=== PATIENT | female | born 1940 | race Caucasian/White ===

== ENCOUNTER 2017-06-08 17:20 | Inpatient (IN) | payer MEDICARE, OTHER ==
[2017-06-08 18:36] LABS: ANION GAP 12.5; CHLORIDE,CL 102 mmol/L (101-111); SODIUM,NA 139 mmol/L (135-145)
[2017-06-08] MEDS ORDERED: cefTRIAXone 1 GM Vial IVPUSH ONE (18:55)
--- NOTE | 2017-06-08 18:57 | EDM.PDOC ---
Scribed by Shawanda Westfall 06/08/17 [id number] for Rosendo Hinojosa MD ED HPI GENERAL MEDICAL PROBLEM - General Chief Complaint: Back Pain or Injury Stated Complaint: CAME BY AMBULANCE Time Seen by Provider: 06/08/17 17:25 Source of Information: Reports: Patient, EMS, EMS Notes Reviewed, RN, RN Notes Reviewed History Limitations: Reports: No Limitations - History of Present Illness INITIAL COMMENTS - FREE TEXT/NARRATIVE: Patient arrives from home by ambulance with complaint of severe generalized weakness and a flare up of chronic lowback pain without recent injury. Over the past few weeks patient has been getting progressively weaker. Today she could not get up from laying on the sofa and her could not get her up. Denies fever, chills, shortness of breath, chest pain, abdominal pain, headache, slurred speech or lateralizing neuro deficits. Admits to leaking urine. Unsure if any dark or black stool.s Location: Reports: Back Quality: Reports: Ache Severity: Severe Improves with: Reports: None Worsens with: Reports: None Associated Symptoms: Reports: No Other Symptoms Lower Back Pain Score (Numeric/FACES): 2 - Related Data Allergies Allergy/AdvReac Type Severity Reaction Status Date / Time shellfish derived Allergy Diarrhea Verified 06/08/17 17:20 tape Allergy Blisters Uncoded 04/06/16 17:16 Home Meds: Home Meds Lisinopril 40 mg PO DAILY 12/07/14 [History] Metoprolol Succinate [Toprol XL] 200 mg PO DAILY 12/07/14 [History] Calcium Carbonate/Vitamin D3 [Calcium 600 + Vit D 200] 1 tab PO DAILY 11/06/15 [ History] Pyridoxine HCl [Vitamin B-6] 25 mg PO DAILY 04/06/16 [History] Diltiazem [Cardizem CD] 180 mg PO DAILY 04/09/16 [History] Hydrocodone/Acetaminophen [Hydrocodon-Acetaminophn 10-325] 1 tab PO Q4H PRN [History] Menthol/Methyl Salicylate [Icy Hot Cream] 1 gm TOP BID 04/09/16 [History] Warfarin [Coumadin] 5 mg PO DAILY@1400 #30 tablet 05/04/16 [Rx] Alendronate Sodium [Alendronate] 70 mg PO 06/08/17 [History] Aspirin [Adult Low Dose Aspirin EC] 1 tab PO DAILY 06/08/17 [History] Calcium Carbonate [Calcium] 600 mg PO 06/08/17 [History] DULoxetine HCl [Duloxetine HCl] 1 tab PO DAILY 06/08/17 [History] Diltiazem HCl [Diltiazem 24Hr ER] 1 tab PO DAILY 06/08/17 [History] Letrozole [Letrozole] 1 tab PO DAILY 06/08/17 [History] Lidocaine/Prilocaine [EMLA Crm] 1 applic TOP ONETIME PRN 06/08/17 [History] Lisinopril 1 tab PO DAILY 06/08/17 [History] Naproxen 1 tab PO DAILY PRN 06/08/17 [History] Past Medical History HEENT History: Reports: Cataract, Epistaxis (anterior), Impaired Vision Other HEENT History: wears glasses Cardiovascular History: Reports: Afib, High Cholesterol, Hypertension, Other ( See Below) Other Cardiovascular History: At fib is new onset discovered today at the clinic Respiratory History: Reports: None Gastrointestinal History: Reports: Colon Polyp, Irritable Bowel Syndrome Genitourinary History: Reports: Urinary Incontinence, UTI, Recurrent, Other ( See Below) Other Genitourinary History: leaking 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 Fracture of fibula.) Other Musculoskeletal History: Right fibula fx 04-06-16 Neurological History: Reports: None Psychiatric History: Reports: None Endocrine/Metabolic History: Reports: Obesity/BMI 30+, Other (See Below) (pre diabetes) Hematologic History: Reports: None (potassium in blood.), Anticoagulation Therapy, Other (See Below) Immunologic History: Reports: None Oncologic (Cancer) History: Reports: Breast (malignant neoplasm overlapping sites of right breast.) Dermatologic History: Reports: None, Other (See Below) Other Dermatologic History: does have some reddness and blisters by the port on right upper shoulder - Infectious Disease History Infectious Disease History: Reports: Chicken Pox, Measles, Mumps - Past Surgical History HEENT Surgical History: Reports: Cataract Surgery Social & Family History - Family History Family Medical History: Noncontributory - Tobacco Use Smoking Status *Q: Former Smoker Years of Tobacco use: 20 Packs/Tins Daily: 1 Used Tobacco, but Quit: Yes Month Tobacco Last Used: unknown Second Hand Smoke Exposure: No - Caffeine Use Caffeine Use: Reports: Coffee - Recreational Drug Use Recreational Drug Use: No - Living Situation & Occupation Living situation: Reports: with Family Occupation: Retired ED ROS GENERAL - Review of Systems Review Of Systems: ROS reveals no pertinent complaints other than HPI. ED EXAM,LOWER BACK PAIN/INJURY - Physical Exam Exam: See Below Exam Limited By: No Limitations General Appearance: Obese Eye Exam: Bilateral Eye: Normal Inspection Ears: Normal External Exam, Normal Canal, Hearing Grossly Normal, Normal TMs Nose: Normal Inspection, Normal Mucosa, No Blood Throat/Mouth: Other (dry oral membranes) Head: Atraumatic, Normocephalic Neck: Normal Inspection, Supple, Non-Tender, Full Range of Motion Respiratory/Chest: Decreased Breath Sounds (in bilateral bases.) Cardiovascular: Irregularly Irregular GI/Abdominal: Other (benign obese) (Female) Exam: Deferred Rectal (Female) Exam: Deferred Back Exam: Normal Inspection, Full Range of Motion, NT Extremities: Normal Inspection, Normal Range of Motion, Non-Tender, No Pedal Edema, Normal Capillary Refill Neurological: Other (generalized weakness) Psychiatric: Normal Affect, Normal Mood Skin Exam: Warm, Dry, Intact, Other (pallor) Course - Vital Signs Last Recorded V/S: Last Vital Signs Temp 36.2 C 06/08/17 17:15 Pulse 69 06/08/17 17:15 Resp 16 06/08/17 17:15 BP 116/86 06/08/17 17:20 Pulse Ox 98 06/08/17 17:15 - Orders/Labs/Meds Orders: Active Orders 24 hr Category Date Time Status Peripheral IV Care [RC] . DIRECTED Care 06/08/17 17:57 Active CULTURE URINE [RM] Stat Lab 06/08/17 18:53 Ordered Sodium Chloride 0.9% [Saline Flush] Med 06/08/17 17:56 Active 10 ml FLUSH ASDIRECTED PRN cefTRIAXone [Rocephin] Med 06/08/17 18:55 Once 1 gm IVPUSH ONETIME ONE Peripheral IV Insertion Adult [OM.PC] Stat Oth 06/08/17 17:56 Ordered Medication Orders Sodium Chloride (Saline Flush) 10 ml FLUSH ASDIRECTED PRN PRN Reason: Keep Vein Open Labs: Laboratory Tests 06/08/17 06/08/17 06/08/17 Range/Units 18:10 18:10 18:10 WBC 11.1 H (5.0-10.0) 10^3/uL RBC 4.86 (4.2-5.4) 10^6/uL Hgb 14.3 D (12.0-16.0) g/dL Hct 43.9 (37.0-47.0) % MCV 90.3 D (80-100) fL MCH 29.4 (27.0-34.0) pg MCHC 32.6 L (33.0-35.0) g/dL Plt Count 223 (150-450) 10^3/uL Neut % (Auto) 65.3 (42.2-75.2) % Lymph % (Auto) 18.2 L (20.5-50.1) % [place] % (Auto) 14.9 H (2-8) % Eos % (Auto) 1.3 (1.0-3.0) % Baso % (Auto) 0.3 (0.0-1.0) % PT 24.1 H (9.0-12.0) SEC INR 2.4 H (0.9-1.2) Sodium 139 (135-145) mmol/L Potassium 3.5 L (3.6-5.0) mmol/L Chloride 102 (101-111) mmol/L Carbon Dioxide 28.0 (21.0-31.0) mmol/L Anion Gap 12.5 BUN 15 (7-18) mg/dL Creatinine 0.8 (0.6-1.3) mg/dL Est Cr Clr Drug Dosing 54.25 mL/min Estimated GFR (MDRD) > 60 BUN/Creatinine Ratio 18.75 Glucose 113 H (74-105) mg/dL Calcium 9.0 (8.4-10.2) mg/dl Total Bilirubin 1.0 (0.2-1.0) mg/dL AST 26 (10-42) IU/L ALT 25 (10-60) IU/L Alkaline Phosphatase 69 (42-121) IU/L Creatine Kinase 58 (26-174) IU/L Total Protein 7.4 (6.7-8.2) g/dl Albumin 3.6 (3.2-5.5) g/dl Globulin 3.8 Albumin/Globulin Ratio 0.95 Urine Color (YELLOW) Urine Appearance (CLEAR) Urine pH (5.0-9.0) Ur Specific Faber (1.005-1.030) Urine Protein (NEGATIVE) Urine Glucose (UA) (NEGATIVE) Urine Ketones (NEGATIVE) Urine Occult Blood (NEGATIVE) Urine Nitrite (NEGATIVE) Urine Bilirubin (NEGATIVE) Urine Urobilinogen (0.2-1.0) mg/dL Ur Leukocyte Esterase (NEGATIVE) Urine RBC /HPF Urine WBC (0-5/HPF) /HPF Ur Epithelial Cells /HPF Urine Bacteria (0-FEW/HPF) /HPF 06/08/17 Range/Units 18:25 WBC (5.0-10.0) 10^3/uL RBC (4.2-5.4) 10^6/uL Hgb (12.0-16.0) g/dL Hct (37.0-47.0) % MCV (80-100) fL MCH (27.0-34.0) pg MCHC (33.0-35.0) g/dL Plt Count (150-450) 10^3/uL Neut % (Auto) (42.2-75.2) % Lymph % (Auto) (20.5-50.1) % [place] % (Auto) (2-8) % Eos % (Auto) (1.0-3.0) % Baso % (Auto) (0.0-1.0) % PT (9.0-12.0) SEC INR (0.9-1.2) Sodium (135-145) mmol/L Potassium (3.6-5.0) mmol/L Chloride (101-111) mmol/L Carbon Dioxide (21.0-31.0) mmol/L Anion Gap BUN (7-18) mg/dL Creatinine (0.6-1.3) mg/dL Est Cr Clr Drug Dosing mL/min Estimated GFR (MDRD) BUN/Creatinine Ratio Glucose (74-105) mg/dL Calcium (8.4-10.2) mg/dl Total Bilirubin (0.2-1.0) mg/dL AST (10-42) IU/L ALT (10-60) IU/L Alkaline Phosphatase (42-121) IU/L Creatine Kinase (26-174) IU/L Total Protein (6.7-8.2) g/dl Albumin (3.2-5.5) g/dl Globulin Albumin/Globulin Ratio Urine Color Yellow (YELLOW) Urine Appearance Cloudy (CLEAR) Urine pH 5.5 (5.0-9.0) Ur Specific Faber 1.025 (1.005-1.030) Urine Protein Negative (NEGATIVE) Urine Glucose (UA) Negative (NEGATIVE) Urine Ketones Negative (NEGATIVE) Urine Occult Blood Small H (NEGATIVE) Urine Nitrite Positive H (NEGATIVE) Urine Bilirubin Negative (NEGATIVE) Urine Urobilinogen 0.2 (0.2-1.0) mg/dL Ur Leukocyte Esterase Small H (NEGATIVE) Urine RBC 5-10 H /HPF Urine WBC Semi-packed H (0-5/HPF) /HPF Ur Epithelial Cells Rare /HPF Urine Bacteria Many H (0-FEW/HPF) /HPF Hemoccult is negative. Meds: Medications Generic Name Dose Route Start Last Admin Trade Name Freq PRN Reason Stop Dose Admin Sodium Chloride 10 ml 06/08/17 17:56 Saline Flush FLUSH ASDIRECTED PRN Keep Vein Open Departure - Departure Time of Disposition: 18:48 (Admit to Dr. Cook) Disposition: Admitted As Inpatient 64 Condition: Fair Clinical Impression: Weakness, Morbid obesity Low back pain Qualifiers: Chronicity: acute Back pain laterality: unspecified Sciatica presence: with sciatica Sciatica laterality: sciatica laterality unspecified Qualified Code(s) : M54.40 - Lumbago with sciatica, unspecified side UTI (urinary tract infection) Qualifiers: Urinary tract infection type: site unspecified Hematuria presence: with hematuria Qualified Code(s): N39.0 - Urinary tract infection, site not specified ; R31.9 - Hematuria, unspecified; R31.9 - Hematuria, unspecified - Discharge Information Forms: ED Department Discharge - My Orders Last 24 Hours: My Active Orders 06/08/17 17:56 Sodium Chloride 0.9% [Saline Flush] 10 ml FLUSH ASDIRECTED PRN Peripheral IV Insertion Adult [OM.PC] Stat 06/08/17 17:57 Peripheral IV Care [RC] . DIRECTED 06/08/17 18:53 CULTURE URINE [RM] Stat 06/08/17 18:55 cefTRIAXone [Rocephin] 1 gm IVPUSH ONETIME ONE - Assessment/Plan Last 24 Hours: My Active Orders 06/08/17 17:56 Sodium Chloride 0.9% [Saline Flush] 10 ml FLUSH ASDIRECTED PRN Peripheral IV Insertion Adult [OM.PC] Stat 06/08/17 17:57 Peripheral IV Care [RC] . DIRECTED 06/08/17 18:53 CULTURE URINE [RM] Stat 06/08/17 18:55 cefTRIAXone [Rocephin] 1 gm IVPUSH ONETIME ONE I have read and agree with the documentation that has been completed regarding this visit. By signing this record, I attest that the documentation was completed in my physical presence and is an accurate record of the encounter.
[2017-06-08] MEDS: Sodium Chloride 0.9% 10 ML Syringe FLUSH PRN (19:05)
[2017-06-08] MEDS ORDERED: Acetaminophen/HYDROcodone 325-10 MG Tab PO PRN (20:53)
[2017-06-08] MEDS ORDERED: Naproxen 500 MG Tab PO PRN (21:45)
[2017-06-08] MEDS ORDERED: Lidocaine/Prilocaine 2.5-2.5% Crm 5 GM Tube TOP PRN (21:45)
[2017-06-08] MEDS: Menthol/Methyl Salicylate 85 GM Tube TOP SCH (22:19)
[2017-06-09] MEDS: Diltiazem 240 MG Cap.CD PO SCH (08:52)
[2017-06-09] MEDS: Calcium Carbonate 500 MG Tab.Chew PO SCH (08:52)
[2017-06-09] MEDS: DULoxetine 30 MG Cap PO SCH (08:52)
[2017-06-09] MEDS: Lisinopril 20 MG Tab PO SCH (08:52)
[2017-06-09] MEDS: Metoprolol Succinate 50 MG Tab.ER PO SCH (08:53)
[2017-06-09] MEDS: Menthol/Methyl Salicylate 85 GM Tube TOP SCH ×2 (08:53→20:20)
[2017-06-09] MEDS: Magnesium Hydroxide 400 MG/5 ML Susp 30 ML Cup PO SCH (13:12)
[2017-06-09] MEDS ORDERED: Warfarin 5 MG Tab PO ONE (14:00)
--- NOTE | 2017-06-09 16:26 | HP ---
HISTORY OF PRESENT ILLNESS: Ms. Haley is a 76-year-old female, admitted here because of generalized weakness. The patient actually is really not ambulating at home. She gets around using an electric power chair; however, today her legs collapsed and her not able to pull her back up. Actually this has been going on intermittently for quite a while that they needed help from their next door neighbors. The patient has chronic low back pain, however, with no recent falls or injury. Brief review of clinic records, MRI done last month showed chronic disc degeneration and mild stenosis. She denies any changes on her bowel or bladder habits. She is intermittently constipated; her last bowel movement was yesterday. Her needed to disimpact her occasionally. Currently, denies any signs of infection, fever, chills, shortness of breath, or chest pain. No dysuria. However, urinalysis on emergency room showed findings suggestive of urinary tract infection. The patient has atrial fibrillation, but denies any palpitations or dizziness. No focal deficits. PAST MEDICAL HISTORY: Hypertension, dyslipidemia, diverticulosis, history of breast cancer, prediabetes, osteopenia, stroke, and atrial fibrillation, on anticoagulation. PAST SURGICAL HISTORY: Mastectomy, tonsillectomy, appendectomy, hysterectomy, elbow fracture surgery, colonoscopy, ankle surgery. FAMILY HISTORY: Alzheimer's in the mom and stroke in the father. Breast cancer in maternal grandmother. SOCIAL HISTORY: The patient lives at home with her , who is her caregiver. She has 3 kids. MEDICATIONS: Reviewed. ALLERGIES: reviewed REVIEW OF SYSTEMS: Ten systems reviewed and were negative except for those mentioned above. LABORATORY DATA: WBC 11.1, hemoglobin 14.3, platelets 223. INR 2.4. Sodium 139, potassium 3.5, chloride 102, creatinine 0.8, GFR more than 60, glucose 113, calcium 9.0, magnesium 1.9. Aminotransferase is normal. Urinalysis showed semi - packed urine wbc with small leukocyte esterase and rare epithelial cells. PHYSICAL EXAM: Vital signs: reviewed GENERAL APPEARANCE: not in distress, awake, alert HEAD: normocephalic EYES: anicteric, full EOMS Chest: symmetric chest expansion LUNGS: Bilateral air entry CVS: regular rate, no murmurs appreciated ABDOMEN: soft, normoactive bowel sounds, no tenderness EXTREMITIES: no edema NEUROLOGIC: awake, oriented to three spheres ASSESSMENT AND PLAN: General weakness, can be multifactorial from the debility as patient has not been that ambulatory versus an underlying urinary tract infection. She was already given ceftriaxone at the emergency room given at 6: 55. We will continue this pending urine culture. We will continue her antihypertensives. Currently, she remains hemodynamically stable. We will have Physical Therapy and Occupational Therapy work on her for strengthening and ambulation. Subsequently, verbalized that he might not be able to care for her anymore looking into placement. We will have our sample case porter, social work nurse to take a look at this. We will continue to follow patient in Medical- Surgical bed. CODE STATUS: Full code. [facility] /[id number] MTDChristie
[2017-06-09] MEDS: LETROZOLE PO SCH (17:37)
[2017-06-09] MEDS: cefTRIAXone 1 GM Vial IVPUSH SCH (17:57)
--- NOTE | 2017-06-10 07:18 | PN ---
DATE: 06/09/2017 SUBJECTIVE: Ms. Haley feels better today. Occupational Therapy and Physical Therapy were there and she is not able to really stand that long. She had problems with constipation, we have started her on milk of magnesia. Last bowel movement was yesterday. Otherwise, tolerating meals. No chest pain, shortness of breath, fever, or chills. OBJECTIVE: Vital Signs: Blood pressure 142/71, heart rate of 71 beats per minute, respirations 20 breaths per minute, oxygen saturation 92%, temperature 98.4. General Appearance: Awake, in distress. Chest: Symmetric chest expansion. Lungs: Bilateral air entry. CVS: Regular rate and rhythm. Abdomen: Soft. Normoactive bowel sounds. Extremities: No edema. Good pulses. LABORATORY DATA: INR is 2.5. ASSESSMENT AND PLAN: Weakness, can be multifactorial. Again, we will continue to work with therapy. has verbalized that he may not be able to take care of her anymore and might need to be placed. Continue with Rocephin for the findings suggestive of urinary tract infection. Awaiting urine culture. Her INR is therapeutic today. Apparently, she took her dose of warfarin from her own pill box, she was advised that nurses usually administer this while inpatient. We will continue to follow INR daily. We will continue to follow the patient in the medical-surgical bed. [facility] /[id number] MTDD
[2017-06-10] MEDS: Magnesium Hydroxide 400 MG/5 ML Susp 30 ML Cup PO SCH (08:58)
[2017-06-10] MEDS: DULoxetine 30 MG Cap PO SCH (08:59)
[2017-06-10] MEDS: Calcium Carbonate 500 MG Tab.Chew PO SCH (08:59)
[2017-06-10] MEDS: Diltiazem 240 MG Cap.CD PO SCH (08:59)
[2017-06-10] MEDS: Metoprolol Succinate 50 MG Tab.ER PO SCH (08:59)
[2017-06-10] MEDS: LETROZOLE PO SCH (08:59)
[2017-06-10] MEDS: Lisinopril 20 MG Tab PO SCH (08:59)
[2017-06-10] MEDS: Menthol/Methyl Salicylate 85 GM Tube TOP SCH ×2 (09:00→20:48)
[2017-06-10] MEDS ORDERED: Warfarin 5 MG Tab PO ONE (14:00)
[2017-06-10] MEDS ORDERED: Acetaminophen/HYDROcodone 325-5 MG Tab PO PRN (15:10)
[2017-06-10] MEDS ORDERED: Ondansetron 4 MG/2 ML SDV IV PRN (16:09)
[2017-06-10] MEDS ORDERED: Furosemide 20 MG/2 ML VIAL IVPUSH ONE (17:41)
[2017-06-10] MEDS: cefTRIAXone 1 GM Vial IVPUSH SCH (17:49)
[2017-06-11] MEDS: DULoxetine 30 MG Cap PO SCH (08:44)
[2017-06-11] MEDS: Magnesium Hydroxide 400 MG/5 ML Susp 30 ML Cup PO SCH (08:44)
[2017-06-11] MEDS: Lisinopril 20 MG Tab PO SCH (08:44)
[2017-06-11] MEDS: Diltiazem 240 MG Cap.CD PO SCH (08:44)
[2017-06-11] MEDS: Metoprolol Succinate 50 MG Tab.ER PO SCH (08:46)
[2017-06-11] MEDS: Calcium Carbonate 500 MG Tab.Chew PO SCH (08:47)
[2017-06-11] MEDS: Menthol/Methyl Salicylate 85 GM Tube TOP SCH ×2 (08:49→20:59)
[2017-06-11] MEDS: LETROZOLE PO SCH (08:50)
[2017-06-11] MEDS ORDERED: Warfarin 2.5 MG Tab PO ONE (14:00)
[2017-06-11] MEDS: cefTRIAXone 1 GM Vial IVPUSH SCH (17:33)
[2017-06-11] MEDS: Sodium Chloride 0.9% 10 ML Syringe FLUSH PRN (17:33)
[2017-06-12] MEDS ORDERED: ALENDRONATE SODIUM 70 MG PO SCH (06:00)
[2017-06-12] MEDS: Calcium Carbonate 500 MG Tab.Chew PO SCH (10:09)
[2017-06-12] MEDS: Metoprolol Succinate 50 MG Tab.ER PO SCH (10:10)
[2017-06-12] MEDS: Lisinopril 20 MG Tab PO SCH (10:11)
[2017-06-12] MEDS: DULoxetine 30 MG Cap PO SCH (10:11)
[2017-06-12] MEDS: Menthol/Methyl Salicylate 85 GM Tube TOP SCH ×2 (10:12→20:22)
[2017-06-12] MEDS: Diltiazem 240 MG Cap.CD PO SCH (10:12)
[2017-06-12] MEDS: Magnesium Hydroxide 400 MG/5 ML Susp 30 ML Cup PO SCH (10:13)
[2017-06-12] MEDS: LETROZOLE PO SCH (10:14)
[2017-06-12] MEDS ORDERED: Warfarin 2.5 MG Tab PO ONE (14:00)
[2017-06-12] MEDS: cefTRIAXone 1 GM Vial IVPUSH SCH (18:11)
[2017-06-13] MEDS: Lisinopril 20 MG Tab PO SCH (08:42)
[2017-06-13] MEDS: Diltiazem 240 MG Cap.CD PO SCH (08:42)
[2017-06-13] MEDS: Magnesium Hydroxide 400 MG/5 ML Susp 30 ML Cup PO SCH (08:42)
[2017-06-13] MEDS: Metoprolol Succinate 50 MG Tab.ER PO SCH (08:42)
[2017-06-13] MEDS: Calcium Carbonate 500 MG Tab.Chew PO SCH ×2 (08:43→08:46)
[2017-06-13] MEDS: DULoxetine 30 MG Cap PO SCH (08:43)
[2017-06-13] MEDS: Menthol/Methyl Salicylate 85 GM Tube TOP SCH (08:44)
[2017-06-13] MEDS: LETROZOLE PO SCH (08:45)
[2017-06-13] MEDS ORDERED: Magnesium Hydroxide 400 MG/5 ML Susp 30 ML Cup PO PRN (11:35)
[2017-06-13] MEDS ORDERED: Menthol/Methyl Salicylate 85 GM Tube TOP PRN (11:35)
[2017-06-13] MEDS ORDERED: Calcium Carbonate 500 MG Tab.Chew PO PRN (11:35)
[2017-06-13] MEDS ORDERED: Warfarin 2.5 MG Tab PO ONE (14:00)
[2017-06-13] MEDS: cefTRIAXone 1 GM Vial IVPUSH SCH (17:46)
[2017-06-13] MEDS: Sodium Chloride 0.9% 10 ML Syringe FLUSH PRN (17:49)
[2017-06-14] MEDS ORDERED: cefTRIAXone 1 GM Vial IVPUSH ONE (06:00)
[2017-06-14] MEDS: Sodium Chloride 0.9% 10 ML Syringe FLUSH PRN (06:23)
--- NOTE | 2017-06-14 07:53 | PN ---
DATE: 06/11/2017 SUBJECTIVE: Ms. Haley is a 76-year-old lady with multiple medical problems. She was brought in from home following multiple falls and general decline. On exam yesterday, she had been somewhat lethargic, and additional lab work and x- rays were obtained. Repeat labs included a lactic acid which was normal at 1.0. Troponin was negative at 0.02. BNP was slightly elevated at 331. A single-view chest x-ray was obtained and showed mild pulmonary venous congestion. There was moderate enlargement of the cardiac silhouette, most likely representing cardiomegaly. No acute infiltrate or consolidation was seen. An MRI of the brain was performed yesterday and compared to a CT scan of the head performed on May 09. That CT scan of the head showed microvascular ischemic changes and severe symmetric atrophy. The MRI showed moderate amount of changes in the white matter consistent with chronic small vessel ischemic changes. There was no evidence for any new acute infarction or other acute process. She had been given 20 mg of IV Lasix following the findings on the chest x-ray and had a vigorous overnight diuresis. OBJECTIVE: General: On exam today, there is an obvious change in her. She seems more alert and awake. She still remains confused with poor short-term memory, but there is an improvement. Vital Signs: Blood pressure 155/71, pulse 78, respiratory rate 20, oxygen saturation 91% on room air, temperature is 99.0. HEENT: Unremarkable. ENT was clear. Chest: Showed improved bilateral air movement anteriorly and posteriorly. Heart: Showed regular rate and rhythm. Abdomen: Soft, obese, benign. Neuro: Neurologically without change. She still has not had bowel movement and we are using p.r.n. medications for this at this time. If necessary, we will try suppositories and a Mini enema as needed. No other changes are made today. [facility] /[id number] MTDD
--- NOTE | 2017-06-14 07:59 | PN ---
DATE: 06/12/2017 SUBJECTIVE: Mrs. Haley has been seen and evaluated by Physical Therapy. They feel that she can benefit from continued therapy. The current plan is to seek placement at the [facility]; she will be admitted there on June 14. We will place orders for ongoing PT, OT evaluation and treatment at the [facility]. Siri still has not moved her bowels and we continue to use p.r.n. medications for this. Her abdomen is not distended. There are no hyperactive bowel sounds. She is passing gas. Review of her clinical data shows she is taking adequate fluids. She is voiding well. We had put a Rodrigues catheter in for the diuresis, and the Rodrigues catheter will be removed. Appetite remains fairly good. She is tolerating her diet. Labs; INR yesterday was 1.5 and 1.7 today, and Pharmacy continues to dose the Coumadin. OBJECTIVE: General: On exam today, she is in her recliner. She is looking somewhat better, more alert. She is more verbal, still confused, but participates. Vital Signs: Blood pressure 153/68, pulse 80, respiratory rate 20, oxygen saturation 99% on 2 L, and she is afebrile. HEENT: Unremarkable. ENT was clear. Chest: Showed improved bilateral air movement. Heart: Showed regular rate and rhythm. Abdomen: Obese and benign. Neuro: Neurologically, unchanged. ASSESSMENT AND PLAN: We will continue the present management. We are waiting placement on June 14 at [facility]. No other changes are made today. [facility] /[id number] MTDD
--- NOTE | 2017-06-14 08:05 | PN ---
DATE: 06/13/2017 SUBJECTIVE: Mrs. Haley remains hemodynamically, neurologically unchanged. She has been constipated and finally last evening had 3 very large bowel movements. Review of her clinical data shows that her vital signs are stable and she remains afebrile. Blood pressure has improved following the diuresis. Appetite is good. She is tolerating her meals. Labs; INR today is 2.1. Pharmacy will dose the warfarin. We spoke with Siri's , Kale. He does feel that she is somewhat better, but also states that her short-term memory remains very poor. He has told her multiple times that she is going to the alf tomorrow, but she still forgets and asks when she is going home. He has not changed his mind, and we will be admitting her to [facility] tomorrow. OBJECTIVE: General: On exam today, she is seated comfortably in her recliner. She is in good spirits. She participates in her limited way. She denied any chest pain, shortness of breath, abdominal pain, or any other symptoms of concern. Staff is using full body lift for transfers. Vital Signs: Blood pressure 130/80, pulse 68, respiratory rate 20, oxygen saturation 96% on 1 L, and she is afebrile. HEENT: Unremarkable. ENT was clear. Chest: Showed improved bilateral air movement. Heart: Showed regular rate and rhythm. Abdomen: Obese, soft, and benign. Extremities: Showed chronic lower extremity edema. Neuro: Neurologically, unchanged. Rodrigues catheter has been removed, and she is voiding well without the catheter. The current plan is for discharge to [facility] tomorrow. We will review her orders and medications. No other changes are made in her care today. [facility] /[id number] CHARITO
--- NOTE | 2017-06-14 08:26 | PN ---
DATE: 06/10/2017 SUBJECTIVE: Mrs. Haley is a 76-year-old lady brought in from home where she lives with her . Past medical history includes moderate cerebral vascular disease; breast cancer; diverticulosis; atrial fibrillation, on chronic anticoagulation. She was admitted from home following multiple falls and generalized weakness. Her has been caring for at home, but feels that he no longer can care for her safely. Review of her clinical data shows that she is taking fluids. She is voiding. She has not moved her bowels in several days, and today, we will check her bowel regimen. Appetite is good. She is tolerating her diet. LABORATORY DATA: Lab work performed today included a repeat white count which was 10.5, hemoglobin and hematocrit were stable at 13.5 and 41.5, platelets were normal. INR today is 2, and Coumadin is being dosed by Pharmacy. A review of her vital signs shows vital signs to be relatively stable. Systolic blood pressures are running in the 140s to 150s. She has been afebrile but has had minor low-grade temperature of 99.9. Oxygen saturations are above 90% on room air. PHYSICAL EXAMINATION: General: She is in bed. Her , Kale, is present. She is rather lethargic and really does not follow conversation or participate in a meaningful way. Short-term memory is poor. Vital Signs: Blood pressure is 146/73, pulse 72, respiratory rate 20, and oxygen saturation is 93% on room air. She is afebrile. HEENT: Unremarkable ENT. Chest: Showed diminished bilateral breath sounds with faint basilar crackles. Heart: Showed regular rate and rhythm. Abdomen: Obese and benign. Extremities: Showed chronic lower extremity edema. Neurologic: Motor strength was weak. Musculoskeletal: Muscle tone was poor. PLAN: Her lab work from time of admission was reviewed, and it was noted that she appeared to have a UTI with semi-packed white blood cells and many bacteria. Preliminary urine culture shows E. coli, but final ID and sensitivity appear to be still pending. Additional lab work has been ordered including a lactic acid, troponin, and a BMP to see if we can further clarify what is going on with her. I also spoke to her about getting an MRI of the brain. We will also obtain a new chest x-ray to rule out the possibility of a pneumonia. We will base management changes on the results of these tests. No other changes are made. [facility] /[id number] CHARITO
[2017-06-14] MEDS: DULoxetine 30 MG Cap PO SCH (10:02)
[2017-06-14] MEDS: Diltiazem 240 MG Cap.CD PO SCH (10:02)
[2017-06-14] MEDS: Lisinopril 20 MG Tab PO SCH (10:03)
[2017-06-14] MEDS: Metoprolol Succinate 50 MG Tab.ER PO SCH (10:03)
[2017-06-14] MEDS: LETROZOLE PO SCH (10:05)
[2017-06-14 10:46] VITALS: BP 162/74
[2017-06-14] MEDS ORDERED: Warfarin 2.5 MG Tab PO ONE (11:00)
--- NOTE | 2017-07-20 02:51 | DISCH ---
DISCHARGE DIAGNOSES: 1. Cerebrovascular disease, moderate. 2. Dementia, microvascular. 3. Generalized debility and weakness with impaired ability to perform ADLs and to ambulate. 4. Atrial fibrillation, on chronic anticoagulation. 5. Breast cancer, on Letrozole. 6. Urinary tract infection, Escherichia coli. 7. Cardiomegaly with mild pulmonary venous congestion by chest x-ray. 8. Constipation. 9. Multiple falls at home. 10.[id number] back pain. Recent MRI shows degenerative disease of the lumbosacral spine with mild stenosis. BRIEF HISTORY OF PRESENT ILLNESS: Mrs. Haley is a 76-year-old lady, who was brought in from home where she lives with her . She was admitted from home following multiple falls and generalized weakness. Her had been caring for her at home, but feels he can no longer care for her safely. She is no longer ambulating. She had been getting around the house in an electric power chair, but on the day of admission, her legs gave out. She fell and her was not able to get her back up. Recent MRI of the spine showed chronic disk degeneration and mild stenosis. She was seen in the ER and evaluated and was admitted for further management. PERTINENT LABS AND X-RAYS: CBC on day of admission showed a white count of 11,000, hemoglobin and hematocrit of 14.3 and 43.9, platelets are 223,000. Chemistries were essentially unremarkable. Potassium was slightly decreased at 3.5, BUN and creatinine of 15 and 0.8 with a GFR of more than 60. Nonfasting blood sugar was 113. LFTs were unremarkable. Troponin was negative at less than 0.02. BNP was mildly elevated at 331, and on recheck before discharge was 419. Urinalysis showed the presence of a urinary tract infection with semi-packed white blood cells and many bacteria. Mrs. Haley is on chronic Coumadin anticoagulation and her INR was followed on a daily basis and remained in therapeutic range (2.0 to 3.0). Two sets of blood cultures remained without growth after 5 days. A urine culture was positive for E. coli which was sensitive to all antibiotics tested. One sample of stool for occult blood was negative. A single-view chest x-ray was taken on 06/10 when she experienced some shortness of breath and a slight increase in her BNP. Chest x-ray showed mild vascular congestion with moderate enlargement of the cardiac silhouette, most likely representing cardiomegaly. An MRI of the brain without contrast was obtained because of her altered mental status and memory loss. There was no evidence for an acute process or acute infarct. There was moderate chronic small-vessel ischemic changes throughout the white matter. HOSPITAL COURSE: Mrs. Haley was admitted as an acute inpatient. She was seen and evaluated by Physical and Occupational Therapy. She was started on ceftriaxone 1 g IV every 24 hours for the urinary tract infection while we awaited cultures. Her Coumadin was continued and dosed by pharmacy. Following the findings on a chest x-ray of mild pulmonary venous congestion as well as some shortness of breath, she was given 20 mg of IV Lasix and had a vigorous overnight diuresis. Rodrigues catheter had been temporarily placed because of her inability to move and get up easily to get to the bathroom. Her back pain precluded using a bedside commode and when given the choice, she requested the catheter over the commode. She did have some issues with constipation and had been using p.r.n. medications for this at home. We tried rectal suppositories to help with this. Mrs. Haley was seen, evaluated by Physical and Occupational Therapy and they felt that she could benefit from continued therapy and we will make referrals for ongoing management when she is at [facility]. Mr. Haley felt that his was doing somewhat better, but her short-term memory remains very poor. He told her multiple times that she will be going to the senior care on the day of discharge, but she forgets and then asks him when she is going home. He has not changed his mind and feels that admission to the senior care is the correct thing for them at this time. Review of her clinical data shows that she took adequate fluids. She was voiding. She eventually started moving her bowels once we increased her bowel management. Rodrigues catheter was temporarily placed during the diuresis and this was removed prior to discharge. Her vital signs remained stable throughout admission and she remained afebrile. On the day of discharge, she is seated comfortably in her recliner. Vital Signs: Blood pressure was 146/81, pulse 77, respiratory rate 20, oxygen saturation 93% on room air, and she was afebrile. Height 5 feet 5 inches, weight 280 pounds 6.4 ounces. General: She is lying comfortably in bed. She denied any complaints. She denied any chest pain or shortness of breath. No abdominal pain. No calf or leg pain. She is pleasantly confused. HEENT: Unremarkable. There were no JVDs or bruits. No adenopathy. No thyromegaly. Chest: Showed improved bilateral air movement following diuresis. Heart: Showed regular rate and rhythm. Abdomen: Obese, soft, benign with normal bowel sounds. Extremities: Showed chronic lower extremity edema. Calves were soft and nontender. There was no cellulitis. Neurological: There were no gross motor or sensory deficits. Motor strength was weak and muscle tone was poor. She will be discharged to [facility] today in stable condition. She will continue working with Physical and Occupational Therapy. DISCHARGE MEDICATIONS: 1. Alendronate 70 mg weekly. 2. Calcium carbonate 500 mg t.i.d. p.r.n. 3. Calcium citrate with vitamin D one tablet daily. 4. Diltiazem 240 mg daily. 5. Duloxetine 30 mg daily. 6. Furosemide 40 mg daily. 7. Letrozole 2.5 mg daily. 8. Lisinopril 40 mg daily. 9. Icy Hot applied topically twice a day. 10.Metoprolol succinate 200 mg daily. 11.Zofran ODT 4 mg every 4 hours p.r.n. 12.Potassium chloride 10 mEq daily. 13.Coumadin 5 mg daily. ALLERGIES: She has no known drug allergies, but has allergies to shellfish and to tape. CONDITION AT THE TIME OF DISCHARGE: Improved and stable, but she remains confused with poor memory. CODE STATUS: During this admission was full code. [facility] /[id number] MTDD
== END 2017-06-14 12:40 | DRG 948 ==
LOC: DL.ED 17:20 → DL.MS 19:43 → UNDOADMOB 19:43 → DL.MS 20:51 → OBSVTOIN 20:51
PROVIDERS: ADMIT Internal Medicine; ATTEND Internal Medicine
DX: R53.1 Weakness (principal); N39.0 Urinary tract infection, site not specified; M54.40 Lumbago with sciatica, unspecified side; R31.9 Hematuria, unspecified; Z68.42 Body mass index [BMI] 45.0-49.9, adult; B96.20 Unspecified Escherichia coli [E. coli] as the cause of diseases classified elsewhere; E78.00 Pure hypercholesterolemia, unspecified; I48.91 Unspecified atrial fibrillation; E78.5 Hyperlipidemia, unspecified; I10 Essential (primary) hypertension; R32 Unspecified urinary incontinence; G89.29 Other chronic pain; M54.5 Low back pain; M19.90 Unspecified osteoarthritis, unspecified site; M79.7 Fibromyalgia; E66.01 Morbid (severe) obesity due to excess calories; H54.7 Unspecified visual loss; Z87.891 Personal history of nicotine dependence; Z91.013 Allergy to seafood; Z91.048 Other nonmedicinal substance allergy status; Z79.01 Long term (current) use of anticoagulants; Z79.82 Long term (current) use of aspirin; Z79.899 Other long term (current) drug therapy
CPT/HCPCS: 36415; 80053; 81001; 82272; 82550; 83735; 85025; 85610; 87086; 87088; 87186; 96374; 99285; J0696; J7050; 51702; 70551; 71010; 83605; 83880; 84484; 85027; 87040; 97162-GP; 97166-GO; 97530-GO; 97530-GP; A9270-GY; J1940; J2405

== ENCOUNTER 2019-08-08 11:54 | Inpatient (IN) | payer MEDICARE, OTHER ==
--- NOTE | 2019-08-08 13:10 | EDM.PDOC ---
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 The patient was seen by wound care on Tuesday and started on Doxycycline for a cellulitis in her lower legs. prison staff reports the patient's legs have been getting more swollen and had increased weeping over the past 3 days. The patient's dressings are supposed to be changed daily. During the visit, the patient's dressings were removed. The dressings were soiled with drainage, but there was no specific area with increased drainage. The patient has a history of breast cancer ( treated with radiation). The radiation treatment resulted in heart damage and the patient has had increased lower extremity swelling since that time. Onset: Unknown/Unsure Duration: Day(s):, Constant, Getting Worse Location: Reports: Lower Extremity, Left, Lower Extremity, Right, Generalized Quality: Reports: Other Severity: Moderate Improves with: Reports: None Worsens with: Reports: None Context: Reports: Other Associated Symptoms: Reports: No Other Symptoms - Related Data Allergies Allergy/AdvReac Type Severity Reaction Status Date / Time shellfish derived Allergy Diarrhea Verified 08/08/19 12:02 tape Allergy Blisters Uncoded 08/08/19 12:02 Home Meds: Home Meds Metoprolol Succinate [Toprol XL] 200 mg PO DAILY 12/07/14 [History] Menthol/Methyl Salicylate [Icy Hot Cream] 1 applic TOP BID 04/09/16 [History] Alendronate Sodium [Alendronate] 70 mg PO WEEKLY 06/08/17 [History] DULoxetine HCl [Duloxetine HCl] 30 mg PO DAILY 06/08/17 [History] Letrozole 2.5 mg PO DAILY 06/08/17 [History] Lisinopril 40 mg PO DAILY 06/08/17 [History] dilTIAZem HCl [Diltiazem 24Hr ER (Cd)] 240 mg PO DAILY 06/08/17 [History] Calcium Carbonate [Tums] 500 mg PO TID PRN 06/14/17 [History] Calcium Citrate/Vitamin D3 [Calcium Citrate - Vit D3 Tab] 1 tab PO DAILY [History] Furosemide 20 mg PO DAILY 06/14/17 [History] Ondansetron [Zofran ODT] 4 mg PO Q4H PRN 06/14/17 [History] Potassium Chloride [Klor-Con 10] 10 meq PO DAILY 06/14/17 [History] Warfarin [Coumadin] 5 mg PO DAILY 06/14/17 [History] Acetaminophen 650 mg PO BID 08/08/19 [History] Arginine/Ascorbate Sod/Fredy AC [Arginaid Powder] 8 oz PO BID 08/08/19 [History] Bumetanide [Bumex] 2 mg PO BID 08/08/19 [History] Doxycycline [Doxycycline Hyclate] 100 mg PO BID 08/08/19 [History] Warfarin [Coumadin] 4 mg PO ASDIRECTED 08/08/19 [History] metFORMIN [Glucophage XR] 500 mg PO DAILY 08/08/19 [History] Past Medical History HEENT History: Reports: Cataract, Epistaxis, Impaired Vision Other HEENT History: wears glasses Cardiovascular History: Reports: Afib, Heart Failure, High Cholesterol, Hypertension, Other (See Below) Other Cardiovascular History: At fib is new onset discovered today at the clinic Respiratory History: Reports: Bronchitis, Recurrent Gastrointestinal History: Reports: Colon Polyp, Irritable Bowel Syndrome Genitourinary History: Reports: Urinary Incontinence, UTI, Recurrent, Other ( See Below) Other Genitourinary History: leaking [employer] History: Reports: Musculoskeletal History: Reports: Back Pain, Chronic, Fracture, Fibromyalgia, Osteoarthritis, Other (See Below) Other Musculoskeletal History: Right fibula fx 04-06-16 Neurological History: Reports: CVA, Other (See Below) Other Neuro History: Mild cognitive impairment Psychiatric History: Reports: Depression Endocrine/Metabolic History: Reports: Hypokalemia, Obesity/BMI 30+, Other (See Below) Other Endocrine/Metabolic History: Abnormal glucose readings Hematologic History: Reports: Anticoagulation Therapy Immunologic History: Reports: None Oncologic (Cancer) History: Reports: Breast, Other (See Below) Other Oncologic History: right masectomy Dermatologic History: Reports: Cellulitis, Other (See Below) Other Dermatologic History: 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 - Infectious Disease History Infectious Disease History: Reports: Chicken Pox, Measles, Mumps - Past Surgical History HEENT Surgical History: Reports: Cataract Surgery Social & Family History - Family History Family Medical History: Noncontributory - Tobacco Use Smoking Status *Q: Never Smoker Second Hand Smoke Exposure: No - Caffeine Use Caffeine Use: Reports: Coffee - Recreational Drug Use Recreational Drug Use: No - Living Situation & Occupation Living situation: Reports: with Family Occupation: Retired Review of Systems - Review of Systems Review Of Systems: Comprehensive ROS is negative, except as noted in HPI. ED EXAM, GENERAL - Physical Exam Exam: See Below Exam Limited By: No Limitations General Appearance: Alert, WD/WN, Moderate Distress Eye Exam: Bilateral Eye: EOMI, Normal Inspection, PERRL Ears: Normal External Exam, Normal Canal, Hearing Grossly Normal, Normal TMs Nose: Normal Inspection, Normal Mucosa, No Blood Throat/Mouth: Normal Inspection, Normal Lips, Normal Teeth, Normal Gums, Normal Oropharynx, Normal Voice, No Airway Compromise Head: Atraumatic, Normocephalic Neck: Normal Inspection, Supple, Non-Tender, Full Range of Motion Respiratory/Chest: No Respiratory Distress, Lungs Clear, Normal Breath Sounds, No Accessory Muscle Use, Chest Non-Tender Cardiovascular: Normal Peripheral Pulses, Regular Rate, Rhythm, No Edema, No Gallop, No JVD, No Murmur, No Rub GI/Abdominal: Normal Bowel Sounds, Soft, Non-Tender, No Organomegaly, No Distention, No Abnormal Bruit, No Mass (Female) Exam: Deferred Rectal (Female) Exam: Deferred Back Exam: Normal Inspection, Full Range of Motion, NT Extremities: Pedal Edema, Increased Warmth, Redness Neurological: Alert, Oriented, CN II-XII Intact, Normal Cognition, Normal Gait, Normal Reflexes, No Motor/Sensory Deficits Psychiatric: Normal Affect, Normal Mood Skin Exam: Erythema, Increased Warmth Lymphatic: No Adenopathy Course - Vital Signs Last Recorded V/S: Last Vital Signs Temp 36.7 C 08/08/19 12:27 Pulse 79 08/08/19 12:27 Resp 20 08/08/19 12:27 BP 117/53 L 08/08/19 12:28 Pulse Ox 97 08/08/19 12:27 - Orders/Labs/Meds Orders: Active Orders 24 hr Category Date Time Status Admission Diagnosis [ADT] Stat ADT 08/08/19 13:35 Ordered Admission Status [Patient Status] [ADT] Routine ADT 08/08/19 13:35 Ordered CULTURE BLOOD [BC] Stat Lab 08/08/19 12:04 Ordered CULTURE BLOOD [BC] Stat Lab 08/08/19 12:04 Ordered VANCOmycin/Water for INJ (PEG) [VANCOmycin 1.5 GM/300 Med 08/08/19 14:00 Active ML Premix] 1.5 gm Premix Bag 1 bag IV ONETIME Blood Culture x2 Reflex Set [OM.PC] Stat Oth 08/08/19 12:04 Ordered Medication Orders Vancomycin HCl 1.5 gm/ Premix 300 mls @ 200 mls/hr IV ONETIME ONE Stop: 08/08/19 15:29 Labs: Laboratory Tests 08/08/19 08/08/19 08/08/19 Range/Units 12:40 12:40 12:40 WBC (5.0-10.0) 10^3/uL RBC (4.2-5.4) 10^6/uL Hgb (12.0-16.0) g/dL Hct (37.0-47.0) % MCV (80-100) fL MCH (27.0-34.0) pg MCHC (33.0-35.0) g/dL Plt Count (150-450) 10^3/uL Neut % (Auto) (42.2-75.2) % Lymph % (Auto) (20.5-50.1) % Erath % (Auto) (2-8) % Eos % (Auto) (1.0-3.0) % Baso % (Auto) (0.0-1.0) % PT 22.2 H (9.0-12.0) SEC INR 2.3 H (0.9-1.2) Sodium 136 (135-145) mmol/L Potassium 3.9 (3.6-5.0) mmol/L Chloride 97 L (101-111) mmol/L Carbon Dioxide 30.0 (21.0-31.0) mmol/L Anion Gap 12.9 BUN 24 H (7-18) mg/dL Creatinine 0.9 (0.6-1.3) mg/dL Est Cr Clr Drug Dosing 44.11 mL/min Estimated GFR (MDRD) > 60 BUN/Creatinine Ratio 26.66 Glucose 82 (74-105) mg/dL Lactic Acid 2.4 H* (0.5-2.0) mmol/L Calcium 9.1 (8.4-10.2) mg/dl Total Bilirubin 0.6 (0.2-1.0) mg/dL AST 25 (10-42) IU/L ALT 23 (10-60) IU/L Alkaline Phosphatase 56 (42-121) IU/L B-Natriuretic Peptide 13 (0-100) pg/ml Total Protein 7.6 (6.7-8.2) g/dl Albumin 3.4 (3.2-5.5) g/dl Globulin 4.2 Albumin/Globulin Ratio 0.81 02/26/20 Range/Units 12:40 WBC 11.2 H (5.0-10.0) 10^3/uL RBC 4.29 (4.2-5.4) 10^6/uL Hgb 12.8 (12.0-16.0) g/dL Hct 39.8 (37.0-47.0) % MCV 92.8 (80-100) fL MCH 29.8 (27.0-34.0) pg MCHC 32.2 L (33.0-35.0) g/dL Plt Count 284 D (150-450) 10^3/uL Neut % (Auto) 64.8 (42.2-75.2) % Lymph % (Auto) 15.9 L (20.5-50.1) % Erath % (Auto) 13.0 H (2-8) % Eos % (Auto) 6.0 H (1.0-3.0) % Baso % (Auto) 0.3 (0.0-1.0) % PT (9.0-12.0) SEC INR (0.9-1.2) Sodium (135-145) mmol/L Potassium (3.6-5.0) mmol/L Chloride (101-111) mmol/L Carbon Dioxide (21.0-31.0) mmol/L Anion Gap BUN (7-18) mg/dL Creatinine (0.6-1.3) mg/dL Est Cr Clr Drug Dosing mL/min Estimated GFR (MDRD) BUN/Creatinine Ratio Glucose (74-105) mg/dL Lactic Acid (0.5-2.0) mmol/L Calcium (8.4-10.2) mg/dl Total Bilirubin (0.2-1.0) mg/dL AST (10-42) IU/L ALT (10-60) IU/L Alkaline Phosphatase (42-121) IU/L B-Natriuretic Peptide (0-100) pg/ml Total Protein (6.7-8.2) g/dl Albumin (3.2-5.5) g/dl Globulin Albumin/Globulin Ratio Meds: Medications Generic Name Dose Route Start Last Admin Trade Name Freq PRN Reason Stop Dose Admin Vancomycin HCl 1.5 gm/ Premix 300 mls @ 200 mls/hr 08/08/19 14:00 IV 08/08/19 15:29 ONETIME ONE Departure - Departure Time of Disposition: 13:37 Disposition: Admitted As Inpatient 64 Condition: Poor Clinical Impression: Cellulitis of both lower extremities - Discharge Information *PRESCRIPTION DRUG MONITORING PROGRAM REVIEWED*: Not Applicable *COPY OF PRESCRIPTION DRUG MONITORING REPORT IN PATIENT ASHLEY: Not Applicable Instructions: Cellulitis, Adult, [id number] Forms: ED Department Discharge Care Plan Goals: Discussed the examination, history and lab results with Dr. aDvis. Dr. Davis accepted the patient for continued evaluation and further management as an inpatient at [facility]. Sepsis Event Note - Evaluation Sepsis Screening Result: No Definite Risk - Focused Exam Vital Signs: Vital Signs Temp Pulse Resp BP Pulse Ox 08/08/19 12:28 117/53 L 08/08/19 12:27 36.7 C 79 20 97 Date Exam was Performed: 08/08/19 Time Exam was Performed: 13:37 - My Orders Last 24 Hours: My Active Orders 08/08/19 12:04 CULTURE BLOOD [BC] Stat CULTURE BLOOD [BC] Stat Blood Culture x2 Reflex Set [OM.PC] Stat 08/08/19 13:35 Admission Diagnosis [ADT] Stat Admission Status [Patient Status] [ADT] Routine 08/08/19 14:00 VANCOmycin/Water for INJ (PEG) [VANCOmycin 1.5 GM/300 ML Premix] 1.5 gm Premix Bag 1 bag IV ONETIME - Assessment/Plan Last 24 Hours: My Active Orders 08/08/19 12:04 CULTURE BLOOD [BC] Stat CULTURE BLOOD [BC] Stat Blood Culture x2 Reflex Set [OM.PC] Stat 08/08/19 13:35 Admission Diagnosis [ADT] Stat Admission Status [Patient Status] [ADT] Routine 08/08/19 14:00 VANCOmycin/Water for INJ (PEG) [VANCOmycin 1.5 GM/300 ML Premix] 1.5 gm Premix Bag 1 bag IV ONETIME
[2019-08-08 13:12] LABS: ANION GAP 12.9; CHLORIDE,CL 97 mmol/L (101-111); SODIUM,NA 136 mmol/L (135-145)
[2019-08-08] MEDS ORDERED: Docusate Sodium 100 MG Cap PO PRN (14:47)
[2019-08-08] MEDS ORDERED: Acetaminophen 325 MG Tab PO PRN (14:47)
[2019-08-08] MEDS ORDERED: Ondansetron 4 MG Tab.DIS PO PRN (14:47)
[2019-08-08] MEDS ORDERED: oxyCODONE 5 MG Tab PO PRN (14:47)
[2019-08-08] MEDS ORDERED: Polyethylene Glycol 3350 Powder 17 GM Packet PO PRN (14:47)
[2019-08-08] MEDS ORDERED: Magnesium Hydroxide 400 MG/5 ML Susp 30 ML Cup PO PRN (14:47)
[2019-08-08] MEDS ORDERED: 50% Dextrose in Water 50 ML Syringe IVPUSH PRN (14:57)
[2019-08-08] MEDS ORDERED: Warfarin 2 MG Tab PO ONE (15:15)
[2019-08-08] MEDS: Potassium Chloride 10 MEQ Tab.ER PO SCH (18:22)
[2019-08-08] MEDS: Piperacillin/Tazobactam 4.5 GM in Sodium Chloride 0.9% 100 ML IV SCH ×2 (18:23→23:33)
[2019-08-08] MEDS: Insulin Lispro 100 Units/ML 3 ML Vial SUBCUT SCH ×2 (18:24→22:33)
--- NOTE | 2019-08-08 21:40 | HP ---
CHIEF COMPLAINT: Lower extremity pain. HISTORY OF PRESENTING ILLNESS: Ms. 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 At this time, the patient claims that she has been dealing with the lower extremity wounds. In the last few months, she has been following with the wound care clinic and has been getting dressing changes, but lately she is noted to have increased swelling to the lower extremities and weeping from the wounds and so came to the clinic and then to the ER. She denies any ongoing chest pains. No shortness of breath. No abdominal pain. No nausea. No vomiting. No diarrhea. The pain is only 3 to 4/10 in intensity in the lower extremities. Denies any fevers or chills in the last few days. The patient denied any history of chest pains on exertion. No history of dyspnea on exertion. No history of orthopnea or paroxysmal nocturnal dyspnea. The patient denied any history of hematemesis, hematochezia, or melenic stools. Normal bowel and bladder habits otherwise. PAST MEDICAL HISTORY: Significant for hypertension, hyperlipidemia, morbid obesity, osteoporosis, fibromyalgia, colonic polyps history of breast cancer status post radiation therapy, history of atrial fibrillation. PAST SURGICAL HISTORY: Significant for tonsillectomy, mastectomy, laparotomy, hysterectomy, elbow fracture surgery, axillary lymph node dissection. FAMILY HISTORY: Significant for Alzheimer disease in her mother. History of cerebrovascular accident, heart disease, diabetes and Alzheimer disease in her father. Breast cancer in her maternal grandmother. SOCIAL HISTORY: The patient has history of smoking in the past, but quit smoking many years back. No history of alcohol intake. ALLERGIES: Patient noted to have allergies to adhesive tapes and shell fish. HOME MEDICATIONS: Include metformin 500 mg daily, diltiazem 360 mg daily, Coumadin 4 mg and 2 mg as directed, potassium chloride 30 mEq daily, Toprol-XL 50 mg daily, doxycycline 100 mg twice a day, Zofran 4 mg every 4 hours as needed, lisinopril 40 mg daily, Lasix 20 mg daily, duloxetine 30 mg daily, Tums 500 mg 3 times a day as needed, alendronate 70 mg p.o. weekly. PHYSICAL EXAMINATION: Vital Signs: Temperature of 98.1, pulse of 79, blood pressure 117/53, respiratory rate of 20, saturating at 97% on room air. General Appearance: The patient is well oriented to time, place, and person. Follows commands spontaneously. Cardiovascular System: S1, S2 heard with normal intensity. No gallops. Respiratory System: Clear to auscultation bilaterally. No wheeze. No crepitations. Abdomen: Soft. Bowel sounds positive. Nontender. No rigidity. No guarding. No rebound tenderness. Extremities: Bilateral erythema and tenderness to the lower extremities bilaterally. Weeping noted on the skin and skin noted. Chronic venous stasis dermatitis noted to the bilateral ankles. Pulses felt. LABORATORY DATA: WBC 11.2, hemoglobin 12.8, hematocrit 39.8, platelet count 284. INR 2.3. Sodium 136, potassium 3.9, chloride 97, bicarb 30, BUN 24, creatinine 0.9, glucose 82, lactic acid 2.4. ASSESSMENT: 1. Cellulitis involving bilateral lower extremities. 2. Extensive edema to bilateral lower extremities. 3. Hypertension. 4. Hyperlipidemia. 5. Type 2 diabetes mellitus. 6. Morbid obesity. PLAN: 1. Cellulitis. The patient is noted to have extensive cellulitis involving the bilateral lower extremities. We will start her on empirical IV antibiotics, Zosyn and vancomycin. Obtain blood cultures and titrate the antibiotics once we have the culture reports available. Consult Occupational Therapy for lymphedema wraps. Continue with the wound cares. We will closely follow. 2. Hypertension. The patient's blood pressure seems to be in acceptable range. Continue with current antihypertensive medication. Try to avoid any hypotensive episodes. 3. Diabetes mellitus. The patient denied any history of diabetes, but she is noted to be on metformin. Continue the same. Check her fingersticks with each meals. Have her on supplemental scale insulin as needed for additional coverage of her blood glucose. 4. DVT prophylaxis indicated. We will have her on Lovenox for DVT prophylaxis. 5. Code status. Patient wants to be DNR/DNI. 6. Discussed with ER staff regarding the plan of care. Reviewed the labs and medications. Reviewed the old charts for medical history and is summarized as above. [facility] /[id number]
[2019-08-08] MEDS: Bumetanide 1 MG Tab PO SCH (22:31)
[2019-08-08] MEDS: Acetaminophen 325 MG Tab PO SCH (22:31)
[2019-08-08] MEDS: Nystatin Topical Powder 30 GM Bottle TOP SCH (22:33)
[2019-08-09] MEDS: Piperacillin/Tazobactam 4.5 GM in Sodium Chloride 0.9% 100 ML IV SCH ×4 (05:37→23:35)
[2019-08-09 07:02] LABS: ANION GAP 12.3; CHLORIDE,CL 102 mmol/L (101-111); SODIUM,NA 139 mmol/L (135-145)
[2019-08-09] MEDS: Insulin Lispro 100 Units/ML 3 ML Vial SUBCUT SCH ×4 (08:46→20:51)
[2019-08-09] MEDS ORDERED: Lisinopril 20 MG Tab PO SCH (09:00)
[2019-08-09] MEDS ORDERED: DULoxetine 30 MG Cap PO SCH (09:00)
[2019-08-09] MEDS: Potassium Chloride 10 MEQ Tab.ER PO SCH ×2 (09:12→18:00)
[2019-08-09] MEDS: Acetaminophen 325 MG Tab PO SCH ×2 (09:13→20:40)
[2019-08-09] MEDS: Diltiazem 180 MG Cap.CD PO SCH (09:15)
[2019-08-09] MEDS: Bumetanide 1 MG Tab PO SCH ×2 (09:15→20:37)
[2019-08-09] MEDS: Nystatin Topical Powder 30 GM Bottle TOP SCH ×2 (09:16→20:37)
[2019-08-09] MEDS: Metoprolol Succinate 50 MG Tab.ER PO SCH (09:17)
[2019-08-09] MEDS: LETROZOLE 2.5 MG PO SCH (09:19)
[2019-08-09] MEDS: diphenhydrAMINE 25 MG Tab PO PRN ×2 (13:09→23:33)
[2019-08-09] MEDS ORDERED: Warfarin 2 MG Tab PO ONE (14:00)
--- NOTE | 2019-08-09 14:02 | PN ---
DATE: 08/09/2019 HISTORY OF PRESENT ILLNESS: Ms. Siri Haley is an 79-year-old female with medical history significant for hypertension; hyperlipidemia; morbid obesity; fibromyalgia; history of breast cancer in the past, requiring mastectomy; atrial fibrillation, on chronic anticoagulation with Coumadin, admitted with lower extremity cellulitis bilaterally with weeping wounds to the bilateral lower extremities. For the last 24 hours, the patient continues to have weeping wounds to the bilateral lower extremities. She was started on IV antibiotics. She denies any ongoing chest pains. No shortness of breath. No abdominal pain. Complains of mild pain to the lower extremities. REVIEW OF SYSTEMS: Cardiovascular, respiratory, gastrointestinal, neurology, constitutional were all evaluated. PHYSICAL EXAMINATION: Vital Signs: Temperature of 98.2, pulse of 91, blood pressure 128/69, respiratory rate of 19, saturating at 95%. General Appearance: The patient is well oriented to time, place, and person. Follows commands spontaneously. Cardiovascular System: S1, S2 heard with normal intensity. No gallops. Respiratory System: Clear to auscultation bilaterally. No wheeze. No crepitations. Abdomen: Soft. Bowel sounds positive. Nontender. No rigidity. Extremities: 2 to 3+ pitting edema noted, bilateral lower extremities. Erythema and tenderness noted. Weeping wounds noted, mostly in the posterior aspect. LABORATORY DATA: 1. WBC 9.2, hemoglobin 11.5, hematocrit 36.2, platelet count 244. 2. INR 2.4. 3. Sodium 139, potassium 3.3, chloride 102, bicarb 28, BUN 20, creatinine 0.9, glucose 108. 4. Magnesium 1.9, calcium 8.6. MEDICATIONS: Reviewed. Continue with Tylenol 650 every 4 hours as needed for pain; Bumex 2 mg twice a day; diltiazem 360 mg daily; Humalog supplemental scale as needed; Toprol-XL 50 mg daily; oxycodone 5 mg every 4 hours as needed for pain; Zosyn q.6 hourly 4.5 g; vancomycin pharmacy to dose; Coumadin, pharmacy to dose. ASSESSMENT: 1. Bilateral lower extremity cellulitis and extensive edema to the bilateral lower extremities. 2. Hypertension. 3. Hyperlipidemia. 4. Type 2 diabetes mellitus. 5. Morbid obesity. 6. Atrial fibrillation, on chronic anticoagulation with Coumadin. PLAN: 1. Cellulitis. The patient noted to have cellulitis involving bilateral lower extremities and has weeping wounds. Wound Care will be consulted, and we will have Occupational Therapy evaluate and treat for lymphedema wraps. The patient is encouraged to keep her lower extremity elevated, continue the Bumex, maintain euvolemic status. 2. Hypertension. The patient's blood pressure seems to be in acceptable range. Continue with current treatment plan. 3. Atrial fibrillation, rate controlled. The patient has been on Coumadin. Continue the same. Pharmacy to dose the Coumadin for therapeutic INR of 2 to 3. 4. Type 2 diabetes mellitus. The patient will be on correction dose insulin. Avoid any hyper or hypoglycemic episodes. [facility] /[id number]
[2019-08-09] MEDS: Sodium Chloride 0.9% 10 ML Syringe FLUSH PRN (23:35)
[2019-08-10] MEDS: Sodium Chloride 0.9% 10 ML Syringe FLUSH PRN ×2 (01:57→05:34)
[2019-08-10] MEDS: Piperacillin/Tazobactam 4.5 GM in Sodium Chloride 0.9% 100 ML IV SCH ×3 (05:35→17:55)
[2019-08-10 06:52] LABS: ANION GAP 11.6
[2019-08-10] MEDS: Diltiazem 180 MG Cap.CD PO SCH (09:28)
[2019-08-10] MEDS: Bumetanide 1 MG Tab PO SCH ×2 (09:28→21:03)
[2019-08-10] MEDS: Acetaminophen 325 MG Tab PO SCH ×2 (09:29→21:05)
[2019-08-10] MEDS: diphenhydrAMINE 25 MG Tab PO PRN (09:29)
[2019-08-10] MEDS: Potassium Chloride 10 MEQ Tab.ER PO SCH ×3 (09:30→21:03)
[2019-08-10] MEDS: Metoprolol Succinate 50 MG Tab.ER PO SCH (09:30)
[2019-08-10] MEDS: LETROZOLE 2.5 MG PO SCH (09:31)
[2019-08-10] MEDS: Nystatin Topical Powder 30 GM Bottle TOP SCH ×2 (09:35→21:04)
[2019-08-10] MEDS: Insulin Lispro 100 Units/ML 3 ML Vial SUBCUT SCH ×4 (10:03→21:06)
[2019-08-10] MEDS ORDERED: Warfarin 2 MG Tab PO ONE (14:00)
--- NOTE | 2019-08-10 14:04 | PN ---
DATE: 08/10/2019 SUBJECTIVE: Mrs. Siri Haley is an 79-year-old female with medical history significant for hypertension, hyperlipidemia, morbid obesity, fibromyalgia, history of breast cancer in the past requiring mastectomy, atrial fibrillation on chronic anticoagulation with Coumadin, admitted with lower extremity cellulitis. For the last 24 hours, the patient continued on wound cares and lymphedema wraps, which seem to be improving her secretions and swelling. She denies any ongoing chest pain. No shortness of breath. No abdominal pain. No nausea. No vomiting. No diarrhea. REVIEW OF SYSTEMS: Cardiovascular, respiratory, gastrointestinal, neurology, and constitutional were all evaluated. PHYSICAL EXAMINATION: Vital Signs: Temperature of 98.9, pulse of 87, blood pressure 130/55, respiratory rate of 20, saturating at 95% on room air. General Appearance: The patient is well oriented to time, place, and person. Follows commands spontaneously. Cardiovascular System S1 and S2 heard with normal intensity. No gallops. Respiratory System: Clear to auscultation bilaterally. No wheeze. No crepitations. Abdomen: Soft. Bowel sounds positive. Nontender. No rigidity. Extremities: Bilateral erythema and swelling noted; 3+ edema noted, bilateral lower extremity; weeping wounds, seem to be improved. MEDICATIONS: Reviewed. Continue with Zosyn and IV vancomycin. Continue with metoprolol XL 50 mg daily, Bumex 2 mg twice a day, diltiazem 360 mg daily, oxycodone 5 mg every 4 hours as needed for pain, and Coumadin, pharmacy to dose for therapeutic INR of 2 to 3. LABORATORY DATA: 1. WBC 8.2, hemoglobin 11.2, hematocrit 34.9, platelet count 224. 2. INR 2.8. 3. Sodium 139, potassium 2.6, chloride 102, bicarb 28, BUN 17, creatinine 1, glucose 107. ASSESSMENT: 1. Cellulitis, bilateral lower extremity. 2. Bilateral lower extremity edema, requiring lymphedema wraps. 3. Hypokalemia. 4. Hypertension. 5. Hyperlipidemia. 6. Type 2 diabetes mellitus. 7. Morbid obesity. 8. Atrial fibrillation. 9. Chronic anticoagulation with Coumadin. PLAN: 1. Cellulitis. The patient is currently on IV Zosyn and vancomycin. Cultures remain negative and no leukocytosis. The patient remains afebrile. Continue with IV Zosyn. We will discontinue IV vancomycin and have her on oral doxycycline for now, and we will closely follow her. No evidence of MRSA noted at this time. 2. Type 2 diabetes mellitus. Check her fingersticks with each meals and have her on supplemental scale insulin as needed. 3. Hypertension. The patient's blood pressure seems to be in acceptable range. Continue with current antihypertensive medication. 4. Hypokalemia. Replace with oral potassium chloride. Recheck a basic metabolic panel in a.m. 5. DVT prophylaxis. Continue with Coumadin for DVT prophylaxis. She has been on chronic anticoagulation with Coumadin. 6. Continue with lymphedema wraps to the bilateral lower extremity to improve swelling. 7. The patient is educated to keep her lower extremity elevated at all times. [facility] /[id number]
[2019-08-11] MEDS: Piperacillin/Tazobactam 4.5 GM in Sodium Chloride 0.9% 100 ML IV SCH ×4 (00:33→17:59)
[2019-08-11 07:02] LABS: CHLORIDE,CL 103 mmol/L (101-111); SODIUM,NA 140 mmol/L (135-145)
[2019-08-11 07:06] LABS: ANION GAP 11.5
[2019-08-11] MEDS ORDERED: Potassium Chloride 10 MEQ in Premix Bag 4 BAG IV SCH ×2 (08:00→08:15)
[2019-08-11] MEDS ORDERED: Potassium Chloride 10 MEQ Tab.ER PO ONE (08:06)
[2019-08-11] MEDS: Potassium Chloride 10 MEQ in Premix Bag 1 BAG IV SCH ×4 (09:05→16:00)
[2019-08-11] MEDS: Diltiazem 180 MG Cap.CD PO SCH (09:53)
[2019-08-11] MEDS: diphenhydrAMINE 25 MG Tab PO PRN (09:53)
[2019-08-11] MEDS: Acetaminophen 325 MG Tab PO SCH ×2 (09:53→21:29)
[2019-08-11] MEDS: Bumetanide 1 MG Tab PO SCH ×2 (09:53→21:27)
[2019-08-11] MEDS: Metoprolol Succinate 50 MG Tab.ER PO SCH (09:54)
[2019-08-11] MEDS: Doxycycline 100 MG Cap PO SCH ×2 (09:54→21:29)
[2019-08-11] MEDS: LETROZOLE 2.5 MG PO SCH (09:57)
[2019-08-11] MEDS: Insulin Lispro 100 Units/ML 3 ML Vial SUBCUT SCH ×4 (10:00→21:50)
[2019-08-11] MEDS: Nystatin Topical Powder 30 GM Bottle TOP SCH ×2 (10:00→21:28)
[2019-08-11] MEDS: Lidocaine 1% 30 ML SDV ONE ×2 (10:01→10:53)
[2019-08-11] MEDS: Potassium Chloride 10 MEQ Tab.ER PO SCH ×3 (10:18→21:28)
[2019-08-11] MEDS ORDERED: Lanolin/Mineral Oil/NaCl/Petrolatum Lotion 177 ML Bottle TOP PRN (10:46)
[2019-08-11] MEDS ORDERED: Warfarin 2 MG Tab PO ONE (14:00)
--- NOTE | 2019-08-11 14:04 | PN ---
DATE: 08/11/2019 HISTORY OF PRESENT ILLNESS: Ms. Siri Haley is an 79-year-old female with a medical history significant for hypertension; hyperlipidemia; morbid obesity; fibromyalgia, history of breast cancer in the past, requiring mastectomy; atrial fibrillation, on chronic anticoagulation with Coumadin, admitted with bilateral lower extremity cellulitis. For the last 24 hours, the patient is continued on lymphedema wraps. She denies any ongoing chest pain. No shortness of breath. No abdominal pain. No nausea. No vomiting. No diarrhea. REVIEW OF SYSTEMS: Cardiovascular, respiratory, gastrointestinal, neurology, constitutional were all evaluated. PHYSICAL EXAMINATION: Vital Signs: Temperature of 98, pulse of 84, blood pressure 138/59, respiratory rate of 20, saturating at 96%. General Appearance: The patient is well oriented to time, place, and person. Follows commands spontaneously. Cardiovascular System: S1, S2 heard with normal intensity. No gallops. Respiratory System: Clear to auscultation bilaterally. No wheeze. No crepitations. Abdomen: Bowel sounds positive. Nontender. No rigidity. Extremities: 2 to 3+ edema noted of bilateral lower extremities. Erythema and tenderness seem to be improved. Continue with the lymphedema wraps. MEDICATIONS: Continue with Bumex 2 mg twice a day; Tylenol 650 twice a day; diltiazem 360 mg daily; doxycycline 100 mg q.12 hourly; Humalog supplemental scale; Toprol-XL 50 mg daily; Zosyn every 6 hourly; potassium chloride 30 mEq 3 times a day; Coumadin, pharmacy to dose. LABORATORY DATA: WBC 7.4, hemoglobin 10.9, hematocrit 33.9, platelet count 217. INR 2.7. Sodium 140, potassium 2.5, chloride 103, bicarb 28, BUN 12, creatinine 0.8. ASSESSMENT: 1. Cellulitis, bilateral lower extremities. 2. Hypokalemia. 3. Hypertension. 4. Hyperlipidemia. 5. Type 2 diabetes mellitus. 6. Morbid obesity. 7. Atrial fibrillation. 8. Chronic anticoagulation with Coumadin. PLAN: 1. Cellulitis. The patient noted to have extensive cellulitis at the time of admission, which seems to be much improved at this time. She is also noted to have extensive edema to the lower extremities. The patient is encouraged to keep her lower extremity elevated. Continue with oral Bumex and continue with the lymphedema wraps. 2. Type 2 diabetes mellitus. Check her fingersticks with each meals, have her on supplemental scale insulin as needed. 3. Hypertension, improved. Continue with current antihypertensive medication. Try to avoid any hypotensive episodes. 4. Hypokalemia. Replace with oral potassium chloride. She will receive IV potassium chloride. We will recheck a potassium later this evening and also a BMP in the a.m. 5. Chronic anticoagulation. Continue with Coumadin. Her INR is therapeutic at this time. 6. Physical Therapy and Occupational Therapy evaluate and treat the patient. [facility] /[id number]
[2019-08-12] MEDS: Piperacillin/Tazobactam 4.5 GM in Sodium Chloride 0.9% 100 ML IV SCH ×5 (00:31→23:44)
[2019-08-12 06:58] LABS: ANION GAP 12.2; CHLORIDE,CL 104 mmol/L (101-111); SODIUM,NA 139 mmol/L (135-145)
[2019-08-12] MEDS: LETROZOLE 2.5 MG PO SCH (09:12)
[2019-08-12] MEDS: Diltiazem 180 MG Cap.CD PO SCH (09:13)
[2019-08-12] MEDS: Nystatin Topical Powder 30 GM Bottle TOP SCH ×2 (09:13→20:54)
[2019-08-12] MEDS: Acetaminophen 325 MG Tab PO SCH ×2 (09:13→20:54)
[2019-08-12] MEDS: Metoprolol Succinate 50 MG Tab.ER PO SCH (09:13)
[2019-08-12] MEDS: Potassium Chloride 10 MEQ Tab.ER PO SCH ×3 (09:14→20:53)
[2019-08-12] MEDS: Doxycycline 100 MG Cap PO SCH ×2 (09:14→20:53)
[2019-08-12] MEDS: Insulin Lispro 100 Units/ML 3 ML Vial SUBCUT SCH ×4 (09:16→21:05)
[2019-08-12] MEDS: Bumetanide 1 MG Tab PO SCH (11:42)
[2019-08-12] MEDS ORDERED: Phosphorus #1 250 MG Tab PO ONE (11:57)
--- NOTE | 2019-08-12 12:07 | PCM.PN ---
- General Info Date of Service: 08/12/19 Admission Dx/Problem (Free Text): Bilateral lower extremity cellulitis - Review of Systems General: Reports: No Symptoms HEENT: Reports: No Symptoms Pulmonary: Reports: No Symptoms Cardiovascular: Reports: No Symptoms Gastrointestinal: Reports: No Symptoms Genitourinary: Reports: Other (Rodrigues in place. ) Musculoskeletal: Reports: No Symptoms, Other (Bilateral lower extremity edema and redness. ) Skin: Reports: No Symptoms ( ) Neurological: Reports: No Symptoms ( ) Psychiatric: Reports: No Symptoms - Patient Data Vitals - Most Recent: Last Vital Signs Temp 97.7 F 08/12/19 08:23 Pulse 76 08/12/19 09:13 Resp 20 08/12/19 08:23 BP 144/67 H 08/12/19 09:13 Pulse Ox 96 08/12/19 08:23 Weight - Most Recent: 293 lb I&O - Last 24 Hours: Intake & Output 08/11/19 08/12/19 08/12/19 22:59 06:59 14:59 Intake Total 516 340 Output Total 950 Balance -434 340 Lab Results Last 24 Hours: Laboratory Results - last 24 hr 08/11/19 08/11/19 08/11/19 Range/Units 16:42 19:31 21:02 PT (9.0-12.0) SEC INR (0.9-1.2) Sodium (135-145) mmol/L Potassium 3.4 L (3.6-5.0) mmol/L Chloride (101-111) mmol/L Carbon Dioxide (21.0-31.0) mmol/L Anion Gap BUN (7-18) mg/dL Creatinine (0.6-1.3) mg/dL Est Cr Clr Drug Dosing mL/min Estimated GFR (MDRD) Glucose (74-105) mg/dL POC Glucose 101 130 H (83-110) mg/dl Calcium (8.4-10.2) mg/dl Phosphorus (2.5-4.6) mg/dL Magnesium (1.8-2.5) mg/dL 08/12/19 08/12/19 08/12/19 Range/Units 06:20 06:20 06:20 PT 22.5 H (9.0-12.0) SEC INR 2.3 H (0.9-1.2) Sodium 139 (135-145) mmol/L Potassium 3.2 L (3.6-5.0) mmol/L Chloride 104 (101-111) mmol/L Carbon Dioxide 26.0 (21.0-31.0) mmol/L Anion Gap 12.2 BUN 11 (7-18) mg/dL Creatinine 0.7 (0.6-1.3) mg/dL Est Cr Clr Drug Dosing 56.72 mL/min Estimated GFR (MDRD) > 60 Glucose 103 (74-105) mg/dL POC Glucose (83-110) mg/dl Calcium 8.1 L (8.4-10.2) mg/dl Phosphorus 2.4 L (2.5-4.6) mg/dL Magnesium 1.9 (1.8-2.5) mg/dL 08/12/19 08/12/19 Range/Units 08:09 11:35 PT (9.0-12.0) SEC INR (0.9-1.2) Sodium (135-145) mmol/L Potassium (3.6-5.0) mmol/L Chloride (101-111) mmol/L Carbon Dioxide (21.0-31.0) mmol/L Anion Gap BUN (7-18) mg/dL Creatinine (0.6-1.3) mg/dL Est Cr Clr Drug Dosing mL/min Estimated GFR (MDRD) Glucose (74-105) mg/dL POC Glucose 110 119 H (83-110) mg/dl Calcium (8.4-10.2) mg/dl Phosphorus (2.5-4.6) mg/dL Magnesium (1.8-2.5) mg/dL Leo Results Last 24 Hours: Microbiology 08/08/19 12:40 Aerobic Blood Culture - Preliminary Blood - Venous - Lab Draw NO GROWTH AFTER 3 DAYS Anaerobic Blood Culture - Preliminary NO GROWTH AFTER 3 DAYS 08/08/19 12:40 Aerobic Blood Culture - Preliminary Blood - Venous NO GROWTH AFTER 3 DAYS Anaerobic Blood Culture - Preliminary NO GROWTH AFTER 3 DAYS Med Orders - Current: Current Medications Acetaminophen (Tylenol) 650 mg PO Q4H PRN PRN Reason: Pain (Mild 1-3)/fever Acetaminophen (Tylenol) 650 mg PO BID COUNT INCLUDES THE [facility] Last Admin: 08/12/19 09:13 Dose: 650 mg Bumetanide (Bumex) 2 mg PO BID COUNT INCLUDES THE [facility] Last Admin: 08/12/19 11:42 Dose: Not Given Dextrose/Water (Dextrose 50% In Water) 50 ml IVPUSH ONETIME PRN PRN Reason: Hypoglycemia Diltiazem HCl (Cardizem Cd) 360 mg PO DAILY COUNT INCLUDES THE [facility] Last Admin: 08/12/19 09:13 Dose: 360 mg Diphenhydramine HCl (Benadryl) 25 mg PO BID PRN PRN Reason: Allergies Last Admin: 08/11/19 09:53 Dose: 25 mg Docusate Sodium (Colace) 100 mg PO BID PRN PRN Reason: Constipation Doxycycline Hyclate (Vibramycin) 100 mg PO Q12HR COUNT INCLUDES THE [facility] Last Admin: 08/12/19 09:14 Dose: 100 mg Furosemide (Lasix) 40 mg IVPUSH BID COUNT INCLUDES THE [facility] Piperacillin Sod/Tazobactam (Sod 4.5 gm/ Sodium Chloride) 100 mls @ 200 mls/hr IV Q6HR COUNT INCLUDES THE [facility] Last Admin: 08/12/19 05:52 Dose: 200 mls/hr Insulin Human Lispro (Humalog) 0 unit SUBCUT WITHMEALSANDBED COUNT INCLUDES THE [facility]; Protocol Last Admin: 08/12/19 09:16 Dose: Not Given Magnesium Hydroxide (Milk Of Magnesia) 30 ml PO Q12H PRN PRN Reason: Constipation Metoprolol Succinate (Toprol Xl) 50 mg PO DAILY COUNT INCLUDES THE [facility] Last Admin: 08/12/19 09:13 Dose: 50 mg Multi-Ingredient Lotion (Lubriderm Daily Moisture Lotion) 0 ml TOP 6XDAY PRN PRN Reason: DRY ITCHING SKIN Letrozole 2.5 Mg (Pt Own Med) 2.5 mg PO DAILY COUNT INCLUDES THE [facility] Last Admin: 08/12/19 09:12 Dose: 2.5 mg Nystatin (Nystop) 0 gm TOP BID COUNT INCLUDES THE [facility] Last Admin: 08/12/19 09:13 Dose: 1 applic Ondansetron HCl (Zofran Odt) 4 mg PO Q4H PRN PRN Reason: nausea, able to take PO Oxycodone HCl (Oxycodone) 5 mg PO Q4H PRN PRN Reason: Pain (moderate 4-6) Polyethylene Glycol (Miralax) 17 gm PO DAILY PRN PRN Reason: Constipation Potassium Chloride (Klor-Con 10) 30 meq PO TID COUNT INCLUDES THE [facility] Last Admin: 08/12/19 09:14 Dose: 30 meq Sodium Chloride (Saline Flush) 10 ml FLUSH ASDIRECTED PRN PRN Reason: Keep Vein Open Last Admin: 08/10/19 05:34 Dose: 10 ml Sodium Phosphate (Neutra-Phos) 250 mg PO ONETIME ONE Stop: 08/12/19 11:58 Warfarin Sodium (Pharmacy To Dose - Warfarin) 1 dose .XX ASDIRECTED COUNT INCLUDES THE [facility] Warfarin Sodium (Coumadin) 4 mg PO ONETIME ONE Stop: 08/12/19 14:01 Discontinued Medications Duloxetine HCl (Cymbalta) 30 mg PO DAILY COUNT INCLUDES THE [facility] Vancomycin HCl 1.5 gm/ Premix 300 mls @ 200 mls/hr IV ONETIME ONE Stop: 08/08/19 15:29 Last Admin: 08/08/19 13:48 Dose: 200 mls/hr Vancomycin HCl 1.5 gm/ Premix 300 mls @ 200 mls/hr IV Q12H COUNT INCLUDES THE [facility] Last Infusion: 08/10/19 04:32 Dose: Infused Potassium Chloride 10 meq/ (Premix) 0 mls @ 100 mls/hr IV .4BAG YRN Potassium Chloride 10 meq/ (Premix) 0 mls @ 100 mls/hr IV Q2H COUNT INCLUDES THE [facility] Last Admin: 08/11/19 10:42 Dose: Not Given Potassium Chloride 10 meq/ (Premix) 100 mls @ 100 mls/hr IV Q2H COUNT INCLUDES THE [facility] Stop: 08/11/19 15:59 Last Infusion: 08/11/19 18:00 Dose: Infused Lidocaine HCl (Xylocaine-Mpf 1%) 0 ml .XX ASDIRECTED COUNT INCLUDES THE [facility] Stop: 08/11/19 23:59 Lidocaine HCl (Xylocaine-Mpf 1%) Confirm Administered Dose 30 ml .ROUTE .STK- MED ONE Stop: 08/11/19 08:49 Last Admin: 08/11/19 10:53 Dose: 30 ml Lisinopril (Prinivil) 40 mg PO DAILY COUNT INCLUDES THE [facility] Potassium Chloride (Klor-Con 10) 30 meq PO BIDMEALS COUNT INCLUDES THE [facility] Last Admin: 08/10/19 09:30 Dose: 30 meq Potassium Chloride (Klor-Con 10) 40 meq PO ONETIME ONE Stop: 08/11/19 08:07 Last Admin: 08/11/19 09:55 Dose: 40 meq Vancomycin HCl (Pharmacy To Dose - Vancomycin) 1 dose .XX ASDIRECTED COUNT INCLUDES THE [facility] Warfarin Sodium (Coumadin) 2 mg PO ONETIME ONE Stop: 08/08/19 15:16 Last Admin: 08/08/19 18:22 Dose: 2 mg Warfarin Sodium (Coumadin) 4 mg PO ONETIME ONE Stop: 08/09/19 14:01 Last Admin: 08/09/19 14:52 Dose: 4 mg Warfarin Sodium (Coumadin) 4 mg PO ONETIME ONE Stop: 08/10/19 14:01 Last Admin: 08/10/19 12:59 Dose: 4 mg Warfarin Sodium (Coumadin) 4 mg PO ONETIME ONE Stop: 08/11/19 14:01 Last Admin: 08/11/19 13:44 Dose: 4 mg - Exam General: Alert, Oriented, Cooperative, No Acute Distress HEENT: Pupils Equal, Pupils Reactive, Mucous Membr. Moist/Secor Neck: Supple Lungs: Clear to Auscultation, Normal Respiratory Effort Cardiovascular: Regular Rate, Regular Rhythm GI/Abdominal Exam: Normal Bowel Sounds, Soft, No Distention (Female) Exam: Other (Rodrigues catheter in place. ) Extremities: Pedal Edema (Bilateral, extending up to the knees, and posterior tighs. ), Redness (Bilateral, Rt>>Left. ) Sepsis Event Note - Evaluation Sepsis Screening Result: No Definite Risk - Focused Exam Vital Signs: Vital Signs Temp Pulse Pulse Resp BP BP Pulse Ox 08/12/19 09:13 76 144/67 H 08/12/19 08:23 97.7 F 76 20 144/67 H 96 Date Exam was Performed: 08/12/19 Time Exam was Performed: 12:01 - Problem List & Annotations (1) Anticoagulated by anticoagulation treatment SNOMED Code(s): 022169118, 965869764 Code(s): Z79.01 - RETIREMENT (CURRENT) USE OF ANTICOAGULANTS Status: Acute Priority: High Current Visit: No (2) Cellulitis of both lower extremities SNOMED Code(s): 543486866 Code(s): L03.115 - CELLULITIS OF RIGHT LOWER LIMB; L03.116 - CELLULITIS OF LEFT LOWER LIMB Status: Acute Current Visit: No (3) HTN (hypertension) SNOMED Code(s): 30823100 Code(s): I10 - ESSENTIAL (PRIMARY) HYPERTENSION Status: Acute Current Visit: No (4) Hypokalemia SNOMED Code(s): 35020446 Code(s): E87.6 - HYPOKALEMIA Status: Acute Current Visit: No (5) Morbid obesity SNOMED Code(s): 114876545 Code(s): E66.01 - MORBID (SEVERE) OBESITY DUE TO EXCESS CALORIES Status: Acute Current Visit: No - Problem List Review Problem List Initiated/Reviewed/Updated: Yes - My Orders Last 24 Hours: My Active Orders 08/12/19 11:57 Phosphorus #1 [Neutra-Phos] 250 mg PO ONETIME ONE 08/12/19 12:00 Furosemide [Lasix] 40 mg IVPUSH BID - Plan Plan:: #Cellulitis of bilateral lower extremities: Patient is reticular extensive cellulitis of the bilateral lower extremities at the time of admission. Seems to be improving. Continue antibiotics Continue lymphedema wraps Elevate lower extremities when seated #Bilateral lower extremity edema IV Lasix Strict I's and O's Low-sodium diet Daily weights #Type 2 diabetes Sliding scale insulin and hypoglycemia protocol Accu-Cheks #Hypertension: Blood pressure at goal Continue home medications #Hypokalemia Continue oral potassium replacement Monitor BMP and replace electrolytes as needed #Atrial fibrillation #On chronic anticoagulation with warfarin Currently rate controlled Continue warfarin, pharmacy to dose DVT prophylaxis: Warfarin GI prophylaxis: Diabetic diet CODE STATUS: DNR/DNI
[2019-08-12] MEDS: Furosemide 40 MG/4 ML VIAL IVPUSH SCH ×2 (13:06→20:55)
[2019-08-12] MEDS ORDERED: Warfarin 2 MG Tab PO ONE (14:00)
[2019-08-12] MEDS: Sodium Chloride 0.9% 10 ML Syringe FLUSH PRN ×2 (20:55→23:43)
[2019-08-13] MEDS: diphenhydrAMINE 25 MG Tab PO PRN (01:05)
[2019-08-13] MEDS: Sodium Chloride 0.9% 10 ML Syringe FLUSH PRN ×6 (05:43→23:52)
[2019-08-13] MEDS: Piperacillin/Tazobactam 4.5 GM in Sodium Chloride 0.9% 100 ML IV SCH ×4 (05:44→23:53)
[2019-08-13 07:51] LABS: ANION GAP 13.7; CHLORIDE,CL 104 mmol/L (101-111); SODIUM,NA 140 mmol/L (135-145)
[2019-08-13] MEDS: Insulin Lispro 100 Units/ML 3 ML Vial SUBCUT SCH (08:05)
[2019-08-13] MEDS: Doxycycline 100 MG Cap PO SCH ×2 (09:21→21:05)
[2019-08-13] MEDS: Acetaminophen 325 MG Tab PO SCH ×2 (09:21→21:04)
[2019-08-13] MEDS: Metoprolol Succinate 50 MG Tab.ER PO SCH (09:22)
[2019-08-13] MEDS: Diltiazem 180 MG Cap.CD PO SCH (09:22)
[2019-08-13] MEDS: Potassium Chloride 10 MEQ Tab.ER PO SCH ×3 (09:22→21:04)
[2019-08-13] MEDS: Furosemide 40 MG/4 ML VIAL IVPUSH SCH ×2 (09:23→14:52)
[2019-08-13] MEDS: LETROZOLE 2.5 MG PO SCH (09:23)
[2019-08-13] MEDS: Nystatin Topical Powder 30 GM Bottle TOP SCH ×2 (09:25→21:05)
--- NOTE | 2019-08-13 09:41 | PCM.PN ---
- General Info Date of Service: 08/13/19 Admission Dx/Problem (Free Text): Bilateral lower extremity cellulitis Subjective Update: No acute events overnight. Having 2-3 soft, formed bowel movements daily per nursing. Afebrile. Denies chest pain, chills, n/v, shortness of breath, or any new symptoms. - Review of Systems General: Reports: No Symptoms HEENT: Reports: No Symptoms Pulmonary: Reports: No Symptoms Cardiovascular: Reports: No Symptoms Gastrointestinal: Reports: No Symptoms Genitourinary: Reports: No Symptoms Musculoskeletal: Reports: No Symptoms (BLE edema ), Other Skin: Reports: Other (Redness of bilateral lower extremities) - Patient Data Vitals - Most Recent: Last Vital Signs Temp 98.3 F 08/13/19 08:11 Pulse 77 08/13/19 09:22 Resp 20 08/13/19 08:11 BP 149/63 H 08/13/19 09:22 Pulse Ox 96 08/13/19 08:11 Weight - Most Recent: 294 lb I&O - Last 24 Hours: Intake & Output 08/12/19 08/13/19 08/13/19 22:59 06:59 14:59 Intake Total 996 550 100 Output Total 750 650 Balance 246 -100 100 Lab Results Last 24 Hours: Laboratory Results - last 24 hr 08/12/19 08/12/19 08/12/19 Range/Units 06:20 11:35 16:48 PT (9.0-12.0) SEC INR (0.9-1.2) Sodium (135-145) mmol/L Potassium (3.6-5.0) mmol/L Chloride (101-111) mmol/L Carbon Dioxide (21.0-31.0) mmol/L Anion Gap BUN (7-18) mg/dL Creatinine (0.6-1.3) mg/dL Est Cr Clr Drug Dosing mL/min Estimated GFR (MDRD) Glucose (74-105) mg/dL POC Glucose 119 H 103 (83-110) mg/dl Calcium (8.4-10.2) mg/dl Phosphorus 2.4 L (2.5-4.6) mg/dL Magnesium 1.9 (1.8-2.5) mg/dL 08/12/19 08/13/19 08/13/19 Range/Units 20:45 07:24 07:24 PT 20.5 H (9.0-12.0) SEC INR 2.1 H (0.9-1.2) Sodium 140 (135-145) mmol/L Potassium 3.7 (3.6-5.0) mmol/L Chloride 104 (101-111) mmol/L Carbon Dioxide 26.0 (21.0-31.0) mmol/L Anion Gap 13.7 BUN 10 (7-18) mg/dL Creatinine 0.9 (0.6-1.3) mg/dL Est Cr Clr Drug Dosing 44.11 mL/min Estimated GFR (MDRD) > 60 Glucose 98 (74-105) mg/dL POC Glucose 113 H (83-110) mg/dl Calcium 8.8 (8.4-10.2) mg/dl Phosphorus 2.4 L (2.5-4.6) mg/dL Magnesium 1.9 (1.8-2.5) mg/dL 08/13/19 Range/Units 07:57 PT (9.0-12.0) SEC INR (0.9-1.2) Sodium (135-145) mmol/L Potassium (3.6-5.0) mmol/L Chloride (101-111) mmol/L Carbon Dioxide (21.0-31.0) mmol/L Anion Gap BUN (7-18) mg/dL Creatinine (0.6-1.3) mg/dL Est Cr Clr Drug Dosing mL/min Estimated GFR (MDRD) Glucose (74-105) mg/dL POC Glucose 98 (83-110) mg/dl Calcium (8.4-10.2) mg/dl Phosphorus (2.5-4.6) mg/dL Magnesium (1.8-2.5) mg/dL Leo Results Last 24 Hours: Microbiology 08/08/19 12:40 Aerobic Blood Culture - Preliminary Blood - Venous - Lab Draw NO GROWTH AFTER 4 DAYS Anaerobic Blood Culture - Preliminary NO GROWTH AFTER 4 DAYS 08/08/19 12:40 Aerobic Blood Culture - Preliminary Blood - Venous NO GROWTH AFTER 4 DAYS Anaerobic Blood Culture - Preliminary NO GROWTH AFTER 4 DAYS Med Orders - Current: Current Medications Acetaminophen (Tylenol) 650 mg PO Q4H PRN PRN Reason: Pain (Mild 1-3)/fever Acetaminophen (Tylenol) 650 mg PO BID YRN Last Admin: 08/13/19 09:21 Dose: 650 mg Bumetanide (Bumex) 2 mg PO BID [facility] Last Admin: 08/12/19 11:42 Dose: Not Given Dextrose/Water (Dextrose 50% In Water) 50 ml IVPUSH ONETIME PRN PRN Reason: Hypoglycemia Diltiazem HCl (Cardizem Cd) 360 mg PO DAILY [facility] Last Admin: 08/13/19 09:22 Dose: 360 mg Diphenhydramine HCl (Benadryl) 25 mg PO BID PRN PRN Reason: Allergies Last Admin: 08/13/19 01:05 Dose: 25 mg Docusate Sodium (Colace) 100 mg PO BID PRN PRN Reason: Constipation Doxycycline Hyclate (Vibramycin) 100 mg PO Q12HR [facility] Last Admin: 08/13/19 09:21 Dose: 100 mg Furosemide (Lasix) 40 mg IVPUSH BIDDIURETIC [facility] Piperacillin Sod/Tazobactam (Sod 4.5 gm/ Sodium Chloride) 100 mls @ 200 mls/hr IV Q6HR [facility] Last Admin: 08/13/19 05:44 Dose: 200 mls/hr Insulin Human Lispro (Humalog) 0 unit SUBCUT WITHMEALSANDBED [facility]; Protocol Last Admin: 08/13/19 08:05 Dose: Not Given Magnesium Hydroxide (Milk Of Magnesia) 30 ml PO Q12H PRN PRN Reason: Constipation Metolazone (Zaroxolyn) 2.5 mg PO ONETIME ONE Stop: 08/14/19 13:31 Metoprolol Succinate (Toprol Xl) 50 mg PO DAILY [facility] Last Admin: 08/13/19 09:22 Dose: 50 mg Multi-Ingredient Lotion (Lubriderm Daily Moisture Lotion) 0 ml TOP 6XDAY PRN PRN Reason: DRY ITCHING SKIN Letrozole 2.5 Mg (Pt Own Med) 2.5 mg PO DAILY [facility] Last Admin: 08/13/19 09:23 Dose: 2.5 mg Nystatin (Nystop) 0 gm TOP BID [facility] Last Admin: 08/13/19 09:25 Dose: 1 applic Ondansetron HCl (Zofran Odt) 4 mg PO Q4H PRN PRN Reason: nausea, able to take PO Oxycodone HCl (Oxycodone) 5 mg PO Q4H PRN PRN Reason: Pain (moderate 4-6) Polyethylene Glycol (Miralax) 17 gm PO DAILY PRN PRN Reason: Constipation Potassium Chloride (Klor-Con 10) 30 meq PO TID [facility] Last Admin: 08/13/19 09:22 Dose: 30 meq Sodium Chloride (Saline Flush) 10 ml FLUSH ASDIRECTED PRN PRN Reason: Keep Vein Open Last Admin: 08/13/19 09:26 Dose: 10 ml Warfarin Sodium (Pharmacy To Dose - Warfarin) 1 dose .XX ASDIRECTED [facility] Discontinued Medications Duloxetine HCl (Cymbalta) 30 mg PO DAILY [facility] Furosemide (Lasix) 40 mg IVPUSH BID [facility] Last Admin: 08/13/19 09:23 Dose: 40 mg Vancomycin HCl 1.5 gm/ Premix 300 mls @ 200 mls/hr IV ONETIME ONE Stop: 08/08/19 15:29 Last Admin: 08/08/19 13:48 Dose: 200 mls/hr Vancomycin HCl 1.5 gm/ Premix 300 mls @ 200 mls/hr IV Q12H [facility] Last Infusion: 08/10/19 04:32 Dose: Infused Potassium Chloride 10 meq/ (Premix) 0 mls @ 100 mls/hr IV .4BAG YRN Potassium Chloride 10 meq/ (Premix) 0 mls @ 100 mls/hr IV Q2H [facility] Last Admin: 08/11/19 10:42 Dose: Not Given Potassium Chloride 10 meq/ (Premix) 100 mls @ 100 mls/hr IV Q2H [facility] Stop: 08/11/19 15:59 Last Infusion: 08/11/19 18:00 Dose: Infused Lidocaine HCl (Xylocaine-Mpf 1%) 0 ml .XX ASDIRECTED [facility] Stop: 08/11/19 23:59 Lidocaine HCl (Xylocaine-Mpf 1%) Confirm Administered Dose 30 ml .ROUTE .STK- MED ONE Stop: 08/11/19 08:49 Last Admin: 08/11/19 10:53 Dose: 30 ml Lisinopril (Prinivil) 40 mg PO DAILY [facility] Potassium Chloride (Klor-Con 10) 30 meq PO BIDMEALS [facility] Last Admin: 08/10/19 09:30 Dose: 30 meq Potassium Chloride (Klor-Con 10) 40 meq PO ONETIME ONE Stop: 08/11/19 08:07 Last Admin: 08/11/19 09:55 Dose: 40 meq Sodium Phosphate (Neutra-Phos) 250 mg PO ONETIME ONE Stop: 08/12/19 11:58 Last Admin: 08/12/19 13:06 Dose: 250 mg Vancomycin HCl (Pharmacy To Dose - Vancomycin) 1 dose .XX ASDIRECTED YRN Warfarin Sodium (Coumadin) 2 mg PO ONETIME ONE Stop: 08/08/19 15:16 Last Admin: 08/08/19 18:22 Dose: 2 mg Warfarin Sodium (Coumadin) 4 mg PO ONETIME ONE Stop: 08/09/19 14:01 Last Admin: 08/09/19 14:52 Dose: 4 mg Warfarin Sodium (Coumadin) 4 mg PO ONETIME ONE Stop: 08/10/19 14:01 Last Admin: 08/10/19 12:59 Dose: 4 mg Warfarin Sodium (Coumadin) 4 mg PO ONETIME ONE Stop: 08/11/19 14:01 Last Admin: 08/11/19 13:44 Dose: 4 mg Warfarin Sodium (Coumadin) 4 mg PO ONETIME ONE Stop: 08/12/19 14:01 Last Admin: 08/12/19 13:06 Dose: 4 mg - Exam General: Alert, Oriented, Cooperative, No Acute Distress HEENT: Pupils Equal, Pupils Reactive, Mucous Membr. Moist/[place] Neck: Supple Lungs: Clear to Auscultation, Normal Respiratory Effort Cardiovascular: Regular Rate, Regular Rhythm GI/Abdominal Exam: Normal Bowel Sounds, Soft, No Distention Extremities: Pedal Edema (2+ BLE edema with chronic venous staiss changes. ), Redness (BLE cellulitis, Rt>Lt; Improving. ) Skin: Warm, Dry, Rash Neurological: No New Focal Deficit Psy/Mental Status: Alert, Normal Affect, Normal Mood Sepsis Event Note - Evaluation Sepsis Screening Result: No Definite Risk - Focused Exam Vital Signs: Vital Signs Temp Pulse Pulse Resp BP BP BP 08/13/19 09:22 77 149/63 H 08/13/19 08:11 98.3 F 77 20 149/63 H 08/13/19 03:48 98.2 F 72 20 128/61 08/12/19 22:30 99.1 F 66 20 125/61 Pulse Ox 08/13/19 09:22 08/13/19 08:11 96 08/13/19 03:48 95 08/12/19 22:30 96 Date Exam was Performed: 08/13/19 Time Exam was Performed: 09:36 - Problem List & Annotations (1) Anticoagulated by anticoagulation treatment SNOMED Code(s): 441455487, 955171094 Code(s): Z79.01 - JAIL (CURRENT) USE OF ANTICOAGULANTS Status: Acute Priority: High Current Visit: No (2) Cellulitis of both lower extremities SNOMED Code(s): 533635605 Code(s): L03.115 - CELLULITIS OF RIGHT LOWER LIMB; L03.116 - CELLULITIS OF LEFT LOWER LIMB Status: Acute Current Visit: No (3) HTN (hypertension) SNOMED Code(s): 37400658 Code(s): I10 - ESSENTIAL (PRIMARY) HYPERTENSION Status: Acute Current Visit: No (4) Hypokalemia SNOMED Code(s): 45210506 Code(s): E87.6 - HYPOKALEMIA Status: Acute Current Visit: No (5) Morbid obesity SNOMED Code(s): 922432569 Code(s): E66.01 - MORBID (SEVERE) OBESITY DUE TO EXCESS CALORIES Status: Acute Current Visit: No - Problem List Review Problem List Initiated/Reviewed/Updated: Yes - My Orders Last 24 Hours: My Active Orders 08/13/19 14:00 Furosemide [Lasix] 40 mg IVPUSH BIDDIURETIC 08/14/19 13:30 metOLazone [Zaroxolyn] 2.5 mg PO ONETIME ONE - Plan Plan:: #Cellulitis of bilateral lower extremities: Patient is reticular extensive cellulitis of the bilateral lower extremities at the time of admission. Seems to be improving. -Continue antibiotics: doxycycline and zosyn, plan to d/c zosyn tomorrow if cultures remain negative. -Continue lymphedema wraps -Elevate lower extremities when seated #Bilateral lower extremity edema -IV Lasix -One time dose of metolazaone before pm dose of Lasix. -Strict I's and O's -Low-sodium diet -Daily weights #Type 2 diabetes -Sliding scale insulin and hypoglycemia protocol -Accu-Cheks #Hypertension: Blood pressure at goal -Continue home medications #Hypokalemia -Continue oral potassium replacement -Monitor BMP and replace electrolytes as needed #Atrial fibrillation #On chronic anticoagulation with warfarin -Currently rate controlled -Continue warfarin, pharmacy to dose DVT prophylaxis: Warfarin GI prophylaxis: Diabetic diet CODE STATUS: DNR/DNI
[2019-08-13] MEDS ORDERED: Phosphorus #1 250 MG Tab PO ONE (10:00)
[2019-08-13] MEDS ORDERED: Metolazone 2.5 MG Tab ONE (13:50)
[2019-08-13] MEDS ORDERED: Warfarin 2 MG Tab PO ONE (14:00)
[2019-08-13] MEDS ORDERED: Metolazone 2.5 MG Tab PO ONE (14:00)
[2019-08-14] MEDS: diphenhydrAMINE 25 MG Tab PO PRN (03:02)
[2019-08-14] MEDS: Piperacillin/Tazobactam 4.5 GM in Sodium Chloride 0.9% 100 ML IV SCH (05:22)
[2019-08-14] MEDS: Sodium Chloride 0.9% 10 ML Syringe FLUSH PRN ×5 (05:22→21:30)
[2019-08-14 07:52] LABS: CHLORIDE,CL 102 mmol/L (101-111); SODIUM,NA 140 mmol/L (135-145)
[2019-08-14] MEDS: Furosemide 40 MG/4 ML VIAL IVPUSH SCH ×2 (08:55→13:12)
[2019-08-14] MEDS: Acetaminophen 325 MG Tab PO SCH ×2 (09:00→22:27)
[2019-08-14] MEDS: Doxycycline 100 MG Cap PO SCH ×2 (09:01→22:26)
[2019-08-14] MEDS: Metoprolol Succinate 50 MG Tab.ER PO SCH (09:01)
[2019-08-14] MEDS: Diltiazem 180 MG Cap.CD PO SCH (09:01)
[2019-08-14] MEDS: Nystatin Topical Powder 30 GM Bottle TOP SCH ×2 (09:02→22:28)
[2019-08-14] MEDS: Potassium Chloride 10 MEQ Tab.ER PO SCH ×3 (09:02→22:26)
[2019-08-14] MEDS: LETROZOLE 2.5 MG PO SCH (09:03)
[2019-08-14] MEDS: Potassium Chloride 10 MEQ in Premix Bag 1 BAG IV SCH ×4 (10:10→15:51)
[2019-08-14] MEDS ORDERED: Loperamide 2 MG Cap PO PRN (11:06)
--- NOTE | 2019-08-14 11:15 | PCM.PN ---
- General Info Date of Service: 08/14/19 Admission Dx/Problem (Free Text): Bilateral lower extremity cellulitis Subjective Update: No acute events overnight. Having 2-3 soft, formed bowel movements daily per nursing. Afebrile. Denies chest pain, chills, n/v, shortness of breath, or any new symptoms. - Review of Systems General: Reports: No Symptoms HEENT: Reports: No Symptoms Pulmonary: Reports: No Symptoms Cardiovascular: Reports: No Symptoms Gastrointestinal: Reports: Diarrhea (4 loose bowel movements daily. ) Genitourinary: Reports: No Symptoms Musculoskeletal: Reports: Other (BLE swelling and redness. Improving. ) Skin: Reports: Other (As for extremity above. ) Neurological: Reports: No Symptoms Psychiatric: Reports: No Symptoms - Patient Data Vitals - Most Recent: Last Vital Signs Temp 97.5 F 08/14/19 08:07 Pulse 65 08/14/19 09:01 Resp 20 08/14/19 08:07 BP 142/62 H 08/14/19 09:01 Pulse Ox 96 08/14/19 08:07 Weight - Most Recent: 293 lb I&O - Last 24 Hours: Intake & Output 08/13/19 08/14/19 08/14/19 22:59 06:59 14:59 Intake Total 1651 500 560 Output Total 2075 700 2000 Balance -424 200 -3760 Lab Results Last 24 Hours: Laboratory Results - last 24 hr 08/14/19 08/14/19 08/14/19 Range/Units 07:10 07:10 07:10 WBC 8.2 (5.0-10.0) 10^3/uL RBC 4.09 L (4.2-5.4) 10^6/uL Hgb 12.1 (12.0-16.0) g/dL Hct 37.8 (37.0-47.0) % MCV 92.4 (80-100) fL MCH 29.6 (27.0-34.0) pg MCHC 32.0 L (33.0-35.0) g/dL Plt Count 216 (150-450) 10^3/uL PT 21.9 H (9.0-12.0) SEC INR 2.2 H (0.9-1.2) Sodium 140 (135-145) mmol/L Potassium 3.0 L (3.6-5.0) mmol/L Chloride 102 (101-111) mmol/L Carbon Dioxide 28.0 (21.0-31.0) mmol/L Anion Gap 13.0 BUN 11 (7-18) mg/dL Creatinine 0.8 (0.6-1.3) mg/dL Est Cr Clr Drug Dosing 49.63 mL/min Estimated GFR (MDRD) > 60 Glucose 96 (74-105) mg/dL Calcium 8.9 (8.4-10.2) mg/dl Phosphorus 3.1 (2.5-4.6) mg/dL Magnesium 1.8 (1.8-2.5) mg/dL Leo Results Last 24 Hours: Microbiology 08/08/19 12:40 Aerobic Blood Culture - Final Blood - Venous - Lab Draw NO GROWTH AFTER 5 DAYS Anaerobic Blood Culture - Final NO GROWTH AFTER 5 DAYS 08/08/19 12:40 Aerobic Blood Culture - Final Blood - Venous NO GROWTH AFTER 5 DAYS Anaerobic Blood Culture - Final NO GROWTH AFTER 5 DAYS Med Orders - Current: Current Medications Acetaminophen (Tylenol) 650 mg PO Q4H PRN PRN Reason: Pain (Mild 1-3)/fever Acetaminophen (Tylenol) 650 mg PO BID [facility] Last Admin: 08/14/19 09:00 Dose: 650 mg Bumetanide (Bumex) 2 mg PO BID [facility] Last Admin: 08/12/19 11:42 Dose: Not Given Diltiazem HCl (Cardizem Cd) 360 mg PO DAILY [facility] Last Admin: 08/14/19 09:01 Dose: 360 mg Diphenhydramine HCl (Benadryl) 25 mg PO BID PRN PRN Reason: Allergies Last Admin: 08/14/19 03:02 Dose: 25 mg Docusate Sodium (Colace) 100 mg PO BID PRN PRN Reason: Constipation Doxycycline Hyclate (Vibramycin) 100 mg PO Q12HR [facility] Last Admin: 08/14/19 09:01 Dose: 100 mg Furosemide (Lasix) 40 mg IVPUSH BIDDIURETIC [facility] Last Admin: 08/14/19 08:55 Dose: 40 mg Piperacillin Sod/Tazobactam (Sod 4.5 gm/ Sodium Chloride) 100 mls @ 200 mls/hr IV Q6HR [facility] Last Admin: 08/14/19 05:22 Dose: 200 mls/hr Potassium Chloride 10 meq/ (Premix) 100 mls @ 100 mls/hr IV Q1H [facility] Stop: 08/14/19 13:29 Last Infusion: 08/14/19 10:20 Dose: 75 mls/hr Loperamide HCl (Imodium) 2 mg PO Q6H PRN PRN Reason: Diarrhea Stop: 08/15/19 23:59 Magnesium Hydroxide (Milk Of Magnesia) 30 ml PO Q12H PRN PRN Reason: Constipation Metoprolol Succinate (Toprol Xl) 50 mg PO DAILY [facility] Last Admin: 08/14/19 09:01 Dose: 50 mg Multi-Ingredient Lotion (Lubriderm Daily Moisture Lotion) 0 ml TOP 6XDAY PRN PRN Reason: DRY ITCHING SKIN Letrozole 2.5 Mg (Pt Own Med) 2.5 mg PO DAILY [facility] Last Admin: 08/14/19 09:03 Dose: 2.5 mg Nystatin (Nystop) 0 gm TOP BID [facility] Last Admin: 08/14/19 09:02 Dose: 1 applic Ondansetron HCl (Zofran Odt) 4 mg PO Q4H PRN PRN Reason: nausea, able to take PO Oxycodone HCl (Oxycodone) 5 mg PO Q4H PRN PRN Reason: Pain (moderate 4-6) Polyethylene Glycol (Miralax) 17 gm PO DAILY PRN PRN Reason: Constipation Potassium Chloride (Klor-Con 10) 30 meq PO TID [facility] Last Admin: 08/14/19 09:02 Dose: 30 meq Potassium Chloride (Klor-Con 10) 40 meq PO BIDMEALS [facility] Sodium Chloride (Saline Flush) 10 ml FLUSH ASDIRECTED PRN PRN Reason: Keep Vein Open Last Admin: 08/14/19 10:11 Dose: 10 ml Warfarin Sodium (Pharmacy To Dose - Warfarin) 1 dose .XX ASDIRECTED [facility] Warfarin Sodium (Coumadin) 4 mg PO ONETIME ONE Stop: 08/14/19 14:01 Discontinued Medications Dextrose/Water (Dextrose 50% In Water) 50 ml IVPUSH ONETIME PRN PRN Reason: Hypoglycemia Duloxetine HCl (Cymbalta) 30 mg PO DAILY [facility] Furosemide (Lasix) 40 mg IVPUSH BID [facility] Last Admin: 08/13/19 09:23 Dose: 40 mg Vancomycin HCl 1.5 gm/ Premix 300 mls @ 200 mls/hr IV ONETIME ONE Stop: 08/08/19 15:29 Last Admin: 08/08/19 13:48 Dose: 200 mls/hr Vancomycin HCl 1.5 gm/ Premix 300 mls @ 200 mls/hr IV Q12H [facility] Last Infusion: 08/10/19 04:32 Dose: Infused Potassium Chloride 10 meq/ (Premix) 0 mls @ 100 mls/hr IV .4BAG YRN Potassium Chloride 10 meq/ (Premix) 0 mls @ 100 mls/hr IV Q2H [facility] Last Admin: 08/11/19 10:42 Dose: Not Given Potassium Chloride 10 meq/ (Premix) 100 mls @ 100 mls/hr IV Q2H [facility] Stop: 08/11/19 15:59 Last Infusion: 08/11/19 18:00 Dose: Infused Insulin Human Lispro (Humalog) 0 unit SUBCUT WITHMEALSANDBED [facility]; Protocol Last Admin: 08/13/19 08:05 Dose: Not Given Lidocaine HCl (Xylocaine-Mpf 1%) 0 ml .XX ASDIRECTED [facility] Stop: 08/11/19 23:59 Lidocaine HCl (Xylocaine-Mpf 1%) Confirm Administered Dose 30 ml .ROUTE .STK- MED ONE Stop: 08/11/19 08:49 Last Admin: 08/11/19 10:53 Dose: 30 ml Lisinopril (Prinivil) 40 mg PO DAILY [facility] Metolazone (Zaroxolyn) 2.5 mg PO ONETIME ONE Stop: 08/13/19 14:01 Last Admin: 08/13/19 13:57 Dose: 2.5 mg Metolazone (Zaroxolyn) Confirm Administered Dose 2.5 mg .ROUTE .STK-MED ONE Stop: 08/13/19 13:51 Last Admin: 08/13/19 14:13 Dose: Not Given Potassium Chloride (Klor-Con 10) 30 meq PO BIDMEALS [facility] Last Admin: 08/10/19 09:30 Dose: 30 meq Potassium Chloride (Klor-Con 10) 40 meq PO ONETIME ONE Stop: 08/11/19 08:07 Last Admin: 08/11/19 09:55 Dose: 40 meq Sodium Phosphate (Neutra-Phos) 250 mg PO ONETIME ONE Stop: 08/12/19 11:58 Last Admin: 08/12/19 13:06 Dose: 250 mg Sodium Phosphate (Neutra-Phos) 500 mg PO ONETIME ONE Stop: 08/13/19 10:01 Last Admin: 08/13/19 10:50 Dose: 500 mg Vancomycin HCl (Pharmacy To Dose - Vancomycin) 1 dose .XX ASDIRECTED YRN Warfarin Sodium (Coumadin) 2 mg PO ONETIME ONE Stop: 08/08/19 15:16 Last Admin: 08/08/19 18:22 Dose: 2 mg Warfarin Sodium (Coumadin) 4 mg PO ONETIME ONE Stop: 08/09/19 14:01 Last Admin: 08/09/19 14:52 Dose: 4 mg Warfarin Sodium (Coumadin) 4 mg PO ONETIME ONE Stop: 08/10/19 14:01 Last Admin: 08/10/19 12:59 Dose: 4 mg Warfarin Sodium (Coumadin) 4 mg PO ONETIME ONE Stop: 08/11/19 14:01 Last Admin: 08/11/19 13:44 Dose: 4 mg Warfarin Sodium (Coumadin) 4 mg PO ONETIME ONE Stop: 08/12/19 14:01 Last Admin: 08/12/19 13:06 Dose: 4 mg Warfarin Sodium (Coumadin) 4 mg PO ONETIME ONE Stop: 08/13/19 14:01 Last Admin: 08/13/19 14:52 Dose: 4 mg - Exam General: Alert, Oriented HEENT: Pupils Equal, Pupils Reactive, Mucous Membr. Moist/[place] Neck: Supple Lungs: Clear to Auscultation, Normal Respiratory Effort Cardiovascular: Regular Rate, Regular Rhythm GI/Abdominal Exam: Normal Bowel Sounds, Soft (Female) Exam: Other ([place] catheter in place. ) Extremities: Redness (BLE but improving. ), Other (BLE edema improving with skin mottling seen. ) Peripheral Pulses: 2+: Radial (L), Radial (R), Dorsalis Pedis (L), Dorsalis Pedis (R) Skin: Warm, Dry, Intact Neurological: No New Focal Deficit Psy/Mental Status: Alert, Normal Affect, Normal Mood Sepsis Event Note - Evaluation Sepsis Screening Result: No Definite Risk - Focused Exam Vital Signs: Vital Signs Temp Pulse Pulse Resp BP BP BP 08/14/19 09:01 65 142/62 H 03/03/20 08:07 97.5 F 65 20 142/62 H 08/14/19 03:21 98 F 73 20 138/64 08/13/19 23:20 98.5 F 70 20 123/51 L Pulse Ox 08/14/19 09:01 08/14/19 08:07 96 08/14/19 03:21 94 L 08/13/19 23:20 95 Date Exam was Performed: 08/14/19 Time Exam was Performed: 11:10 - Problem List & Annotations (1) Anticoagulated by anticoagulation treatment SNOMED Code(s): 044223551, 970667394 Code(s): Z79.01 - [employer] ADMINISTRATOR (CURRENT) USE OF ANTICOAGULANTS Status: Acute Priority: High Current Visit: No (2) Cellulitis of both lower extremities SNOMED Code(s): 676274577 Code(s): L03.115 - CELLULITIS OF RIGHT LOWER LIMB; L03.116 - CELLULITIS OF LEFT LOWER LIMB Status: Acute Current Visit: No (3) HTN (hypertension) SNOMED Code(s): 69746902 Code(s): I10 - ESSENTIAL (PRIMARY) HYPERTENSION Status: Acute Current Visit: No (4) Hypokalemia SNOMED Code(s): 64769729 Code(s): E87.6 - HYPOKALEMIA Status: Acute Current Visit: No (5) Morbid obesity SNOMED Code(s): 852903926 Code(s): E66.01 - MORBID (SEVERE) OBESITY DUE TO EXCESS CALORIES Status: Acute Current Visit: No - Problem List Review Problem List Initiated/Reviewed/Updated: Yes - My Orders Last 24 Hours: My Active Orders 08/13/19 14:00 Furosemide [Lasix] 40 mg IVPUSH BIDDIURETIC 08/14/19 09:30 Potassium Chloride [KCl 10 MEQ in Water 100 ML] 10 meq Premix Bag 1 bag IV Q1H 08/14/19 11:06 Loperamide [Imodium] 2 mg PO Q6H PRN 08/14/19 14:00 Warfarin [Coumadin] 4 mg PO ONETIME ONE 08/14/19 18:00 Potassium Chloride [Klor-Con 10] 40 meq PO BIDMEALS 08/15/19 05:11 BASIC METABOLIC PANEL,BMP [CHEM] AM - Plan Plan:: #Cellulitis of bilateral lower extremities: Patient is reticular extensive cellulitis of the bilateral lower extremities at the time of admission. Seems to be improving. -Continue antibiotics: doxycycline - d/c zosyn tomorrow if cultures remain negative. -Continue lymphedema wraps -Elevate lower extremities when seated #Bilateral lower extremity edema -Discontinue IV Lasix -Bumex -Strict I's and O's -Low-sodium diet -Daily weights #Type 2 diabetes -Sliding scale insulin and hypoglycemia protocol -Accu-Cheks #Hypertension: Blood pressure at goal -Continue home medications #Hypokalemia: K is 3.0 today. -40 mEq of IV KCl. -Continue oral potassium replacement -Monitor BMP and replace electrolytes as needed #Atrial fibrillation #On chronic anticoagulation with warfarin -Currently rate controlled -Continue warfarin, pharmacy to dose #Perineal irritation: -Continue [place] catheter for now. -Routine perineal care. DVT prophylaxis: Warfarin GI prophylaxis: Diabetic diet CODE STATUS: DNR/DNI
[2019-08-14] MEDS ORDERED: Piperacillin/Tazobactam 4.5 GM in Sodium Chloride 0.9% 100 ML IV SCH (12:00)
[2019-08-14] MEDS ORDERED: Warfarin 2 MG Tab PO ONE (14:00)
[2019-08-14] MEDS ORDERED: Potassium Chloride 10 MEQ in Premix Bag 1 BAG IV SCH (16:00)
[2019-08-14] MEDS ORDERED: Potassium Chloride 10 MEQ Tab.ER PO SCH (18:00)
[2019-08-14] MEDS: Bumetanide 1 MG Tab PO SCH (22:26)
[2019-08-15 07:07] LABS: CHLORIDE,CL 99 mmol/L (101-111); SODIUM,NA 138 mmol/L (135-145)
[2019-08-15] MEDS: Potassium Chloride 10 MEQ Tab.ER PO SCH ×2 (09:16→13:45)
[2019-08-15] MEDS: Diltiazem 180 MG Cap.CD PO SCH (09:17)
[2019-08-15] MEDS: Metoprolol Succinate 50 MG Tab.ER PO SCH (09:17)
[2019-08-15] MEDS: Doxycycline 100 MG Cap PO SCH (09:17)
[2019-08-15] MEDS: Bumetanide 1 MG Tab PO SCH (09:18)
[2019-08-15] MEDS: LETROZOLE 2.5 MG PO SCH (09:19)
[2019-08-15] MEDS: Nystatin Topical Powder 30 GM Bottle TOP SCH (09:20)
[2019-08-15] MEDS: Acetaminophen 325 MG Tab PO SCH (09:21)
[2019-08-15] MEDS ORDERED: Potassium Chloride 10 MEQ Tab.ER PO ONE (10:00)
[2019-08-15] MEDS: Potassium Chloride 10 MEQ in Premix Bag 1 BAG IV SCH ×4 (10:18→13:44)
--- NOTE | 2019-08-15 10:31 | PCM.DCSUM1 ---
Discharge Summary - Hospital Course Free Text/Narrative:: 79-year-old female with a medical history significant for morbid obesity, hypertension, hyperlipidemia, admitted with bilateral lower estimate the edema and cellulitis. Lymphedema wraps to bilateral lower extremities and on Bumex. Her cellulitis seems to be much improved at this time. Noted to have hypokalemia likely 2/2 diuretics and this was replenished. Continue oral doxycycline for one more week after discharge. Recheck potassium in PCP clinic in 2 days. Continue oral K+ supplementation. Follow up with PCP Diagnosis: Stroke: No - Discharge Data Discharge Date: 08/15/19 Discharge Disposition: Home, Self-Care 01 Condition: Good - Referral to Home Health Primary Care Physician: Romeo Cook MD - Patient Summary/Data Consults: Consultations 08/08/19 14:47 OT Evaluation and Treatment [CONS] Routine PT Evaluation and Treatment [CONS] Routine - Discharge Plan *PRESCRIPTION DRUG MONITORING PROGRAM REVIEWED*: Not Applicable *COPY OF PRESCRIPTION DRUG MONITORING REPORT IN PATIENT ASHLEY: Not Applicable Prescriptions/Med Rec: Doxycycline [Vibramycin] 100 mg PO DAILY 7 Days #14 tab Home Medications: Home Meds Metoprolol Succinate [Toprol XL] 50 mg PO DAILY 12/07/14 [History] Menthol/Methyl Salicylate [Icy Hot Cream] 1 applic TOP BID 04/09/16 [History] Letrozole 2.5 mg PO DAILY 06/08/17 [History] Calcium Carbonate [Tums] 500 mg PO TID PRN 06/14/17 [History] Calcium Citrate/Vitamin D3 [Calcium Citrate - Vit D3 Tab] 1 tab PO DAILY [History] Potassium Chloride [Klor-Con 10] 30 meq PO BIDMEALS 06/14/17 [History] Acetaminophen 650 mg PO BID 08/08/19 [History] Acetaminophen [Tylenol] 650 mg PO Q4H PRN 08/08/19 [History] Albuterol/Ipratropium [DuoNeb 3.0-0.5 MG/3 ML] 3 ml INH Q6H PRN 08/08/19 [ History] Arginine/Ascorbate Sod/Fredy AC [Arginaid Powder] 8 oz PO BID 08/08/19 [History] Bumetanide 2 mg PO BID 08/08/19 [History] Cetirizine [ZyrTEC] 5 mg PO DAILY PRN 08/08/19 [History] Diltiazem HCl [Diltiazem 24Hr ER] 360 mg PO DAILY 08/08/19 [History] Lactulose 15 ml PO DAILY PRN 08/08/19 [History] Loperamide [Imodium AD] 2 mg PO ASDIRECTED PRN 08/08/19 [History] Magnesium Hydroxide [Milk of Magnesia] 30 ml PO DAILY PRN 08/08/19 [History] Nystatin [Nyamyc] 1 applic TOP BID 08/08/19 [History] Ondansetron [Zofran] 4 mg PO Q4H PRN 08/08/19 [History] Triamcinolone Acetonide [Kenalog 0.1% Crm] 1 applic TOP BID 08/08/19 [History] Warfarin Sodium [Coumadin] 2 mg PO .WEDSUN 08/08/19 [History] Warfarin [Coumadin] 4 mg PO .MONTUTHUFRISAT 08/08/19 [History] metFORMIN HCl [Metformin HCl] 500 mg PO DAILY 08/08/19 [History] Doxycycline [Vibramycin] 100 mg PO DAILY 7 Days #14 tab 08/15/19 [Rx] Other Amb Orders: BASIC METABOLIC PANEL,BMP [CHEM] Time Frame: 2 Days, Location: None Selected Patient Handouts: Cellulitis, Adult, [id number] Forms: ED Department Discharge Referrals: Romeo Cook MD [Primary Care Provider] - - Discharge Summary/Plan Comment DC Time >30 min.: Yes - General Info Date of Service: 08/15/19 Admission Dx/Problem (Free Text: Bilateral lower extremity cellulitis Subjective Update: No acute events overnight. Afebrile. Denies chest pain, chills, n/v, shortness of breath, or any new symptoms. - Review of Systems General: Reports: No Symptoms HEENT: Reports: No Symptoms Pulmonary: Reports: No Symptoms Cardiovascular: Reports: No Symptoms Gastrointestinal: Reports: No Symptoms Genitourinary: Reports: No Symptoms Musculoskeletal: Reports: Other (bilateral pedal edema) Skin: Reports: No Symptoms Neurological: Reports: No Symptoms - Patient Data Vitals - Most Recent: Last Vital Signs Temp 36.7 C 08/15/19 08:09 Pulse 83 08/15/19 09:17 Resp 20 08/15/19 08:09 BP 121/84 08/15/19 09:17 Pulse Ox 96 08/15/19 08:09 Weight - Most Recent: 132.903 kg I&O - Last 24 hours: Intake & Output 08/14/19 08/15/19 08/15/19 22:59 06:59 14:59 Intake Total 420 Output Total 775 2950 Balance -355 -2950 Lab Results - Last 24 hrs: Laboratory Results - last 24 hr 08/15/19 08/15/19 Range/Units 06:35 06:35 PT 20.1 H (9.0-12.0) SEC INR 2.0 H (0.9-1.2) Sodium 138 (135-145) mmol/L Potassium 3.0 L (3.6-5.0) mmol/L Chloride 99 L (101-111) mmol/L Carbon Dioxide 28.0 (21.0-31.0) mmol/L Anion Gap 14.0 BUN 15 (7-18) mg/dL Creatinine 0.8 (0.6-1.3) mg/dL Est Cr Clr Drug Dosing 49.63 mL/min Estimated GFR (MDRD) > 60 Glucose 101 (74-105) mg/dL Calcium 9.1 (8.4-10.2) mg/dl Med Orders - Current: Current Medications Acetaminophen (Tylenol) 650 mg PO Q4H PRN PRN Reason: Pain (Mild 1-3)/fever Acetaminophen (Tylenol) 650 mg PO BID [facility] Last Admin: 08/15/19 09:21 Dose: 650 mg Bumetanide (Bumex) 2 mg PO BID [facility] Last Admin: 08/15/19 09:18 Dose: 2 mg Diltiazem HCl (Cardizem Cd) 360 mg PO DAILY [facility] Last Admin: 08/15/19 09:17 Dose: 360 mg Diphenhydramine HCl (Benadryl) 25 mg PO BID PRN PRN Reason: Allergies Last Admin: 08/14/19 03:02 Dose: 25 mg Docusate Sodium (Colace) 100 mg PO BID PRN PRN Reason: Constipation Doxycycline Hyclate (Vibramycin) 100 mg PO Q12HR [facility] Last Admin: 08/15/19 09:17 Dose: 100 mg Potassium Chloride 10 meq/ (Premix) 100 mls @ 100 mls/hr IV Q1H [facility] Stop: 08/15/19 13:59 Last Admin: 08/15/19 10:18 Dose: 100 mls/hr Loperamide HCl (Imodium) 2 mg PO Q6H PRN PRN Reason: Diarrhea Stop: 08/15/19 23:59 Magnesium Hydroxide (Milk Of Magnesia) 30 ml PO Q12H PRN PRN Reason: Constipation Metoprolol Succinate (Toprol Xl) 50 mg PO DAILY [facility] Last Admin: 08/15/19 09:17 Dose: 50 mg Multi-Ingredient Lotion (Lubriderm Daily Moisture Lotion) 0 ml TOP 6XDAY PRN PRN Reason: DRY ITCHING SKIN Letrozole 2.5 Mg (Pt Own Med) 2.5 mg PO DAILY [facility] Last Admin: 08/15/19 09:19 Dose: 2.5 mg Nystatin (Nystop) 0 gm TOP BID [facility] Last Admin: 08/15/19 09:20 Dose: 1 applic Ondansetron HCl (Zofran Odt) 4 mg PO Q4H PRN PRN Reason: nausea, able to take PO Oxycodone HCl (Oxycodone) 5 mg PO Q4H PRN PRN Reason: Pain (moderate 4-6) Polyethylene Glycol (Miralax) 17 gm PO DAILY PRN PRN Reason: Constipation Potassium Chloride (Klor-Con 10) 30 meq PO TID [facility] Last Admin: 08/15/19 09:16 Dose: 30 meq Sodium Chloride (Saline Flush) 10 ml FLUSH ASDIRECTED PRN PRN Reason: Keep Vein Open Last Admin: 08/14/19 21:30 Dose: 10 ml Warfarin Sodium (Pharmacy To Dose - Warfarin) 1 dose .XX ASDIRECTED [facility] Discontinued Medications Dextrose/Water (Dextrose 50% In Water) 50 ml IVPUSH ONETIME PRN PRN Reason: Hypoglycemia Duloxetine HCl (Cymbalta) 30 mg PO DAILY [facility] Furosemide (Lasix) 40 mg IVPUSH BID [facility] Last Admin: 08/13/19 09:23 Dose: 40 mg Furosemide (Lasix) 40 mg IVPUSH BIDDIURETIC [facility] Last Admin: 08/14/19 13:12 Dose: 40 mg Vancomycin HCl 1.5 gm/ Premix 300 mls @ 200 mls/hr IV ONETIME ONE Stop: 08/08/19 15:29 Last Admin: 08/08/19 13:48 Dose: 200 mls/hr Piperacillin Sod/Tazobactam (Sod 4.5 gm/ Sodium Chloride) 100 mls @ 200 mls/hr IV Q6HR [facility] Last Admin: 08/14/19 05:22 Dose: 200 mls/hr Vancomycin HCl 1.5 gm/ Premix 300 mls @ 200 mls/hr IV Q12H [facility] Last Infusion: 08/10/19 04:32 Dose: Infused Potassium Chloride 10 meq/ (Premix) 0 mls @ 100 mls/hr IV .4BAG YRN Potassium Chloride 10 meq/ (Premix) 0 mls @ 100 mls/hr IV Q2H [facility] Last Admin: 08/11/19 10:42 Dose: Not Given Potassium Chloride 10 meq/ (Premix) 100 mls @ 100 mls/hr IV Q2H [facility] Stop: 08/11/19 15:59 Last Infusion: 08/11/19 18:00 Dose: Infused Potassium Chloride 10 meq/ (Premix) 100 mls @ 100 mls/hr IV Q1H [facility] Stop: 08/14/19 13:29 Last Infusion: 08/14/19 17:14 Dose: Infused Piperacillin Sod/Tazobactam (Sod 4.5 gm/ Sodium Chloride) 100 mls @ 200 mls/hr IV Q6HR [facility] Last Admin: 08/14/19 13:18 Dose: 200 mls/hr Potassium Chloride 10 meq/ (Premix) 100 mls @ 100 mls/hr IV Q1H [facility] Stop: 08/14/19 16:59 Last Admin: 08/14/19 15:52 Dose: Not Given Insulin Human Lispro (Humalog) 0 unit SUBCUT WITHMEALSANDBED [facility]; Protocol Last Admin: 08/13/19 08:05 Dose: Not Given Lidocaine HCl (Xylocaine-Mpf 1%) 0 ml .XX ASDIRECTED [facility] Stop: 08/11/19 23:59 Lidocaine HCl (Xylocaine-Mpf 1%) Confirm Administered Dose 30 ml .ROUTE .STK- MED ONE Stop: 08/11/19 08:49 Last Admin: 08/11/19 10:53 Dose: 30 ml Lisinopril (Prinivil) 40 mg PO DAILY [facility] Metolazone (Zaroxolyn) 2.5 mg PO ONETIME ONE Stop: 08/13/19 14:01 Last Admin: 08/13/19 13:57 Dose: 2.5 mg Metolazone (Zaroxolyn) Confirm Administered Dose 2.5 mg .ROUTE .STK-MED ONE Stop: 08/13/19 13:51 Last Admin: 08/13/19 14:13 Dose: Not Given Potassium Chloride (Klor-Con 10) 30 meq PO BIDMEALS [facility] Last Admin: 08/10/19 09:30 Dose: 30 meq Potassium Chloride (Klor-Con 10) 40 meq PO ONETIME ONE Stop: 08/11/19 08:07 Last Admin: 08/11/19 09:55 Dose: 40 meq Potassium Chloride (Klor-Con 10) 40 meq PO ONETIME ONE Stop: 08/15/19 10:01 Last Admin: 08/15/19 10:13 Dose: 40 meq Sodium Phosphate (Neutra-Phos) 250 mg PO ONETIME ONE Stop: 08/12/19 11:58 Last Admin: 08/12/19 13:06 Dose: 250 mg Sodium Phosphate (Neutra-Phos) 500 mg PO ONETIME ONE Stop: 08/13/19 10:01 Last Admin: 08/13/19 10:50 Dose: 500 mg Vancomycin HCl (Pharmacy To Dose - Vancomycin) 1 dose .XX ASDIRECTED [facility] Warfarin Sodium (Coumadin) 2 mg PO ONETIME ONE Stop: 08/08/19 15:16 Last Admin: 08/08/19 18:22 Dose: 2 mg Warfarin Sodium (Coumadin) 4 mg PO ONETIME ONE Stop: 08/09/19 14:01 Last Admin: 08/09/19 14:52 Dose: 4 mg Warfarin Sodium (Coumadin) 4 mg PO ONETIME ONE Stop: 08/10/19 14:01 Last Admin: 08/10/19 12:59 Dose: 4 mg Warfarin Sodium (Coumadin) 4 mg PO ONETIME ONE Stop: 08/11/19 14:01 Last Admin: 08/11/19 13:44 Dose: 4 mg Warfarin Sodium (Coumadin) 4 mg PO ONETIME ONE Stop: 08/12/19 14:01 Last Admin: 08/12/19 13:06 Dose: 4 mg Warfarin Sodium (Coumadin) 4 mg PO ONETIME ONE Stop: 08/13/19 14:01 Last Admin: 08/13/19 14:52 Dose: 4 mg Warfarin Sodium (Coumadin) 4 mg PO ONETIME ONE Stop: 08/14/19 14:01 Last Admin: 08/14/19 13:13 Dose: 4 mg - Exam General: Reports: Alert, Oriented HEENT: Reports: Pupils Equal, Pupils Reactive Neck: Reports: Supple Lungs: Reports: Clear to Auscultation, Normal Respiratory Effort Cardiovascular: Reports: Regular Rate, Regular Rhythm GI/Abdominal Exam: Normal Bowel Sounds, Soft, Non-Tender Extremities: Pedal Edema *Q Meaningful Use (DIS) - VTE *Q VTE Anticoagulation Contraindications: Alternative [place] Request PT
[2019-08-15 13:25] VITALS: BP 118/81; PULSE 81
[2019-08-15] MEDS ORDERED: Warfarin 2 MG Tab PO ONE (14:00)
== END 2019-08-15 15:15 | disposition home or self-care (01) | DRG 603 ==
LOC: DL.ED 11:54 → DL.MS 13:35
PROVIDERS: ADMIT Internal Medicine; ATTEND Hospitalist
DX: L03.115 Cellulitis of right lower limb (principal); Z68.42 Body mass index [BMI] 45.0-49.9, adult; H54.7 Unspecified visual loss; L03.116 Cellulitis of left lower limb; I11.0 Hypertensive heart disease with heart failure; I50.9 Heart failure, unspecified; E78.00 Pure hypercholesterolemia, unspecified; Z86.010 Personal history of colon polyps; R32 Unspecified urinary incontinence; G89.29 Other chronic pain; M54.9 Dorsalgia, unspecified; M19.90 Unspecified osteoarthritis, unspecified site; M79.7 Fibromyalgia; I69.319 Unspecified symptoms and signs involving cognitive functions following cerebral infarction; F32.9 Major depressive disorder, single episode, unspecified; E66.9 Obesity, unspecified; Z66 Do not resuscitate; Z90.11 Acquired absence of right breast and nipple; Z92.3 Personal history of irradiation; E78.5 Hyperlipidemia, unspecified; E11.9 Type 2 diabetes mellitus without complications; Z91.048 Other nonmedicinal substance allergy status; E66.01 Morbid (severe) obesity due to excess calories; E87.6 Hypokalemia; I48.91 Unspecified atrial fibrillation; L29.3 Anogenital pruritus, unspecified; Z28.82 Immunization not carried out because of caregiver refusal; Z85.3 Personal history of malignant neoplasm of breast; Z79.01 Long term (current) use of anticoagulants; Z91.013 Allergy to seafood; Z91.09 Other allergy status, other than to drugs and biological substances; Z79.84 Long term (current) use of oral hypoglycemic drugs; Z79.899 Other long term (current) drug therapy; Z98.49 Cataract extraction status, unspecified eye; Z86.73 Personal history of transient ischemic attack (TIA), and cerebral infarction without residual deficits
CPT/HCPCS: 36415; 51702; 80048; 80053; 82962; 83605; 83735; 83880; 84100; 84132; 85025; 85027; 85610; 87040; 97140-GO; 99284; A9270-GY; J1940; J2001; J2543; J3370; J3480; J7050

== ENCOUNTER 2019-10-19 17:16 | Inpatient (IN) | payer MEDICARE, OTHER ==
--- NOTE | 2019-10-19 17:32 | PCM.SN.2 ---
- Free Text/Narrative Note: 10/19/2019 Resident of [facility] I received a call from the [facility] charge nurse at 1702. Siri has a temperature of 104.5, chills. Vital signs: Temp 104.5. BP 115/91. HR 114. RR 22. Ox sat was 87% on room air, improved to 96% on 2L/min. No N/V/D. No cough. No sore throat. Ate earlier today. No other complaints. Chronic issues with LE edema and cellulitis, for which she has been hospitalized in the past. Nursing states legs are no worse than usual. Was tested for Covid on 10/14 and test was negative at that time. Siri will taken to [facility] and seen in the ER. She was pre- registered. I discussed the above with the ER provider, Dr. Hinojosa. Code Status: DNR. DNI. Impression: Temp of 104.5 with rigors, tachycardic, hypoxic. Sepsis? Plan: Sent to ER for evaluation.
--- NOTE | 2019-10-19 17:40 | EDM.PDOC ---
<Rosendo Hinojosa - Last Filed: 10/19/19 18:35> ED HPI GENERAL MEDICAL PROBLEM - General Chief Complaint: Fever Stated Complaint: FEVER Time Seen by Provider: 10/19/19 17:39 Source of Information: Reports: Patient, Old Records, Provider (Dr. Sherman), RN, RN Notes Reviewed History Limitations: Reports: Other (Dementia) - History of Present Illness INITIAL COMMENTS - FREE TEXT/NARRATIVE: Pt sent from senior care by van by Dr. Sherman with report that pt tested negative for Covid-19 on 10/15/19 during a senior care mass Covid screening, but today developed a fever of 104F and was found to have oxygen saturation of 87% on room air with no other symptoms. Pt denies any specific complaints, but admits she does not feel well in general. Specifically she denies chest pain, cough, shortness of breath, abdominal pain, nausea, vomiting, diarrhea, constipation, headache, sore throat, or dysuria. Onset: Today, Unknown/Unsure Duration: Constant Location: Reports: Generalized Severity: Moderate Improves with: Reports: None Worsens with: Reports: None Context: Reports: Sick Contact (intermediate resident) Associated Symptoms: Reports: No Other Symptoms - Related Data Allergies Allergy/AdvReac Type Severity Reaction Status Date / Time shellfish derived Allergy Diarrhea Verified 10/19/19 18:03 tape Allergy Blisters Uncoded 10/19/19 18:03 Home Meds: Home Meds Metoprolol Succinate [Toprol XL] 50 mg PO DAILY 12/07/14 [History] Menthol/Methyl Salicylate [Icy Hot Cream] 1 applic TOP BID 04/09/16 [History] Letrozole 2.5 mg PO DAILY 06/08/17 [History] Calcium Carbonate [Tums] 500 mg PO TID PRN 06/14/17 [History] Calcium Citrate/Vitamin D3 [Calcium Citrate - Vit D3 Tab] 1 tab PO DAILY [History] Potassium Chloride [Klor-Con 10] 30 meq PO BIDMEALS 06/14/17 [History] Acetaminophen 650 mg PO BID 08/08/19 [History] Acetaminophen [Tylenol] 650 mg PO Q4H PRN 08/08/19 [History] Albuterol/Ipratropium [DuoNeb 3.0-0.5 MG/3 ML] 3 ml INH Q6H PRN 08/08/19 [ History] Arginine/Ascorbate Sod/Fredy AC [Arginaid Powder] 8 oz PO BID 08/08/19 [History] Bumetanide 2 mg PO BID 08/08/19 [History] Cetirizine [ZyrTEC] 5 mg PO DAILY PRN 08/08/19 [History] Lactulose 15 ml PO DAILY PRN 08/08/19 [History] Loperamide [Imodium AD] 2 mg PO ASDIRECTED PRN 08/08/19 [History] Magnesium Hydroxide [Milk of Magnesia] 30 ml PO DAILY PRN 08/08/19 [History] Nystatin [Nyamyc] 1 applic TOP BID 08/08/19 [History] Ondansetron [Zofran] 4 mg PO Q4H PRN 08/08/19 [History] Triamcinolone Acetonide [Kenalog 0.1% Crm] 1 applic TOP BID 08/08/19 [History] Warfarin Sodium [Coumadin] 2 mg PO .WEDSUN 08/08/19 [History] Warfarin [Coumadin] 4 mg PO .MONTUTHUFRISAT 08/08/19 [History] dilTIAZem HCL [Diltiazem 24Hr ER] 360 mg PO DAILY 08/08/19 [History] metFORMIN HCl [Metformin HCl] 500 mg PO DAILY 08/08/19 [History] Doxycycline [Vibramycin] 100 mg PO DAILY 7 Days #14 tab 08/15/19 [Rx] Past Medical History HEENT History: Reports: Cataract, Epistaxis, Impaired Vision Other HEENT History: wears glasses Cardiovascular History: Reports: Afib, Heart Failure, High Cholesterol, Hypertension, Other (See Below) Other Cardiovascular History: At fib is new onset discovered today at the clinic Respiratory History: Reports: Bronchitis, Recurrent Gastrointestinal History: Reports: Colon Polyp, Irritable Bowel Syndrome Genitourinary History: Reports: Urinary Incontinence, UTI, Recurrent, Other ( See Below) Other Genitourinary History: leaking 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: Musculoskeletal History: Reports: Back Pain, Chronic, Fracture, Fibromyalgia, Osteoarthritis, Other (See Below) Other Musculoskeletal History: Right fibula fx 04-06-16 Neurological History: Reports: CVA, Other (See Below) Other Neuro History: Mild cognitive impairment Psychiatric History: Reports: Depression Endocrine/Metabolic History: Reports: Hypokalemia, Obesity/BMI 30+ Other Endocrine/Metabolic History: Abnormal glucose readings Hematologic History: Reports: Anticoagulation Therapy Immunologic History: Reports: None Oncologic (Cancer) History: Reports: Breast, Other (See Below) Other Oncologic History: right masectomy Dermatologic History: Reports: Cellulitis, Other (See Below) Other Dermatologic History: 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 - Infectious Disease History Infectious Disease History: Reports: Chicken Pox, Measles, Mumps - Past Surgical History HEENT Surgical History: Reports: Cataract Surgery Cardiovascular Surgical History: Reports: None Respiratory Surgical History: Reports: None GI Surgical History: Reports: None Female Surgical History: Reports: Breast Reconstruction, Hysterectomy, Mastectomy Other Female Surgeries/Procedures: right mastectomy with reconstruction Endocrine Surgical History: Reports: None Neurological Surgical History: Reports: None Musculoskeletal Surgical History: Reports: None Oncologic Surgical History: Reports: Mastectomy Dermatological Surgical History: Reports: None Social & Family History - Family History Family Medical History: Noncontributory - Caffeine Use Caffeine Use: Reports: Coffee - Living Situation & Occupation Living situation: Reports: Extended Care Facility Occupation: Retired ED ROS GENERAL - Review of Systems Review Of Systems: Comprehensive ROS is negative, except as noted in HPI. ED EXAM, GENERAL - Physical Exam Exam: See Below Exam Limited By: Physical Impairment (severe obesity) General Appearance: Alert, No Apparent Distress, Obese, Other (Ill but non- toxic appearing) Eye Exam: Bilateral Eye: Normal Inspection (No conjunctival injection or drainage) Nose: Normal Inspection, No Blood Throat/Mouth: Normal Lips, No Airway Compromise Head: Atraumatic, Normocephalic Neck: Normal Inspection, Non-Tender, Full Range of Motion Respiratory/Chest: No Respiratory Distress, No Accessory Muscle Use, Decreased Breath Sounds, Other (Distant breath sounds due to severely obese body habitus.) . No: Wheezing, Stridor Cardiovascular: Regular Rate, Rhythm, Tachycardia, Other (Chronic significant edema with compression dressings on B/L lower extremities. Dressings will be removed for closer evaluation.) GI/Abdominal: Normal Bowel Sounds, Soft, Non-Tender, No Distention, Other (Exam limited by severe obesity). No: Guarding, Rigid Extremities: Pedal Edema Neurological: Alert, No Motor/Sensory Deficits (generalized weakness, physical deconditioning), Other (Oriented to person, place, and time of year) Psychiatric: Flat Affect Skin Exam: Warm, Dry Course - Vital Signs Last Recorded V/S: Last Vital Signs Temp 38.4 C H 10/19/19 19:00 Pulse 112 H 10/19/19 17:50 Resp 20 10/19/19 17:50 BP 114/54 L 10/19/19 17:50 Pulse Ox 88 L 10/19/19 17:50 - Orders/Labs/Meds Orders: Active Orders 24 hr Category Date Time Status Admission Diagnosis [ADT] Urgent ADT 10/19/19 19:47 Ordered Admission Status [Patient Status] [ADT] Routine ADT 10/19/19 19:47 Ordered Cardiac Monitoring [RC] . DIRECTED Care 10/19/19 19:47 Ordered Insert Urinary Catheter [OM.PC] Stat Care 10/19/19 17:41 Ordered Peripheral IV Care [RC] . DIRECTED Care 10/19/19 17:43 Active Urinary Catheter Assessment [RC] ASDIRECTED Care 10/19/19 17:41 Active CULTURE BLOOD [BC] Stat Lab 10/19/19 18:20 Received CULTURE BLOOD [BC] Stat Lab 10/19/19 18:45 Received CULTURE STREP A CONFIRMATION [RM] Stat Lab 10/19/19 17:45 Results PROCALCITONIN [REF] Stat Lab 10/19/19 18:20 Received REFLEX LACTIC ACID YES OR NO [CHEM] Routine Lab 10/19/19 19:17 Received STREP SCRN A RAPID W CULT CONF [RM] Stat Lab 10/19/19 17:45 Results Sodium Chloride 0.9% [Normal Saline] 1,000 ml Med 10/19/19 17:45 Active IV ASDIRECTED Sodium Chloride 0.9% [Saline Flush] Med 10/19/19 17:41 Active 10 ml FLUSH ASDIRECTED PRN Isolation [COMM] Routine Oth 10/19/19 17:43 Active Isolation [COMM] Stat Oth 10/19/19 17:41 Active Peripheral IV Insertion Adult [OM.PC] Routine Oth 10/19/19 17:41 Ordered Medication Orders Sodium Chloride (Normal Saline) 1,000 mls @ 75 mls/hr IV ASDIRECTED YRN Last Admin: 10/19/19 19:02 Dose: 75 mls/hr Sodium Chloride (Saline Flush) 10 ml FLUSH ASDIRECTED PRN PRN Reason: Keep Vein Open Last Admin: 10/19/19 18:50 Dose: 10 ml Labs: Laboratory Tests 10/19/19 10/19/19 10/19/19 Range/Units 17:45 18:20 18:20 WBC 23.2 H (5.0-10.0) 10^3/uL RBC 4.91 (4.2-5.4) 10^6/uL Hgb 13.9 D (12.0-16.0) g/dL Hct 41.7 (37.0-47.0) % MCV 84.9 D (80-100) fL MCH 28.3 (27.0-34.0) pg MCHC 33.3 (33.0-35.0) g/dL Plt Count 246 (150-450) 10^3/uL Neut % (Auto) 92.7 H (42.2-75.2) % Lymph % (Auto) 2.2 L (20.5-50.1) % [place] % (Auto) 4.8 (2-8) % Eos % (Auto) 0.1 L (1.0-3.0) % Baso % (Auto) 0.2 (0.0-1.0) % PT (9.0-12.0) SEC INR (0.9-1.2) APTT (22.0-34.0) SEC D-Dimer, Quantitative < 100 (0-400) ng/mL VBG pH (7.31-7.41) VBG pCO2 (41-51) mmHg VBG pO2 (35-42) mmHg VBG HCO3 (19-25) mmol/l VBG O2 Saturation (60-80) % VBG Base Excess ((-2)-(+3)) mmol/l O2 Delivery Device Sodium (136-145) mmol/L Potassium (3.5-5.1) mmol/L Chloride (98-107) mmol/L Carbon Dioxide (21-32) mmol/L Anion Gap (7-13) mEq/L BUN (7-18) mg/dL Creatinine (0.55-1.02) mg/dL Est Cr Clr Drug Dosing Estimated GFR (MDRD) Glucose (74-99) mg/dL Lactic Acid (0.4-2.0) mmol/L Calcium (8.5-10.1) mg/dL Ferritin (8-252) mg/mL Total Bilirubin (0.2-1.0) mg/dL Direct Bilirubin (0.0-0.2) mg/dL Indirect Bilirubin AST (15-37) U/L ALT (14-59) U/L Alkaline Phosphatase (46-116) U/L Lactate Dehydrogenase (81-234) U/L Creatine Kinase (16-191) U/L C-Reactive Protein (0.0-0.9) mg/dL B-Natriuretic Peptide (0-100) pg/ml Total Protein (6.4-8.2) g/dL Albumin (3.4-5.0) g/dL Globulin Albumin/Globulin Ratio Urine Color (YELLOW) Urine Appearance (CLEAR) Urine pH (5.0-9.0) Ur Specific [place] (1.005-1.030) Urine Protein (NEGATIVE) Urine Glucose (UA) (NEGATIVE) Urine Ketones (NEGATIVE) Urine Occult Blood (NEGATIVE) Urine Nitrite (NEGATIVE) Urine Bilirubin (NEGATIVE) Urine Urobilinogen (0.2-1.0) mg/dL Ur Leukocyte Esterase (NEGATIVE) Urine RBC /HPF Urine WBC (0-5/HPF) /HPF Ur Epithelial Cells (NOT SEEN) /HPF Amorphous Sediment (NOT SEEN) /HPF Urine Bacteria (0-FEW/HPF) /HPF Urine Mucus (NOT SEEN) /LPF SARS-CoV-2 RNA (RT-PCR) Negative (NEGATIVE) 10/19/19 10/19/19 10/19/19 Range/Units 18:20 18:20 18:20 WBC (5.0-10.0) 10^3/uL RBC (4.2-5.4) 10^6/uL Hgb (12.0-16.0) g/dL Hct (37.0-47.0) % MCV (80-100) fL MCH (27.0-34.0) pg MCHC (33.0-35.0) g/dL Plt Count (150-450) 10^3/uL Neut % (Auto) (42.2-75.2) % Lymph % (Auto) (20.5-50.1) % [place] % (Auto) (2-8) % Eos % (Auto) (1.0-3.0) % Baso % (Auto) (0.0-1.0) % PT 30.0 H D (9.0-12.0) SEC INR 3.2 H (0.9-1.2) APTT 37.4 H (22.0-34.0) SEC D-Dimer, Quantitative (0-400) ng/mL VBG pH (7.31-7.41) VBG pCO2 (41-51) mmHg VBG pO2 (35-42) mmHg VBG HCO3 (19-25) mmol/l VBG O2 Saturation (60-80) % VBG Base Excess ((-2)-(+3)) mmol/l O2 Delivery Device Sodium 137 (136-145) mmol/L Potassium 3.5 (3.5-5.1) mmol/L Chloride 97 L (98-107) mmol/L Carbon Dioxide 32 (21-32) mmol/L Anion Gap 11.5 (7-13) mEq/L BUN 24 H (7-18) mg/dL Creatinine 1.27 H (0.55-1.02) mg/dL Est Cr Clr Drug Dosing TNP Estimated GFR (MDRD) 40 Glucose 175 H (74-99) mg/dL Lactic Acid 2.1 H* (0.4-2.0) mmol/L Calcium 9.4 (8.5-10.1) mg/dL Ferritin (8-252) mg/mL Total Bilirubin 0.6 (0.2-1.0) mg/dL Direct Bilirubin 0.2 (0.0-0.2) mg/dL Indirect Bilirubin 0.4 AST 24 (15-37) U/L ALT 30 (14-59) U/L Alkaline Phosphatase 74 (46-116) U/L Lactate Dehydrogenase 170 (81-234) U/L Creatine Kinase 77 (16-191) U/L C-Reactive Protein 4.3 H (0.0-0.9) mg/dL B-Natriuretic Peptide 215 H (0-100) pg/ml Total Protein 8.5 H (6.4-8.2) g/dL Albumin 3.4 (3.4-5.0) g/dL Globulin 5.1 Albumin/Globulin Ratio 0.7 Urine Color (YELLOW) Urine Appearance (CLEAR) Urine pH (5.0-9.0) Ur Specific [place] (1.005-1.030) Urine Protein (NEGATIVE) Urine Glucose (UA) (NEGATIVE) Urine Ketones (NEGATIVE) Urine Occult Blood (NEGATIVE) Urine Nitrite (NEGATIVE) Urine Bilirubin (NEGATIVE) Urine Urobilinogen (0.2-1.0) mg/dL Ur Leukocyte Esterase (NEGATIVE) Urine RBC /HPF Urine WBC (0-5/HPF) /HPF Ur Epithelial Cells (NOT SEEN) /HPF Amorphous Sediment (NOT SEEN) /HPF Urine Bacteria (0-FEW/HPF) /HPF Urine Mucus (NOT SEEN) /LPF SARS-CoV-2 RNA (RT-PCR) (NEGATIVE) 10/19/19 10/19/19 10/19/19 Range/Units 18:20 18:41 18:57 WBC (5.0-10.0) 10^3/uL RBC (4.2-5.4) 10^6/uL Hgb (12.0-16.0) g/dL Hct (37.0-47.0) % MCV (80-100) fL MCH (27.0-34.0) pg MCHC (33.0-35.0) g/dL Plt Count (150-450) 10^3/uL Neut % (Auto) (42.2-75.2) % Lymph % (Auto) (20.5-50.1) % [place] % (Auto) (2-8) % Eos % (Auto) (1.0-3.0) % Baso % (Auto) (0.0-1.0) % PT (9.0-12.0) SEC INR (0.9-1.2) APTT (22.0-34.0) SEC D-Dimer, Quantitative (0-400) ng/mL VBG pH 7.49 H (7.31-7.41) VBG pCO2 38 L (41-51) mmHg VBG pO2 50 H (35-42) mmHg VBG HCO3 29 H (19-25) mmol/l VBG O2 Saturation 85.7 H (60-80) % VBG Base Excess 5.6 H ((-2)-(+3)) mmol/l O2 Delivery Device Room air Sodium (136-145) mmol/L Potassium (3.5-5.1) mmol/L Chloride (98-107) mmol/L Carbon Dioxide (21-32) mmol/L Anion Gap (7-13) mEq/L BUN (7-18) mg/dL Creatinine (0.55-1.02) mg/dL Est Cr Clr Drug Dosing Estimated GFR (MDRD) Glucose (74-99) mg/dL Lactic Acid (0.4-2.0) mmol/L Calcium (8.5-10.1) mg/dL Ferritin 128 (8-252) mg/mL Total Bilirubin (0.2-1.0) mg/dL Direct Bilirubin (0.0-0.2) mg/dL Indirect Bilirubin AST (15-37) U/L ALT (14-59) U/L Alkaline Phosphatase (46-116) U/L Lactate Dehydrogenase (81-234) U/L Creatine Kinase (16-191) U/L C-Reactive Protein (0.0-0.9) mg/dL B-Natriuretic Peptide (0-100) pg/ml Total Protein (6.4-8.2) g/dL Albumin (3.4-5.0) g/dL Globulin Albumin/Globulin Ratio Urine Color Yellow (YELLOW) Urine Appearance Clear (CLEAR) Urine pH 6.0 (5.0-9.0) Ur Specific [place] 1.020 (1.005-1.030) Urine Protein Negative (NEGATIVE) Urine Glucose (UA) Negative (NEGATIVE) Urine Ketones Negative (NEGATIVE) Urine Occult Blood Trace-intact H (NEGATIVE) Urine Nitrite Negative (NEGATIVE) Urine Bilirubin Negative (NEGATIVE) Urine Urobilinogen 0.2 (0.2-1.0) mg/dL Ur Leukocyte Esterase Negative (NEGATIVE) Urine RBC 0-5 /HPF Urine WBC 5-10 H (0-5/HPF) /HPF Ur Epithelial Cells Rare (NOT SEEN) /HPF Amorphous Sediment Few (NOT SEEN) /HPF Urine Bacteria Few (0-FEW/HPF) /HPF Urine Mucus Not seen (NOT SEEN) /LPF SARS-CoV-2 RNA (RT-PCR) (NEGATIVE) Meds: Medications Generic Name Dose Route Start Last Admin Trade Name Freq PRN Reason Stop Dose Admin Sodium Chloride 1,000 mls @ 75 mls/hr 10/19/19 17:45 10/19/19 19:02 Normal Saline IV 75 mls/hr ASDIRECTED YRN Administration Sodium Chloride 10 ml 10/19/19 17:41 10/19/19 18:50 Saline Flush FLUSH 10 ml ASDIRECTED PRN Administration Keep Vein Open Discontinued Medications Generic Name Dose Route Start Last Admin Trade Name Markus PRN Reason Stop Dose Admin Acetaminophen 650 mg 10/19/19 17:41 10/19/19 18:18 Tylenol PO 10/19/19 17:42 650 mg NOW STA Administration Piperacillin Sod/Tazobactam 100 mls @ 200 mls/hr 10/19/19 18:34 10/19/19 19: 03 Sod 4.5 gm/ Sodium Chloride IV 10/19/19 19:03 200 mls/hr ONETIME ONE Administration - Re-Assessments/Exams Free Text/Narrative Re-Assessment/Exam: 10/19/19 19:00 Care of pt transferred to Don ANNE at shift change. Departure - Departure Disposition: Admitted As Inpatient 64 Clinical Impression: Pneumonia Qualifiers: Pneumonia type: due to unspecified organism Laterality: left Lung location: lower lobe of lung Qualified Code(s): J18.9 - Pneumonia, unspecified organism Sepsis Qualifiers: Sepsis type: sepsis due to unspecified organism Sepsis acute organ dysfunction status: unspecified Qualified Code(s): A41.9 - Sepsis, unspecified organism - Discharge Information Care Plan Goals: Discussed the patient's history, examination, lab results and x-ray results with Dr. Parker during the visit. Dr. Parker accepted the patient for continued evaluation and management as an inpatient at [facility]. Sepsis Event Note - Focused Exam Vital Signs: Vital Signs Temp Pulse Resp BP Pulse Ox 10/19/19 19:00 38.4 C H 10/19/19 17:50 40.3 C H 112 H 20 114/54 L 88 L Date Exam was Performed: 10/19/19 Time Exam was Performed: 18:35 - My Orders Last 24 Hours: My Active Orders 10/19/19 19:47 Admission Diagnosis [ADT] Urgent Admission Status [Patient Status] [ADT] Routine Cardiac Monitoring [RC] . DIRECTED - Assessment/Plan Last 24 Hours: My Active Orders 10/19/19 19:47 Admission Diagnosis [ADT] Urgent Admission Status [Patient Status] [ADT] Routine Cardiac Monitoring [RC] . DIRECTED <Don Domínguez - Last Filed: 10/19/19 19:55> Departure - Departure Time of Disposition: 19:52 Condition: Fair - Discharge Information *PRESCRIPTION DRUG MONITORING PROGRAM REVIEWED*: Not Applicable *COPY OF PRESCRIPTION DRUG MONITORING REPORT IN PATIENT ASHLEY: Not Applicable Sepsis Event Note - Focused Exam Date Exam was Performed: 10/19/19 Time Exam was Performed: 19:52
[2019-10-19] MEDS ORDERED: Acetaminophen 325 MG Tab PO STA (17:41)
[2019-10-19] MEDS ORDERED: Sodium Chloride 0.9% 1,000 ML IV SCH ×3 (17:45→23:24)
[2019-10-19] MEDS ORDERED: Piperacillin/Tazobactam 4.5 GM in Sodium Chloride 0.9% 100 ML IV ONE (18:34)
[2019-10-19] MEDS: Sodium Chloride 0.9% 10 ML Syringe FLUSH PRN (18:50)
[2019-10-19 18:52] LABS: ANION GAP 11.5 mEq/L (7-13); CHLORIDE,CL 97 mmol/L (98-107); SODIUM,NA 137 mmol/L (136-145)
[2019-10-19 18:58] LABS: PTT,PARTIAL THROMBOPLSTIN TIME 37.4 SEC (22.0-34.0)
[2019-10-19 19:01] LABS: BASE EXCESS VENOUS 5.6 mmol/l ((-2)-(+3)); BICARBONATE,VENOUS 29 mmol/l (19-25); O2 DELIVERY DEVICE ROOM AIR; O2 SATURATION VENOUS 85.7 % (60-80); PCO2 VENOUS 38 mmHg (41-51); PH,VENOUS 7.49 (7.31-7.41); PO2 VENOUS 50 mmHg (35-42)
[2019-10-19] MEDS ORDERED: Magnesium Hydroxide 400 MG/5 ML Susp 30 ML Cup PO PRN ×2 (20:46→21:06)
[2019-10-19] MEDS ORDERED: Ondansetron 4 MG/2 ML SDV IVPUSH PRN (20:46)
[2019-10-19] MEDS ORDERED: Docusate Sodium 100 MG Cap PO PRN (20:46)
--- NOTE | 2019-10-19 20:57 | PCM.HP ---
H&P History of Present Illness - General Date of Service: 10/19/19 Admit Problem/Dx: Admission Diagnosis/Problem Admission Diagnosis/Problem Pneumonia Source of Information: Patient History Limitations: Reports: No Limitations - History of Present Illness Initial Comments - Free Text/Narative: Siri is 79 y/o [place] resident with PMH of morbid obesity, hypertension, hyperlipidemia, bilateral lower extremities edema managed with Lymphedema wraps. She was brought to the ED for evaluation of fever of 104 and hypoxia. Patient reportedly tested negative for Covid-19 on 10/15/19 during a half-way mass Covid screening. She developed Fever of 104 F and was also found to be hypoxic on RA at 87%. She denies cough, shortness of breath. She has no chest pain. She denies abdominal pain, diarrhea, vomiting. No dysuria or increased urinary frequency. In the ED her temperature was 104.5 F. Decreased to 101.1 F after Tylenol. Heart rate 112. BP within normal limits. Significant labs; WBC 23 backslash, lactate 2.1, creatinine 1.27, BNP 159. COVID-19 screen was negative in the ED. Group A streptococcal negative influenza screen negative. X-ray was negative for acute infiltrate. Did show increased pulmonary vascularity. She received IV Zosyn and IV fluid in the ED. She will be admitted for further management. Onset of Symptoms: Reports: Sudden Duration of Symptoms: Reports: Hour(s): Location: Reports: Head Quality: Reports: Ache Improves with: Reports: None Worsens with: Reports: None Associated Symptoms: Reports: Fever/Chills - Related Data Allergies/Adverse Reactions: Allergies Allergy/AdvReac Type Severity Reaction Status Date / Time shellfish derived Allergy Diarrhea Verified 10/19/19 18:03 tape Allergy Blisters Uncoded 10/19/19 18:03 Home Medications: Home Meds Metoprolol Succinate [Toprol XL] 50 mg PO DAILY 12/07/14 [History] Menthol/Methyl Salicylate [Icy Hot Cream] 1 applic TOP BID 04/09/16 [History] Letrozole 2.5 mg PO DAILY 06/08/17 [History] Calcium Carbonate [Tums] 500 mg PO TID PRN 06/14/17 [History] Potassium Chloride [Klor-Con 10] 30 meq PO BIDMEALS 01/02/18 [History] Acetaminophen 650 mg PO BID 08/08/19 [History] Acetaminophen [Tylenol] 650 mg PO Q4H PRN 08/08/19 [History] Arginine/Ascorbate Sod/Fredy AC [Arginaid Powder] 8 oz PO BID 08/08/19 [History] Bumetanide 2 mg PO BID 08/08/19 [History] Cetirizine [ZyrTEC] 5 mg PO DAILY PRN 08/08/19 [History] Lactulose 15 ml PO DAILY PRN 08/08/19 [History] Loperamide [Imodium AD] 2 mg PO ASDIRECTED PRN 08/08/19 [History] Magnesium Hydroxide [Milk of Magnesia] 30 ml PO DAILY PRN 08/08/19 [History] Nystatin [Nyamyc] 1 applic TOP BID 08/08/19 [History] Ondansetron [Zofran] 4 mg PO Q4H PRN 08/08/19 [History] Triamcinolone Acetonide [Kenalog 0.1% Crm] 1 applic TOP BID 08/08/19 [History] Warfarin Sodium [Coumadin] 2 mg PO .WEDSUN 08/08/19 [History] Warfarin [Coumadin] 4 mg PO .MONTUTHUFRISAT 08/08/19 [History] dilTIAZem HCL [Diltiazem 24Hr ER] 360 mg PO DAILY 08/08/19 [History] metFORMIN HCl [Metformin HCl] 500 mg PO DAILY 08/08/19 [History] Menthol/Zinc Oxide [Calmoseptine] 3.5 gm TOP BID 10/19/19 [History] Spironolactone [Aldactone] 12.5 mg PO .MONWEDFRI 10/19/19 [History] diphenhydrAMINE [Benadryl] 25 mg PO DAILY PRN 10/19/19 [History] Past Medical History HEENT History: Reports: Cataract, Epistaxis, Impaired Vision Other HEENT History: wears glasses Cardiovascular History: Reports: Afib, Heart Failure, High Cholesterol, Hypertension, Other (See Below) Other Cardiovascular History: At fib is new onset discovered today at the clinic Respiratory History: Reports: Bronchitis, Recurrent Gastrointestinal History: Reports: Colon Polyp, Irritable Bowel Syndrome Genitourinary History: Reports: Urinary Incontinence, UTI, Recurrent, Other ( See Below) Other Genitourinary History: leaking [employer] History: Reports: Musculoskeletal History: Reports: Back Pain, Chronic, Fracture, Fibromyalgia, Osteoarthritis, Other (See Below) Other Musculoskeletal History: Right fibula fx 04-06-16 Neurological History: Reports: CVA, Other (See Below) Other Neuro History: Mild cognitive impairment Psychiatric History: Reports: Depression Endocrine/Metabolic History: Reports: Hypokalemia, Obesity/BMI 30+ Other Endocrine/Metabolic History: Abnormal glucose readings Hematologic History: Reports: Anticoagulation Therapy Immunologic History: Reports: None Oncologic (Cancer) History: Reports: Breast, Other (See Below) Other Oncologic History: right masectomy Dermatologic History: Reports: Cellulitis, Other (See Below) Other Dermatologic History: 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 - Infectious Disease History Infectious Disease History: Reports: Chicken Pox, Measles, Mumps - Past Surgical History HEENT Surgical History: Reports: Cataract Surgery Cardiovascular Surgical History: Reports: None Respiratory Surgical History: Reports: None GI Surgical History: Reports: None Female Surgical History: Reports: Breast Reconstruction, Hysterectomy, Mastectomy Other Female Surgeries/Procedures: right mastectomy with reconstruction Endocrine Surgical History: Reports: None Neurological Surgical History: Reports: None Musculoskeletal Surgical History: Reports: None Oncologic Surgical History: Reports: Mastectomy Dermatological Surgical History: Reports: None Social & Family History - Family History Family Medical History: Noncontributory - Tobacco Use Smoking Status *Q: Never Smoker Second Hand Smoke Exposure: No - Caffeine Use Caffeine Use: Reports: Coffee - Recreational Drug Use Recreational Drug Use: No - Living Situation & Occupation Living situation: Reports: Extended Care Facility Occupation: Retired H&P Review of Systems - Review of Systems: Review Of Systems: See Below General: Reports: Fever, Chills HEENT: Reports: No Symptoms Pulmonary: Reports: No Symptoms Cardiovascular: Reports: No Symptoms Gastrointestinal: Reports: No Symptoms Genitourinary: Reports: No Symptoms Musculoskeletal: Reports: No Symptoms Skin: Reports: Erythema Psychiatric: Reports: No Symptoms Neurological: Reports: No Symptoms Hematologic/Lymphatic: Reports: No Symptoms Immunologic: Reports: No Symptoms Exam - Exam Exam: See Below - Vital Signs Vital Signs: Last Vital Signs Temp 101.1 F H 10/19/19 19:00 Pulse 112 H 10/19/19 17:50 Resp 20 10/19/19 17:50 BP 114/54 L 10/19/19 17:50 Pulse Ox 88 L 10/19/19 17:50 - Exam Quality Assessment: Supplemental Oxygen General: Alert, Oriented, 4 HEENT: Conjunctiva Clear, EACs Clear, EOMI, Hearing Intact, Mucosa Moist & [place] , Nares Patent, Normal Nasal Septum, Posterior Pharynx Clear, TMs Clear, Abnormal Pupils, PERRLA Neck: Supple, Trachea Midline, 2 Lungs: Crackles Cardiovascular: Regular Rate, Regular Rhythm GI/Abdominal Exam: Normal Bowel Sounds, Soft, Non-Tender, No Organomegaly, No Distention, No Abnormal Bruit, No Mass, Pelvis Stable (Female) Exam: Deferred Rectal (Female) Exam: Deferred Back Exam: Normal Inspection, Full Range of Motion, NT Extremities: Other (chronic leg edema b/l. wrap in place) - Patient Data Lab Results Last 24 hrs: Laboratory Results - last 24 hr 10/19/19 10/19/19 10/19/19 Range/Units 17:45 18:20 18:20 WBC 23.2 H (5.0-10.0) 10^3/uL RBC 4.91 (4.2-5.4) 10^6/uL Hgb 13.9 D (12.0-16.0) g/dL Hct 41.7 (37.0-47.0) % MCV 84.9 D (80-100) fL MCH 28.3 (27.0-34.0) pg MCHC 33.3 (33.0-35.0) g/dL Plt Count 246 (150-450) 10^3/uL Neut % (Auto) 92.7 H (42.2-75.2) % Lymph % (Auto) 2.2 L (20.5-50.1) % [place] % (Auto) 4.8 (2-8) % Eos % (Auto) 0.1 L (1.0-3.0) % Baso % (Auto) 0.2 (0.0-1.0) % PT (9.0-12.0) SEC INR (0.9-1.2) APTT (22.0-34.0) SEC D-Dimer, Quantitative < 100 (0-400) ng/mL VBG pH (7.31-7.41) VBG pCO2 (41-51) mmHg VBG pO2 (35-42) mmHg VBG HCO3 (19-25) mmol/l VBG O2 Saturation (60-80) % VBG Base Excess ((-2)-(+3)) mmol/l O2 Delivery Device Sodium (136-145) mmol/L Potassium (3.5-5.1) mmol/L Chloride (98-107) mmol/L Carbon Dioxide (21-32) mmol/L Anion Gap (7-13) mEq/L BUN (7-18) mg/dL Creatinine (0.55-1.02) mg/dL Est Cr Clr Drug Dosing Estimated GFR (MDRD) Glucose (74-99) mg/dL Lactic Acid (0.4-2.0) mmol/L Calcium (8.5-10.1) mg/dL Ferritin (8-252) mg/mL Total Bilirubin (0.2-1.0) mg/dL Direct Bilirubin (0.0-0.2) mg/dL Indirect Bilirubin AST (15-37) U/L ALT (14-59) U/L Alkaline Phosphatase (46-116) U/L Lactate Dehydrogenase (81-234) U/L Creatine Kinase (16-191) U/L C-Reactive Protein (0.0-0.9) mg/dL B-Natriuretic Peptide (0-100) pg/ml Total Protein (6.4-8.2) g/dL Albumin (3.4-5.0) g/dL Globulin Albumin/Globulin Ratio Urine Color (YELLOW) Urine Appearance (CLEAR) Urine pH (5.0-9.0) Ur Specific [place] (1.005-1.030) Urine Protein (NEGATIVE) Urine Glucose (UA) (NEGATIVE) Urine Ketones (NEGATIVE) Urine Occult Blood (NEGATIVE) Urine Nitrite (NEGATIVE) Urine Bilirubin (NEGATIVE) Urine Urobilinogen (0.2-1.0) mg/dL Ur Leukocyte Esterase (NEGATIVE) Urine RBC /HPF Urine WBC (0-5/HPF) /HPF Ur Epithelial Cells (NOT SEEN) /HPF Amorphous Sediment (NOT SEEN) /HPF Urine Bacteria (0-FEW/HPF) /HPF Urine Mucus (NOT SEEN) /LPF SARS-CoV-2 RNA (RT-PCR) Negative (NEGATIVE) 10/19/19 10/19/19 10/19/19 Range/Units 18:20 18:20 18:20 WBC (5.0-10.0) 10^3/uL RBC (4.2-5.4) 10^6/uL Hgb (12.0-16.0) g/dL Hct (37.0-47.0) % MCV (80-100) fL MCH (27.0-34.0) pg MCHC (33.0-35.0) g/dL Plt Count (150-450) 10^3/uL Neut % (Auto) (42.2-75.2) % Lymph % (Auto) (20.5-50.1) % [place] % (Auto) (2-8) % Eos % (Auto) (1.0-3.0) % Baso % (Auto) (0.0-1.0) % PT 30.0 H D (9.0-12.0) SEC INR 3.2 H (0.9-1.2) APTT 37.4 H (22.0-34.0) SEC D-Dimer, Quantitative (0-400) ng/mL VBG pH (7.31-7.41) VBG pCO2 (41-51) mmHg VBG pO2 (35-42) mmHg VBG HCO3 (19-25) mmol/l VBG O2 Saturation (60-80) % VBG Base Excess ((-2)-(+3)) mmol/l O2 Delivery Device Sodium 137 (136-145) mmol/L Potassium 3.5 (3.5-5.1) mmol/L Chloride 97 L (98-107) mmol/L Carbon Dioxide 32 (21-32) mmol/L Anion Gap 11.5 (7-13) mEq/L BUN 24 H (7-18) mg/dL Creatinine 1.27 H (0.55-1.02) mg/dL Est Cr Clr Drug Dosing TNP Estimated GFR (MDRD) 40 Glucose 175 H (74-99) mg/dL Lactic Acid 2.1 H* (0.4-2.0) mmol/L Calcium 9.4 (8.5-10.1) mg/dL Ferritin (8-252) mg/mL Total Bilirubin 0.6 (0.2-1.0) mg/dL Direct Bilirubin 0.2 (0.0-0.2) mg/dL Indirect Bilirubin 0.4 AST 24 (15-37) U/L ALT 30 (14-59) U/L Alkaline Phosphatase 74 (46-116) U/L Lactate Dehydrogenase 170 (81-234) U/L Creatine Kinase 77 (16-191) U/L C-Reactive Protein 4.3 H (0.0-0.9) mg/dL B-Natriuretic Peptide 215 H (0-100) pg/ml Total Protein 8.5 H (6.4-8.2) g/dL Albumin 3.4 (3.4-5.0) g/dL Globulin 5.1 Albumin/Globulin Ratio 0.7 Urine Color (YELLOW) Urine Appearance (CLEAR) Urine pH (5.0-9.0) Ur Specific [place] (1.005-1.030) Urine Protein (NEGATIVE) Urine Glucose (UA) (NEGATIVE) Urine Ketones (NEGATIVE) Urine Occult Blood (NEGATIVE) Urine Nitrite (NEGATIVE) Urine Bilirubin (NEGATIVE) Urine Urobilinogen (0.2-1.0) mg/dL Ur Leukocyte Esterase (NEGATIVE) Urine RBC /HPF Urine WBC (0-5/HPF) /HPF Ur Epithelial Cells (NOT SEEN) /HPF Amorphous Sediment (NOT SEEN) /HPF Urine Bacteria (0-FEW/HPF) /HPF Urine Mucus (NOT SEEN) /LPF SARS-CoV-2 RNA (RT-PCR) (NEGATIVE) 10/19/19 10/19/19 10/19/19 Range/Units 18:20 18:41 18:57 WBC (5.0-10.0) 10^3/uL RBC (4.2-5.4) 10^6/uL Hgb (12.0-16.0) g/dL Hct (37.0-47.0) % MCV (80-100) fL MCH (27.0-34.0) pg MCHC (33.0-35.0) g/dL Plt Count (150-450) 10^3/uL Neut % (Auto) (42.2-75.2) % Lymph % (Auto) (20.5-50.1) % [place] % (Auto) (2-8) % Eos % (Auto) (1.0-3.0) % Baso % (Auto) (0.0-1.0) % PT (9.0-12.0) SEC INR (0.9-1.2) APTT (22.0-34.0) SEC D-Dimer, Quantitative (0-400) ng/mL VBG pH 7.49 H (7.31-7.41) VBG pCO2 38 L (41-51) mmHg VBG pO2 50 H (35-42) mmHg VBG HCO3 29 H (19-25) mmol/l VBG O2 Saturation 85.7 H (60-80) % VBG Base Excess 5.6 H ((-2)-(+3)) mmol/l O2 Delivery Device Room air Sodium (136-145) mmol/L Potassium (3.5-5.1) mmol/L Chloride (98-107) mmol/L Carbon Dioxide (21-32) mmol/L Anion Gap (7-13) mEq/L BUN (7-18) mg/dL Creatinine (0.55-1.02) mg/dL Est Cr Clr Drug Dosing Estimated GFR (MDRD) Glucose (74-99) mg/dL Lactic Acid (0.4-2.0) mmol/L Calcium (8.5-10.1) mg/dL Ferritin 128 (8-252) mg/mL Total Bilirubin (0.2-1.0) mg/dL Direct Bilirubin (0.0-0.2) mg/dL Indirect Bilirubin AST (15-37) U/L ALT (14-59) U/L Alkaline Phosphatase (46-116) U/L Lactate Dehydrogenase (81-234) U/L Creatine Kinase (16-191) U/L C-Reactive Protein (0.0-0.9) mg/dL B-Natriuretic Peptide (0-100) pg/ml Total Protein (6.4-8.2) g/dL Albumin (3.4-5.0) g/dL Globulin Albumin/Globulin Ratio Urine Color Yellow (YELLOW) Urine Appearance Clear (CLEAR) Urine pH 6.0 (5.0-9.0) Ur Specific [place] 1.020 (1.005-1.030) Urine Protein Negative (NEGATIVE) Urine Glucose (UA) Negative (NEGATIVE) Urine Ketones Negative (NEGATIVE) Urine Occult Blood Trace-intact H (NEGATIVE) Urine Nitrite Negative (NEGATIVE) Urine Bilirubin Negative (NEGATIVE) Urine Urobilinogen 0.2 (0.2-1.0) mg/dL Ur Leukocyte Esterase Negative (NEGATIVE) Urine RBC 0-5 /HPF Urine WBC 5-10 H (0-5/HPF) /HPF Ur Epithelial Cells Rare (NOT SEEN) /HPF Amorphous Sediment Few (NOT SEEN) /HPF Urine Bacteria Few (0-FEW/HPF) /HPF Urine Mucus Not seen (NOT SEEN) /LPF SARS-CoV-2 RNA (RT-PCR) (NEGATIVE) Result Diagrams: 10/19/19 18:20 10/19/19 18:20 Leo Results Last 24 hrs: Microbiology 10/19/19 17:45 Influenza Type A Antigen Screen - Final Nasal, Unspecified NEGATIVE INFLUENZA A VIRUS AG REFERENCE RANGE: NEGATIVE Influenza Type B Antigen Screen - Final NEGATIVE INFLUENZA B VIRUS AG REFERENCE RANGE: NEGATIVE 10/19/19 17:45 Group A Streptococcus Rapid Screen - Final Throat NEGATIVE STREP A SCREEN REFERENCE RANGE: NEGATIVE - Problem List (1) Intertrigo SNOMED Code(s): 51851010 ICD Code: L30.4 - ERYTHEMA INTERTRIGO Status: Acute Current Visit: Yes (2) Sepsis SNOMED Code(s): 09620130 ICD Code: A41.9 - SEPSIS, UNSPECIFIED ORGANISM Status: Acute Current Visit: No Qualifiers: Sepsis type: sepsis due to unspecified organism Sepsis acute organ dysfunction status: unspecified Qualified Code(s): A41.9 - Sepsis, unspecified organism Problem List Initiated/Reviewed/Updated: Yes Orders Last 24hrs: Active Orders 24 hr Category Date Time Status Admission Diagnosis [ADT] Urgent ADT 10/19/19 19:47 Ordered Admission Status [Patient Status] [ADT] Routine ADT 10/19/19 19:47 Active Ambulate [RC] ASDIRECTED Care 10/19/19 20:46 Ordered Blood Glucose Check, Bedside [RC] QIDACANDBED Care 10/19/19 20:46 Ordered Cardiac Monitoring [RC] . DIRECTED Care 10/19/19 19:47 Active Height and Weight [RC] DAILY Care 10/19/19 20:46 Ordered Insert Urinary Catheter [OM.PC] Stat Care 10/19/19 17:41 Ordered Intake and Output [RC] QSHIFT Care 10/19/19 20:47 Ordered Notify Provider Vital Signs [RC] ASDIRECTED Care 10/19/19 20:47 Ordered Oxygen Therapy [RC] PRN Care 10/19/19 20:46 Ordered Peripheral IV Care [RC] . DIRECTED Care 10/19/19 17:43 Active Urinary Catheter Assessment [RC] ASDIRECTED Care 10/19/19 17:41 Active VTE/DVT Education [RC] PER UNIT ROUTINE Care 10/19/19 20:46 Ordered Vital Signs [RC] Q4H Care 10/19/19 20:46 Ordered PT Evaluation and Treatment [CONS] Routine Cons 10/19/19 20:46 Ordered Regular Diet [DIET] Diet 10/20/19 Breakfast Ordered BASIC METABOLIC PANEL,BMP [CHEM] DAILY Lab 10/20/19 07:00 Ordered BASIC METABOLIC PANEL,BMP [CHEM] DAILY Lab 10/21/19 07:00 Ordered BASIC METABOLIC PANEL,BMP [CHEM] DAILY Lab 10/22/19 07:00 Ordered BASIC METABOLIC PANEL,BMP [CHEM] DAILY Lab 10/23/19 07:00 Ordered BASIC METABOLIC PANEL,BMP [CHEM] DAILY Lab 10/24/19 07:00 Ordered CBC W/O DIFF,HEMOGRAM [HEME] DAILY Lab 10/20/19 07:00 Ordered CBC W/O DIFF,HEMOGRAM [HEME] DAILY Lab 10/21/19 07:00 Ordered CBC W/O DIFF,HEMOGRAM [HEME] DAILY Lab 10/22/19 07:00 Ordered CBC W/O DIFF,HEMOGRAM [HEME] DAILY Lab 10/23/19 07:00 Ordered CBC W/O DIFF,HEMOGRAM [HEME] DAILY Lab 10/24/19 07:00 Ordered CULTURE BLOOD [BC] Stat Lab 10/19/19 18:20 Received CULTURE BLOOD [BC] Stat Lab 10/19/19 18:45 Received CULTURE SPUTUM + SMEAR [RM] Stat Lab 10/19/19 20:46 Ordered CULTURE STREP A CONFIRMATION [RM] Stat Lab 10/19/19 17:45 Results GRAM STAIN [RM] Routine Lab 10/19/19 20:46 Ordered LACTATE SEPSIS W/ REFLEX [CHEM] Q4H Lab 10/19/19 23:59 Ordered LACTATE SEPSIS W/ REFLEX [CHEM] Q4H Lab 10/20/19 03:59 Ordered MAGNESIUM [CHEM] Routine Lab 10/19/19 20:46 Ordered PHOSPHORUS [CHEM] Routine Lab 10/19/19 20:46 Ordered PROCALCITONIN [REF] Stat Lab 10/19/19 18:20 Received REFLEX LACTIC ACID YES OR NO [CHEM] Routine Lab 10/19/19 19:17 Received STREP SCRN A RAPID W CULT CONF [RM] Stat Lab 10/19/19 17:45 Results Docusate Sodium [Colace] Med 10/19/19 20:46 Ordered 100 mg PO BID PRN Enoxaparin [Lovenox] Med 10/20/19 09:00 Ordered 30 mg SUBCUT DAILY Magnesium Hydroxide [Milk of Magnesia] Med 10/19/19 20:46 Ordered 30 ml PO Q12H PRN Ondansetron [Zofran] Med 10/19/19 20:46 Ordered 4 mg IVPUSH Q6H PRN Piperacillin/Tazobactam [Zosyn] 3.375 gm Med 10/19/19 21:00 Ordered Sodium Chloride 0.9% [Normal Saline] 100 ml IV Q6H Sodium Chloride 0.9% [Normal Saline] 1,000 ml Med 10/19/19 17:45 Active IV ASDIRECTED Sodium Chloride 0.9% [Saline Flush] Med 10/19/19 17:41 Active 10 ml FLUSH ASDIRECTED PRN Isolation [COMM] Routine Oth 10/19/19 17:43 Active Isolation [COMM] Stat Oth 10/19/19 17:41 Active Peripheral IV Insertion Adult [OM.PC] Routine Oth 10/19/19 17:41 Ordered Resuscitation Status Routine Resus Stat 10/19/19 20:46 Ordered Medication Orders Docusate Sodium (Colace) 100 mg PO BID PRN PRN Reason: Constipation Enoxaparin Sodium (Lovenox) 30 mg SUBCUT DAILY YRN Sodium Chloride (Normal Saline) 1,000 mls @ 75 mls/hr IV ASDIRECTED YRN Last Admin: 10/19/19 19:02 Dose: 75 mls/hr Piperacillin Sod/Tazobactam (Sod 3.375 gm/ Sodium Chloride) 100 mls @ 200 mls/ hr IV Q6H YRN Magnesium Hydroxide (Milk Of Magnesia) 30 ml PO Q12H PRN PRN Reason: Constipation Ondansetron HCl (Zofran) 4 mg IVPUSH Q6H PRN PRN Reason: Nausea/Vomiting Sodium Chloride (Saline Flush) 10 ml FLUSH ASDIRECTED PRN PRN Reason: Keep Vein Open Last Admin: 10/19/19 18:50 Dose: 10 ml Assessment/Plan Comment:: #Sepsis present on admit. Etiology not clear. Likely due to intertrigo -Patient brought to the ED from half-way for evaluation of temperature of 104 F -Chest x-ray negative for infiltrate. She has no cough -UA negative -COVID-19 screen negative -Erythema noted to lower abdominal and inguinal area -Return medical floor -Sepsis protocol -Blood culture, urine culture -IVF -IV Zosyn and Vanco -Serial lactate every 4 hourly x2. DC IV fluids once lactate normalizes #Hypoxia likely due to CHF exacerbation -Patient has bibasilar crackles on exam -IV diuretics -Strict I's and O's -Fluid restriction -Weight daily -Echo if available #Bilateral lower extremity edema -Continue Bumex -Low-sodium diet -Daily weights #Type 2 diabetes -Hold metformin -Sliding scale insulin -Hypoglycemia protocol -Accu-Cheks #Hypertension -Blood pressure at goal -Continue home medications #Atrial fibrillation -On chronic anticoagulation with warfarin -Currently rate controlled -Continue warfarin, pharmacy to dose -Daily INR #Obesity -Weight reduction measures advised DVT prophylaxis -On Warfarin CODE STATUS -DNR/DNI
[2019-10-19] MEDS ORDERED: Piperacillin/Tazobactam 3.375 GM in Sodium Chloride 0.9% 100 ML IV SCH (21:00)
[2019-10-19] MEDS ORDERED: Calcium Carbonate 500 MG Tab.Chew PO PRN (21:06)
[2019-10-19] MEDS ORDERED: diphenhydrAMINE 25 MG Tab PO PRN (21:06)
[2019-10-19] MEDS ORDERED: Loperamide 2 MG Cap PO PRN (21:20)
[2019-10-19] MEDS ORDERED: Lactulose Soln 10 GM/15 ML 30 ML UD Cup PO PRN (21:30)
[2019-10-19] MEDS ORDERED: Loratadine 10 MG Tab PO PRN (21:30)
[2019-10-19] MEDS: Nystatin Topical Powder 30 GM Bottle TOP SCH ×2 (21:36→22:33)
[2019-10-19] MEDS: Spironolactone 25 MG Tab PO SCH (21:42)
[2019-10-19] MEDS ORDERED: Bumetanide 1 MG/4 ML MDV IVPUSH SCH (21:45)
[2019-10-19] MEDS: Piperacillin/Tazobactam 3.375 GM in Sodium Chloride 0.9% 100 ML IV SCH (22:31)
[2019-10-19] MEDS ORDERED: Sodium Chloride 0.9% 1,000 ML IV ONE (23:23)
[2019-10-20] MEDS: Piperacillin/Tazobactam 3.375 GM in Sodium Chloride 0.9% 100 ML IV SCH ×4 (04:00→22:47)
[2019-10-20 06:45] LABS: ANION GAP 10.2 mEq/L (7-13)
[2019-10-20] MEDS ORDERED: Bumetanide 1 MG Tab PO SCH (08:00)
[2019-10-20] MEDS: Insulin Lispro 100 Units/ML 3 ML Vial SUBCUT SCH ×4 (08:21→21:31)
[2019-10-20] MEDS: Enoxaparin 40 MG/0.4 ML Syringe SUBCUT SCH (08:52)
[2019-10-20] MEDS: Sodium Chloride 0.9% 10 ML Syringe FLUSH PRN ×2 (08:52→17:34)
[2019-10-20] MEDS: Bumetanide 1 MG/4 ML MDV IVPUSH SCH ×2 (08:52→21:33)
[2019-10-20] MEDS: Metoprolol Succinate 50 MG Tab.ER PO SCH (08:53)
[2019-10-20] MEDS: Menthol/Methyl Salicylate 85 GM Tube TOP SCH ×2 (08:53→21:39)
[2019-10-20] MEDS: Diltiazem 180 MG Cap.CD PO SCH (08:53)
[2019-10-20] MEDS: Triamcinolone Acetonide 0.1% Crm 15 GM Tube TOP SCH ×2 (08:55→21:43)
[2019-10-20] MEDS: Nystatin Topical Powder 30 GM Bottle TOP SCH ×2 (08:55→21:43)
[2019-10-20] MEDS ORDERED: Non-Formulary Medication 1 Each (Letrozole 2.5 MG) PO SCH (09:00)
[2019-10-20] MEDS ORDERED: MENTHOL TOP SCH (09:00)
[2019-10-20] MEDS ORDERED: ARGININE PO SCH (09:00)
[2019-10-20] MEDS ORDERED: ASCORBIC ACID PO SCH (09:00)
[2019-10-20] MEDS ORDERED: Enoxaparin 30 MG/0.3 ML Syringe SUBCUT SCH (09:00)
[2019-10-20] MEDS ORDERED: ZINC OXIDE TOP SCH (09:00)
[2019-10-20] MEDS ORDERED: VITAMIN E PO SCH (09:00)
--- NOTE | 2019-10-20 10:42 | PCM.PN ---
- General Info Date of Service: 10/20/19 Admission Dx/Problem (Free Text): Admission Diagnosis/Problem Admission Diagnosis/Problem Sepsis Subjective Update: Siri is 79 y/o [facility] resident with PMH of morbid obesity, hypertension, hyperlipidemia, bilateral lower extremities edema managed with Lymphedema wraps. She was brought to the ED for evaluation of fever of 104 and hypoxia x 1 day. Patient reportedly tested negative for Covid-19 on 10/15/19 during a snf mass Covid- 19 screening. She developed Fever of 104 F on DOP and was also found to be hypoxic on RA at 87%. She denied cough, shortness of breath. She denies abdominal pain, diarrhea, vomiting. No dysuria or increased urinary frequency. She was admitted for sepsis probably due to cellulitis of inguinal skin fold. COVID-19 screen was negative in the ED. Group A streptococcal negative, influenza screen negative. X-ray was negative for acute infiltrate. Today she was seen and examined. No acute event overnight. She reports doing ok. No fever or chills. No diarrhea, n/v. Blood cx on admit initial report; aerobic bottle gram stain positive for gram positive cocci in pairs and in chains. wbc 22 K today down from 23 K. I dd removed the wraps on the LE to examined them. The right leg still has opened wound to the lateral expert covered with dressing. No new evidence of active infection. Wound is dry and clean. No discharge or offensive odor. The LLE looks dry. No redness or open wound noted. Functional Status: Reports: Pain Controlled - Review of Systems General: Reports: No Symptoms HEENT: Reports: No Symptoms Pulmonary: Reports: No Symptoms Cardiovascular: Reports: No Symptoms Gastrointestinal: Reports: No Symptoms Genitourinary: Reports: No Symptoms Musculoskeletal: Reports: Other (The right leg still has opened wound to the lateral expert covered with dressing. No new evidence of active infection. Wound is dry and clean. No discharge or offensive odor. The LLE looks dry. No redness or open wound noted. ) Skin: Reports: Other (Erythema to the inguinal folds and lower abdominal skin. More on the right side. Skin is wet.) Neurological: Reports: No Symptoms Psychiatric: Reports: No Symptoms - Patient Data Vitals - Most Recent: Last Vital Signs Temp 98.3 F 10/20/19 07:56 Pulse 73 10/20/19 08:53 Resp 20 10/20/19 07:56 BP 124/58 L 10/20/19 08:53 Pulse Ox 93 L 10/20/19 07:56 Weight - Most Recent: 289 lb 8 oz I&O - Last 24 Hours: Intake & Output 10/19/19 10/20/19 10/20/19 22:59 06:59 14:59 Intake Total 192 3035 320 Output Total 575 Balance 192 2460 320 Lab Results Last 24 Hours: Laboratory Results - last 24 hr 10/19/19 10/19/19 10/19/19 Range/Units 17:45 18:20 18:20 WBC 23.2 H (5.0-10.0) 10^3/uL RBC 4.91 (4.2-5.4) 10^6/uL Hgb 13.9 D (12.0-16.0) g/dL Hct 41.7 (37.0-47.0) % MCV 84.9 D (80-100) fL MCH 28.3 (27.0-34.0) pg MCHC 33.3 (33.0-35.0) g/dL Plt Count 246 (150-450) 10^3/uL Neut % (Auto) 92.7 H (42.2-75.2) % Lymph % (Auto) 2.2 L (20.5-50.1) % Schleicher % (Auto) 4.8 (2-8) % Eos % (Auto) 0.1 L (1.0-3.0) % Baso % (Auto) 0.2 (0.0-1.0) % PT (9.0-12.0) SEC INR (0.9-1.2) APTT (22.0-34.0) SEC D-Dimer, Quantitative < 100 (0-400) ng/mL VBG pH (7.31-7.41) VBG pCO2 (41-51) mmHg VBG pO2 (35-42) mmHg VBG HCO3 (19-25) mmol/l VBG O2 Saturation (60-80) % VBG Base Excess ((-2)-(+3)) mmol/l O2 Delivery Device Sodium (136-145) mmol/L Potassium (3.5-5.1) mmol/L Chloride (98-107) mmol/L Carbon Dioxide (21-32) mmol/L Anion Gap (7-13) mEq/L BUN (7-18) mg/dL Creatinine (0.55-1.02) mg/dL Est Cr Clr Drug Dosing Estimated GFR (MDRD) Glucose (74-99) mg/dL POC Glucose (83-110) mg/dl Lactic Acid (0.4-2.0) mmol/L Calcium (8.5-10.1) mg/dL Phosphorus (2.6-4.7) mg/dL Magnesium (1.8-2.4) mg/dL Ferritin (8-252) mg/mL Total Bilirubin (0.2-1.0) mg/dL Direct Bilirubin (0.0-0.2) mg/dL Indirect Bilirubin AST (15-37) U/L ALT (14-59) U/L Alkaline Phosphatase (46-116) U/L Lactate Dehydrogenase (81-234) U/L Creatine Kinase (16-191) U/L C-Reactive Protein (0.0-0.9) mg/dL B-Natriuretic Peptide (0-100) pg/ml Total Protein (6.4-8.2) g/dL Albumin (3.4-5.0) g/dL Globulin Albumin/Globulin Ratio Urine Color (YELLOW) Urine Appearance (CLEAR) Urine pH (5.0-9.0) Ur Specific [place] (1.005-1.030) Urine Protein (NEGATIVE) Urine Glucose (UA) (NEGATIVE) Urine Ketones (NEGATIVE) Urine Occult Blood (NEGATIVE) Urine Nitrite (NEGATIVE) Urine Bilirubin (NEGATIVE) Urine Urobilinogen (0.2-1.0) mg/dL Ur Leukocyte Esterase (NEGATIVE) Urine RBC /HPF Urine WBC (0-5/HPF) /HPF Ur Epithelial Cells (NOT SEEN) /HPF Amorphous Sediment (NOT SEEN) /HPF Urine Bacteria (0-FEW/HPF) /HPF Urine Mucus (NOT SEEN) /LPF SARS-CoV-2 RNA (RT-PCR) Negative (NEGATIVE) 10/19/19 10/19/19 10/19/19 Range/Units 18:20 18:20 18:20 WBC (5.0-10.0) 10^3/uL RBC (4.2-5.4) 10^6/uL Hgb (12.0-16.0) g/dL Hct (37.0-47.0) % MCV (80-100) fL MCH (27.0-34.0) pg MCHC (33.0-35.0) g/dL Plt Count (150-450) 10^3/uL Neut % (Auto) (42.2-75.2) % Lymph % (Auto) (20.5-50.1) % Schleicher % (Auto) (2-8) % Eos % (Auto) (1.0-3.0) % Baso % (Auto) (0.0-1.0) % PT 30.0 H D (9.0-12.0) SEC INR 3.2 H (0.9-1.2) APTT 37.4 H (22.0-34.0) SEC D-Dimer, Quantitative (0-400) ng/mL VBG pH (7.31-7.41) VBG pCO2 (41-51) mmHg VBG pO2 (35-42) mmHg VBG HCO3 (19-25) mmol/l VBG O2 Saturation (60-80) % VBG Base Excess ((-2)-(+3)) mmol/l O2 Delivery Device Sodium 137 (136-145) mmol/L Potassium 3.5 (3.5-5.1) mmol/L Chloride 97 L (98-107) mmol/L Carbon Dioxide 32 (21-32) mmol/L Anion Gap 11.5 (7-13) mEq/L BUN 24 H (7-18) mg/dL Creatinine 1.27 H (0.55-1.02) mg/dL Est Cr Clr Drug Dosing TNP Estimated GFR (MDRD) 40 Glucose 175 H (74-99) mg/dL POC Glucose (83-110) mg/dl Lactic Acid 2.1 H* (0.4-2.0) mmol/L Calcium 9.4 (8.5-10.1) mg/dL Phosphorus (2.6-4.7) mg/dL Magnesium (1.8-2.4) mg/dL Ferritin (8-252) mg/mL Total Bilirubin 0.6 (0.2-1.0) mg/dL Direct Bilirubin 0.2 (0.0-0.2) mg/dL Indirect Bilirubin 0.4 AST 24 (15-37) U/L ALT 30 (14-59) U/L Alkaline Phosphatase 74 (46-116) U/L Lactate Dehydrogenase 170 (81-234) U/L Creatine Kinase 77 (16-191) U/L C-Reactive Protein 4.3 H (0.0-0.9) mg/dL B-Natriuretic Peptide 215 H (0-100) pg/ml Total Protein 8.5 H (6.4-8.2) g/dL Albumin 3.4 (3.4-5.0) g/dL Globulin 5.1 Albumin/Globulin Ratio 0.7 Urine Color (YELLOW) Urine Appearance (CLEAR) Urine pH (5.0-9.0) Ur Specific [place] (1.005-1.030) Urine Protein (NEGATIVE) Urine Glucose (UA) (NEGATIVE) Urine Ketones (NEGATIVE) Urine Occult Blood (NEGATIVE) Urine Nitrite (NEGATIVE) Urine Bilirubin (NEGATIVE) Urine Urobilinogen (0.2-1.0) mg/dL Ur Leukocyte Esterase (NEGATIVE) Urine RBC /HPF Urine WBC (0-5/HPF) /HPF Ur Epithelial Cells (NOT SEEN) /HPF Amorphous Sediment (NOT SEEN) /HPF Urine Bacteria (0-FEW/HPF) /HPF Urine Mucus (NOT SEEN) /LPF SARS-CoV-2 RNA (RT-PCR) (NEGATIVE) 10/19/19 10/19/19 10/19/19 Range/Units 18:20 18:20 18:41 WBC (5.0-10.0) 10^3/uL RBC (4.2-5.4) 10^6/uL Hgb (12.0-16.0) g/dL Hct (37.0-47.0) % MCV (80-100) fL MCH (27.0-34.0) pg MCHC (33.0-35.0) g/dL Plt Count (150-450) 10^3/uL Neut % (Auto) (42.2-75.2) % Lymph % (Auto) (20.5-50.1) % Schleicher % (Auto) (2-8) % Eos % (Auto) (1.0-3.0) % Baso % (Auto) (0.0-1.0) % PT (9.0-12.0) SEC INR (0.9-1.2) APTT (22.0-34.0) SEC D-Dimer, Quantitative (0-400) ng/mL VBG pH 7.49 H (7.31-7.41) VBG pCO2 38 L (41-51) mmHg VBG pO2 50 H (35-42) mmHg VBG HCO3 29 H (19-25) mmol/l VBG O2 Saturation 85.7 H (60-80) % VBG Base Excess 5.6 H ((-2)-(+3)) mmol/l O2 Delivery Device Room air Sodium (136-145) mmol/L Potassium (3.5-5.1) mmol/L Chloride (98-107) mmol/L Carbon Dioxide (21-32) mmol/L Anion Gap (7-13) mEq/L BUN (7-18) mg/dL Creatinine (0.55-1.02) mg/dL Est Cr Clr Drug Dosing Estimated GFR (MDRD) Glucose (74-99) mg/dL POC Glucose (83-110) mg/dl Lactic Acid (0.4-2.0) mmol/L Calcium (8.5-10.1) mg/dL Phosphorus 2.9 (2.6-4.7) mg/dL Magnesium 1.8 (1.8-2.4) mg/dL Ferritin 128 (8-252) mg/mL Total Bilirubin (0.2-1.0) mg/dL Direct Bilirubin (0.0-0.2) mg/dL Indirect Bilirubin AST (15-37) U/L ALT (14-59) U/L Alkaline Phosphatase (46-116) U/L Lactate Dehydrogenase (81-234) U/L Creatine Kinase (16-191) U/L C-Reactive Protein (0.0-0.9) mg/dL B-Natriuretic Peptide (0-100) pg/ml Total Protein (6.4-8.2) g/dL Albumin (3.4-5.0) g/dL Globulin Albumin/Globulin Ratio Urine Color (YELLOW) Urine Appearance (CLEAR) Urine pH (5.0-9.0) Ur Specific [place] (1.005-1.030) Urine Protein (NEGATIVE) Urine Glucose (UA) (NEGATIVE) Urine Ketones (NEGATIVE) Urine Occult Blood (NEGATIVE) Urine Nitrite (NEGATIVE) Urine Bilirubin (NEGATIVE) Urine Urobilinogen (0.2-1.0) mg/dL Ur Leukocyte Esterase (NEGATIVE) Urine RBC /HPF Urine WBC (0-5/HPF) /HPF Ur Epithelial Cells (NOT SEEN) /HPF Amorphous Sediment (NOT SEEN) /HPF Urine Bacteria (0-FEW/HPF) /HPF Urine Mucus (NOT SEEN) /LPF SARS-CoV-2 RNA (RT-PCR) (NEGATIVE) 10/19/19 10/19/19 10/20/19 Range/Units 18:57 22:38 02:35 WBC (5.0-10.0) 10^3/uL RBC (4.2-5.4) 10^6/uL Hgb (12.0-16.0) g/dL Hct (37.0-47.0) % MCV (80-100) fL MCH (27.0-34.0) pg MCHC (33.0-35.0) g/dL Plt Count (150-450) 10^3/uL Neut % (Auto) (42.2-75.2) % Lymph % (Auto) (20.5-50.1) % Sch[place]icher % (Auto) (2-8) % Eos % (Auto) (1.0-3.0) % Baso % (Auto) (0.0-1.0) % PT (9.0-12.0) SEC INR (0.9-1.2) APTT (22.0-34.0) SEC D-Dimer, Quantitative (0-400) ng/mL VBG pH (7.31-7.41) VBG pCO2 (41-51) mmHg VBG pO2 (35-42) mmHg VBG HCO3 (19-25) mmol/l VBG O2 Saturation (60-80) % VBG Base Excess ((-2)-(+3)) mmol/l O2 Delivery Device Sodium (136-145) mmol/L Potassium (3.5-5.1) mmol/L Chloride (98-107) mmol/L Carbon Dioxide (21-32) mmol/L Anion Gap (7-13) mEq/L BUN (7-18) mg/dL Creatinine (0.55-1.02) mg/dL Est Cr Clr Drug Dosing Estimated GFR (MDRD) Glucose (74-99) mg/dL POC Glucose (83-110) mg/dl Lactic Acid 2.3 H* 1.7 (0.4-2.0) mmol/L Calcium (8.5-10.1) mg/dL Phosphorus (2.6-4.7) mg/dL Magnesium (1.8-2.4) mg/dL Ferritin (8-252) mg/mL Total Bilirubin (0.2-1.0) mg/dL Direct Bilirubin (0.0-0.2) mg/dL Indirect Bilirubin AST (15-37) U/L ALT (14-59) U/L Alkaline Phosphatase (46-116) U/L Lactate Dehydrogenase (81-234) U/L Creatine Kinase (16-191) U/L C-Reactive Protein (0.0-0.9) mg/dL B-Natriuretic Peptide (0-100) pg/ml Total Protein (6.4-8.2) g/dL Albumin (3.4-5.0) g/dL Globulin Albumin/Globulin Ratio Urine Color Yellow (YELLOW) Urine Appearance Clear (CLEAR) Urine pH 6.0 (5.0-9.0) Ur Specific [place] 1.020 (1.005-1.030) Urine Protein Negative (NEGATIVE) Urine Glucose (UA) Negative (NEGATIVE) Urine Ketones Negative (NEGATIVE) Urine Occult Blood Trace-intact H (NEGATIVE) Urine Nitrite Negative (NEGATIVE) Urine Bilirubin Negative (NEGATIVE) Urine Urobilinogen 0.2 (0.2-1.0) mg/dL Ur Leukocyte Esterase Negative (NEGATIVE) Urine RBC 0-5 /HPF Urine WBC 5-10 H (0-5/HPF) /HPF Ur Epithelial Cells Rare (NOT SEEN) /HPF Amorphous Sediment Few (NOT SEEN) /HPF Urine Bacteria Few (0-FEW/HPF) /HPF Urine Mucus Not seen (NOT SEEN) /LPF SARS-CoV-2 RNA (RT-PCR) (NEGATIVE) 10/20/19 10/20/19 10/20/19 Range/Units 06:15 06:15 06:15 WBC 22.0 H (5.0-10.0) 10^3/uL RBC 4.42 (4.2-5.4) 10^6/uL Hgb 12.5 (12.0-16.0) g/dL Hct 38.0 (37.0-47.0) % MCV 86.0 (80-100) fL MCH 28.3 (27.0-34.0) pg MCHC 32.9 L (33.0-35.0) g/dL Plt Count 209 (150-450) 10^3/uL Neut % (Auto) (42.2-75.2) % Lymph % (Auto) (20.5-50.1) % [place]icher % (Auto) (2-8) % Eos % (Auto) (1.0-3.0) % Baso % (Auto) (0.0-1.0) % PT 25.2 H (9.0-12.0) SEC INR 2.7 H (0.9-1.2) APTT (22.0-34.0) SEC D-Dimer, Quantitative (0-400) ng/mL VBG pH (7.31-7.41) VBG pCO2 (41-51) mmHg VBG pO2 (35-42) mmHg VBG HCO3 (19-25) mmol/l VBG O2 Saturation (60-80) % VBG Base Excess ((-2)-(+3)) mmol/l O2 Delivery Device Sodium 139 (136-145) mmol/L Potassium 3.2 L (3.5-5.1) mmol/L Chloride 101 (98-107) mmol/L Carbon Dioxide 31 (21-32) mmol/L Anion Gap 10.2 (7-13) mEq/L BUN 19 H (7-18) mg/dL Creatinine 1.14 H (0.55-1.02) mg/dL Est Cr Clr Drug Dosing 34.83 Estimated GFR (MDRD) 46 Glucose 124 H (74-99) mg/dL POC Glucose (83-110) mg/dl Lactic Acid (0.4-2.0) mmol/L Calcium 8.4 L (8.5-10.1) mg/dL Phosphorus (2.6-4.7) mg/dL Magnesium (1.8-2.4) mg/dL Ferritin (8-252) mg/mL Total Bilirubin (0.2-1.0) mg/dL Direct Bilirubin (0.0-0.2) mg/dL Indirect Bilirubin AST (15-37) U/L ALT (14-59) U/L Alkaline Phosphatase (46-116) U/L Lactate Dehydrogenase (81-234) U/L Creatine Kinase (16-191) U/L C-Reactive Protein (0.0-0.9) mg/dL B-Natriuretic Peptide (0-100) pg/ml Total Protein (6.4-8.2) g/dL Albumin (3.4-5.0) g/dL Globulin Albumin/Globulin Ratio Urine Color (YELLOW) Urine Appearance (CLEAR) Urine pH (5.0-9.0) Ur Specific [place] (1.005-1.030) Urine Protein (NEGATIVE) Urine Glucose (UA) (NEGATIVE) Urine Ketones (NEGATIVE) Urine Occult Blood (NEGATIVE) Urine Nitrite (NEGATIVE) Urine Bilirubin (NEGATIVE) Urine Urobilinogen (0.2-1.0) mg/dL Ur Leukocyte Esterase (NEGATIVE) Urine RBC /HPF Urine WBC (0-5/HPF) /HPF Ur Epithelial Cells (NOT SEEN) /HPF Amorphous Sediment (NOT SEEN) /HPF Urine Bacteria (0-FEW/HPF) /HPF Urine Mucus (NOT SEEN) /LPF SARS-CoV-2 RNA (RT-PCR) (NEGATIVE) 10/20/19 Range/Units 07:59 WBC (5.0-10.0) 10^3/uL RBC (4.2-5.4) 10^6/uL Hgb (12.0-16.0) g/dL Hct (37.0-47.0) % MCV (80-100) fL MCH (27.0-34.0) pg MCHC (33.0-35.0) g/dL Plt Count (150-450) 10^3/uL Neut % (Auto) (42.2-75.2) % Lymph % (Auto) (20.5-50.1) % [place] % (Auto) (2-8) % Eos % (Auto) (1.0-3.0) % Baso % (Auto) (0.0-1.0) % PT (9.0-12.0) SEC INR (0.9-1.2) APTT (22.0-34.0) SEC D-Dimer, Quantitative (0-400) ng/mL VBG pH (7.31-7.41) VBG pCO2 (41-51) mmHg VBG pO2 (35-42) mmHg VBG HCO3 (19-25) mmol/l VBG O2 Saturation (60-80) % VBG Base Excess ((-2)-(+3)) mmol/l O2 Delivery Device Sodium (136-145) mmol/L Potassium (3.5-5.1) mmol/L Chloride (98-107) mmol/L Carbon Dioxide (21-32) mmol/L Anion Gap (7-13) mEq/L BUN (7-18) mg/dL Creatinine (0.55-1.02) mg/dL Est Cr Clr Drug Dosing Estimated GFR (MDRD) Glucose (74-99) mg/dL POC Glucose 114 H (83-110) mg/dl Lactic Acid (0.4-2.0) mmol/L Calcium (8.5-10.1) mg/dL Phosphorus (2.6-4.7) mg/dL Magnesium (1.8-2.4) mg/dL Ferritin (8-252) mg/mL Total Bilirubin (0.2-1.0) mg/dL Direct Bilirubin (0.0-0.2) mg/dL Indirect Bilirubin AST (15-37) U/L ALT (14-59) U/L Alkaline Phosphatase (46-116) U/L Lactate Dehydrogenase (81-234) U/L Creatine Kinase (16-191) U/L C-Reactive Protein (0.0-0.9) mg/dL B-Natriuretic Peptide (0-100) pg/ml Total Protein (6.4-8.2) g/dL Albumin (3.4-5.0) g/dL Globulin Albumin/Globulin Ratio Urine Color (YELLOW) Urine Appearance (CLEAR) Urine pH (5.0-9.0) Ur Specific [place] (1.005-1.030) Urine Protein (NEGATIVE) Urine Glucose (UA) (NEGATIVE) Urine Ketones (NEGATIVE) Urine Occult Blood (NEGATIVE) Urine Nitrite (NEGATIVE) Urine Bilirubin (NEGATIVE) Urine Urobilinogen (0.2-1.0) mg/dL Ur Leukocyte Esterase (NEGATIVE) Urine RBC /HPF Urine WBC (0-5/HPF) /HPF Ur Epithelial Cells (NOT SEEN) /HPF Amorphous Sediment (NOT SEEN) /HPF Urine Bacteria (0-FEW/HPF) /HPF Urine Mucus (NOT SEEN) /LPF SARS-CoV-2 RNA (RT-PCR) (NEGATIVE) Leo Results Last 24 Hours: Microbiology 10/19/19 18:45 Aerobic Blood Culture - Preliminary Blood - Venous - Lab Draw Anaerobic Blood Culture - Preliminary 10/19/19 18:20 Aerobic Blood Culture - Preliminary Blood 10/19/19 17:45 Influenza Type A Antigen Screen - Final Nasal, Unspecified NEGATIVE INFLUENZA A VIRUS AG REFERENCE RANGE: NEGATIVE Influenza Type B Antigen Screen - Final NEGATIVE INFLUENZA B VIRUS AG REFERENCE RANGE: NEGATIVE 10/19/19 17:45 Group A Streptococcus Rapid Screen - Final Throat NEGATIVE STREP A SCREEN REFERENCE RANGE: NEGATIVE Med Orders - Current: Current Medications Bumetanide (Bumex) 2 mg IVPUSH Q12H [facility] Last Admin: 10/20/19 08:52 Dose: 2 mg Calcium Carbonate/Glycine (Tums) 500 mg PO TID PRN PRN Reason: Dyspepsia Diltiazem HCl (Cardizem Cd) 360 mg PO DAILY [facility] Last Admin: 10/20/19 08:53 Dose: 360 mg Diphenhydramine HCl (Benadryl) 25 mg PO DAILY PRN PRN Reason: itch Docusate Sodium (Colace) 100 mg PO BID PRN PRN Reason: Constipation Enoxaparin Sodium (Lovenox) 40 mg SUBCUT DAILY [facility] Last Admin: 10/20/19 08:52 Dose: 40 mg Piperacillin Sod/Tazobactam (Sod 3.375 gm/ Sodium Chloride) 100 mls @ 200 mls/ hr IV Q6H [facility] Last Admin: 10/20/19 04:00 Dose: 200 mls/hr Insulin Human Lispro (Humalog) 0 unit SUBCUT WITHMEALSANDBED [facility]; Protocol Last Admin: 10/20/19 08:21 Dose: Not Given Lactulose (Cephulac) 10 gm PO DAILY PRN PRN Reason: Constipation Loperamide HCl (Imodium) 2 mg PO ASDIRECTED PRN PRN Reason: Diarrhea Loratadine (Claritin) 5 mg PO DAILY PRN PRN Reason: Allergies Magnesium Hydroxide (Milk Of Magnesia) 30 ml PO Q12H PRN PRN Reason: Constipation Magnesium Hydroxide (Milk Of Magnesia) 30 ml PO DAILY PRN PRN Reason: Constipation Methyl Salicylate (Icy Hot Cream) 0 gm TOP BID [facility] Last Admin: 10/20/19 08:53 Dose: 1 applic Metoprolol Succinate (Toprol Xl) 50 mg PO DAILY [facility] Last Admin: 10/20/19 08:53 Dose: 50 mg Non-Formulary Medication (Arginine/Ascorbate Sod/Fredy Ac [Arginaid Powder]) 8 oz PO BID [facility] Calmoseptine *Pt Own (Med*) 0 gm TOP BID [facility] Nystatin (Nystop) 0 gm TOP BID [facility] Last Admin: 10/20/19 08:55 Dose: 1 applic Ondansetron HCl (Zofran) 4 mg IVPUSH Q6H PRN PRN Reason: Nausea/Vomiting (Letrozole 2.5 Mg)* (Pt Own Med*) 0 each PO DAILY [facility] Sodium Chloride (Saline Flush) 10 ml FLUSH ASDIRECTED PRN PRN Reason: Keep Vein Open Last Admin: 10/20/19 08:52 Dose: 10 ml Spironolactone (Aldactone) 12.5 mg PO MoWeFr [facility] Last Admin: 10/19/19 21:42 Dose: Not Given Triamcinolone Acetonide (Triamcinolone Acetonide 0.1% Crm) 0 gm TOP BID [facility] Last Admin: 10/20/19 08:55 Dose: 1 applic Vancomycin HCl (Pharmacy To Dose - Vancomycin) 1 dose .XX ONETIME ONE Stop: 10/19/19 21:38 Warfarin Sodium (Pharmacy To Dose - Warfarin) 1 dose .XX ASDIRECTED [facility] Warfarin Sodium (Coumadin) 4 mg PO ONETIME [facility] Discontinued Medications Acetaminophen (Tylenol) 650 mg PO NOW STA Stop: 10/19/19 17:42 Last Admin: 10/19/19 18:18 Dose: 650 mg Bumetanide (Bumex) 2 mg PO BIDDIURETIC [facility] Bumetanide (Bumex) 2 mg IVPUSH Q12H [facility] Sodium Chloride (Normal Saline) 1,000 mls @ 75 mls/hr IV ASDIRECTED [facility] Last Infusion: 10/20/19 01:20 Dose: Infused Piperacillin Sod/Tazobactam (Sod 4.5 gm/ Sodium Chloride) 100 mls @ 200 mls/hr IV ONETIME ONE Stop: 10/19/19 19:03 Last Admin: 10/19/19 19:03 Dose: 200 mls/hr Piperacillin Sod/Tazobactam (Sod 3.375 gm/ Sodium Chloride) 100 mls @ 200 mls/ hr IV Q6H [facility] Last Admin: 10/19/19 22:24 Dose: Not Given Sodium Chloride (Normal Saline) 1,000 mls @ 999 mls/hr IV ASDIRECTED [facility] Stop: 10/19/19 22:46 Vancomycin HCl 1.25 gm/ Sodium (Chloride) 250 mls @ 166.667 mls/hr IV Q12H [facility] Vancomycin HCl 1.25 gm/ Sodium (Chloride) 250 mls @ 166.667 mls/hr IV Q24H [facility] Last Admin: 10/19/19 22:52 Dose: 166.667 mls/hr Sodium Chloride (Normal Saline) 1,000 mls @ 999 mls/hr IV .BOLUS ONE Stop: 10/20/19 00:23 Last Infusion: 10/20/19 01:52 Dose: Infused Sodium Chloride (Normal Saline) 1,000 mls @ 75 mls/hr IV ASDIRECTED [facility] Last Infusion: 10/20/19 04:39 Dose: Infused - Exam Quality Assessment: Supplemental Oxygen, DVT Prophylaxis General: Alert, Oriented HEENT: Pupils Equal, Pupils Reactive, EOMI, Mucous Membr. Moist/[place] Neck: Supple Lungs: Clear to Auscultation, Normal Respiratory Effort, Crackles Cardiovascular: Regular Rate, Regular Rhythm GI/Abdominal Exam: Other (Skin to inguinal folds red and wet. Severe on the right side including the lower abdominal skin) (Female) Exam: Deferred Back Exam: Normal Inspection, Full Range of Motion Extremities: Other (The right leg still has opened wound to the lateral expert covered with dressing. No new evidence of active infection. Wound is dry and clean. No discharge or offensive odor. The LLE looks dry. No redness or open wound noted. ) Skin: Moist (skin to inguinal folds red wnd wet) Wound/Incisions: Dressing Dry and Intact Psy/Mental Status: Alert, Normal Affect, Normal Mood Sepsis Event Note - Evaluation Sepsis Screening Result: Severe Sepsis Risk Current Stage of Sepsis: Sepsis (resolving) Possible Source of Sepsis: Skin/Soft Tissue (inguinal folds) - Focused Exam Sepsis Event Note Statement: Focused Sepsis Exam Completed Vital Signs: Vital Signs Temp Pulse Pulse Resp BP BP BP 10/20/19 08:53 73 124/58 L 10/20/19 07:56 98.3 F 73 20 124/58 L 10/20/19 04:27 100.2 F 10/20/19 04:11 10/20/19 04:00 101 F H 94 24 H 138/60 10/20/19 00:00 99.4 F 91 22 H 112/49 L Pulse Ox 10/20/19 08:53 10/20/19 07:56 93 L 10/20/19 04:27 10/20/19 04:11 90 L 10/20/19 04:00 88 L 10/20/19 00:00 94 L Respiratory Effort Without Exertion: Other (see below) (normal) Heart Sounds: Other (see below) (normal) Date Exam was Performed: 10/20/19 Time Exam was Performed: 10:58 - Problem List & Annotations (1) Intertrigo SNOMED Code(s): 78810309 Code(s): L30.4 - ERYTHEMA INTERTRIGO Status: Acute Current Visit: Yes (2) Sepsis SNOMED Code(s): 79491166 Code(s): A41.9 - SEPSIS, UNSPECIFIED ORGANISM Status: Acute Current Visit : No Qualifiers: Sepsis type: sepsis due to unspecified organism Sepsis acute organ dysfunction status: unspecified Qualified Code(s): A41.9 - Sepsis, unspecified organism (3) Sepsis SNOMED Code(s): 56546791 Code(s): A41.9 - SEPSIS, UNSPECIFIED ORGANISM Status: Acute Current Visit : Yes (4) Cellulitis SNOMED Code(s): 533674158 Code(s): L03.90 - CELLULITIS, UNSPECIFIED Status: Acute Current Visit: Yes (5) Hypokalemia SNOMED Code(s): 30699008 Code(s): E87.6 - HYPOKALEMIA Status: Acute Current Visit: No - Problem List Review Problem List Initiated/Reviewed/Updated: Yes - My Orders Last 24 Hours: My Active Orders 10/19/19 20:46 Ambulate [RC] ASDIRECTED Blood Glucose Check, Bedside [RC] QIDACANDBED Height and Weight [RC] 0600 Oxygen Therapy [RC] PRN VTE/DVT Education [RC] 10 Vital Signs [RC] 04,08,12,16,20,00 PT Evaluation and Treatment [CONS] Routine CULTURE SPUTUM + SMEAR [RM] Stat Docusate Sodium [Colace] 100 mg PO BID PRN Magnesium Hydroxide [Milk of Magnesia] 30 ml PO Q12H PRN Ondansetron [Zofran] 4 mg IVPUSH Q6H PRN 10/19/19 20:47 Intake and Output [RC] QSHIFT Notify Provider Vital Signs [RC] ASDIRECTED 10/19/19 21:06 Calcium Carbonate [Tums] 500 mg PO TID PRN Magnesium Hydroxide [Milk of Magnesia] 30 ml PO DAILY PRN diphenhydrAMINE [Benadryl] 25 mg PO DAILY PRN 10/19/19 21:15 Pharmacy to Dose - Warfarin 1 dose .XX ASDIRECTED Spironolactone [Aldactone] 12.5 mg PO MoWeFr 10/19/19 21:20 Loperamide [Imodium] 2 mg PO ASDIRECTED PRN 10/19/19 21:30 Lactulose [Cephulac] 10 gm PO DAILY PRN Loratadine [Claritin] 5 mg PO DAILY PRN 10/19/19 21:37 Pharmacy to Dose - Vancomycin 1 dose .XX ONETIME ONE 10/19/19 21:40 Code Status [Resuscitation Status] Routine 10/19/19 23:00 Piperacillin/Tazobactam [Zosyn] 3.375 gm Sodium Chloride 0.9% [Normal Saline] 100 ml IV Q6H 10/20/19 08:00 Insulin Lispro [HumaLOG] See Protocol SUBCUT WITHMEALSANDBED 10/20/19 09:00 Arginine/Ascorbate Sod/Fredy AC [Arginaid Powder] 8 oz PO BID Bumetanide [Bumex] 2 mg IVPUSH Q12H Diltiazem [Cardizem CD] 360 mg PO DAILY Enoxaparin [Lovenox] 40 mg SUBCUT DAILY Menthol/Methyl Salicylate [Icy Hot Cream] 0 gm TOP BID Metoprolol Succinate [Toprol XL] 50 mg PO DAILY Triamcinolone Acetonide [Triamcinolone Acetonide 0.1% Crm] 0 gm TOP BID 10/20/19 09:30 Menthol/Zinc Oxide [Calmoseptine] 0 gm TOP BID Patient's Own Medication [Ptom] 0 each PO DAILY 10/20/19 09:42 CULTURE BLOOD [BC] Stat CULTURE BLOOD [BC] Stat Blood Culture x2 Reflex Set [OM.PC] Stat 10/20/19 10:16 Wound Care [RC] DAILY 10/20/19 10:25 HEPATIC FUNCTION PANEL,HFP [CHEM] Routine 10/20/19 10:26 CULTURE URINE [RM] Routine 10/20/19 14:00 Warfarin [Coumadin] 4 mg PO ONETIME 10/20/19 Lunch 2 Gram Sodium Diet [DIET] Fluid Restriction [DIET] 10/21/19 07:00 BASIC METABOLIC PANEL,BMP [CHEM] DAILY CBC W/O DIFF,HEMOGRAM [HEME] DAILY INR,PT,PROTHROMBIN TIME [COAG] DAILY 10/22/19 07:00 BASIC METABOLIC PANEL,BMP [CHEM] DAILY CBC W/O DIFF,HEMOGRAM [HEME] DAILY INR,PT,PROTHROMBIN TIME [COAG] DAILY 10/23/19 07:00 BASIC METABOLIC PANEL,BMP [CHEM] DAILY CBC W/O DIFF,HEMOGRAM [HEME] DAILY INR,PT,PROTHROMBIN TIME [COAG] DAILY 10/24/19 07:00 BASIC METABOLIC PANEL,BMP [CHEM] DAILY CBC W/O DIFF,HEMOGRAM [HEME] DAILY INR,PT,PROTHROMBIN TIME [COAG] DAILY 10/25/19 07:00 INR,PT,PROTHROMBIN TIME [COAG] DAILY - Plan Plan:: #Sepsis present on admit. Etiology not clear. Likely due to intertrigo/ cellulitis of inguinal folds -Resolving -UA negative -COVID-19 screen negative -Erythema noted to lower abdominal and inguinal skin folds -Blood culture:Aerobic bottle gram stain; positive for gram positive rods in chains -Lactate trended down to normal -D/c IV Vanco. Contiue IV Zosyn #Gram positive bacteremia -Blood culture:Aerobic bottle gram stain; positive for gram positive rods in chains -Repeat blood cx -Echo if available -Continue abx as above #Hypoxia likely due to CHF exacerbation -Improved -Patient has bibasilar crackles on exam -IV diuretics -Strict I's and O's -Fluid restriction -Weight daily -Echo if available #Hypokalemia due to diuretics use -Replace per protocol #Chronic Bilateral lower extremity edema with issues with cellulitis. Appears improved. -No significant edema noted on exam. Opened wound looks dry and clean. No evidence of active infection -Continue lymphedema wraps -Continue Bumex -Low-sodium diet -Daily weights #Type 2 diabetes -Metformin on hold -Sliding scale insulin -Hypoglycemia protocol -Accu-Cheks #Hypertension -Blood pressure at goal -Continue home medications #Atrial fibrillation -On chronic anticoagulation with warfarin -Currently rate controlled -Continue warfarin, pharmacy to dose -Daily INR #Obesity -Weight reduction measures advised DVT prophylaxis -On Warfarin CODE STATUS -DNR/DNI
[2019-10-20] MEDS: LETROZOLE 2.5 MG PO SCH (11:59)
[2019-10-20] MEDS: CALMOSEPTINE TOP SCH ×2 (11:59→21:42)
[2019-10-20] MEDS ORDERED: Warfarin 2 MG Tab PO SCH (14:00)
[2019-10-21] MEDS: Piperacillin/Tazobactam 3.375 GM in Sodium Chloride 0.9% 100 ML IV SCH ×4 (04:39→23:39)
[2019-10-21 06:32] LABS: ANION GAP 6.9 mEq/L (7-13)
[2019-10-21] MEDS: Metoprolol Succinate 50 MG Tab.ER PO SCH (09:25)
[2019-10-21] MEDS: Diltiazem 180 MG Cap.CD PO SCH (09:25)
[2019-10-21] MEDS: Bumetanide 1 MG/4 ML MDV IVPUSH SCH ×2 (09:26→21:11)
[2019-10-21] MEDS: Insulin Lispro 100 Units/ML 3 ML Vial SUBCUT SCH ×4 (09:26→21:41)
[2019-10-21] MEDS: Enoxaparin 40 MG/0.4 ML Syringe SUBCUT SCH (09:46)
[2019-10-21] MEDS: Potassium Chloride 10 MEQ in Premix Bag 1 BAG IV SCH ×4 (10:04→22:55)
--- NOTE | 2019-10-21 10:07 | PCM.PN ---
- General Info Date of Service: 10/21/19 Admission Dx/Problem (Free Text): Admission Diagnosis/Problem Admission Diagnosis/Problem Sepsis Subjective Update: Siri is 79 y/o NH resident with PMH of morbid obesity, hypertension, hyperlipidemia, bilateral lower extremities edema managed with Lymphedema wraps. She was brought to the ED for evaluation of fever of 104 and hypoxia x 1 day. Patient reportedly tested negative for Covid-19 on 10/15/19 during a skilled nursing mass Covid- 19 screening. She developed Fever of 104 F on DOP and was also found to be hypoxic on RA at 87%. She denied cough, shortness of breath. She denies abdominal pain, diarrhea, vomiting. No dysuria or increased urinary frequency. She was admitted for sepsis probably due to cellulitis of inguinal skin fold. COVID-19 screen was negative in the ED. Group A streptococcal negative, influenza screen negative. X-ray was negative for acute infiltrate. Today she was seen and examined. No acute event overnight. She is doing ok. No fever or chills. No diarrhea, n/v. wbc trended down. She denies chest pain, SOB. She si diuresing well. Serum K 3.0 this morning. Functional Status: Reports: Pain Controlled - Review of Systems General: Reports: No Symptoms HEENT: Reports: No Symptoms Pulmonary: Reports: No Symptoms Cardiovascular: Reports: No Symptoms Gastrointestinal: Reports: No Symptoms Genitourinary: Reports: No Symptoms Musculoskeletal: Reports: No Symptoms Skin: Reports: No Symptoms Neurological: Reports: No Symptoms Psychiatric: Reports: No Symptoms - Patient Data Vitals - Most Recent: Last Vital Signs Temp 99.2 F 10/21/19 08:06 Pulse 75 10/21/19 09:25 Resp 20 10/21/19 08:06 BP 127/72 10/21/19 09:25 Pulse Ox 96 10/21/19 08:06 Weight - Most Recent: 280 lb I&O - Last 24 Hours: Intake & Output 10/20/19 10/21/19 10/21/19 22:59 06:59 14:59 Intake Total 500 250 Output Total 1200 2024 Balance -700 -1775 Lab Results Last 24 Hours: Laboratory Results - last 24 hr 10/20/19 10/20/19 10/20/19 Range/Units 06:15 11:35 17:10 WBC (5.0-10.0) 10^3/uL RBC (4.2-5.4) 10^6/uL Hgb (12.0-16.0) g/dL Hct (37.0-47.0) % MCV (80-100) fL MCH (27.0-34.0) pg MCHC (33.0-35.0) g/dL Plt Count (150-450) 10^3/uL PT (9.0-12.0) SEC INR (0.9-1.2) Sodium (136-145) mmol/L Potassium (3.5-5.1) mmol/L Chloride (98-107) mmol/L Carbon Dioxide (21-32) mmol/L Anion Gap (7-13) mEq/L BUN (7-18) mg/dL Creatinine (0.55-1.02) mg/dL Est Cr Clr Drug Dosing mL/min Estimated GFR (MDRD) Glucose (74-99) mg/dL POC Glucose 110 108 (83-110) mg/dl Calcium (8.5-10.1) mg/dL Total Bilirubin 0.8 (0.2-1.0) mg/dL Direct Bilirubin 0.3 H (0.0-0.2) mg/dL Indirect Bilirubin 0.5 AST 24 (15-37) U/L ALT 28 (14-59) U/L Alkaline Phosphatase 57 (46-116) U/L Total Protein 7.0 (6.4-8.2) g/dL Albumin 2.7 L (3.4-5.0) g/dL Globulin 4.3 Albumin/Globulin Ratio 0.63 10/20/19 10/21/19 10/21/19 Range/Units 21:30 06:04 06:04 WBC 11.9 H (5.0-10.0) 10^3/uL RBC 4.16 L (4.2-5.4) 10^6/uL Hgb 11.6 L (12.0-16.0) g/dL Hct 36.4 L (37.0-47.0) % MCV 87.5 (80-100) fL MCH 27.9 (27.0-34.0) pg MCHC 31.9 L (33.0-35.0) g/dL Plt Count 185 (150-450) 10^3/uL PT (9.0-12.0) SEC INR (0.9-1.2) Sodium 140 (136-145) mmol/L Potassium 2.9 L (3.5-5.1) mmol/L Chloride 102 (98-107) mmol/L Carbon Dioxide 34 H (21-32) mmol/L Anion Gap 6.9 L (7-13) mEq/L BUN 13 (7-18) mg/dL Creatinine 1.01 (0.55-1.02) mg/dL Est Cr Clr Drug Dosing 39.31 mL/min Estimated GFR (MDRD) 53 Glucose 117 H (74-99) mg/dL POC Glucose 118 H (83-110) mg/dl Calcium 8.1 L (8.5-10.1) mg/dL Total Bilirubin (0.2-1.0) mg/dL Direct Bilirubin (0.0-0.2) mg/dL Indirect Bilirubin AST (15-37) U/L ALT (14-59) U/L Alkaline Phosphatase (46-116) U/L Total Protein (6.4-8.2) g/dL Albumin (3.4-5.0) g/dL Globulin Albumin/Globulin Ratio 10/21/19 10/21/19 Range/Units 06:04 07:52 WBC (5.0-10.0) 10^3/uL RBC (4.2-5.4) 10^6/uL Hgb (12.0-16.0) g/dL Hct (37.0-47.0) % MCV (80-100) fL MCH (27.0-34.0) pg MCHC (33.0-35.0) g/dL Plt Count (150-450) 10^3/uL PT 18.5 H (9.0-12.0) SEC INR 2.0 H (0.9-1.2) Sodium (136-145) mmol/L Potassium (3.5-5.1) mmol/L Chloride (98-107) mmol/L Carbon Dioxide (21-32) mmol/L Anion Gap (7-13) mEq/L BUN (7-18) mg/dL Creatinine (0.55-1.02) mg/dL Est Cr Clr Drug Dosing mL/min Estimated GFR (MDRD) Glucose (74-99) mg/dL POC Glucose 114 H (83-110) mg/dl Calcium (8.5-10.1) mg/dL Total Bilirubin (0.2-1.0) mg/dL Direct Bilirubin (0.0-0.2) mg/dL Indirect Bilirubin AST (15-37) U/L ALT (14-59) U/L Alkaline Phosphatase (46-116) U/L Total Protein (6.4-8.2) g/dL Albumin (3.4-5.0) g/dL Globulin Albumin/Globulin Ratio Leo Results Last 24 Hours: Microbiology 10/19/19 18:20 Aerobic Blood Culture - Preliminary Blood Anaerobic Blood Culture - Preliminary NO GROWTH AFTER 1 DAY 10/19/19 18:45 Aerobic Blood Culture - Preliminary Blood - Venous - Lab Draw Anaerobic Blood Culture - Preliminary 10/19/19 17:45 Quick Strep Confirmation Culture - Final Throat NO GROUP A STREP ISOLATED REFERENCE RANGE: NEGATIVE Group A Streptococcus Rapid Screen - Final NEGATIVE STREP A SCREEN REFERENCE RANGE: NEGATIVE 10/20/19 11:35 Anaerobic Blood Culture - Final Blood - Venous - Lab Draw Med Orders - Current: Current Medications Bumetanide (Bumex) 2 mg IVPUSH Q12H [facility] Last Admin: 10/21/19 09:26 Dose: 2 mg Calcium Carbonate/Glycine (Tums) 500 mg PO TID PRN PRN Reason: Dyspepsia Diltiazem HCl (Cardizem Cd) 360 mg PO DAILY [facility] Last Admin: 10/21/19 09:25 Dose: 360 mg Diphenhydramine HCl (Benadryl) 25 mg PO DAILY PRN PRN Reason: itch Docusate Sodium (Colace) 100 mg PO BID PRN PRN Reason: Constipation Enoxaparin Sodium (Lovenox) 40 mg SUBCUT DAILY [facility] Last Admin: 10/21/19 09:46 Dose: 40 mg Piperacillin Sod/Tazobactam (Sod 3.375 gm/ Sodium Chloride) 100 mls @ 200 mls/ hr IV Q6H [facility] Last Admin: 10/21/19 04:39 Dose: 200 mls/hr Potassium Chloride 10 meq/ (Premix) 100 mls @ 100 mls/hr IV Q2H [facility] Stop: 10/21/19 16:59 Insulin Human Lispro (Humalog) 0 unit SUBCUT WITHMEALSANDBED [facility]; Protocol Last Admin: 10/21/19 09:26 Dose: Not Given Lactulose (Cephulac) 10 gm PO DAILY PRN PRN Reason: Constipation Loperamide HCl (Imodium) 2 mg PO ASDIRECTED PRN PRN Reason: Diarrhea Loratadine (Claritin) 5 mg PO DAILY PRN PRN Reason: Allergies Magnesium Hydroxide (Milk Of Magnesia) 30 ml PO Q12H PRN PRN Reason: Constipation Magnesium Hydroxide (Milk Of Magnesia) 30 ml PO DAILY PRN PRN Reason: Constipation Methyl Salicylate (Icy Hot Cream) 0 gm TOP BID [facility] Last Admin: 10/20/19 21:39 Dose: Not Given Metoprolol Succinate (Toprol Xl) 50 mg PO DAILY [facility] Last Admin: 10/21/19 09:25 Dose: 50 mg Non-Formulary Medication (Arginine/Ascorbate Sod/Fredy Ac [Arginaid Powder]) 8 oz PO BID [facility] Calmoseptine *Pt Own (Med*) 0 gm TOP BID [facility] Last Admin: 10/20/19 21:42 Dose: Not Given Nystatin (Nystop) 0 gm TOP BID [facility] Last Admin: 10/20/19 21:43 Dose: 1 applic Ondansetron HCl (Zofran) 4 mg IVPUSH Q6H PRN PRN Reason: Nausea/Vomiting (Letrozole 2.5 Mg)* (Pt Own Med*) 0 each PO DAILY [facility] Last Admin: 10/20/19 11:59 Dose: 1 each Sodium Chloride (Saline Flush) 10 ml FLUSH ASDIRECTED PRN PRN Reason: Keep Vein Open Last Admin: 10/20/19 17:34 Dose: 10 ml Spironolactone (Aldactone) 12.5 mg PO MoWeFr [facility] Last Admin: 10/19/19 21:42 Dose: Not Given Triamcinolone Acetonide (Triamcinolone Acetonide 0.1% Crm) 0 gm TOP BID [facility] Last Admin: 10/20/19 21:43 Dose: 1 applic Warfarin Sodium (Pharmacy To Dose - Warfarin) 1 dose .XX ASDIRECTED [facility] Warfarin Sodium (Coumadin) 4 mg PO ONETIME ONE Stop: 10/21/19 14:01 Discontinued Medications Acetaminophen (Tylenol) 650 mg PO NOW STA Stop: 10/19/19 17:42 Last Admin: 10/19/19 18:18 Dose: 650 mg Bumetanide (Bumex) 2 mg PO BIDDIURETIC YRN Bumetanide (Bumex) 2 mg IVPUSH Q12H Y[facility] Sodium Chloride (Normal Saline) 1,000 mls @ 75 mls/hr IV ASDIRECTED [facility] Last Infusion: 10/20/19 01:20 Dose: Infused Piperacillin Sod/Tazobactam (Sod 4.5 gm/ Sodium Chloride) 100 mls @ 200 mls/hr IV ONETIME ONE Stop: 10/19/19 19:03 Last Admin: 10/19/19 19:03 Dose: 200 mls/hr Piperacillin Sod/Tazobactam (Sod 3.375 gm/ Sodium Chloride) 100 mls @ 200 mls/ hr IV Q6H [facility] Last Admin: 10/19/19 22:24 Dose: Not Given Sodium Chloride (Normal Saline) 1,000 mls @ 999 mls/hr IV ASDIRECTED [facility] Stop: 10/19/19 22:46 Vancomycin HCl 1.25 gm/ Sodium (Chloride) 250 mls @ 166.667 mls/hr IV Q12H [facility] Vancomycin HCl 1.25 gm/ Sodium (Chloride) 250 mls @ 166.667 mls/hr IV Q24H [facility] Last Admin: 10/19/19 22:52 Dose: 166.667 mls/hr Sodium Chloride (Normal Saline) 1,000 mls @ 999 mls/hr IV .BOLUS ONE Stop: 10/20/19 00:23 Last Infusion: 10/20/19 01:52 Dose: Infused Sodium Chloride (Normal Saline) 1,000 mls @ 75 mls/hr IV ASDIRECTED [facility] Last Infusion: 10/20/19 04:39 Dose: Infused Vancomycin HCl (Pharmacy To Dose - Vancomycin) 1 dose .XX ONETIME ONE Stop: 10/19/19 21:38 Warfarin Sodium (Coumadin) 4 mg PO ONETIME [facility] - Exam Quality Assessment: DVT Prophylaxis General: Alert, Oriented HEENT: Pupils Equal, Pupils Reactive, EOMI, Mucous Membr. Moist/Fox Neck: Supple Lungs: Clear to Auscultation, Normal Respiratory Effort Cardiovascular: Regular Rate, Regular Rhythm GI/Abdominal Exam: Normal Bowel Sounds, Soft, Non-Tender, No Organomegaly, No Distention, No Abnormal Bruit, No Mass, Pelvis Stable (Female) Exam: Normal External Exam, Normal Speculum Exam, Normal Bimanual Exam Back Exam: Normal Inspection, Full Range of Motion Extremities: Normal Inspection, Normal Range of Motion, Non-Tender, No Pedal Edema, Normal Capillary Refill Skin: Warm, Dry, Intact Wound/Incisions: Healing Well Neurological: No New Focal Deficit Psy/Mental Status: Alert, Normal Affect, Normal Mood Sepsis Event Note - Evaluation Sepsis Screening Result: Severe Sepsis Risk - Focused Exam Vital Signs: Vital Signs Temp Pulse Pulse Resp BP BP Pulse Ox 10/21/19 09:25 75 127/72 10/21/19 08:06 99.2 F 75 20 127/72 96 Date Exam was Performed: 10/21/19 Time Exam was Performed: 10:02 - Problem List & Annotations (1) Intertrigo SNOMED Code(s): 57499448 Code(s): L30.4 - ERYTHEMA INTERTRIGO Status: Acute Current Visit: Yes (2) Sepsis SNOMED Code(s): 44201917 Code(s): A41.9 - SEPSIS, UNSPECIFIED ORGANISM Status: Acute Current Visit : No Qualifiers: Sepsis type: sepsis due to unspecified organism Sepsis acute organ dysfunction status: unspecified Qualified Code(s): A41.9 - Sepsis, unspecified organism (3) Sepsis SNOMED Code(s): 87975715 Code(s): A41.9 - SEPSIS, UNSPECIFIED ORGANISM Status: Acute Current Visit : Yes (4) Cellulitis SNOMED Code(s): 104796465 Code(s): L03.90 - CELLULITIS, UNSPECIFIED Status: Acute Current Visit: Yes (5) Hypokalemia SNOMED Code(s): 15353327 Code(s): E87.6 - HYPOKALEMIA Status: Acute Current Visit: No - Problem List Review Problem List Initiated/Reviewed/Updated: Yes - My Orders Last 24 Hours: My Active Orders 10/20/19 09:30 Menthol/Zinc Oxide [Calmoseptine] 0 gm TOP BID Patient's Own Medication [Ptom] 0 each PO DAILY 10/20/19 09:42 Blood Culture x2 Reflex Set [OM.PC] Stat 10/20/19 10:16 Wound Care [RC] DAILY 10/20/19 10:26 CULTURE URINE [RM] Routine 10/20/19 11:30 CULTURE BLOOD [BC] Stat 10/20/19 11:35 CULTURE BLOOD [BC] Stat 10/20/19 Lunch 2 Gram Sodium Diet [DIET] Fluid Restriction [DIET] 10/21/19 10:00 Potassium Chloride [KCl 10 MEQ in Water 100 ML] 10 meq Premix Bag 1 bag IV Q2H 10/21/19 14:00 Warfarin [Coumadin] 4 mg PO ONETIME ONE 10/22/19 07:00 BASIC METABOLIC PANEL,BMP [CHEM] DAILY CBC W/O DIFF,HEMOGRAM [HEME] DAILY INR,PT,PROTHROMBIN TIME [COAG] DAILY 10/23/19 07:00 BASIC METABOLIC PANEL,BMP [CHEM] DAILY CBC W/O DIFF,HEMOGRAM [HEME] DAILY INR,PT,PROTHROMBIN TIME [COAG] DAILY 10/24/19 07:00 BASIC METABOLIC PANEL,BMP [CHEM] DAILY CBC W/O DIFF,HEMOGRAM [HEME] DAILY INR,PT,PROTHROMBIN TIME [COAG] DAILY 10/25/19 07:00 INR,PT,PROTHROMBIN TIME [COAG] DAILY - Plan Plan:: #Sepsis present on admit. Etiology not clear. Likely due to intertrigo/ cellulitis of inguinal folds -Resolved -UA negative -COVID-19 screen negative -Erythema noted to lower abdominal and inguinal skin folds -Blood culture:Aerobic bottle gram stain; positive for gram positive rods in chains -Lactate trended down to normal -Contiue IV Zosyn #Gram positive bacteremia -Blood culture:Aerobic bottle gram stain; positive for gram positive rods in chains -Repeat blood cx in process -Echo if available -Continue abx as above #Hypoxia likely due to CHF exacerbation -Resolved -Patient has bibasilar crackles on exam -IV diuretics -Strict I's and O's -Fluid restriction -Weight daily -Echo if available #Hypokalemia due to diuretics use -Replace per protocol #Chronic Bilateral lower extremity edema with issues with cellulitis. Appears improved. -No significant edema noted on exam. Opened wound looks dry and clean. No evidence of active infection -Continue lymphedema wraps -Continue Bumex -Low-sodium diet -Daily weights #Type 2 diabetes -Metformin on hold -Sliding scale insulin -Hypoglycemia protocol -Accu-Cheks #Hypertension -Blood pressure at goal -Continue home medications #Atrial fibrillation -On chronic anticoagulation with warfarin -Currently rate controlled -Continue warfarin, pharmacy to dose -Daily INR #Obesity -Weight reduction measures advised DVT prophylaxis -On Warfarin CODE STATUS -DNR/DNI
[2019-10-21] MEDS: Triamcinolone Acetonide 0.1% Crm 15 GM Tube TOP SCH ×2 (11:40→21:14)
[2019-10-21] MEDS: CALMOSEPTINE TOP SCH ×2 (11:41→21:13)
[2019-10-21] MEDS: Nystatin Topical Powder 30 GM Bottle TOP SCH ×2 (11:41→21:13)
[2019-10-21] MEDS: Menthol/Methyl Salicylate 85 GM Tube TOP SCH ×2 (11:42→21:12)
[2019-10-21] MEDS: LETROZOLE 2.5 MG PO SCH (11:43)
[2019-10-21] MEDS: Potassium Chloride 10 MEQ Tab.ER PO SCH ×2 (12:29→21:08)
[2019-10-21] MEDS ORDERED: Warfarin 2 MG Tab PO ONE (14:00)
[2019-10-22] MEDS: Piperacillin/Tazobactam 3.375 GM in Sodium Chloride 0.9% 100 ML IV SCH ×4 (05:08→23:40)
[2019-10-22 06:14] LABS: ANION GAP 12.4 mEq/L (7-13)
[2019-10-22] MEDS: Insulin Lispro 100 Units/ML 3 ML Vial SUBCUT SCH ×4 (08:04→22:07)
--- NOTE | 2019-10-22 09:26 | PCM.PN ---
- General Info Date of Service: 10/22/19 Admission Dx/Problem (Free Text): Admission Diagnosis/Problem Admission Diagnosis/Problem Sepsis due to intertrigo Subjective Update: Siri is 79 y/o NH resident with PMH of morbid obesity, hypertension, hyperlipidemia, bilateral lower extremities edema managed with Lymphedema wraps. She was brought to the ED for evaluation of fever of 104 and hypoxia x 1 day. Patient reportedly tested negative for Covid-19 on 10/15/19 during a skilled nursing mass Covid- 19 screening. She developed Fever of 104 F on DOP and was also found to be hypoxic on RA at 87%. She denied cough, shortness of breath. She denies abdominal pain, diarrhea, vomiting. No dysuria or increased urinary frequency. She was admitted for sepsis probably due to cellulitis of inguinal skin fold. COVID-19 screen was negative in the ED. Group A streptococcal negative, influenza screen negative. X-ray was negative for acute infiltrate. Today she was seen and examined. No acute event overnight. She is doing well. No fever or chills. No diarrhea, n/v. wbc trended down. She denies chest pain, SOB. She is diuresing well. Functional Status: Reports: Pain Controlled - Review of Systems General: Reports: No Symptoms HEENT: Reports: No Symptoms Pulmonary: Reports: No Symptoms Cardiovascular: Reports: No Symptoms Gastrointestinal: Reports: No Symptoms Genitourinary: Reports: No Symptoms Musculoskeletal: Reports: No Symptoms Skin: Reports: No Symptoms Neurological: Reports: No Symptoms Psychiatric: Reports: No Symptoms - Patient Data Vitals - Most Recent: Last Vital Signs Temp 97.7 F 10/22/19 08:00 Pulse 64 10/22/19 08:00 Resp 20 10/22/19 08:00 BP 126/77 10/22/19 08:00 Pulse Ox 92 L 10/22/19 08:00 Weight - Most Recent: 280 lb 6.4 oz I&O - Last 24 Hours: Intake & Output 10/21/19 10/22/19 10/22/19 22:59 06:59 14:59 Intake Total 875 300 Output Total 1650 1575 Balance -775 -8895 Lab Results Last 24 Hours: Laboratory Results - last 24 hr 10/21/19 10/21/19 10/21/19 Range/Units 11:42 17:03 20:48 WBC (5.0-10.0) 10^3/uL RBC (4.2-5.4) 10^6/uL Hgb (12.0-16.0) g/dL Hct (37.0-47.0) % MCV (80-100) fL MCH (27.0-34.0) pg MCHC (33.0-35.0) g/dL Plt Count (150-450) 10^3/uL PT (9.0-12.0) SEC INR (0.9-1.2) Sodium (136-145) mmol/L Potassium (3.5-5.1) mmol/L Chloride (98-107) mmol/L Carbon Dioxide (21-32) mmol/L Anion Gap (7-13) mEq/L BUN (7-18) mg/dL Creatinine (0.55-1.02) mg/dL Est Cr Clr Drug Dosing mL/min Estimated GFR (MDRD) Glucose (74-99) mg/dL POC Glucose 134 H 116 H 100 (83-110) mg/dl Calcium (8.5-10.1) mg/dL 10/22/19 10/22/19 10/22/19 Range/Units 05:50 05:50 05:50 WBC 10.2 H (5.0-10.0) 10^3/uL RBC 4.23 (4.2-5.4) 10^6/uL Hgb 11.8 L (12.0-16.0) g/dL Hct 36.9 L (37.0-47.0) % MCV 87.2 (80-100) fL MCH 27.9 (27.0-34.0) pg MCHC 32.0 L (33.0-35.0) g/dL Plt Count 189 (150-450) 10^3/uL PT 17.0 H (9.0-12.0) SEC INR 1.8 H (0.9-1.2) Sodium 141 (136-145) mmol/L Potassium 3.4 L (3.5-5.1) mmol/L Chloride 102 (98-107) mmol/L Carbon Dioxide 30 (21-32) mmol/L Anion Gap 12.4 (7-13) mEq/L BUN 14 (7-18) mg/dL Creatinine 0.91 (0.55-1.02) mg/dL Est Cr Clr Drug Dosing 43.63 mL/min Estimated GFR (MDRD) 59 Glucose 112 H (74-99) mg/dL POC Glucose (83-110) mg/dl Calcium 8.2 L (8.5-10.1) mg/dL 10/22/19 Range/Units 07:54 WBC (5.0-10.0) 10^3/uL RBC (4.2-5.4) 10^6/uL Hgb (12.0-16.0) g/dL Hct (37.0-47.0) % MCV (80-100) fL MCH (27.0-34.0) pg MCHC (33.0-35.0) g/dL Plt Count (150-450) 10^3/uL PT (9.0-12.0) SEC INR (0.9-1.2) Sodium (136-145) mmol/L Potassium (3.5-5.1) mmol/L Chloride (98-107) mmol/L Carbon Dioxide (21-32) mmol/L Anion Gap (7-13) mEq/L BUN (7-18) mg/dL Creatinine (0.55-1.02) mg/dL Est Cr Clr Drug Dosing mL/min Estimated GFR (MDRD) Glucose (74-99) mg/dL POC Glucose 91 (83-110) mg/dl Calcium (8.5-10.1) mg/dL Leo Results Last 24 Hours: Microbiology 10/19/19 18:20 Aerobic Blood Culture - Preliminary Blood Streptococcus Dysgalactiae Anaerobic Blood Culture - Preliminary NO GROWTH AFTER 2 DAYS 10/19/19 18:45 Aerobic Blood Culture - Preliminary Blood - Venous - Lab Draw Streptococcus Dysgalactiae Anaerobic Blood Culture - Preliminary Streptococcus Dysgalactiae 10/20/19 11:35 Aerobic Blood Culture - Preliminary Blood - Venous - Lab Draw NO GROWTH AFTER 1 DAY Anaerobic Blood Culture - Final 10/20/19 11:30 Aerobic Blood Culture - Preliminary Blood - Venous NO GROWTH AFTER 1 DAY Anaerobic Blood Culture - Preliminary NO GROWTH AFTER 1 DAY 10/19/19 17:45 Quick Strep Confirmation Culture - Final Throat NO GROUP A STREP ISOLATED REFERENCE RANGE: NEGATIVE Group A Streptococcus Rapid Screen - Final NEGATIVE STREP A SCREEN REFERENCE RANGE: NEGATIVE Med Orders - Current: Current Medications Bumetanide (Bumex) 2 mg IVPUSH Q12H [facility] Last Admin: 10/21/19 21:11 Dose: 2 mg Calcium Carbonate/Glycine (Tums) 500 mg PO TID PRN PRN Reason: Dyspepsia Diltiazem HCl (Cardizem Cd) 360 mg PO DAILY [facility] Last Admin: 10/21/19 09:25 Dose: 360 mg Diphenhydramine HCl (Benadryl) 25 mg PO DAILY PRN PRN Reason: itch Docusate Sodium (Colace) 100 mg PO BID PRN PRN Reason: Constipation Piperacillin Sod/Tazobactam (Sod 3.375 gm/ Sodium Chloride) 100 mls @ 200 mls/ hr IV Q6H [facility] Last Admin: 10/22/19 05:08 Dose: 200 mls/hr Insulin Human Lispro (Humalog) 0 unit SUBCUT WITHMEALSANDBED [facility]; Protocol Last Admin: 10/22/19 08:04 Dose: Not Given Lactulose (Cephulac) 10 gm PO DAILY PRN PRN Reason: Constipation Loperamide HCl (Imodium) 2 mg PO ASDIRECTED PRN PRN Reason: Diarrhea Loratadine (Claritin) 5 mg PO DAILY PRN PRN Reason: Allergies Magnesium Hydroxide (Milk Of Magnesia) 30 ml PO Q12H PRN PRN Reason: Constipation Magnesium Hydroxide (Milk Of Magnesia) 30 ml PO DAILY PRN PRN Reason: Constipation Methyl Salicylate (Icy Hot Cream) 0 gm TOP BID [facility] Last Admin: 10/21/19 21:12 Dose: Not Given Metoprolol Succinate (Toprol Xl) 50 mg PO DAILY [facility] Last Admin: 10/21/19 09:25 Dose: 50 mg Non-Formulary Medication (Arginine/Ascorbate Sod/Fredy Ac [Arginaid Powder]) 8 oz PO BID [facility] Calmoseptine *Pt Own (Med*) 0 gm TOP BID [facility] Last Admin: 10/21/19 21:13 Dose: Not Given Nystatin (Nystop) 0 gm TOP BID [facility] Last Admin: 10/21/19 21:13 Dose: 1 applic Ondansetron HCl (Zofran) 4 mg IVPUSH Q6H PRN PRN Reason: Nausea/Vomiting (Letrozole 2.5 Mg)* (Pt Own Med*) 0 each PO DAILY [facility] Last Admin: 10/21/19 11:43 Dose: 1 each Potassium Chloride (Klor-Con 10) 40 meq PO BID [facility] Last Admin: 10/21/19 21:08 Dose: 40 meq Sodium Chloride (Saline Flush) 10 ml FLUSH ASDIRECTED PRN PRN Reason: Keep Vein Open Last Admin: 10/20/19 17:34 Dose: 10 ml Spironolactone (Aldactone) 12.5 mg PO MoWeFr [facility] Last Admin: 10/19/19 21:42 Dose: Not Given Triamcinolone Acetonide (Triamcinolone Acetonide 0.1% Crm) 0 gm TOP BID [facility] Last Admin: 10/21/19 21:14 Dose: 1 applic Warfarin Sodium (Pharmacy To Dose - Warfarin) 1 dose .XX ASDIRECTED [facility] Discontinued Medications Acetaminophen (Tylenol) 650 mg PO NOW STA Stop: 10/19/19 17:42 Last Admin: 10/19/19 18:18 Dose: 650 mg Bumetanide (Bumex) 2 mg PO BIDDIURETIC YRN Bumetanide (Bumex) 2 mg IVPUSH Q12H [facility] Enoxaparin Sodium (Lovenox) 40 mg SUBCUT DAILY [facility] Last Admin: 10/21/19 09:46 Dose: 40 mg Sodium Chloride (Normal Saline) 1,000 mls @ 75 mls/hr IV ASDIRECTED [facility] Last Infusion: 10/20/19 01:20 Dose: Infused Piperacillin Sod/Tazobactam (Sod 4.5 gm/ Sodium Chloride) 100 mls @ 200 mls/hr IV ONETIME ONE Stop: 10/19/19 19:03 Last Admin: 10/19/19 19:03 Dose: 200 mls/hr Piperacillin Sod/Tazobactam (Sod 3.375 gm/ Sodium Chloride) 100 mls @ 200 mls/ hr IV Q6H [facility] Last Admin: 10/19/19 22:24 Dose: Not Given Sodium Chloride (Normal Saline) 1,000 mls @ 999 mls/hr IV ASDIRECTED [facility] Stop: 10/19/19 22:46 Vancomycin HCl 1.25 gm/ Sodium (Chloride) 250 mls @ 166.667 mls/hr IV Q12H YRN Vancomycin HCl 1.25 gm/ Sodium (Chloride) 250 mls @ 166.667 mls/hr IV Q24H [facility] Last Admin: 10/19/19 22:52 Dose: 166.667 mls/hr Sodium Chloride (Normal Saline) 1,000 mls @ 999 mls/hr IV .BOLUS ONE Stop: 10/20/19 00:23 Last Infusion: 10/20/19 01:52 Dose: Infused Sodium Chloride (Normal Saline) 1,000 mls @ 75 mls/hr IV ASDIRECTED [facility] Last Infusion: 10/20/19 04:39 Dose: Infused Potassium Chloride 10 meq/ (Premix) 100 mls @ 100 mls/hr IV Q2H YRN Stop: 10/21/19 16:59 Last Infusion: 10/22/19 00:22 Dose: 25 mls/hr Vancomycin HCl (Pharmacy To Dose - Vancomycin) 1 dose .XX ONETIME ONE Stop: 10/19/19 21:38 Warfarin Sodium (Coumadin) 4 mg PO ONETIME YRN Warfarin Sodium (Coumadin) 4 mg PO ONETIME ONE Stop: 10/21/19 14:01 Last Admin: 10/21/19 13:45 Dose: 4 mg - Exam Quality Assessment: Supplemental Oxygen, DVT Prophylaxis General: Alert, Oriented HEENT: Pupils Equal, Pupils Reactive, EOMI, Mucous Membr. Moist/[place] Neck: Supple Lungs: Clear to Auscultation, Normal Respiratory Effort Cardiovascular: Regular Rate, Regular Rhythm GI/Abdominal Exam: Normal Bowel Sounds, Soft, Non-Tender, No Organomegaly, No Distention, No Abnormal Bruit, No Mass, Pelvis Stable (Female) Exam: Normal External Exam, Normal Speculum Exam, Normal Bimanual Exam Back Exam: Normal Inspection, Full Range of Motion Extremities: Normal Inspection, Normal Range of Motion, Non-Tender, No Pedal Edema, Normal Capillary Refill Skin: Warm, Dry, Intact Wound/Incisions: Healing Well Neurological: No New Focal Deficit Psy/Mental Status: Alert, Normal Affect, Normal Mood Sepsis Event Note - Evaluation Sepsis Screening Result: No Definite Risk - Focused Exam Vital Signs: Vital Signs Temp Pulse Resp BP BP Pulse Ox 10/22/19 08:00 97.7 F 64 20 126/77 92 L 10/22/19 05:00 98.2 F 73 20 141/72 H 95 Date Exam was Performed: 10/22/19 Time Exam was Performed: 09:23 - Problem List & Annotations (1) Intertrigo SNOMED Code(s): 50828285 Code(s): L30.4 - ERYTHEMA INTERTRIGO Status: Acute Current Visit: Yes (2) Sepsis SNOMED Code(s): 32080042 Code(s): A41.9 - SEPSIS, UNSPECIFIED ORGANISM Status: Acute Current Visit : No Qualifiers: Sepsis type: sepsis due to unspecified organism Sepsis acute organ dysfunction status: unspecified Qualified Code(s): A41.9 - Sepsis, unspecified organism (3) Sepsis SNOMED Code(s): 59758525 Code(s): A41.9 - SEPSIS, UNSPECIFIED ORGANISM Status: Acute Current Visit : Yes (4) Cellulitis SNOMED Code(s): 898166055 Code(s): L03.90 - CELLULITIS, UNSPECIFIED Status: Acute Current Visit: Yes (5) Hypokalemia SNOMED Code(s): 47130123 Code(s): E87.6 - HYPOKALEMIA Status: Acute Current Visit: No - Problem List Review Problem List Initiated/Reviewed/Updated: Yes - My Orders Last 24 Hours: My Active Orders 10/21/19 10:45 Potassium Chloride [Klor-Con 10] 40 meq PO BID 10/21/19 10:53 K Pad [Heat Therapy] [OM.PC] Routine 10/23/19 07:00 BASIC METABOLIC PANEL,BMP [CHEM] DAILY CBC W/O DIFF,HEMOGRAM [HEME] DAILY INR,PT,PROTHROMBIN TIME [COAG] DAILY 10/24/19 07:00 BASIC METABOLIC PANEL,BMP [CHEM] DAILY CBC W/O DIFF,HEMOGRAM [HEME] DAILY INR,PT,PROTHROMBIN TIME [COAG] DAILY 10/25/19 07:00 INR,PT,PROTHROMBIN TIME [COAG] DAILY - Plan Plan:: #Sepsis present on admit. Etiology not clear. Likely due to intertrigo/ cellulitis of inguinal folds -Resolved -UA negative -COVID-19 screen negative -Erythema noted to lower abdominal and inguinal skin folds -Blood culture:Aerobic bottle gram stain; positive for gram positive rods in chains -Repeat blood cx negative day 1 -Continue IV Zosyn #Gram positive bacteremia -Blood culture:Aerobic bottle gram stain; positive for gram positive rods in chains -Repeat blood cx negative day 1 -Echo if available -Continue abx as above #Hypoxia likely due to CHF exacerbation -Resolved -Patient has bibasilar crackles on exam -Continue IV diuretics -Strict I's and O's -Fluid restriction -Weight daily -Echo if available #Hypokalemia due to diuretics use -Unresolved -Replace per protocol #Chronic Bilateral lower extremity edema with issues with cellulitis. Appears improved. -No significant edema noted on exam. Opened wound looks dry and clean. No evidence of active infection -Continue lymphedema wraps -Continue Bumex -Low-sodium diet -Daily weights #Type 2 diabetes -Metformin on hold -Sliding scale insulin -Hypoglycemia protocol -Accu-Cheks #Hypertension -Blood pressure at goal -Continue home medications #Atrial fibrillation -On chronic anticoagulation with warfarin -Currently rate controlled -Continue warfarin, pharmacy to dose -Daily INR #Obesity -Weight reduction measures advised DVT prophylaxis -On Warfarin CODE STATUS -DNR/DNI
[2019-10-22] MEDS: Bumetanide 1 MG/4 ML MDV IVPUSH SCH ×2 (09:39→22:12)
[2019-10-22] MEDS: Diltiazem 180 MG Cap.CD PO SCH (09:39)
[2019-10-22] MEDS: Potassium Chloride 10 MEQ Tab.ER PO SCH ×2 (09:40→22:12)
[2019-10-22] MEDS: Metoprolol Succinate 50 MG Tab.ER PO SCH (09:40)
[2019-10-22] MEDS: LETROZOLE 2.5 MG PO SCH (09:41)
[2019-10-22] MEDS: Menthol/Methyl Salicylate 85 GM Tube TOP SCH ×2 (09:41→21:59)
[2019-10-22] MEDS: Nystatin Topical Powder 30 GM Bottle TOP SCH ×2 (09:42→22:14)
[2019-10-22] MEDS: CALMOSEPTINE TOP SCH ×2 (09:44→22:13)
[2019-10-22] MEDS: Triamcinolone Acetonide 0.1% Crm 15 GM Tube TOP SCH ×2 (09:45→22:14)
[2019-10-22] MEDS: Potassium Chloride 10 MEQ, Lidocaine 1% 1 ML in Premix Bag 1 BAG IV SCH ×2 (10:29→11:52)
[2019-10-22] MEDS ORDERED: Warfarin 2 MG Tab PO ONE (14:00)
[2019-10-22] MEDS: Sodium Chloride 0.9% 10 ML Syringe FLUSH PRN ×2 (22:11→23:37)
[2019-10-22] MEDS: Spironolactone 25 MG Tab PO SCH (22:15)
[2019-10-23] MEDS: Sodium Chloride 0.9% 10 ML Syringe FLUSH PRN ×6 (00:10→23:50)
[2019-10-23] MEDS: Piperacillin/Tazobactam 3.375 GM in Sodium Chloride 0.9% 100 ML IV SCH ×4 (05:34→23:51)
[2019-10-23 06:22] LABS: ANION GAP 10.4 mEq/L (7-13)
[2019-10-23] MEDS: Bumetanide 1 MG/4 ML MDV IVPUSH SCH ×2 (10:18→20:57)
[2019-10-23] MEDS: Insulin Lispro 100 Units/ML 3 ML Vial SUBCUT SCH ×4 (10:18→20:54)
[2019-10-23] MEDS: Potassium Chloride 10 MEQ Tab.ER PO SCH ×2 (10:19→20:47)
[2019-10-23] MEDS: Metoprolol Succinate 50 MG Tab.ER PO SCH (10:20)
[2019-10-23] MEDS: Diltiazem 180 MG Cap.CD PO SCH (10:20)
[2019-10-23] MEDS: Triamcinolone Acetonide 0.1% Crm 15 GM Tube TOP SCH ×2 (10:26→20:53)
[2019-10-23] MEDS: CALMOSEPTINE TOP SCH ×2 (10:26→20:48)
[2019-10-23] MEDS: Menthol/Methyl Salicylate 85 GM Tube TOP SCH ×2 (10:26→20:54)
[2019-10-23] MEDS: Nystatin Topical Powder 30 GM Bottle TOP SCH ×2 (10:27→20:51)
--- NOTE | 2019-10-23 10:34 | PCM.PN ---
- General Info Date of Service: 10/23/19 Admission Dx/Problem (Free Text): Admission Diagnosis/Problem Admission Diagnosis/Problem Sepsis due to intertrigo/abdominal skin fold cellulitis Subjective Update: Siri is 79 y/o [place] resident with PMH of morbid obesity, hypertension, hyperlipidemia, bilateral lower extremities edema managed with Lymphedema wraps. She was brought to the ED for evaluation of fever of 104 and hypoxia x 1 day. Patient reportedly tested negative for Covid-19 on 10/15/19 during a [facility] Covid- 19 screening. She developed Fever of 104 F on DOP and was also found to be hypoxic on RA at 87%. She denied cough, shortness of breath. She denies abdominal pain, diarrhea, vomiting. No dysuria or increased urinary frequency. She was admitted for sepsis probably due to cellulitis of inguinal skin fold. COVID-19 screen was negative in the ED. Group A streptococcal negative, influenza screen negative. X-ray was negative for acute infiltrate. Blood culture on admit positive for strept. Repeat blood cx negative day 1. Today she was seen and examined. No acute event overnight. She is doing well. No fever or chills. No diarrhea, n/v. She denies chest pain, SOB. She is diuresing well. Functional Status: Reports: Pain Controlled - Review of Systems General: Reports: No Symptoms HEENT: Reports: No Symptoms Pulmonary: Reports: No Symptoms Cardiovascular: Reports: No Symptoms Gastrointestinal: Reports: No Symptoms Genitourinary: Reports: No Symptoms Musculoskeletal: Reports: No Symptoms Skin: Reports: No Symptoms Neurological: Reports: No Symptoms Psychiatric: Reports: No Symptoms - Patient Data Vitals - Most Recent: Last Vital Signs Temp 97.4 F 10/23/19 08:18 Pulse 73 10/23/19 10:20 Resp 20 10/23/19 08:18 BP 123/67 10/23/19 10:20 Pulse Ox 97 10/23/19 08:18 Weight - Most Recent: 280 lb 6.4 oz I&O - Last 24 Hours: Intake & Output 10/22/19 10/23/19 10/23/19 22:59 06:59 14:59 Intake Total 1100 296 Output Total 550 1675 Balance 550 -1379 Lab Results Last 24 Hours: Laboratory Results - last 24 hr 10/19/19 10/22/19 10/22/19 Range/Units 18:20 12:04 16:52 WBC (5.0-10.0) 10^3/uL RBC (4.2-5.4) 10^6/uL Hgb (12.0-16.0) g/dL Hct (37.0-47.0) % MCV (80-100) fL MCH (27.0-34.0) pg MCHC (33.0-35.0) g/dL Plt Count (150-450) 10^3/uL PT (9.0-12.0) SEC INR (0.9-1.2) Sodium (136-145) mmol/L Potassium (3.5-5.1) mmol/L Chloride (98-107) mmol/L Carbon Dioxide (21-32) mmol/L Anion Gap (7-13) mEq/L BUN (7-18) mg/dL Creatinine (0.55-1.02) mg/dL Est Cr Clr Drug Dosing mL/min Estimated GFR (MDRD) Glucose (74-99) mg/dL POC Glucose 128 H 101 (83-110) mg/dl Calcium (8.5-10.1) mg/dL Procalcitonin 0.21 H (<0.10) ng/mL 10/22/19 10/23/19 10/23/19 Range/Units 21:09 05:48 05:48 WBC 9.6 (5.0-10.0) 10^3/uL RBC 4.43 (4.2-5.4) 10^6/uL Hgb 12.2 (12.0-16.0) g/dL Hct 38.5 (37.0-47.0) % MCV 86.9 (80-100) fL MCH 27.5 (27.0-34.0) pg MCHC 31.7 L (33.0-35.0) g/dL Plt Count 227 (150-450) 10^3/uL PT (9.0-12.0) SEC INR (0.9-1.2) Sodium 141 (136-145) mmol/L Potassium 3.4 L (3.5-5.1) mmol/L Chloride 103 (98-107) mmol/L Carbon Dioxide 31 (21-32) mmol/L Anion Gap 10.4 (7-13) mEq/L BUN 13 (7-18) mg/dL Creatinine 0.98 (0.55-1.02) mg/dL Est Cr Clr Drug Dosing 40.51 mL/min Estimated GFR (MDRD) 54 Glucose 109 H (74-99) mg/dL POC Glucose 104 (83-110) mg/dl Calcium 8.7 (8.5-10.1) mg/dL Procalcitonin (<0.10) ng/mL 10/23/19 10/23/19 Range/Units 05:48 08:04 WBC (5.0-10.0) 10^3/uL RBC (4.2-5.4) 10^6/uL Hgb (12.0-16.0) g/dL Hct (37.0-47.0) % MCV (80-100) fL MCH (27.0-34.0) pg MCHC (33.0-35.0) g/dL Plt Count (150-450) 10^3/uL PT 16.0 H (9.0-12.0) SEC INR 1.7 H (0.9-1.2) Sodium (136-145) mmol/L Potassium (3.5-5.1) mmol/L Chloride (98-107) mmol/L Carbon Dioxide (21-32) mmol/L Anion Gap (7-13) mEq/L BUN (7-18) mg/dL Creatinine (0.55-1.02) mg/dL Est Cr Clr Drug Dosing mL/min Estimated GFR (MDRD) Glucose (74-99) mg/dL POC Glucose 99 (83-110) mg/dl Calcium (8.5-10.1) mg/dL Procalcitonin (<0.10) ng/mL Leo Results Last 24 Hours: Microbiology 10/19/19 18:20 Aerobic Blood Culture - Final Blood Streptococcus Dysgalactiae Anaerobic Blood Culture - Preliminary NO GROWTH AFTER 3 DAYS 10/20/19 11:35 Aerobic Blood Culture - Preliminary Blood - Venous - Lab Draw NO GROWTH AFTER 2 DAYS Anaerobic Blood Culture - Final 10/20/19 11:30 Aerobic Blood Culture - Preliminary Blood - Venous NO GROWTH AFTER 2 DAYS Anaerobic Blood Culture - Preliminary NO GROWTH AFTER 2 DAYS 10/19/19 18:45 Aerobic Blood Culture - Final Blood - Venous - Lab Draw Streptococcus Dysgalactiae Anaerobic Blood Culture - Final Streptococcus Dysgalactiae Med Orders - Current: Current Medications Bumetanide (Bumex) 2 mg IVPUSH Q12H [facility] Last Admin: 10/23/19 10:18 Dose: 2 mg Calcium Carbonate/Glycine (Tums) 500 mg PO TID PRN PRN Reason: Dyspepsia Diltiazem HCl (Cardizem Cd) 360 mg PO DAILY [facility] Last Admin: 10/23/19 10:20 Dose: 360 mg Diphenhydramine HCl (Benadryl) 25 mg PO DAILY PRN PRN Reason: itch Docusate Sodium (Colace) 100 mg PO BID PRN PRN Reason: Constipation Piperacillin Sod/Tazobactam (Sod 3.375 gm/ Sodium Chloride) 100 mls @ 200 mls/ hr IV Q6H [facility] Last Infusion: 10/23/19 06:34 Dose: Infused Insulin Human Lispro (Humalog) 0 unit SUBCUT WITHMEALSANDBED [facility]; Protocol Last Admin: 10/23/19 10:18 Dose: Not Given Lactulose (Cephulac) 10 gm PO DAILY PRN PRN Reason: Constipation Loperamide HCl (Imodium) 2 mg PO ASDIRECTED PRN PRN Reason: Diarrhea Loratadine (Claritin) 5 mg PO DAILY PRN PRN Reason: Allergies Magnesium Hydroxide (Milk Of Magnesia) 30 ml PO Q12H PRN PRN Reason: Constipation Magnesium Hydroxide (Milk Of Magnesia) 30 ml PO DAILY PRN PRN Reason: Constipation Methyl Salicylate (Icy Hot Cream) 0 gm TOP BID [facility] Last Admin: 10/23/19 10:26 Dose: Not Given Metoprolol Succinate (Toprol Xl) 50 mg PO DAILY [facility] Last Admin: 10/23/19 10:20 Dose: 50 mg Calmoseptine *Pt Own (Med*) 0 gm TOP BID [facility] Last Admin: 10/23/19 10:26 Dose: 1 gm Nystatin (Nystop) 0 gm TOP BID [facility] Last Admin: 10/23/19 10:27 Dose: 1 applic Ondansetron HCl (Zofran) 4 mg IVPUSH Q6H PRN PRN Reason: Nausea/Vomiting (Letrozole 2.5 Mg)* (Pt Own Med*) 0 each PO DAILY [facility] Last Admin: 10/22/19 09:41 Dose: 1 each Potassium Chloride (Klor-Con 10) 40 meq PO BID [facility] Last Admin: 10/23/19 10:19 Dose: 40 meq Sodium Chloride (Saline Flush) 10 ml FLUSH ASDIRECTED PRN PRN Reason: Keep Vein Open Last Admin: 10/23/19 06:36 Dose: 10 ml Spironolactone (Aldactone) 12.5 mg PO MoWeFr [facility] Last Admin: 10/22/19 22:15 Dose: 12.5 mg Triamcinolone Acetonide (Triamcinolone Acetonide 0.1% Crm) 0 gm TOP BID [facility] Last Admin: 10/23/19 10:26 Dose: 1 applic Warfarin Sodium (Pharmacy To Dose - Warfarin) 1 dose .XX ASDIRECTED [facility] Warfarin Sodium (Coumadin) 5 mg PO ONETIME ONE Stop: 10/23/19 14:01 Discontinued Medications Acetaminophen (Tylenol) 650 mg PO NOW STA Stop: 10/19/19 17:42 Last Admin: 10/19/19 18:18 Dose: 650 mg Bumetanide (Bumex) 2 mg PO BIDDIURETIC [facility] Bumetanide (Bumex) 2 mg IVPUSH Q12H [facility] Enoxaparin Sodium (Lovenox) 40 mg SUBCUT DAILY [facility] Last Admin: 10/21/19 09:46 Dose: 40 mg Sodium Chloride (Normal Saline) 1,000 mls @ 75 mls/hr IV ASDIRECTED [facility] Last Infusion: 10/20/19 01:20 Dose: Infused Piperacillin Sod/Tazobactam (Sod 4.5 gm/ Sodium Chloride) 100 mls @ 200 mls/hr IV ONETIME ONE Stop: 10/19/19 19:03 Last Admin: 10/19/19 19:03 Dose: 200 mls/hr Piperacillin Sod/Tazobactam (Sod 3.375 gm/ Sodium Chloride) 100 mls @ 200 mls/ hr IV Q6H [facility] Last Admin: 10/19/19 22:24 Dose: Not Given Sodium Chloride (Normal Saline) 1,000 mls @ 999 mls/hr IV ASDIRECTED [facility] Stop: 10/19/19 22:46 Vancomycin HCl 1.25 gm/ Sodium (Chloride) 250 mls @ 166.667 mls/hr IV Q12H [facility] Vancomycin HCl 1.25 gm/ Sodium (Chloride) 250 mls @ 166.667 mls/hr IV Q24H [facility] Last Admin: 10/19/19 22:52 Dose: 166.667 mls/hr Sodium Chloride (Normal Saline) 1,000 mls @ 999 mls/hr IV .BOLUS ONE Stop: 10/20/19 00:23 Last Infusion: 10/20/19 01:52 Dose: Infused Sodium Chloride (Normal Saline) 1,000 mls @ 75 mls/hr IV ASDIRECTED [facility] Last Infusion: 10/20/19 04:39 Dose: Infused Potassium Chloride 10 meq/ (Premix) 100 mls @ 100 mls/hr IV Q2H [facility] Stop: 10/21/19 16:59 Last Infusion: 10/22/19 00:22 Dose: 25 mls/hr Potassium Chloride 10 meq/ (Lidocaine HCl 1 ml/ Premix) 101 mls @ 101 mls/hr IV Q2H [facility] Stop: 10/22/19 12:59 Last Admin: 10/22/19 11:52 Dose: 101 mls/hr Vancomycin HCl (Pharmacy To Dose - Vancomycin) 1 dose .XX ONETIME ONE Stop: 10/19/19 21:38 Warfarin Sodium (Coumadin) 4 mg PO ONETIME [facility] Warfarin Sodium (Coumadin) 4 mg PO ONETIME ONE Stop: 10/21/19 14:01 Last Admin: 10/21/19 13:45 Dose: 4 mg Warfarin Sodium (Coumadin) 4 mg PO ONETIME ONE Stop: 10/22/19 14:01 Last Admin: 10/22/19 13:18 Dose: 4 mg - Exam Quality Assessment: DVT Prophylaxis General: Alert, Oriented HEENT: Pupils Equal, Pupils Reactive, EOMI, Mucous Membr. Moist/[place] Neck: Supple Lungs: Clear to Auscultation, Normal Respiratory Effort Cardiovascular: Regular Rate, Regular Rhythm GI/Abdominal Exam: Normal Bowel Sounds, Soft, Non-Tender, No Organomegaly, No Distention, No Abnormal Bruit, No Mass, Pelvis Stable (Female) Exam: Normal External Exam, Normal Speculum Exam, Normal Bimanual Exam Back Exam: Normal Inspection, Full Range of Motion Extremities: Normal Inspection, Normal Range of Motion, Non-Tender, No Pedal Edema, Normal Capillary Refill Skin: Warm, Dry, Intact Wound/Incisions: Healing Well Neurological: No New Focal Deficit Psy/Mental Status: Alert, Normal Affect, Normal Mood Sepsis Event Note - Evaluation Sepsis Screening Result: No Definite Risk - Focused Exam Vital Signs: Vital Signs Temp Pulse Pulse Resp BP BP BP 10/23/19 10:20 73 123/67 10/23/19 08:18 97.4 F 73 20 123/67 10/23/19 01:05 97.6 F 82 20 126/74 Pulse Ox 10/23/19 10:20 10/23/19 08:18 97 10/23/19 01:05 92 L Date Exam was Performed: 10/23/19 Time Exam was Performed: 10:29 - Problem List & Annotations (1) Intertrigo SNOMED Code(s): 95687380 Code(s): L30.4 - ERYTHEMA INTERTRIGO Status: Acute Current Visit: Yes (2) Sepsis SNOMED Code(s): 25856265 Code(s): A41.9 - SEPSIS, UNSPECIFIED ORGANISM Status: Acute Current Visit : No Qualifiers: Sepsis type: sepsis due to unspecified organism Sepsis acute organ dysfunction status: unspecified Qualified Code(s): A41.9 - Sepsis, unspecified organism (3) Sepsis SNOMED Code(s): 12919262 Code(s): A41.9 - SEPSIS, UNSPECIFIED ORGANISM Status: Acute Current Visit : Yes (4) Cellulitis SNOMED Code(s): 590071205 Code(s): L03.90 - CELLULITIS, UNSPECIFIED Status: Acute Current Visit: Yes (5) Hypokalemia SNOMED Code(s): 65133101 Code(s): E87.6 - HYPOKALEMIA Status: Acute Current Visit: No - Problem List Review Problem List Initiated/Reviewed/Updated: Yes - My Orders Last 24 Hours: My Active Orders 10/23/19 14:00 Warfarin [Coumadin] 5 mg PO ONETIME ONE 10/24/19 07:00 BASIC METABOLIC PANEL,BMP [CHEM] DAILY CBC W/O DIFF,HEMOGRAM [HEME] DAILY INR,PT,PROTHROMBIN TIME [COAG] DAILY 10/25/19 07:00 INR,PT,PROTHROMBIN TIME [COAG] DAILY - Plan Plan:: #Sepsis present on admit. Likely due to intertrigo/cellulitis of inguinal folds -Resolved -UA negative -COVID-19 screen negative -Erythema noted to lower abdominal and inguinal skin folds -Blood culture on admit positive for strept. -Repeat blood cx negative day so far -Continue IV Zosyn #Gram positive bacteremia -Blood culture on admit positive for strept. -Repeat blood cx negative day 1 -Echo if available -Continue abx as above #Hypoxia likely due to CHF exacerbation -Resolved -Patient has bibasilar crackles on exam -Continue IV diuretics -Strict I's and O's -Fluid restriction -Weight daily -Echo if available #Hypokalemia due to diuretics use -Improved -Continue PO replacement #Chronic Bilateral lower extremity edema with issues with cellulitis. Appears improved. -No significant edema noted on exam. Opened wound looks dry and clean. No evidence of active infection -Continue lymphedema wraps -Continue Bumex -Low-sodium diet -Daily weights #Type 2 diabetes -Metformin on hold -Sliding scale insulin -Hypoglycemia protocol -Accu-Cheks #Hypertension -Blood pressure at goal -Continue home medications #Atrial fibrillation -On chronic anticoagulation with warfarin -Currently rate controlled -Continue warfarin, pharmacy to dose -Daily INR #Obesity -Weight reduction measures advised DVT prophylaxis -On Warfarin CODE STATUS -DNR/DNI
[2019-10-23] MEDS ORDERED: Warfarin 5 MG Tab PO ONE (14:00)
[2019-10-23] MEDS: LETROZOLE 2.5 MG PO SCH (14:04)
[2019-10-24] MEDS: Sodium Chloride 0.9% 10 ML Syringe FLUSH PRN (05:13)
[2019-10-24] MEDS: Piperacillin/Tazobactam 3.375 GM in Sodium Chloride 0.9% 100 ML IV SCH ×2 (05:13→12:09)
[2019-10-24 06:46] LABS: ANION GAP 12.3 mEq/L (7-13)
[2019-10-24 08:17] VITALS: BP 134/82; PULSE 61
[2019-10-24] MEDS: Insulin Lispro 100 Units/ML 3 ML Vial SUBCUT SCH ×2 (09:48→12:08)
[2019-10-24] MEDS: CALMOSEPTINE TOP SCH (09:51)
[2019-10-24] MEDS: Potassium Chloride 10 MEQ Tab.ER PO SCH (09:52)
[2019-10-24] MEDS: Menthol/Methyl Salicylate 85 GM Tube TOP SCH (09:52)
[2019-10-24] MEDS: Bumetanide 1 MG/4 ML MDV IVPUSH SCH (09:52)
[2019-10-24] MEDS: Metoprolol Succinate 50 MG Tab.ER PO SCH (09:52)
[2019-10-24] MEDS: LETROZOLE 2.5 MG PO SCH (09:53)
[2019-10-24] MEDS: Diltiazem 180 MG Cap.CD PO SCH (09:53)
[2019-10-24] MEDS: Nystatin Topical Powder 30 GM Bottle TOP SCH (09:59)
[2019-10-24] MEDS ORDERED: Bumetanide 1 MG Tab PO ONE (10:00)
[2019-10-24] MEDS: Triamcinolone Acetonide 0.1% Crm 15 GM Tube TOP SCH (10:00)
--- NOTE | 2019-10-24 10:41 | PCM.DCSUM1 ---
Discharge Summary - Hospital Course Free Text/Narrative:: Siri is 79 y/o [place] resident with PMH of morbid obesity, hypertension, hyperlipidemia, bilateral lower extremities edema managed with Lymphedema wraps and bumex who was admitted for Sepsis and acute respiratory failure with hypoxia. She was brought to the ED for evaluation of fever of 104 and hypoxia x 1 day. Patient reportedly tested negative for Covid-19 on 10/15/19 during a correction mass Covid- 19 screening. She developed Fever of 104 F on DOP and was also found to be hypoxic on RA at 87%. She denied cough, shortness of breath. She denies abdominal pain, diarrhea, vomiting. No dysuria or increased urinary frequency. COVID-19 screen was negative in the ED. Group A streptococcal negative, influenza screen negative. X-ray was negative for acute infiltrate. Blood culture on admit positive for strept. Repeat blood cx negative. She is being discharged back to correction. Patient completed total of 5 days of IV antibiotics with zosyn. She is to continue vantin to complete total of 10 days of antibiotics. HPI Initial Comments: Siri is 79 y/o [place] resident with PMH of morbid obesity, hypertension, hyperlipidemia, bilateral lower extremities edema managed with Lymphedema wraps. She was brought to the ED for evaluation of fever of 104 and hypoxia. Patient reportedly tested negative for Covid-19 on 10/15/19 during a correction mass Covid screening. She developed Fever of 104 F and was also found to be hypoxic on RA at 87%. She denies cough, shortness of breath. She has no chest pain. She denies abdominal pain, diarrhea, vomiting. No dysuria or increased urinary frequency. In the ED her temperature was 104.5 F. Decreased to 101.1 F after Tylenol. Heart rate 112. BP within normal limits. Significant labs; WBC 23 backslash, lactate 2.1, creatinine 1.27, BNP 159. COVID-19 screen was negative in the ED. Group A streptococcal negative influenza screen negative. X-ray was negative for acute infiltrate. Did show increased pulmonary vascularity. She received IV Zosyn and IV fluid in the ED. She will be admitted for further management. Diagnosis: Stroke: No - Discharge Data Discharge Date: 10/24/19 Discharge Disposition: DC/Tfer to [facility], [place] 61 Condition: Fair - Referral to Home Health Primary Care Physician: Romeo Cook MD - Patient Summary/Data Consults: Consultations 10/19/19 20:46 PT Evaluation and Treatment [CONS] Routine - Discharge Plan *PRESCRIPTION DRUG MONITORING PROGRAM REVIEWED*: Not Applicable *COPY OF PRESCRIPTION DRUG MONITORING REPORT IN PATIENT ASHLEY: Not Applicable Prescriptions/Med Rec: Cefpodoxime [Vantin] 200 mg PO BID #8 tab Home Medications: Home Meds Metoprolol Succinate [Toprol XL] 50 mg PO DAILY 12/07/14 [History] Menthol/Methyl Salicylate [Icy Hot Cream] 1 applic TOP BID 04/09/16 [History] Letrozole 2.5 mg PO DAILY 06/08/17 [History] Calcium Carbonate [Tums] 500 mg PO TID PRN 06/14/17 [History] Potassium Chloride [Klor-Con 10] 30 meq PO BIDMEALS 06/14/17 [History] Acetaminophen 650 mg PO BID 08/08/19 [History] Acetaminophen [Tylenol] 650 mg PO Q4H PRN 08/08/19 [History] Arginine/Ascorbate Sod/Fredy AC [Arginaid Powder] 8 oz PO BID 08/08/19 [History] Bumetanide 2 mg PO BID 08/08/19 [History] Cetirizine [ZyrTEC] 5 mg PO DAILY PRN 08/08/19 [History] Lactulose 15 ml PO DAILY PRN 08/08/19 [History] Loperamide [Imodium AD] 2 mg PO ASDIRECTED PRN 08/08/19 [History] Magnesium Hydroxide [Milk of Magnesia] 30 ml PO DAILY PRN 08/08/19 [History] Nystatin [Nyamyc] 1 applic TOP BID 08/08/19 [History] Ondansetron [Zofran] 4 mg PO Q4H PRN 08/08/19 [History] Triamcinolone Acetonide [Kenalog 0.1% Crm] 1 applic TOP BID 08/08/19 [History] Warfarin Sodium [Coumadin] 2 mg PO .WEDSUN 08/08/19 [History] Warfarin [Coumadin] 4 mg PO .MONTUTHUFRISAT 08/08/19 [History] dilTIAZem HCL [Diltiazem 24Hr ER] 360 mg PO DAILY 08/08/19 [History] metFORMIN HCl [Metformin HCl] 500 mg PO DAILY 08/08/19 [History] Menthol/Zinc Oxide [Calmoseptine] 3.5 gm TOP BID 10/19/19 [History] Spironolactone [Aldactone] 12.5 mg PO .MONWEDFRI 10/19/19 [History] diphenhydrAMINE [Benadryl] 25 mg PO DAILY PRN 10/19/19 [History] Cefpodoxime [Vantin] 200 mg PO BID #8 tab 10/24/19 [Rx] Referrals: Romeo Cook MD [Primary Care Provider] - - Discharge Summary/Plan Comment DC Time >30 min.: Yes - General Info Date of Service: 10/24/19 - Patient Data Vitals - Most Recent: Last Vital Signs Temp 97.6 F 10/24/19 08:15 Pulse 61 10/24/19 09:52 Resp 20 10/24/19 08:15 BP 134/82 10/24/19 09:52 Pulse Ox 93 L 10/24/19 08:15 Weight - Most Recent: 274 lb I&O - Last 24 hours: Intake & Output 10/23/19 10/24/19 10/24/19 22:59 06:59 14:59 Intake Total 800 450 Output Total 1150 1240 Balance -350 -790 Lab Results - Last 24 hrs: Laboratory Results - last 24 hr 10/23/19 10/23/19 10/23/19 Range/Units 11:50 17:08 20:49 WBC (5.0-10.0) 10^3/uL RBC (4.2-5.4) 10^6/uL Hgb (12.0-16.0) g/dL Hct (37.0-47.0) % MCV (80-100) fL MCH (27.0-34.0) pg MCHC (33.0-35.0) g/dL Plt Count (150-450) 10^3/uL PT (9.0-12.0) SEC INR (0.9-1.2) Sodium (136-145) mmol/L Potassium (3.5-5.1) mmol/L Chloride (98-107) mmol/L Carbon Dioxide (21-32) mmol/L Anion Gap (7-13) mEq/L BUN (7-18) mg/dL Creatinine (0.55-1.02) mg/dL Est Cr Clr Drug Dosing mL/min Estimated GFR (MDRD) Glucose (74-99) mg/dL POC Glucose 132 H 112 H 120 H (83-110) mg/dl Calcium (8.5-10.1) mg/dL SARS-CoV-2 RNA (RT-PCR) (NEGATIVE) 10/24/19 10/24/19 10/24/19 Range/Units 06:15 06:15 06:15 WBC 9.4 (5.0-10.0) 10^3/uL RBC 4.41 (4.2-5.4) 10^6/uL Hgb 12.2 (12.0-16.0) g/dL Hct 38.0 (37.0-47.0) % MCV 86.2 (80-100) fL MCH 27.7 (27.0-34.0) pg MCHC 32.1 L (33.0-35.0) g/dL Plt Count 223 (150-450) 10^3/uL PT 17.1 H (9.0-12.0) SEC INR 1.8 H (0.9-1.2) Sodium 141 (136-145) mmol/L Potassium 3.3 L (3.5-5.1) mmol/L Chloride 102 (98-107) mmol/L Carbon Dioxide 30 (21-32) mmol/L Anion Gap 12.3 (7-13) mEq/L BUN 12 (7-18) mg/dL Creatinine 0.94 (0.55-1.02) mg/dL Est Cr Clr Drug Dosing 42.24 mL/min Estimated GFR (MDRD) 57 Glucose 109 H (74-99) mg/dL POC Glucose (83-110) mg/dl Calcium 8.7 (8.5-10.1) mg/dL SARS-CoV-2 RNA (RT-PCR) (NEGATIVE) 10/24/19 10/24/19 Range/Units 06:20 08:02 WBC (5.0-10.0) 10^3/uL RBC (4.2-5.4) 10^6/uL Hgb (12.0-16.0) g/dL Hct (37.0-47.0) % MCV (80-100) fL MCH (27.0-34.0) pg MCHC (33.0-35.0) g/dL Plt Count (150-450) 10^3/uL PT (9.0-12.0) SEC INR (0.9-1.2) Sodium (136-145) mmol/L Potassium (3.5-5.1) mmol/L Chloride (98-107) mmol/L Carbon Dioxide (21-32) mmol/L Anion Gap (7-13) mEq/L BUN (7-18) mg/dL Creatinine (0.55-1.02) mg/dL Est Cr Clr Drug Dosing mL/min Estimated GFR (MDRD) Glucose (74-99) mg/dL POC Glucose 113 H (83-110) mg/dl Calcium (8.5-10.1) mg/dL SARS-CoV-2 RNA (RT-PCR) Negative (NEGATIVE) JACK Results - Last 24 hrs: Microbiology 10/19/19 18:20 Aerobic Blood Culture - Final Blood Streptococcus Dysgalactiae Anaerobic Blood Culture - Preliminary NO GROWTH AFTER 4 DAYS 10/20/19 11:35 Aerobic Blood Culture - Preliminary Blood - Venous - Lab Draw NO GROWTH AFTER 3 DAYS Anaerobic Blood Culture - Final 10/20/19 11:30 Aerobic Blood Culture - Preliminary Blood - Venous NO GROWTH AFTER 3 DAYS Anaerobic Blood Culture - Preliminary NO GROWTH AFTER 3 DAYS Med Orders - Current: Current Medications Bumetanide (Bumex) 2 mg IVPUSH Q12H [facility] Last Admin: 10/24/19 09:52 Dose: Not Given Calcium Carbonate/Glycine (Tums) 500 mg PO TID PRN PRN Reason: Dyspepsia Diltiazem HCl (Cardizem Cd) 360 mg PO DAILY [facility] Last Admin: 10/24/19 09:53 Dose: 360 mg Diphenhydramine HCl (Benadryl) 25 mg PO DAILY PRN PRN Reason: itch Docusate Sodium (Colace) 100 mg PO BID PRN PRN Reason: Constipation Piperacillin Sod/Tazobactam (Sod 3.375 gm/ Sodium Chloride) 100 mls @ 200 mls/ hr IV Q6H [facility] Last Infusion: 10/24/19 05:48 Dose: Infused Insulin Human Lispro (Humalog) 0 unit SUBCUT WITHMEALSANDBED [facility]; Protocol Last Admin: 10/24/19 09:48 Dose: Not Given Lactulose (Cephulac) 10 gm PO DAILY PRN PRN Reason: Constipation Loperamide HCl (Imodium) 2 mg PO ASDIRECTED PRN PRN Reason: Diarrhea Loratadine (Claritin) 5 mg PO DAILY PRN PRN Reason: Allergies Magnesium Hydroxide (Milk Of Magnesia) 30 ml PO Q12H PRN PRN Reason: Constipation Magnesium Hydroxide (Milk Of Magnesia) 30 ml PO DAILY PRN PRN Reason: Constipation Methyl Salicylate (Icy Hot Cream) 0 gm TOP BID [facility] Last Admin: 10/24/19 09:52 Dose: Not Given Metoprolol Succinate (Toprol Xl) 50 mg PO DAILY [facility] Last Admin: 10/24/19 09:52 Dose: 50 mg Calmoseptine *Pt Own (Med*) 0 gm TOP BID [facility] Last Admin: 10/24/19 09:51 Dose: Not Given Nystatin (Nystop) 0 gm TOP BID [facility] Last Admin: 10/24/19 09:59 Dose: 1 applic Ondansetron HCl (Zofran) 4 mg IVPUSH Q6H PRN PRN Reason: Nausea/Vomiting (Letrozole 2.5 Mg)* (Pt Own Med*) 0 each PO DAILY [facility] Last Admin: 10/24/19 09:53 Dose: 1 each Potassium Chloride (Klor-Con 10) 40 meq PO BID [facility] Last Admin: 10/24/19 09:52 Dose: 40 meq Sodium Chloride (Saline Flush) 10 ml FLUSH ASDIRECTED PRN PRN Reason: Keep Vein Open Last Admin: 10/24/19 05:13 Dose: 10 ml Spironolactone (Aldactone) 12.5 mg PO MoWeFr [facility] Last Admin: 10/22/19 22:15 Dose: 12.5 mg Triamcinolone Acetonide (Triamcinolone Acetonide 0.1% Crm) 0 gm TOP BID [facility] Last Admin: 10/24/19 10:00 Dose: 1 applic Warfarin Sodium (Pharmacy To Dose - Warfarin) 1 dose .XX ASDIRECTED [facility] Warfarin Sodium (Coumadin) 5 mg PO ONETIME ONE Stop: 10/24/19 14:01 Discontinued Medications Acetaminophen (Tylenol) 650 mg PO NOW STA Stop: 10/19/19 17:42 Last Admin: 10/19/19 18:18 Dose: 650 mg Bumetanide (Bumex) 2 mg PO BIDDIURETIC YRN Bumetanide (Bumex) 2 mg IVPUSH Q12H [facility] Bumetanide (Bumex) 2 mg PO ONETIME ONE Stop: 10/24/19 10:01 Last Admin: 10/24/19 10:11 Dose: 2 mg Enoxaparin Sodium (Lovenox) 40 mg SUBCUT DAILY [facility] Last Admin: 10/21/19 09:46 Dose: 40 mg Sodium Chloride (Normal Saline) 1,000 mls @ 75 mls/hr IV ASDIRECTED [facility] Last Infusion: 10/20/19 01:20 Dose: Infused Piperacillin Sod/Tazobactam (Sod 4.5 gm/ Sodium Chloride) 100 mls @ 200 mls/hr IV ONETIME ONE Stop: 10/19/19 19:03 Last Admin: 10/19/19 19:03 Dose: 200 mls/hr Piperacillin Sod/Tazobactam (Sod 3.375 gm/ Sodium Chloride) 100 mls @ 200 mls/ hr IV Q6H [facility] Last Admin: 10/19/19 22:24 Dose: Not Given Sodium Chloride (Normal Saline) 1,000 mls @ 999 mls/hr IV ASDIRECTED [facility] Stop: 10/19/19 22:46 Vancomycin HCl 1.25 gm/ Sodium (Chloride) 250 mls @ 166.667 mls/hr IV Q12H [facility] Vancomycin HCl 1.25 gm/ Sodium (Chloride) 250 mls @ 166.667 mls/hr IV Q24H [facility] Last Admin: 10/19/19 22:52 Dose: 166.667 mls/hr Sodium Chloride (Normal Saline) 1,000 mls @ 999 mls/hr IV .BOLUS ONE Stop: 10/20/19 00:23 Last Infusion: 10/20/19 01:52 Dose: Infused Sodium Chloride (Normal Saline) 1,000 mls @ 75 mls/hr IV ASDIRECTED [facility] Last Infusion: 10/20/19 04:39 Dose: Infused Potassium Chloride 10 meq/ (Premix) 100 mls @ 100 mls/hr IV Q2H [facility] Stop: 10/21/19 16:59 Last Infusion: 10/22/19 00:22 Dose: 25 mls/hr Potassium Chloride 10 meq/ (Lidocaine HCl 1 ml/ Premix) 101 mls @ 101 mls/hr IV Q2H YRN Stop: 10/22/19 12:59 Last Admin: 10/22/19 11:52 Dose: 101 mls/hr Vancomycin HCl (Pharmacy To Dose - Vancomycin) 1 dose .XX ONETIME ONE Stop: 10/19/19 21:38 Warfarin Sodium (Coumadin) 4 mg PO ONETIME YRN Warfarin Sodium (Coumadin) 4 mg PO ONETIME ONE Stop: 10/21/19 14:01 Last Admin: 10/21/19 13:45 Dose: 4 mg Warfarin Sodium (Coumadin) 4 mg PO ONETIME ONE Stop: 10/22/19 14:01 Last Admin: 10/22/19 13:18 Dose: 4 mg Warfarin Sodium (Coumadin) 5 mg PO ONETIME ONE Stop: 10/23/19 14:01 Last Admin: 10/23/19 14:04 Dose: 5 mg - Exam General: Reports: Alert, Oriented, Cooperative, No Acute Distress HEENT: Reports: Pupils Equal, Pupils Reactive Neck: Reports: Supple Lungs: Reports: Clear to Auscultation, Normal Respiratory Effort Cardiovascular: Reports: Regular Rate, Regular Rhythm GI/Abdominal Exam: Normal Bowel Sounds, Soft, No Distention Extremities: Normal Inspection, Non-Tender, Other (Bilateral lymphedema) Skin: Reports: Warm, Dry, Intact Neurological: Reports: No New Focal Deficit Psy/Mental Status: Reports: Alert, Normal Affect, Normal Mood
[2019-10-24] MEDS ORDERED: Warfarin 5 MG Tab PO ONE (14:00)
== END 2019-10-24 13:10 | DRG 872 ==
LOC: DL.ED 17:16 → DL.MS 19:47
PROVIDERS: ADMIT Student in an Organized Health Care Education/Training Program; ATTEND Internal Medicine
PROC: 8E0ZXY6 Isolation (ICD-10-PCS; principal; 2019-10-19)
DX: A41.9 Sepsis, unspecified organism (principal); J18.9 Pneumonia, unspecified organism; N17.9 Acute kidney failure, unspecified; H54.7 Unspecified visual loss; L03.119 Cellulitis of unspecified part of limb; E78.00 Pure hypercholesterolemia, unspecified; Z68.42 Body mass index [BMI] 45.0-49.9, adult; L30.4 Erythema intertrigo; Z86.010 Personal history of colon polyps; Z87.440 Personal history of urinary (tract) infections; R32 Unspecified urinary incontinence; G89.29 Other chronic pain; M54.9 Dorsalgia, unspecified; E87.6 Hypokalemia; M79.7 Fibromyalgia; I11.0 Hypertensive heart disease with heart failure; F32.9 Major depressive disorder, single episode, unspecified; G31.84 Mild cognitive impairment of uncertain or unknown etiology; E66.9 Obesity, unspecified; Z66 Do not resuscitate; Z85.3 Personal history of malignant neoplasm of breast; Z90.11 Acquired absence of right breast and nipple; Z98.49 Cataract extraction status, unspecified eye; Z90.710 Acquired absence of both cervix and uterus; Z20.828 Contact with and (suspected) exposure to other viral communicable diseases; Z91.048 Other nonmedicinal substance allergy status; I50.9 Heart failure, unspecified; M19.90 Unspecified osteoarthritis, unspecified site; I48.91 Unspecified atrial fibrillation; E66.01 Morbid (severe) obesity due to excess calories; E78.5 Hyperlipidemia, unspecified; Z79.899 Other long term (current) drug therapy; Z28.82 Immunization not carried out because of caregiver refusal; Z79.01 Long term (current) use of anticoagulants; Z91.013 Allergy to seafood; Z91.09 Other allergy status, other than to drugs and biological substances; Z86.73 Personal history of transient ischemic attack (TIA), and cerebral infarction without residual deficits
CPT/HCPCS: 36415 ×2; 51702; 71045; 80048; 80076; 81001; 82550; 82728; 82803; 83605; 83615; 83735; 83880; 84100; 84145; 85025; 85379; 85610; 85730; 86140; 87040 ×2; 87077; 87081; 87430; 87804 ×2; 96365; 99284; 99285; A9270; J2543; J7030; J7050; U0002; 82962; 85027; 87086; 94760; J1650; J2001; J3370; J3480; J3490

== ENCOUNTER 2019-11-24 15:58 | Inpatient (IN) | payer MEDICARE, OTHER ==
[2019-11-24] MEDS ORDERED: Ondansetron 4 MG/2 ML SDV IVPUSH PRN (16:47)
[2019-11-24] MEDS ORDERED: Glucagon,Human Recombinant 1 MG Vial IM PRN (16:47)
[2019-11-24] MEDS ORDERED: Calcium Gluconate 10% 1 GM/10 ML SDV IVPUSH ONE (16:47)
[2019-11-24] MEDS ORDERED: Insulin Regular, Human 100 Units/ML 3 ML Vial IV ONE (16:47)
[2019-11-24] MEDS ORDERED: Sodium Chloride 0.9% 10 ML Syringe FLUSH PRN (16:47)
[2019-11-24] MEDS ORDERED: 50% Dextrose in Water 50 ML Syringe IVPUSH ONE (16:47)
[2019-11-24] MEDS ORDERED: Ondansetron 4 MG Tab.DIS PO PRN (16:47)
[2019-11-24] MEDS ORDERED: Acetaminophen 325 MG Tab PO PRN (16:47)
[2019-11-24] MEDS ORDERED: 50% Dextrose in Water 50 ML Syringe IVPUSH PRN (16:47)
--- NOTE | 2019-11-24 16:52 | PCM.SN.2 ---
- Free Text/Narrative Note: November 24, 2019 [facility] Reason for admission: 1. Sepsis: fever of 101.5, WBC 45.6, lactic acid 3.6. 2. Acute renal failure with hyperkalemia. 3. Cellulitis right lower extremity. 4. Chronic bilateral lower extremity edema. I received a call from the nursing staff at [facility] regarding Siri. She spiked a temperature this afternoon of 101.5. Earlier she had complained of chills. Overall, she stated that she did not feel very well. She had been seen by a provider [facility]icine yesterday. She was started on Augmentin [id number] mg BID for right lower extremity cellulitis. Siri has chronic bilateral lower extremity edema and has had intermittent cellulitis. Yesterday both legs were noted to be weeping. The right leg showed erythema which was more pronounced. There was an odor to the moderate amount of drainage from the right leg. Appetite was poor today. She otherwise had no other signs or symptoms: no cough, sore throat, shortness of breath, abdominal pain, vomiting or diarrhea. No blood by mouth or rectum. No dysuria or hematuria. [facility], as part of routine mass testing. She has remained negative for Covid-19. Today she had received the first dose of Augmentin. After nursing staff called, she was given 2 g of IM ceftriaxone and labs were sent to to [facility] lab. Her white count is elevated at 46.5K. Her BUN and creatinine were 46 and 1.9, With a GFR of 25. Previous BUN and creatinine were 22 and 0.9 on November 07, with a GFR 60. Serum potassium was elevated at 5.9; lab stated that the specimen was not hemolyzed. CRP was elevated at 18.1. Lactic acid was 3.6. I discussed the case with Dr. Sprague. He will admit Siri directly to the nursing unit. He stated that if her acute renal failure did not did not improve with treatment overnight, then it was possible that she would be transferred to [place]. I did call and speak to Siri's , Dino. I explained to him that we were admitting her for sepsis and also explained to him that she could be transferred if she did not show improvement overnight. Impression 79-[facility]-old female [facility] resident presents with signs and symptoms of sepsis and acute renal failure. Plan: direct admission to the nursing unit. Code Status: DNR. DNI. Dr. Sprague's assistance in the care of this patient is greatly appreciated.
--- NOTE | 2019-11-24 17:03 | PCM.HP ---
H&P History of Present Illness - General Date of Service: 11/24/19 Admit Problem/Dx: Admission Diagnosis/Problem Admission Diagnosis/Problem Sepsis - History of Present Illness Initial Comments - Free Text/Narative: Siri is an 79-[facility]-old [facility] resident with past medical history of significant for morbid obesity, bilateral lower extremity edema management, edema-Bumex, hyperlipidemia, hypertension, atrial fibrillation, breast cancer, cognitive impairment, prediabetes, and CVA who is directly [facility] the [facility] for severe sepsis with acute organ dysfunction. Patient reports that she had chills and generalized body aches this morning. Reports poor oral intake for the past few days. States she has not seen her legs but was seen by a provider and started on antibiotics for the legs. Denies any pain in the legs. Reports constipation. Denies nausea, vomiting, diarrhea, dysuria, hematuria, chest pain, shortness of breath, cough, or any new symptoms. Per referring provider, patient was noted to have bilateral lower extremity redness few days ago. Patient had malodorous discharge from lower extremities. She was seen by wound care clinic via telemedicine was started on Augmentin. Today, patient had fever with temperature of 101.5. She was given a dose of rocephin. Labs were obtained which showed WBC count of 45.6 with hemoglobin of 13.4, platelet count of 363, neutrophil count of 95.1 and lymphocyte count of 1.7. His sodium was 130, potassium was 5.9, chloride was 96, bicarb of 20, BUN of 46, and creatinine of 1.94 (was 0.94 on 11/11/2019). Anion gap of 19.9. CRP elevated at 18.1. Lactic acid of 3.6. - Related Data Allergies/Adverse Reactions: Allergies Allergy/AdvReac Type Severity Reaction Status Date / Time shellfish derived AdvReac Unknown Diarrhea Verified 11/24/19 16:26 tape Allergy Unknown Blisters Uncoded 11/24/19 16:26 Home Medications: Home Meds Metoprolol Succinate [Toprol XL] 200 mg PO DAILY 12/07/14 [History] Menthol/Methyl Salicylate [Icy Hot Cream] 1 applic TOP BID 04/09/16 [History] Letrozole 2.5 mg PO DAILY 06/08/17 [History] Calcium Carbonate [Tums] 500 mg PO TID PRN 06/14/17 [History] Potassium Chloride [Klor-Con 10] 30 meq PO BIDMEALS 06/14/17 [History] Acetaminophen 650 mg PO BID 08/08/19 [History] Acetaminophen [Tylenol] 650 mg PO Q4H PRN 08/08/19 [History] Arginine/Ascorbate Sod/Fredy AC [Arginaid Powder] 8 oz PO BID 08/08/19 [History] Bumetanide 2 mg PO BID 08/08/19 [History] Cetirizine [ZyrTEC] 5 mg PO DAILY PRN 08/08/19 [History] Lactulose 15 ml PO DAILY PRN 08/08/19 [History] Loperamide [Imodium AD] 2 - 4 mg PO ASDIRECTED PRN 08/08/19 [History] Magnesium Hydroxide [Milk of Magnesia] 30 ml PO DAILY PRN 08/08/19 [History] Nystatin [Nyamyc] 1 applic TOP BID 08/08/19 [History] Ondansetron [Zofran] 4 mg PO Q4H PRN 08/08/19 [History] Triamcinolone Acetonide [Kenalog 0.1% Crm] 1 applic TOP BID 08/08/19 [History] Warfarin Sodium [Coumadin] 2 mg PO .WEDSUN 08/08/19 [History] Warfarin [Coumadin] 4 mg PO .MONTUTHUFRISAT 08/08/19 [History] dilTIAZem HCL [Diltiazem 24Hr ER] 360 mg PO DAILY 08/08/19 [History] metFORMIN HCl [Metformin HCl] 500 mg PO DAILY 08/08/19 [History] Menthol/Zinc Oxide [Calmoseptine] 3.5 gm TOP BID 10/19/19 [History] Spironolactone [Aldactone] 12.5 mg PO .MONWEDFRI 10/19/19 [History] diphenhydrAMINE [Benadryl] 25 mg PO DAILY PRN 10/19/19 [History] Amoxicillin/Clavulanate K [Augmentin 875-125 MG] 1 tab PO BID 11/24/19 [History] cefTRIAXone Sodium [Ceftriaxone] 2 gm IM ONETIME 11/24/19 [History] Past Medical History HEENT History: Reports: Cataract, Epistaxis, Impaired Vision Other HEENT History: wears glasses Cardiovascular History: Reports: Afib, Heart Failure, High Cholesterol, Hypertension, Other (See Below) Other Cardiovascular History: At fib is new onset discovered today at the clinic Respiratory History: Reports: Bronchitis, Recurrent Gastrointestinal History: Reports: Colon Polyp, Irritable Bowel Syndrome Genitourinary History: Reports: Urinary Incontinence, UTI, Recurrent, Other ( See Below) Other Genitourinary History: leaking YARN WINDER History: Reports: Musculoskeletal History: Reports: Back Pain, Chronic, Fracture, Fibromyalgia, Osteoarthritis, Other (See Below) Other Musculoskeletal History: Right fibula fx 04-06-16 Neurological History: Reports: CVA, Other (See Below) Other Neuro History: Mild cognitive impairment Psychiatric History: Reports: Depression Endocrine/Metabolic History: Reports: Hypokalemia, Obesity/BMI 30+ Other Endocrine/Metabolic History: Abnormal glucose readings Hematologic History: Reports: Anticoagulation Therapy Immunologic History: Reports: None Oncologic (Cancer) History: Reports: Breast, Other (See Below) Other Oncologic History: right masectomy Dermatologic History: Reports: Cellulitis, Other (See Below) Other Dermatologic History: 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 - Infectious Disease History Infectious Disease History: Reports: Chicken Pox, Measles, Mumps - Past Surgical History HEENT Surgical History: Reports: Cataract Surgery Cardiovascular Surgical History: Reports: None Respiratory Surgical History: Reports: None GI Surgical History: Reports: None Female Surgical History: Reports: Breast Reconstruction, Hysterectomy, Mastectomy Other Female Surgeries/Procedures: right mastectomy with reconstruction Endocrine Surgical History: Reports: None Neurological Surgical History: Reports: None Musculoskeletal Surgical History: Reports: None Oncologic Surgical History: Reports: Mastectomy Dermatological Surgical History: Reports: None Social & Family History - Family History Family Medical History: Noncontributory - Caffeine Use Caffeine Use: Reports: Coffee - Living Situation & Occupation Living situation: Reports: Extended Care Facility Occupation: Retired H&P Review of Systems - Review of Systems: Review Of Systems: Comprehensive ROS is negative, except as noted in HPI. Exam - Exam Exam: See Below - Exam General: Alert, Oriented, Moderate Distress HEENT: Conjunctiva Clear, EOMI, Hearing Intact, Mucosa Moist & [place], PERRLA Neck: Supple, Trachea Midline Lungs: Clear to Auscultation, Normal Respiratory Effort Cardiovascular: Regular Rate, Regular Rhythm, Normal S1 GI/Abdominal Exam: Normal Bowel Sounds, Soft, Non-Tender, No Distention Extremities: Pedal Edema (3+ edema of bilateral lower extremities. ), Increased Warmth, Redness (of bilateral LE extending about 5 cm below the knees, worse on the right. ) Skin: Warm, Moist Neuro Extensive - Mental Status: Alert, Oriented x3, Normal Mood/Affect Psychiatric: Alert, Normal Affect, Normal Mood - Problem List (1) Acute renal failure SNOMED Code(s): 36300863 ICD Code: N17.9 - ACUTE KIDNEY FAILURE, UNSPECIFIED Status: Acute Current Visit: No Onset Date: ~11/24/19 (2) Hyperkalemia SNOMED Code(s): 11292216 ICD Code: E87.5 - HYPERKALEMIA Status: Acute Current Visit: No Onset Date: ~11/24/19 (3) Sepsis SNOMED Code(s): 28029463 ICD Code: A41.9 - SEPSIS, UNSPECIFIED ORGANISM Status: Acute Current Visit: No Onset Date: ~11/24/19 Qualifiers: Sepsis type: sepsis due to unspecified organism Sepsis acute organ dysfunction status: unspecified Qualified Code(s): A41.9 - Sepsis, unspecified organism (4) Cellulitis SNOMED Code(s): 693376763 ICD Code: L03.90 - CELLULITIS, UNSPECIFIED Status: Acute Current Visit: No (5) A-fib SNOMED Code(s): 79446761 ICD Code: I48.91 - UNSPECIFIED ATRIAL FIBRILLATION Status: Chronic Current Visit: No (6) Anticoagulated by anticoagulation treatment SNOMED Code(s): 340419778, 024489842 ICD Code: Z79.01 - USP (CURRENT) USE OF ANTICOAGULANTS Status: Chronic Priority: High Current Visit: No (7) Constipation SNOMED Code(s): 14820983 ICD Code: K59.00 - CONSTIPATION, UNSPECIFIED Status: Chronic Priority: Medium Current Visit: No Qualifiers: Constipation type: unspecified constipation type Qualified Code(s): K59.00 - Constipation, unspecified (8) Weakness SNOMED Code(s): 10883338 ICD Code: R53.1 - WEAKNESS Status: Resolved Current Visit: No Problem List Initiated/Reviewed/Updated: Yes Orders Last 24hrs: Active Orders 24 hr Category Date Time Status Patient Status [ADT] Routine ADT 11/24/19 16:03 Active Blood Glucose Check, Bedside [RC] QIDACANDBED Care 11/24/19 16:47 Ordered Cardiac Monitoring [RC] CONTINUOUS Care 11/24/19 16:48 Ordered Diabetes Education [RC] Click to Edit Care 11/24/19 16:47 Ordered EKG Documentation Completion [RC] STAT Care 11/24/19 16:47 Ordered Height and Weight [RC] DAILY Care 11/24/19 16:47 Ordered Height and Weight [RC] UPON Care 11/24/19 16:47 Ordered Intake and Output [RC] QSHIFT Care 11/24/19 16:48 Ordered Notify Provider [RC] PRN Care 11/24/19 16:47 Ordered Oxygen Therapy [RC] PRN Care 11/24/19 16:47 Ordered Peripheral IV Care [RC] . DIRECTED Care 11/24/19 16:49 Ordered RT Aerosol Therapy [RC] ASDIRECTED Care 11/24/19 16:50 Ordered Up to Chair [RC] ASDIRECTED Care 11/24/19 16:47 Ordered VTE/DVT Education [RC] PER UNIT ROUTINE Care 11/24/19 16:47 Ordered Vital Signs [RC] Q4H Care 11/24/19 16:47 Ordered Regular Diet [DIET] Diet 11/24/19 Dinner Ordered BASIC METABOLIC PANEL,BMP [CHEM] AM Lab 11/25/19 05:11 Ordered CBC WITH AUTO DIFF [HEME] AM Lab 11/25/19 05:11 Ordered CORONAVIRUS COVID-19 PCR PHL Stat Lab 11/24/19 16:47 Ordered CULTURE BLOOD [BC] Stat Lab 11/24/19 16:52 Ordered CULTURE BLOOD [BC] Stat Lab 11/24/19 16:52 Ordered CULTURE URINE [RM] Stat Lab 11/24/19 16:47 Ordered MAGNESIUM [CHEM] AM Lab 11/25/19 05:11 Ordered PHOSPHORUS [CHEM] AM Lab 11/25/19 05:11 Ordered UA W/MICROSCOPIC [URIN] Stat Lab 11/24/19 16:47 Ordered Acetaminophen [Tylenol] Med 11/24/19 16:47 Ordered 650 mg PO Q6H PRN Albuterol [Proventil Neb Soln] Med 11/24/19 17:00 Ordered 2.5 mg NEB Q2H Calcium Gluconate Med 11/24/19 16:47 Once 1 gm IVPUSH ONETIME ONE Dextrose 50% in Water Med 11/24/19 16:47 Ordered 25 ml IVPUSH ASDIRECTED PRN Dextrose 50% in Water Med 11/24/19 16:47 Once 50 ml IVPUSH ONETIME ONE Docusate Sodium/Sennosides [Senna Plus] Med 11/24/19 16:47 Ordered 2 tab PO BEDTIME PRN Ertapenem [INVanz] 1 gm Med 11/24/19 17:00 Ordered Sodium Chloride 0.9% [Normal Saline] 50 ml IV Q24H Glucagon,Human Recombinant [GlucaGen] Med 11/24/19 16:47 Ordered 1 mg IM ONETIME PRN Insulin Lispro [HumaLOG] Med 11/24/19 18:00 Ordered See Protocol SUBCUT WITHMEALSANDBED Insulin Regular, Human [HumuLIN R] Med 11/24/19 16:47 Once 10 unit IV ONETIME ONE Ondansetron [Zofran ODT] Med 11/24/19 16:47 Ordered 4 mg PO Q6H PRN Ondansetron [Zofran] Med 11/24/19 16:47 Ordered 4 mg IVPUSH Q6H PRN Pharmacy to Dose - Vancomycin Med 11/24/19 17:00 Ordered 1 dose .XX ASDIRECTED Sodium Chloride 0.9% @ 125 MLS/HR (1000ml) Med 11/24/19 17:00 Ordered Sodium Chloride 0.9% [Normal Saline] 1,000 ml IV ASDIRECTED Sodium Chloride 0.9% [Saline Flush] Med 11/24/19 16:47 Ordered 10 ml FLUSH ASDIRECTED PRN Sodium Polystyrene Sulfonate [Kayexalate] Med 11/24/19 17:00 Ordered 15 gm PO Q6H Blood Culture x2 Reflex Set [OM.PC] Stat Oth 11/24/19 16:47 Ordered Peripheral IV Insertion Adult [OM.PC] Routine Oth 11/24/19 16:47 Ordered Saline Lock Insert [OM.PC] Routine Oth 11/24/19 16:47 Ordered Resuscitation Status Routine Resus Stat 11/24/19 16:47 Ordered Medication Orders Acetaminophen (Tylenol) 650 mg PO Q6H PRN PRN Reason: Pain (Mild 1-3)/fever Albuterol (Proventil Neb Soln) 2.5 mg NEB Q2H YRN Stop: 11/24/19 19:01 Calcium Gluconate (Calcium Gluconate) 1 gm IVPUSH ONETIME ONE Stop: 11/24/19 16:48 Dextrose/Water (Dextrose 50% In Water) 25 ml IVPUSH ASDIRECTED PRN PRN Reason: Hypoglycemia Dextrose/Water (Dextrose 50% In Water) 50 ml IVPUSH ONETIME ONE Stop: 11/24/19 16:48 Glucagon (Glucagen) 1 mg IM ONETIME PRN PRN Reason: Hypoglycemia Ertapenem 1 gm/ Sodium (Chloride) 50 mls @ 100 mls/hr IV Q24H YRN Insulin Human Lispro (Humalog) 0 unit SUBCUT WITHMEALSANDBED YRN; Protocol Insulin Human Regular (Humulin R) 10 unit IV ONETIME ONE Stop: 11/24/19 16:48 Ondansetron HCl (Zofran Odt) 4 mg PO Q6H PRN PRN Reason: nausea, able to take PO Senna/Docusate Sodium (Senna Plus) 2 tab PO BEDTIME PRN PRN Reason: Constipation Assessment/Plan Comment:: #Severe sepsis with acute organ dysfunction: Patient with fever, tachycardia, and leukocytosis. Source could be bacteremia secondary to translocation from cellulitis. However urinary source, GI source, and respiratory source on the differential Rule out COVID-19 Obtain 2 sets of blood cultures Obtain UA and urine culture if UA is positive Start vancomycin and ertapenem #Acute renal failure: Patient with creatinine of 1.9, increased from 0.9 in October 2019, with associated anion gap metabolic acidosis and hyperkalemia IV fluids Avoid nephrotoxins Monitor renal function Renal dosing of all medications Place Rodrigues catheter for accurate I's and O's #Hyperkalemia: Patient with potassium of 5.9, upper limit of normal is 5.1. Obtain EKG Give 10 units of insulin with 1 amp of D50 Give nebulized albuterol and calcium gluconate Kayexalate Trend potassium levels #Lactic acidosis IV fluids Trend lactic acid levels #Hypertension Continue home BP medications with hold parameters #Dyslipidemia Continue statin #Diastolic dysfunction patient with normal EF on echocardiogram from 02/28/2019. Continue Bumex Cautious use of IV fluids Elevate lower extremities when seated or when in bed Continue lymphedema wraps Strict I's and O's #History of A fib: - Continue cardizem and warfarin DVT PPx: On Warfarin GI PPx: General diet. Code Status: DNR/DNI per patient's preference.
[2019-11-24] MEDS ORDERED: CETIRIZINE 5 MG PO PRN (18:03)
[2019-11-24] MEDS ORDERED: Magnesium Hydroxide 400 MG/5 ML Susp 30 ML Cup PO PRN (18:03)
[2019-11-24] MEDS ORDERED: Calcium Carbonate 500 MG Tab.Chew PO PRN (18:03)
[2019-11-24] MEDS ORDERED: diphenhydrAMINE 25 MG Tab PO PRN (18:03)
[2019-11-24] MEDS: Albuterol 0.083% 2.5 MG/3 ML Neb Soln NEB SCH ×2 (18:11→20:24)
[2019-11-24] MEDS: Sodium Polystyrene Sulfonate 15 GM/60 ML Susp 60 ML Bot PO SCH ×2 (18:12→22:07)
[2019-11-24] MEDS: Sodium Chloride 0.9% 1,000 ML IV SCH ×2 (18:27→19:00)
[2019-11-24] MEDS ORDERED: Lactulose Soln 10 GM/15 ML 30 ML UD Cup PO PRN (18:30)
[2019-11-24] MEDS ORDERED: LORazepam 2 MG/ML SDV IM STA (18:49)
[2019-11-24] MEDS: Ertapenem 1 GM in Sodium Chloride 0.9% 50 ML IV SCH (19:02)
[2019-11-24] MEDS: Insulin Lispro 100 Units/ML 3 ML Vial SUBCUT SCH ×2 (19:07→20:50)
[2019-11-24] MEDS: Nystatin Topical Powder 30 GM Bottle TOP SCH (20:23)
[2019-11-24] MEDS: Menthol/Methyl Salicylate 85 GM Tube TOP SCH (20:24)
[2019-11-24] MEDS ORDERED: ZINC OXIDE TOP SCH (21:00)
[2019-11-24] MEDS ORDERED: ARGININE PO SCH (21:00)
[2019-11-24] MEDS ORDERED: ASCORBIC ACID PO SCH (21:00)
[2019-11-24] MEDS ORDERED: VITAMIN E PO SCH (21:00)
[2019-11-24] MEDS ORDERED: MENTHOL TOP SCH (21:00)
[2019-11-24] MEDS ORDERED: Warfarin 2 MG Tab PO ONE (22:15)
[2019-11-25] MEDS: Sodium Chloride 0.9% 1,000 ML IV SCH (02:42)
[2019-11-25 06:49] LABS: ANION GAP 14.6 mEq/L (7-13)
[2019-11-25] MEDS: Insulin Lispro 100 Units/ML 3 ML Vial SUBCUT SCH ×4 (08:15→21:11)
[2019-11-25] MEDS: Bumetanide 1 MG Tab PO SCH ×2 (08:46→13:32)
[2019-11-25] MEDS: Diltiazem 180 MG Cap.CD PO SCH (08:46)
[2019-11-25] MEDS: Nystatin Topical Powder 30 GM Bottle TOP SCH ×2 (08:47→21:11)
[2019-11-25] MEDS: Menthol/Methyl Salicylate 85 GM Tube TOP SCH ×2 (08:48→21:11)
--- NOTE | 2019-11-25 10:34 | PCM.PN ---
- General Info Date of Service: 11/25/19 Admission Dx/Problem (Free Text): Admission Diagnosis/Problem Admission Diagnosis/Problem Sepsis Subjective Update: Patient was up most of the night; sleepy this morning. Denies pain, fevers, chills, n/v/d/c, chest pain, shortness of breath, or any new symptoms. - Patient Data Vitals - Most Recent: Last Vital Signs Temp 97.6 F 11/25/19 08:00 Pulse 96 11/25/19 09:44 Resp 18 11/25/19 08:00 BP 109/45 L 11/25/19 09:44 Pulse Ox 94 L 11/25/19 08:00 Weight - Most Recent: 267 lb 1.6 oz I&O - Last 24 Hours: Intake & Output 11/24/19 11/25/19 11/25/19 22:59 06:59 14:59 Intake Total 420 240 Output Total 1025 Balance -605 240 Lab Results Last 24 Hours: Laboratory Results - last 24 hr 11/24/19 11/24/19 11/24/19 Range/Units 17:25 17:30 18:23 WBC (5.0-10.0) 10^3/uL RBC (4.2-5.4) 10^6/uL Hgb (12.0-16.0) g/dL Hct (37.0-47.0) % MCV (80-100) fL MCH (27.0-34.0) pg MCHC (33.0-35.0) g/dL Plt Count (150-450) 10^3/uL Neut % (Auto) (42.2-75.2) % Lymph % (Auto) (20.5-50.1) % Mitchell % (Auto) (2-8) % Eos % (Auto) (1.0-3.0) % Baso % (Auto) (0.0-1.0) % PT (9.0-12.0) SEC INR (0.9-1.2) Sodium (136-145) mmol/L Potassium (3.5-5.1) mmol/L Chloride (98-107) mmol/L Carbon Dioxide (21-32) mmol/L Anion Gap (7-13) mEq/L BUN (7-18) mg/dL Creatinine (0.55-1.02) mg/dL Est Cr Clr Drug Dosing mL/min Estimated GFR (MDRD) Glucose (74-99) mg/dL POC Glucose 152 H (83-110) mg/dl Calcium (8.5-10.1) mg/dL Phosphorus (2.6-4.7) mg/dL Magnesium (1.8-2.4) mg/dL Urine Color Yellow (YELLOW) Urine Appearance Slightly cloudy (CLEAR) Urine pH 5.0 (5.0-9.0) Ur Specific [place] 1.015 (1.005-1.030) Urine Protein Negative (NEGATIVE) Urine Glucose (UA) Negative (NEGATIVE) Urine Ketones Negative (NEGATIVE) Urine Occult Blood Trace-intact H (NEGATIVE) Urine Nitrite Negative (NEGATIVE) Urine Bilirubin Negative (NEGATIVE) Urine Urobilinogen 0.2 (0.2-1.0) mg/dL Ur Leukocyte Esterase Negative (NEGATIVE) Urine RBC 0-5 /HPF Urine WBC 0-5 (0-5/HPF) /HPF Ur Epithelial Cells Few (NOT SEEN) /HPF Urine Bacteria Moderate H (0-FEW/HPF) /HPF SARS-CoV-2 RNA (RT-PCR) Negative (NEGATIVE) 11/24/19 11/24/19 11/24/19 Range/Units 20:41 21:40 21:40 WBC (5.0-10.0) 10^3/uL RBC (4.2-5.4) 10^6/uL Hgb (12.0-16.0) g/dL Hct (37.0-47.0) % MCV (80-100) fL MCH (27.0-34.0) pg MCHC (33.0-35.0) g/dL Plt Count (150-450) 10^3/uL Neut % (Auto) (42.2-75.2) % Lymph % (Auto) (20.5-50.1) % Mitchell % (Auto) (2-8) % Eos % (Auto) (1.0-3.0) % Baso % (Auto) (0.0-1.0) % PT 19.6 H (9.0-12.0) SEC INR 2.1 H (0.9-1.2) Sodium (136-145) mmol/L Potassium 3.9 D (3.5-5.1) mmol/L Chloride (98-107) mmol/L Carbon Dioxide (21-32) mmol/L Anion Gap (7-13) mEq/L BUN (7-18) mg/dL Creatinine (0.55-1.02) mg/dL Est Cr Clr Drug Dosing mL/min Estimated GFR (MDRD) Glucose (74-99) mg/dL POC Glucose 160 H (83-110) mg/dl Calcium (8.5-10.1) mg/dL Phosphorus (2.6-4.7) mg/dL Magnesium (1.8-2.4) mg/dL Urine Color (YELLOW) Urine Appearance (CLEAR) Urine pH (5.0-9.0) Ur Specific [place] (1.005-1.030) Urine Protein (NEGATIVE) Urine Glucose (UA) (NEGATIVE) Urine Ketones (NEGATIVE) Urine Occult Blood (NEGATIVE) Urine Nitrite (NEGATIVE) Urine Bilirubin (NEGATIVE) Urine Urobilinogen (0.2-1.0) mg/dL Ur Leukocyte Esterase (NEGATIVE) Urine RBC /HPF Urine WBC (0-5/HPF) /HPF Ur Epithelial Cells (NOT SEEN) /HPF Urine Bacteria (0-FEW/HPF) /HPF SARS-CoV-2 RNA (RT-PCR) (NEGATIVE) 11/25/19 11/25/19 11/25/19 Range/Units 05:45 05:45 05:45 WBC 24.1 H (5.0-10.0) 10^3/uL RBC 3.95 L (4.2-5.4) 10^6/uL Hgb 11.0 L D (12.0-16.0) g/dL Hct 33.4 L (37.0-47.0) % MCV 84.6 (80-100) fL MCH 27.8 (27.0-34.0) pg MCHC 32.9 L (33.0-35.0) g/dL Plt Count 265 D (150-450) 10^3/uL Neut % (Auto) 89.1 H (42.2-75.2) % Lymph % (Auto) 3.6 L (20.5-50.1) % Mitchell % (Auto) 7.2 (2-8) % Eos % (Auto) 0.0 L (1.0-3.0) % Baso % (Auto) 0.1 (0.0-1.0) % PT 19.9 H (9.0-12.0) SEC INR 2.1 H (0.9-1.2) Sodium 137 (136-145) mmol/L Potassium 3.6 (3.5-5.1) mmol/L Chloride 102 (98-107) mmol/L Carbon Dioxide 24 (21-32) mmol/L Anion Gap 14.6 H (7-13) mEq/L BUN 37 H (7-18) mg/dL Creatinine 1.19 H (0.55-1.02) mg/dL Est Cr Clr Drug Dosing 36.06 mL/min Estimated GFR (MDRD) 44 Glucose 108 H (74-99) mg/dL POC Glucose (83-110) mg/dl Calcium 8.0 L (8.5-10.1) mg/dL Phosphorus 2.9 (2.6-4.7) mg/dL Magnesium 2.0 (1.8-2.4) mg/dL Urine Color (YELLOW) Urine Appearance (CLEAR) Urine pH (5.0-9.0) Ur Specific [place] (1.005-1.030) Urine Protein (NEGATIVE) Urine Glucose (UA) (NEGATIVE) Urine Ketones (NEGATIVE) Urine Occult Blood (NEGATIVE) Urine Nitrite (NEGATIVE) Urine Bilirubin (NEGATIVE) Urine Urobilinogen (0.2-1.0) mg/dL Ur Leukocyte Esterase (NEGATIVE) Urine RBC /HPF Urine WBC (0-5/HPF) /HPF Ur Epithelial Cells (NOT SEEN) /HPF Urine Bacteria (0-FEW/HPF) /HPF SARS-CoV-2 RNA (RT-PCR) (NEGATIVE) 11/25/19 Range/Units 07:48 WBC (5.0-10.0) 10^3/uL RBC (4.2-5.4) 10^6/uL Hgb (12.0-16.0) g/dL Hct (37.0-47.0) % MCV (80-100) fL MCH (27.0-34.0) pg MCHC (33.0-35.0) g/dL Plt Count (150-450) 10^3/uL Neut % (Auto) (42.2-75.2) % Lymph % (Auto) (20.5-50.1) % Mitchell % (Auto) (2-8) % Eos % (Auto) (1.0-3.0) % Baso % (Auto) (0.0-1.0) % PT (9.0-12.0) SEC INR (0.9-1.2) Sodium (136-145) mmol/L Potassium (3.5-5.1) mmol/L Chloride (98-107) mmol/L Carbon Dioxide (21-32) mmol/L Anion Gap (7-13) mEq/L BUN (7-18) mg/dL Creatinine (0.55-1.02) mg/dL Est Cr Clr Drug Dosing mL/min Estimated GFR (MDRD) Glucose (74-99) mg/dL POC Glucose 101 (83-110) mg/dl Calcium (8.5-10.1) mg/dL Phosphorus (2.6-4.7) mg/dL Magnesium (1.8-2.4) mg/dL Urine Color (YELLOW) Urine Appearance (CLEAR) Urine pH (5.0-9.0) Ur Specific [place] (1.005-1.030) Urine Protein (NEGATIVE) Urine Glucose (UA) (NEGATIVE) Urine Ketones (NEGATIVE) Urine Occult Blood (NEGATIVE) Urine Nitrite (NEGATIVE) Urine Bilirubin (NEGATIVE) Urine Urobilinogen (0.2-1.0) mg/dL Ur Leukocyte Esterase (NEGATIVE) Urine RBC /HPF Urine WBC (0-5/HPF) /HPF Ur Epithelial Cells (NOT SEEN) /HPF Urine Bacteria (0-FEW/HPF) /HPF SARS-CoV-2 RNA (RT-PCR) (NEGATIVE) Leo Results Last 24 Hours: Microbiology 11/24/19 18:45 Anaerobic Blood Culture - Final Blood - Venous 11/24/19 18:50 Anaerobic Blood Culture - Final Blood - Venous - Lab Draw Med Orders - Current: Current Medications Acetaminophen (Tylenol) 650 mg PO Q6H PRN PRN Reason: Pain (Mild 1-3)/fever Last Admin: 11/25/19 02:42 Dose: 650 mg Bumetanide (Bumex) 2 mg PO BIDDIURETIC YRN Last Admin: 11/25/19 08:46 Dose: 2 mg Calcium Carbonate/Glycine (Tums) 500 mg PO TID PRN PRN Reason: Dyspepsia Dextrose/Water (Dextrose 50% In Water) 25 ml IVPUSH ASDIRECTED PRN PRN Reason: Hypoglycemia Diltiazem HCl (Cardizem Cd) 360 mg PO DAILY [facility] Last Admin: 11/25/19 08:46 Dose: 360 mg Diphenhydramine HCl (Benadryl) 25 mg PO DAILY PRN PRN Reason: itch Glucagon (Glucagen) 1 mg IM ONETIME PRN PRN Reason: Hypoglycemia Ertapenem 1 gm/ Sodium (Chloride) 50 mls @ 100 mls/hr IV Q24H [facility] Last Infusion: 11/24/19 19:44 Dose: Infused Sodium Chloride (Normal Saline) 1,000 mls @ 125 mls/hr IV ASDIRECTED [facility] Last Admin: 11/25/19 02:42 Dose: 125 mls/hr Vancomycin HCl 1.25 gm/ Sodium (Chloride) 250 mls @ 166.667 mls/hr IV Q48H [facility] Last Infusion: 11/25/19 06:38 Dose: Infused Insulin Human Lispro (Humalog) 0 unit SUBCUT WITHMEALSANDBED [facility]; Protocol Last Admin: 11/25/19 08:15 Dose: Not Given Lactulose (Cephulac) 10 gm PO DAILY PRN PRN Reason: Constipation Magnesium Hydroxide (Milk Of Magnesia) 30 ml PO DAILY PRN PRN Reason: Constipation Methyl Salicylate (Icy Hot Cream) 0 gm TOP BID [facility] Last Admin: 11/25/19 08:48 Dose: Not Given Metoprolol Succinate (Toprol Xl) 200 mg PO DAILY [facility] Non-Formulary Medication (Arginine/Ascorbate Sod/Fredy Ac [Arginaid Powder]) 8 oz PO BID [facility] Non-Formulary Medication (Cetirizine [Zyrtec]) 5 mg PO DAILY PRN PRN Reason: Allergies Non-Formulary Medication (Letrozole) 2.5 mg PO DAILY [facility] Non-Formulary Medication (Menthol/Zinc Oxide [Calmoseptine]) 3.5 gm TOP BID [facility] Nystatin (Nystop) 0 gm TOP BID [facility] Last Admin: 11/25/19 08:47 Dose: 1 applic Ondansetron HCl (Zofran Odt) 4 mg PO Q6H PRN PRN Reason: nausea, able to take PO Ondansetron HCl (Zofran) 4 mg IVPUSH Q6H PRN PRN Reason: Nausea/Vomiting Senna/Docusate Sodium (Senna Plus) 2 tab PO BEDTIME PRN PRN Reason: Constipation Last Admin: 11/24/19 18:12 Dose: 2 tab Sodium Chloride (Saline Flush) 10 ml FLUSH ASDIRECTED PRN PRN Reason: Keep Vein Open Vancomycin HCl (Pharmacy To Dose - Vancomycin) 1 dose .XX ASDIRECTED YRN Warfarin Sodium (Pharmacy To Dose - Warfarin) 1 dose .XX ASDIRECTED [facility] Warfarin Sodium (Coumadin) 2 mg PO ONETIME ONE Stop: 11/25/19 14:01 Discontinued Medications Albuterol (Proventil Neb Soln) 2.5 mg NEB Q2H YRN Stop: 11/24/19 19:01 Last Admin: 11/24/19 20:24 Dose: 2.5 mg Calcium Gluconate (Calcium Gluconate) 1 gm IVPUSH ONETIME ONE Stop: 11/24/19 16:48 Last Admin: 11/24/19 18:14 Dose: 1 gm Dextrose/Water (Dextrose 50% In Water) 50 ml IVPUSH ONETIME ONE Stop: 11/24/19 16:48 Last Admin: 11/24/19 18:15 Dose: 50 ml Insulin Human Regular (Humulin R) 10 unit IV ONETIME ONE Stop: 11/24/19 16:48 Last Admin: 11/24/19 18:18 Dose: 10 units Lorazepam (Ativan) 1 mg IM ONETIME STA Stop: 11/24/19 18:50 Last Admin: 11/24/19 18:59 Dose: 1 mg Sodium Polystyrene Sulfonate (Kayexalate) 15 gm PO Q6H YRN Stop: 11/24/19 23:01 Last Admin: 11/24/19 22:07 Dose: Not Given Warfarin Sodium (Coumadin) 4 mg PO ONETIME ONE Stop: 11/24/19 22:16 Last Admin: 11/24/19 22:18 Dose: 4 mg - Exam General: Alert, Oriented, Cooperative HEENT: Pupils Equal, Pupils Reactive, Mucous Membr. Moist/[place] Neck: Supple Lungs: Clear to Auscultation, Normal Respiratory Effort Cardiovascular: Regular Rate, Regular Rhythm GI/Abdominal Exam: Normal Bowel Sounds, Soft, Non-Tender Extremities: Pedal Edema (3+ edema of BLE, redness of the BLE about 5-7 cm below the knees with redness improving. ), Leg Pain, Increased Warmth, Redness Skin: Warm, Dry Neurological: No New Focal Deficit Psy/Mental Status: Alert, Normal Affect, Normal Mood Sepsis Event Note - Evaluation Sepsis Screening Result: Sepsis Risk - Focused Exam Vital Signs: Vital Signs Temp Pulse Resp BP Pulse Ox 11/25/19 09:44 96 109/45 L 11/25/19 08:00 97.6 F 104 H 18 103/47 L 94 L 11/25/19 03:04 100.1 F 11/25/19 02:45 101.1 F H 105 H 20 124/59 L 94 L 11/24/19 23:43 99.3 F 96 20 122/54 L 93 L Date Exam was Performed: 11/25/19 Time Exam was Performed: 10:29 - Problem List & Annotations (1) Acute renal failure SNOMED Code(s): 61360986 Code(s): N17.9 - ACUTE KIDNEY FAILURE, UNSPECIFIED Status: Acute Current Visit: No Onset Date: ~11/24/19 (2) Hyperkalemia SNOMED Code(s): 86887785 Code(s): E87.5 - HYPERKALEMIA Status: Acute Current Visit: No Onset Date: ~11/24/19 (3) Sepsis SNOMED Code(s): 93265157 Code(s): A41.9 - SEPSIS, UNSPECIFIED ORGANISM Status: Acute Current Visit : No Onset Date: ~11/24/19 Qualifiers: Sepsis type: sepsis due to unspecified organism Sepsis acute organ dysfunction status: unspecified Qualified Code(s): A41.9 - Sepsis, unspecified organism (4) Cellulitis SNOMED Code(s): 202842102 Code(s): L03.90 - CELLULITIS, UNSPECIFIED Status: Acute Current Visit: No (5) A-fib SNOMED Code(s): 81344112 Code(s): I48.91 - UNSPECIFIED ATRIAL FIBRILLATION Status: Chronic Current Visit: No (6) Anticoagulated by anticoagulation treatment SNOMED Code(s): 202238853, 453757380 Code(s): Z79.01 - [employer] (CURRENT) USE OF ANTICOAGULANTS Status: Chronic Priority: High Current Visit: No (7) Constipation SNOMED Code(s): 14463638 Code(s): K59.00 - CONSTIPATION, UNSPECIFIED Status: Chronic Priority: Medium Current Visit: No Qualifiers: Constipation type: unspecified constipation type Qualified Code(s): K59.00 - Constipation, unspecified (8) Weakness SNOMED Code(s): 43339177 Code(s): R53.1 - WEAKNESS Status: Resolved Current Visit: No - Problem List Review Problem List Initiated/Reviewed/Updated: Yes - My Orders Last 24 Hours: My Active Orders 11/24/19 16:03 Patient Status [ADT] Routine 11/24/19 16:47 Blood Glucose Check, Bedside [RC] QIDACANDBED Diabetes Education [RC] Click to Edit Height and Weight [RC] 06 Notify Provider [RC] PRN Oxygen Therapy [RC] PRN Up to Chair [RC] ASDIRECTED VTE/DVT Education [RC] PER UNIT ROUTINE Vital Signs [RC] 00,04,08,12,16,20 Acetaminophen [Tylenol] 650 mg PO Q6H PRN Dextrose 50% in Water 25 ml IVPUSH ASDIRECTED PRN Docusate Sodium/Sennosides [Senna Plus] 2 tab PO BEDTIME PRN Glucagon,Human Recombinant [GlucaGen] 1 mg IM ONETIME PRN Ondansetron [Zofran ODT] 4 mg PO Q6H PRN Ondansetron [Zofran] 4 mg IVPUSH Q6H PRN Sodium Chloride 0.9% [Saline Flush] 10 ml FLUSH ASDIRECTED PRN Blood Culture x2 Reflex Set [OM.PC] Stat Peripheral IV Insertion Adult [OM.PC] Routine Saline Lock Insert [OM.PC] Routine Resuscitation Status Routine 11/24/19 16:48 Cardiac Monitoring [RC] 08,20 Intake and Output [RC] QSHIFT 11/24/19 16:49 Peripheral IV Care [RC] 09,21 11/24/19 16:50 RT Aerosol Therapy [RC] ASDIRECTED 11/24/19 17:00 Ertapenem [INVanz] 1 gm Sodium Chloride 0.9% [Normal Saline] 50 ml IV Q24H Pharmacy to Dose - Vancomycin 1 dose .XX ASDIRECTED Sodium Chloride 0.9% [Normal Saline] 1,000 ml IV ASDIRECTED 11/24/19 17:25 CULTURE URINE [RM] Stat 11/24/19 18:00 Insulin Lispro [HumaLOG] See Protocol SUBCUT WITHMEALSANDBED Vancomycin 1.25 gm Sodium Chloride 0.9% [Normal Saline (AdvBag)] 250 ml IV Q48H 11/24/19 18:03 Calcium Carbonate [Tums] 500 mg PO TID PRN Cetirizine [ZyrTEC] 5 mg PO DAILY PRN Magnesium Hydroxide [Milk of Magnesia] 30 ml PO DAILY PRN diphenhydrAMINE [Benadryl] 25 mg PO DAILY PRN 11/24/19 18:15 Pharmacy to Dose - Warfarin 1 dose .XX ASDIRECTED 11/24/19 18:30 Lactulose [Cephulac] 10 gm PO DAILY PRN 11/24/19 18:45 CULTURE BLOOD [BC] Stat 11/24/19 18:50 CULTURE BLOOD [BC] Stat 11/24/19 20:19 Urinary Catheter Assessment [RC] 11/24/19 20:30 Rodrigues Catheter Insertion [Insert Urinary Catheter] [OM.PC] Q24H 11/24/19 21:00 Arginine/Ascorbate Sod/Fredy AC [Arginaid Powder] 8 oz PO BID Menthol/Methyl Salicylate [Icy Hot Cream] 0 gm TOP BID Menthol/Zinc Oxide [Calmoseptine] 3.5 gm TOP BID Nystatin [Nystop] 0 gm TOP BID 11/24/19 Dinner Regular Diet [DIET] 11/25/19 08:00 Bumetanide [Bumex] 2 mg PO BIDDIURETIC 11/25/19 09:00 Diltiazem [Cardizem CD] 360 mg PO DAILY Letrozole 2.5 mg PO DAILY Metoprolol Succinate [Toprol XL] 200 mg PO DAILY 11/25/19 14:00 Warfarin [Coumadin] 2 mg PO ONETIME ONE 11/26/19 05:11 BASIC METABOLIC PANEL,BMP [CHEM] AM CBC W/O DIFF,HEMOGRAM [HEME] AM MAGNESIUM [CHEM] AM - Plan Plan:: #Cellulitis of bilateral lower extremities: redness, warmth, and tenderness of bilateral lower extremities; improving. #Severe sepsis with acute organ dysfunction: Patient with fever, tachycardia, and leukocytosis. Source could be bacteremia secondary to translocation from cellulitis. However urinary source, GI source, and respiratory source on the differential - WBC improved from 45.6 to 24.1. Afebrile overnight. - Ruled out COVID-19 - Follow up on blood cultures - UA negative - Continue vancomycin and ertapenem #Acute renal failure: Improved. Cr of 1.19, decreased from 1.9. Was 0.9 in October 2019, with associated anion gap metabolic acidosis and hyperkalemia IV fluids, decreased to 75 cc/hour Avoid nephrotoxins Monitor renal function Renal dosing of all medications Place Rodrigues catheter for accurate I's and O's #Hyperkalemia: Resolved. Potassium down to 3.6. Patient with potassium of 5.9, upper limit of normal is 5.1. EKG with no hyperacute T wave changes. Received 10 units of insulin with 1 amp of D50, nebulized albuterol and calcium gluconate, Kayexalate Trend potassium levels Tele monitoring. #Lactic acidosis IV fluids Trend lactic acid levels #Hypertension Continue home BP medications with hold parameters #Dyslipidemia Continue statin #Diastolic dysfunction patient with normal EF on echocardiogram from 02/28/2019. Continue Bumex Cautious use of IV fluids Elevate lower extremities when seated or when in bed Continue lymphedema wraps Strict I's and O's #History of A fib: - Continue cardizem and warfarin DVT PPx: On Warfarin GI PPx: General diet. Code Status: DNR/DNI per patient's preference.
[2019-11-25] MEDS: Metoprolol Succinate 50 MG Tab.ER PO SCH (13:09)
[2019-11-25] MEDS ORDERED: Sodium Chloride 0.9% 1,000 ML IV SCH (13:45)
[2019-11-25] MEDS ORDERED: Warfarin 2 MG Tab PO ONE (14:00)
[2019-11-25] MEDS: Ertapenem 1 GM in Sodium Chloride 0.9% 50 ML IV SCH (16:59)
[2019-11-26 07:16] LABS: ANION GAP 8.8 mEq/L (7-13); CHLORIDE,CL 104 mmol/L (98-107); SODIUM,NA 139 mmol/L (136-145)
[2019-11-26] MEDS: Metoprolol Succinate 50 MG Tab.ER PO SCH (08:06)
[2019-11-26] MEDS: Bumetanide 1 MG Tab PO SCH ×2 (08:07→13:15)
[2019-11-26] MEDS: Diltiazem 180 MG Cap.CD PO SCH (08:07)
[2019-11-26] MEDS: Menthol/Methyl Salicylate 85 GM Tube TOP SCH ×2 (08:09→20:41)
[2019-11-26] MEDS: Nystatin Topical Powder 30 GM Bottle TOP SCH ×2 (08:09→20:41)
[2019-11-26] MEDS: Insulin Lispro 100 Units/ML 3 ML Vial SUBCUT SCH ×4 (08:38→20:41)
[2019-11-26] MEDS: Potassium Chloride 10 MEQ, Lidocaine 1% 1 ML in Premix Bag 1 BAG IV SCH ×4 (09:10→12:40)
[2019-11-26] MEDS: Potassium Chloride 10 MEQ Tab.ER PO SCH ×3 (09:59→17:41)
--- NOTE | 2019-11-26 13:40 | PCM.PN ---
- General Info Date of Service: 11/26/19 Admission Dx/Problem (Free Text): Admission Diagnosis/Problem Admission Diagnosis/Problem Sepsis Subjective Update: No acute events overnight. Denies pain, fevers, chills, n/v/d/c, chest pain, shortness of breath, or any new symptoms. - Patient Data Vitals - Most Recent: Last Vital Signs Temp 97.7 F 11/26/19 11:57 Pulse 78 11/26/19 11:57 Resp 20 11/26/19 11:57 BP 115/53 L 11/26/19 11:57 Pulse Ox 94 L 11/26/19 11:57 Weight - Most Recent: 269 lb 6.4 oz I&O - Last 24 Hours: Intake & Output 11/25/19 11/26/19 11/26/19 22:59 06:59 14:59 Intake Total 510 420 120 Output Total 700 325 975 Balance -190 95 -855 Lab Results Last 24 Hours: Laboratory Results - last 24 hr 11/25/19 11/25/19 11/25/19 Range/Units 12:50 16:55 18:20 WBC (5.0-10.0) 10^3/uL RBC (4.2-5.4) 10^6/uL Hgb (12.0-16.0) g/dL Hct (37.0-47.0) % MCV (80-100) fL MCH (27.0-34.0) pg MCHC (33.0-35.0) g/dL Plt Count (150-450) 10^3/uL PT (9.0-12.0) SEC INR (0.9-1.2) Sodium (136-145) mmol/L Potassium (3.5-5.1) mmol/L Chloride (98-107) mmol/L Carbon Dioxide (21-32) mmol/L Anion Gap (7-13) mEq/L BUN (7-18) mg/dL Creatinine (0.55-1.02) mg/dL Est Cr Clr Drug Dosing mL/min Estimated GFR (MDRD) Glucose (74-99) mg/dL POC Glucose 101 (83-110) mg/dl Lactic Acid 2.1 H* 1.1 (0.4-2.0) mmol/L Calcium (8.5-10.1) mg/dL Magnesium (1.8-2.4) mg/dL 11/25/19 11/26/19 11/26/19 Range/Units 20:59 06:20 06:20 WBC 12.3 H (5.0-10.0) 10^3/uL RBC 3.95 L (4.2-5.4) 10^6/uL Hgb 10.9 L (12.0-16.0) g/dL Hct 33.6 L (37.0-47.0) % MCV 85.1 (80-100) fL MCH 27.6 (27.0-34.0) pg MCHC 32.4 L (33.0-35.0) g/dL Plt Count 241 (150-450) 10^3/uL PT (9.0-12.0) SEC INR (0.9-1.2) Sodium 139 (136-145) mmol/L Potassium 2.8 L (3.5-5.1) mmol/L Chloride 104 (98-107) mmol/L Carbon Dioxide 29 (21-32) mmol/L Anion Gap 8.8 (7-13) mEq/L BUN 21 H (7-18) mg/dL Creatinine 0.85 (0.55-1.02) mg/dL Est Cr Clr Drug Dosing 50.48 mL/min Estimated GFR (MDRD) > 60 Glucose 99 (74-99) mg/dL POC Glucose 104 (83-110) mg/dl Lactic Acid (0.4-2.0) mmol/L Calcium 7.6 L (8.5-10.1) mg/dL Magnesium 1.9 (1.8-2.4) mg/dL 11/26/19 11/26/19 11/26/19 Range/Units 06:20 07:30 11:51 WBC (5.0-10.0) 10^3/uL RBC (4.2-5.4) 10^6/uL Hgb (12.0-16.0) g/dL Hct (37.0-47.0) % MCV (80-100) fL MCH (27.0-34.0) pg MCHC (33.0-35.0) g/dL Plt Count (150-450) 10^3/uL PT 19.7 H (9.0-12.0) SEC INR 2.1 H (0.9-1.2) Sodium (136-145) mmol/L Potassium (3.5-5.1) mmol/L Chloride (98-107) mmol/L Carbon Dioxide (21-32) mmol/L Anion Gap (7-13) mEq/L BUN (7-18) mg/dL Creatinine (0.55-1.02) mg/dL Est Cr Clr Drug Dosing mL/min Estimated GFR (MDRD) Glucose (74-99) mg/dL POC Glucose 110 149 H (83-110) mg/dl Lactic Acid (0.4-2.0) mmol/L Calcium (8.5-10.1) mg/dL Magnesium (1.8-2.4) mg/dL Leo Results Last 24 Hours: Microbiology 11/24/19 17:25 Urine Culture - Preliminary Urine, Voided NO GROWTH AFTER 1 DAY 11/24/19 18:50 Aerobic Blood Culture - Preliminary Blood - Venous - Lab Draw NO GROWTH AFTER 1 DAY Anaerobic Blood Culture - Final 11/24/19 18:45 Aerobic Blood Culture - Preliminary Blood - Venous NO GROWTH AFTER 1 DAY Anaerobic Blood Culture - Final Med Orders - Current: Current Medications Acetaminophen (Tylenol) 650 mg PO Q6H PRN PRN Reason: Pain (Mild 1-3)/fever Last Admin: 11/25/19 02:42 Dose: 650 mg Bumetanide (Bumex) 2 mg PO BIDDIURETIC YRN Last Admin: 11/26/19 13:15 Dose: 2 mg Calcium Carbonate/Glycine (Tums) 500 mg PO TID PRN PRN Reason: Dyspepsia Dextrose/Water (Dextrose 50% In Water) 25 ml IVPUSH ASDIRECTED PRN PRN Reason: Hypoglycemia Diltiazem HCl (Cardizem Cd) 360 mg PO DAILY YRN Last Admin: 11/26/19 08:07 Dose: 360 mg Diphenhydramine HCl (Benadryl) 25 mg PO DAILY PRN PRN Reason: itch Glucagon (Glucagen) 1 mg IM ONETIME PRN PRN Reason: Hypoglycemia Ertapenem 1 gm/ Sodium (Chloride) 50 mls @ 100 mls/hr IV Q24H YRN Last Admin: 11/25/19 16:59 Dose: 100 mls/hr Vancomycin HCl 1.25 gm/ Sodium (Chloride) 250 mls @ 166.667 mls/hr IV Q24H [facility] Last Admin: 11/25/19 17:00 Dose: 166.667 mls/hr Insulin Human Lispro (Humalog) 0 unit SUBCUT WITHMEALSANDBED [facility]; Protocol Last Admin: 11/26/19 11:55 Dose: Not Given Lactulose (Cephulac) 10 gm PO DAILY PRN PRN Reason: Constipation Magnesium Hydroxide (Milk Of Magnesia) 30 ml PO DAILY PRN PRN Reason: Constipation Methyl Salicylate (Icy Hot Cream) 0 gm TOP BID [facility] Last Admin: 11/26/19 08:09 Dose: Not Given Metoprolol Succinate (Toprol Xl) 200 mg PO DAILY [facility] Last Admin: 11/26/19 08:06 Dose: 200 mg Non-Formulary Medication (Arginine/Ascorbate Sod/Fredy Ac [Arginaid Powder]) 8 oz PO BID [facility] Non-Formulary Medication (Cetirizine [Zyrtec]) 5 mg PO DAILY PRN PRN Reason: Allergies Non-Formulary Medication (Letrozole) 2.5 mg PO DAILY [facility] Non-Formulary Medication (Menthol/Zinc Oxide [Calmoseptine]) 3.5 gm TOP BID [facility] Nystatin (Nystop) 0 gm TOP BID [facility] Last Admin: 11/26/19 08:09 Dose: 1 applic Ondansetron HCl (Zofran Odt) 4 mg PO Q6H PRN PRN Reason: nausea, able to take PO Ondansetron HCl (Zofran) 4 mg IVPUSH Q6H PRN PRN Reason: Nausea/Vomiting Potassium Chloride (Klor-Con 10) 40 meq PO TIDMEALS [facility] Stop: 11/26/19 17:01 Last Admin: 11/26/19 12:04 Dose: 40 meq Senna/Docusate Sodium (Senna Plus) 2 tab PO BEDTIME PRN PRN Reason: Constipation Last Admin: 11/24/19 18:12 Dose: 2 tab Sodium Chloride (Saline Flush) 10 ml FLUSH ASDIRECTED PRN PRN Reason: Keep Vein Open Vancomycin HCl (Pharmacy To Dose - Vancomycin) 1 dose .XX ASDIRECTED [facility] Warfarin Sodium (Pharmacy To Dose - Warfarin) 1 dose .XX ASDIRECTED [facility] Warfarin Sodium (Coumadin) 4 mg PO ONETIME ONE Stop: 11/26/19 14:01 Last Admin: 11/26/19 13:15 Dose: 4 mg Discontinued Medications Albuterol (Proventil Neb Soln) 2.5 mg NEB Q2H YRN Stop: 11/24/19 19:01 Last Admin: 11/24/19 20:24 Dose: 2.5 mg Calcium Gluconate (Calcium Gluconate) 1 gm IVPUSH ONETIME ONE Stop: 11/24/19 16:48 Last Admin: 11/24/19 18:14 Dose: 1 gm Dextrose/Water (Dextrose 50% In Water) 50 ml IVPUSH ONETIME ONE Stop: 11/24/19 16:48 Last Admin: 11/24/19 18:15 Dose: 50 ml Sodium Chloride (Normal Saline) 1,000 mls @ 125 mls/hr IV ASDIRECTED [facility] Last Infusion: 11/25/19 10:49 Dose: Infused Vancomycin HCl 1.25 gm/ Sodium (Chloride) 250 mls @ 166.667 mls/hr IV Q48H [facility] Last Infusion: 11/25/19 06:38 Dose: Infused Sodium Chloride (Normal Saline) 1,000 mls @ 75 mls/hr IV ASDIRECTED [facility] Last Infusion: 11/26/19 06:27 Dose: Infused Potassium Chloride 10 meq/ (Lidocaine HCl 1 ml/ Premix) 101 mls @ 101 mls/hr IV Q1H YRN Stop: 11/26/19 12:59 Last Admin: 11/26/19 12:40 Dose: 101 mls/hr Insulin Human Regular (Humulin R) 10 unit IV ONETIME ONE Stop: 11/24/19 16:48 Last Admin: 11/24/19 18:18 Dose: 10 units Lorazepam (Ativan) 1 mg IM ONETIME STA Stop: 11/24/19 18:50 Last Admin: 11/24/19 18:59 Dose: 1 mg Sodium Polystyrene Sulfonate (Kayexalate) 15 gm PO Q6H YRN Stop: 11/24/19 23:01 Last Admin: 11/24/19 22:07 Dose: Not Given Warfarin Sodium (Coumadin) 4 mg PO ONETIME ONE Stop: 11/24/19 22:16 Last Admin: 11/24/19 22:18 Dose: 4 mg Warfarin Sodium (Coumadin) 2 mg PO ONETIME ONE Stop: 11/25/19 14:01 Last Admin: 11/25/19 13:33 Dose: 2 mg - Exam General: Alert, Oriented, Cooperative, No Acute Distress HEENT: Pupils Equal, Pupils Reactive, Mucous Membr. Moist/[place] Neck: Supple, Trachea Midline Lungs: Clear to Auscultation, Normal Respiratory Effort Cardiovascular: Regular Rate, Regular Rhythm GI/Abdominal Exam: Normal Bowel Sounds, Soft, Non-Tender, No Distention Extremities: Other (Improved edema, redness, and tenderness of BLE. ) Skin: Warm, Dry Neurological: No New Focal Deficit Psy/Mental Status: Alert, Normal Affect, Normal Mood Sepsis Event Note - Evaluation Sepsis Screening Result: Severe Sepsis Risk - Focused Exam Vital Signs: Vital Signs Temp Pulse Pulse Resp BP BP Pulse Ox 11/26/19 11:57 97.7 F 78 20 115/53 L 94 L 11/26/19 08:06 90 123/55 L 11/26/19 08:00 98.6 F 90 22 H 123/55 L 93 L 11/26/19 04:00 99 F 92 20 114/52 L 92 L Date Exam was Performed: 11/26/19 Time Exam was Performed: 13:36 - Problem List & Annotations (1) Acute renal failure SNOMED Code(s): 12302844 Code(s): N17.9 - ACUTE KIDNEY FAILURE, UNSPECIFIED Status: Acute Current Visit: No Onset Date: ~11/24/19 (2) Hyperkalemia SNOMED Code(s): 96503694 Code(s): E87.5 - HYPERKALEMIA Status: Acute Current Visit: No Onset Date: ~11/24/19 (3) Sepsis SNOMED Code(s): 44346471 Code(s): A41.9 - SEPSIS, UNSPECIFIED ORGANISM Status: Acute Current Visit : No Onset Date: ~11/24/19 Qualifiers: Sepsis type: sepsis due to unspecified organism Sepsis acute organ dysfunction status: unspecified Qualified Code(s): A41.9 - Sepsis, unspecified organism (4) Cellulitis SNOMED Code(s): 945695052 Code(s): L03.90 - CELLULITIS, UNSPECIFIED Status: Acute Current Visit: No (5) A-fib SNOMED Code(s): 04042896 Code(s): I48.91 - UNSPECIFIED ATRIAL FIBRILLATION Status: Chronic Current Visit: No (6) Anticoagulated by anticoagulation treatment SNOMED Code(s): 381193846, 598441296 Code(s): Z79.01 - FPC (CURRENT) USE OF ANTICOAGULANTS Status: Chronic Priority: High Current Visit: No (7) Constipation SNOMED Code(s): 58000101 Code(s): K59.00 - CONSTIPATION, UNSPECIFIED Status: Chronic Priority: Medium Current Visit: No Qualifiers: Constipation type: unspecified constipation type Qualified Code(s): K59.00 - Constipation, unspecified (8) Weakness SNOMED Code(s): 43228376 Code(s): R53.1 - WEAKNESS Status: Resolved Current Visit: No - Problem List Review Problem List Initiated/Reviewed/Updated: Yes - My Orders Last 24 Hours: My Active Orders 11/25/19 18:00 Vancomycin 1.25 gm Sodium Chloride 0.9% [Normal Saline (AdvBag)] 250 ml IV Q24H 11/26/19 09:15 Potassium Chloride [Klor-Con 10] 40 meq PO TIDMEALS 11/26/19 11:21 Notify Provider Consults [RC] ASDIRECTED 11/26/19 11:22 Consult to Occupational Therapy [OT Evaluation and Treatment] [CONS] Routine 11/26/19 14:00 Warfarin [Coumadin] 4 mg PO ONETIME ONE 11/27/19 09:13 INR,PT,PROTHROMBIN TIME [COAG] DAILY 11/28/19 09:13 INR,PT,PROTHROMBIN TIME [COAG] DAILY 11/29/19 09:13 INR,PT,PROTHROMBIN TIME [COAG] DAILY 11/30/19 09:13 INR,PT,PROTHROMBIN TIME [COAG] DAILY 12/01/19 09:13 INR,PT,PROTHROMBIN TIME [COAG] DAILY 12/02/19 09:13 INR,PT,PROTHROMBIN TIME [COAG] DAILY - Plan Plan:: #Cellulitis of bilateral lower extremities: redness, warmth, and tenderness of bilateral lower extremities; improving. #Severe sepsis with acute organ dysfunction: Patient with fever, tachycardia, and leukocytosis. Source could be bacteremia secondary to translocation from cellulitis. However urinary source, GI source, and respiratory source on the differential - WBC improved from 45.6 to 24.1 to 12. Afebrile overnight. - Ruled out COVID-19 - Follow up on blood cultures - UA negative - Continue vancomycin and ertapenem - Podiatry consulted, will appreciate their input. #Acute renal failure: Resolved. Cr of 0.8; decreased from 1.9. Was 0.9 in October 2019, with associated anion gap metabolic acidosis and hyperkalemia IV fluids, decreased to 75 cc/hour Avoid nephrotoxins Monitor renal function Renal dosing of all medications Place Rodrigues catheter for accurate I's and O's #Hyperkalemia: Resolved. Potassium down to 3.6. Patient with potassium of 5.9, upper limit of normal is 5.1. EKG with no hyperacute T wave changes. Received 10 units of insulin with 1 amp of D50, nebulized albuterol and calcium gluconate, Kayexalate Trend potassium levels Tele monitoring. #Hypokalemia: K of 2.8. Due to diuretics. - Aggressive replacement. - Monitor levels. - Tele monitoring. #Lactic acidosis: Resolved. D/c IV fluids #Hypertension Continue home BP medications with hold parameters #Dyslipidemia Continue statin #Diastolic dysfunction patient with normal EF on echocardiogram from 02/28/2019. Continue Bumex Cautious use of IV fluids Elevate lower extremities when seated or when in bed Continue lymphedema wraps Strict I's and O's #History of A fib: - Continue cardizem and warfarin DVT PPx: On Warfarin GI PPx: General diet. Code Status: DNR/DNI per patient's preference.
[2019-11-26] MEDS ORDERED: Warfarin 2 MG Tab PO ONE (14:00)
[2019-11-26] MEDS: LETROZOLE 2.5 MG PO SCH (15:39)
[2019-11-26] MEDS: Ertapenem 1 GM in Sodium Chloride 0.9% 50 ML IV SCH (17:04)
[2019-11-26] MEDS ORDERED: Furosemide 20 MG/2 ML VIAL IVPUSH ONE (17:43)
[2019-11-26] MEDS ORDERED: Albuterol/Ipratropium 3.0-0.5 MG/3 ML Neb Soln NEB ONE (17:43)
[2019-11-27 07:01] LABS: ANION GAP 8.4 mEq/L (7-13)
[2019-11-27] MEDS: Insulin Lispro 100 Units/ML 3 ML Vial SUBCUT SCH (07:45)
[2019-11-27] MEDS ORDERED: Phosphorus #1 250 MG Tab PO ONE (08:30)
[2019-11-27] MEDS: Menthol/Methyl Salicylate 85 GM Tube TOP SCH (08:59)
[2019-11-27] MEDS: Bumetanide 1 MG Tab PO SCH (09:00)
[2019-11-27] MEDS: Metoprolol Succinate 50 MG Tab.ER PO SCH (09:01)
[2019-11-27] MEDS: Diltiazem 180 MG Cap.CD PO SCH (09:01)
[2019-11-27] MEDS: LETROZOLE 2.5 MG PO SCH (09:05)
[2019-11-27 09:07] VITALS: BP 116/61; PULSE 88
[2019-11-27] MEDS: Nystatin Topical Powder 30 GM Bottle TOP SCH (09:07)
[2019-11-27] MEDS ORDERED: Potassium Chloride 10 MEQ Tab.ER PO SCH (09:45)
--- NOTE | 2019-11-27 09:48 | PCM.DCSUM1 ---
Discharge Summary - Hospital Course Free Text/Narrative:: Siri is an 79-year-old care home resident with past medical history of significant for morbid obesity, bilateral lower extremity edema management, edema-Bumex, hyperlipidemia, hypertension, atrial fibrillation, breast cancer, cognitive impairment, prediabetes, and CVA who admitted for severe sepsis, cellulitis, acute renal failure, hyperkalemia, and lactic acidosis. Per referring provider, patient was noted to have bilateral lower extremity redness few days ago. Patient had malodorous discharge from lower extremities. She was seen by wound care clinic via telemedicine was started on Augmentin. Today, patient had fever with temperature of 101.5. She was given a dose of rocephin. Labs were obtained which showed WBC count of 45.6 with hemoglobin of 13.4, platelet count of 363, neutrophil count of 95.1 and lymphocyte count of 1.7. His sodium was 130, potassium was 5.9, chloride was 96, bicarb of 20, BUN of 46, and creatinine of 1.94 (was 0.94 on 11/11/2019). Anion gap of 19.9. CRP elevated at 18.1. Lactic acid of 3.6. Patient was started on vancomycin and ertapenem after blood cultures were obtained. She was also started on IV fluids and she was given temporizing measures for hyperkalemia and also Kayexalate. Potassium level improved. Subsequently trended down to 2.8 and was given IV and oral potassium replacement with potassium coming back up to 3.4. White count improved from 45.6 on presentation to 8.7 at time of discharge. Creatinine improved from 1.9 on presentation to 0.95 at time of discharge. Vital signs were stable and patient was tolerating diet. Podiatry consult and will see patient prior to patient leaving to return back to care home. She is to follow-up with PCP and podiatry as outpatient. Continue ceftriaxone for total of 10 days of the antibiotics. HPI Initial Comments: Siri is an 79-year-old care home resident with past medical history of significant for morbid obesity, bilateral lower extremity edema management, edema-Bumex, hyperlipidemia, hypertension, atrial fibrillation, breast cancer, cognitive impairment, prediabetes, and CVA who is directly admitted from the care home for severe sepsis with acute organ dysfunction. Patient reports that she had chills and generalized body aches this morning. Reports poor oral intake for the past few days. States she has not seen her legs but was seen by a provider and started on antibiotics for the legs. Denies any pain in the legs. Reports constipation. Denies nausea, vomiting, diarrhea, dysuria, hematuria, chest pain, shortness of breath, cough, or any new symptoms. Per referring provider, patient was noted to have bilateral lower extremity redness few days ago. Patient had malodorous discharge from lower extremities. She was seen by wound care clinic via telemedicine was started on Augmentin. Today, patient had fever with temperature of 101.5. She was given a dose of rocephin. Labs were obtained which showed WBC count of 45.6 with hemoglobin of 13.4, platelet count of 363, neutrophil count of 95.1 and lymphocyte count of 1.7. His sodium was 130, potassium was 5.9, chloride was 96, bicarb of 20, BUN of 46, and creatinine of 1.94 (was 0.94 on 11/11/2019). Anion gap of 19.9. CRP elevated at 18.1. Lactic acid of 3.6. Diagnosis: Stroke: No - Discharge Data Discharge Date: 11/27/19 Discharge Disposition: DC/Tfer to [facility] Condition: Good - Referral to Home Health Primary Care Physician: Jahaira Sherman MD - Discharge Diagnosis/Problem(s) (1) Acute renal failure SNOMED Code(s): 07906272 ICD Code: N17.9 - ACUTE KIDNEY FAILURE, UNSPECIFIED Status: Acute Current Visit: No Onset Date: ~11/24/19 (2) Hyperkalemia SNOMED Code(s): 93006497 ICD Code: E87.5 - HYPERKALEMIA Status: Acute Current Visit: No Onset Date: ~11/24/19 (3) Sepsis SNOMED Code(s): 52021553 ICD Code: A41.9 - SEPSIS, UNSPECIFIED ORGANISM Status: Acute Current Visit: No Onset Date: ~11/24/19 Qualifiers: Sepsis type: sepsis due to unspecified organism Sepsis acute organ dysfunction status: unspecified Qualified Code(s): A41.9 - Sepsis, unspecified organism (4) Cellulitis SNOMED Code(s): 736962341 ICD Code: L03.90 - CELLULITIS, UNSPECIFIED Status: Acute Current Visit: No (5) A-fib SNOMED Code(s): 93587928 ICD Code: I48.91 - UNSPECIFIED ATRIAL FIBRILLATION Status: Chronic Current Visit: No (6) Anticoagulated by anticoagulation treatment SNOMED Code(s): 099545727, 080764091 ICD Code: Z79.01 - [facility] (CURRENT) USE OF ANTICOAGULANTS Status: Chronic Priority: High Current Visit: No (7) Constipation SNOMED Code(s): 20808934 ICD Code: K59.00 - CONSTIPATION, UNSPECIFIED Status: Chronic Priority: Medium Current Visit: No Qualifiers: Constipation type: unspecified constipation type Qualified Code(s): K59.00 - Constipation, unspecified (8) Weakness SNOMED Code(s): 00791387 ICD Code: R53.1 - WEAKNESS Status: Resolved Current Visit: No - Patient Summary/Data Consults: Consultations 11/26/19 11:22 Consult to Occupational Therapy [OT Evaluation and Treatment] [CONS] Routine - Discharge Plan *PRESCRIPTION DRUG MONITORING PROGRAM REVIEWED*: No *COPY OF PRESCRIPTION DRUG MONITORING REPORT IN PATIENT ASHLEY: No Home Medications: Home Meds Metoprolol Succinate [Toprol XL] 200 mg PO DAILY 12/07/14 [History] Menthol/Methyl Salicylate [Icy Hot Cream] 1 applic TOP BID 04/09/16 [History] Letrozole 2.5 mg PO DAILY 06/08/17 [History] Calcium Carbonate [Tums] 500 mg PO TID PRN 06/14/17 [History] Potassium Chloride [Klor-Con 10] 30 meq PO BIDMEALS 06/14/17 [History] Acetaminophen 650 mg PO BID 08/08/19 [History] Acetaminophen [Tylenol] 650 mg PO Q4H PRN 08/08/19 [History] Arginine/Ascorbate Sod/Fredy AC [Arginaid Powder] 8 oz PO BID 08/08/19 [History] Bumetanide 2 mg PO BID 08/08/19 [History] Cetirizine [ZyrTEC] 5 mg PO DAILY PRN 08/08/19 [History] Lactulose 15 ml PO DAILY PRN 08/08/19 [History] Loperamide [Imodium AD] 2 - 4 mg PO ASDIRECTED PRN 08/08/19 [History] Magnesium Hydroxide [Milk of Magnesia] 30 ml PO DAILY PRN 08/08/19 [History] Nystatin [Nyamyc] 1 applic TOP BID 08/08/19 [History] Ondansetron [Zofran] 4 mg PO Q4H PRN 08/08/19 [History] Triamcinolone Acetonide [Kenalog 0.1% Crm] 1 applic TOP BID 08/08/19 [History] Warfarin Sodium [Coumadin] 2 mg PO .WEDSUN 08/08/19 [History] Warfarin [Coumadin] 4 mg PO .MONTUTHUFRISAT 08/08/19 [History] dilTIAZem HCL [Diltiazem 24Hr ER] 360 mg PO DAILY 08/08/19 [History] metFORMIN HCl [Metformin HCl] 500 mg PO DAILY 08/08/19 [History] Menthol/Zinc Oxide [Calmoseptine] 3.5 gm TOP BID 10/19/19 [History] Spironolactone [Aldactone] 12.5 mg PO .MONWEDFRI 10/19/19 [History] diphenhydrAMINE [Benadryl] 25 mg PO DAILY PRN 10/19/19 [History] cefTRIAXone Sodium [Ceftriaxone] 2 gm IM DAILY 6 Days #6 dose 11/27/19 [Rx] Patient Handouts: Cellulitis, Adult, Uoji-ri-Prvy Referrals: Jahaira Sherman MD [Primary Care Provider] - - Discharge Summary/Plan Comment DC Time >30 min.: Yes - General Info Date of Service: 11/27/19 Admission Dx/Problem (Free Text: Admission Diagnosis/Problem Admission Diagnosis/Problem Sepsis Subjective Update: No acute events overnight. Denies pain, fevers, chills, n/v/d/c, chest pain, shortness of breath, or any new symptoms. Redness of the lower extremity improved. - Patient Data Vitals - Most Recent: Last Vital Signs Temp 98.2 F 11/27/19 07:42 Pulse 88 11/27/19 09:01 Resp 22 H 11/27/19 07:42 BP 116/61 11/27/19 09:01 Pulse Ox 93 L 11/27/19 07:42 Weight - Most Recent: 268 lb 6.4 oz I&O - Last 24 hours: Intake & Output 11/26/19 11/27/19 11/27/19 22:59 06:59 14:59 Intake Total 940 600 Output Total 2000 700 Balance -1060 -100 Lab Results - Last 24 hrs: Laboratory Results - last 24 hr 11/26/19 11/26/19 11/26/19 Range/Units 11:51 15:14 16:39 WBC (5.0-10.0) 10^3/uL RBC (4.2-5.4) 10^6/uL Hgb (12.0-16.0) g/dL Hct (37.0-47.0) % MCV (80-100) fL MCH (27.0-34.0) pg MCHC (33.0-35.0) g/dL Plt Count (150-450) 10^3/uL PT (9.0-12.0) SEC INR (0.9-1.2) Sodium (136-145) mmol/L Potassium 3.6 (3.5-5.1) mmol/L Chloride (98-107) mmol/L Carbon Dioxide (21-32) mmol/L Anion Gap (7-13) mEq/L BUN (7-18) mg/dL Creatinine (0.55-1.02) mg/dL Est Cr Clr Drug Dosing mL/min Estimated GFR (MDRD) Glucose (74-99) mg/dL POC Glucose 149 H 136 H (83-110) mg/dl Calcium (8.5-10.1) mg/dL Phosphorus (2.6-4.7) mg/dL Magnesium (1.8-2.4) mg/dL 11/26/19 11/27/19 11/27/19 Range/Units 20:00 06:18 06:18 WBC 8.7 (5.0-10.0) 10^3/uL RBC 3.89 L (4.2-5.4) 10^6/uL Hgb 10.7 L (12.0-16.0) g/dL Hct 33.5 L (37.0-47.0) % MCV 86.1 (80-100) fL MCH 27.5 (27.0-34.0) pg MCHC 31.9 L (33.0-35.0) g/dL Plt Count 243 (150-450) 10^3/uL PT 21.5 H (9.0-12.0) SEC INR 2.3 H (0.9-1.2) Sodium (136-145) mmol/L Potassium (3.5-5.1) mmol/L Chloride (98-107) mmol/L Carbon Dioxide (21-32) mmol/L Anion Gap (7-13) mEq/L BUN (7-18) mg/dL Creatinine (0.55-1.02) mg/dL Est Cr Clr Drug Dosing mL/min Estimated GFR (MDRD) Glucose (74-99) mg/dL POC Glucose 126 H (83-110) mg/dl Calcium (8.5-10.1) mg/dL Phosphorus (2.6-4.7) mg/dL Magnesium (1.8-2.4) mg/dL 11/27/19 11/27/19 Range/Units 06:18 07:24 WBC (5.0-10.0) 10^3/uL RBC (4.2-5.4) 10^6/uL Hgb (12.0-16.0) g/dL Hct (37.0-47.0) % MCV (80-100) fL MCH (27.0-34.0) pg MCHC (33.0-35.0) g/dL Plt Count (150-450) 10^3/uL PT (9.0-12.0) SEC INR (0.9-1.2) Sodium 140 (136-145) mmol/L Potassium 3.4 L (3.5-5.1) mmol/L Chloride 103 (98-107) mmol/L Carbon Dioxide 32 (21-32) mmol/L Anion Gap 8.4 (7-13) mEq/L BUN 17 (7-18) mg/dL Creatinine 0.95 (0.55-1.02) mg/dL Est Cr Clr Drug Dosing 45.16 mL/min Estimated GFR (MDRD) 56 Glucose 100 H (74-99) mg/dL POC Glucose 104 (83-110) mg/dl Calcium 7.7 L (8.5-10.1) mg/dL Phosphorus 2.5 L (2.6-4.7) mg/dL Magnesium 1.7 L (1.8-2.4) mg/dL JACK Results - Last 24 hrs: Microbiology 11/24/19 17:25 Urine Culture - Final Urine, Voided 11/24/19 18:50 Aerobic Blood Culture - Preliminary Blood - Venous - Lab Draw NO GROWTH AFTER 2 DAYS Anaerobic Blood Culture - Final 11/24/19 18:45 Aerobic Blood Culture - Preliminary Blood - Venous NO GROWTH AFTER 2 DAYS Anaerobic Blood Culture - Final Med Orders - Current: Current Medications Acetaminophen (Tylenol) 650 mg PO Q6H PRN PRN Reason: Pain (Mild 1-3)/fever Last Admin: 11/25/19 02:42 Dose: 650 mg Bumetanide (Bumex) 2 mg PO BIDDIURETIC [facility] Last Admin: 11/27/19 09:00 Dose: 2 mg Calcium Carbonate/Glycine (Tums) 500 mg PO TID PRN PRN Reason: Dyspepsia Dextrose/Water (Dextrose 50% In Water) 25 ml IVPUSH ASDIRECTED PRN PRN Reason: Hypoglycemia Diltiazem HCl (Cardizem Cd) 360 mg PO DAILY [facility] Last Admin: 11/27/19 09:01 Dose: 360 mg Diphenhydramine HCl (Benadryl) 25 mg PO DAILY PRN PRN Reason: itch Glucagon (Glucagen) 1 mg IM ONETIME PRN PRN Reason: Hypoglycemia Ertapenem 1 gm/ Sodium (Chloride) 50 mls @ 100 mls/hr IV Q24H [facility] Last Admin: 11/26/19 17:04 Dose: 100 mls/hr Vancomycin HCl 1.25 gm/ Sodium (Chloride) 250 mls @ 166.667 mls/hr IV Q24H [facility] Last Infusion: 11/26/19 20:35 Dose: Infused Insulin Human Lispro (Humalog) 0 unit SUBCUT WITHMEALSANDBED [facility]; Protocol Last Admin: 11/27/19 07:45 Dose: Not Given Lactulose (Cephulac) 10 gm PO DAILY PRN PRN Reason: Constipation Magnesium Hydroxide (Milk Of Magnesia) 30 ml PO DAILY PRN PRN Reason: Constipation Methyl Salicylate (Icy Hot Cream) 0 gm TOP BID [facility] Last Admin: 11/27/19 08:59 Dose: Not Given Metoprolol Succinate (Toprol Xl) 200 mg PO DAILY [facility] Last Admin: 11/27/19 09:01 Dose: 200 mg Non-Formulary Medication (Cetirizine [Zyrtec]) 5 mg PO DAILY PRN PRN Reason: Allergies Non-Formulary Medication (Menthol/Zinc Oxide [Calmoseptine]) 3.5 gm TOP BID [facility] Nystatin (Nystop) 0 gm TOP BID [facility] Last Admin: 11/27/19 09:07 Dose: 1 applic Ondansetron HCl (Zofran Odt) 4 mg PO Q6H PRN PRN Reason: nausea, able to take PO Ondansetron HCl (Zofran) 4 mg IVPUSH Q6H PRN PRN Reason: Nausea/Vomiting Letrozole 2.5 Mg (Pt's Own Med) 0 each PO DAILY [facility] Last Admin: 11/27/19 09:05 Dose: 1 each Potassium Chloride (Klor-Con 10) 30 meq PO BIDMEALS [facility] Senna/Docusate Sodium (Senna Plus) 2 tab PO BEDTIME PRN PRN Reason: Constipation Last Admin: 11/24/19 18:12 Dose: 2 tab Sodium Chloride (Saline Flush) 10 ml FLUSH ASDIRECTED PRN PRN Reason: Keep Vein Open Spironolactone (Aldactone) 12.5 mg PO MoWeFr@0900 [facility] Vancomycin HCl (Pharmacy To Dose - Vancomycin) 1 dose .XX ASDIRECTED [facility] Warfarin Sodium (Pharmacy To Dose - Warfarin) 1 dose .XX ASDIRECTED [facility] Warfarin Sodium (Coumadin) 4 mg PO ONETIME ONE Stop: 11/27/19 14:01 Discontinued Medications Albuterol (Proventil Neb Soln) 2.5 mg NEB Q2H [facility] Stop: 11/24/19 19:01 Last Admin: 11/24/19 20:24 Dose: 2.5 mg Albuterol/Ipratropium (Duoneb 3.0-0.5 Mg/3 Ml) 3 ml NEB ONETIME ONE Stop: 11/26/19 17:44 Last Admin: 11/26/19 18:09 Dose: 3 ml Calcium Gluconate (Calcium Gluconate) 1 gm IVPUSH ONETIME ONE Stop: 11/24/19 16:48 Last Admin: 11/24/19 18:14 Dose: 1 gm Dextrose/Water (Dextrose 50% In Water) 50 ml IVPUSH ONETIME ONE Stop: 11/24/19 16:48 Last Admin: 11/24/19 18:15 Dose: 50 ml Furosemide (Lasix) 20 mg IVPUSH ONETIME ONE Stop: 11/26/19 17:44 Last Admin: 11/26/19 18:09 Dose: 20 mg Sodium Chloride (Normal Saline) 1,000 mls @ 125 mls/hr IV ASDIRECTED [facility] Last Infusion: 11/25/19 10:49 Dose: Infused Vancomycin HCl 1.25 gm/ Sodium (Chloride) 250 mls @ 166.667 mls/hr IV Q48H [facility] Last Infusion: 11/25/19 06:38 Dose: Infused Sodium Chloride (Normal Saline) 1,000 mls @ 75 mls/hr IV ASDIRECTED [facility] Last Infusion: 11/26/19 06:27 Dose: Infused Potassium Chloride 10 meq/ (Lidocaine HCl 1 ml/ Premix) 101 mls @ 101 mls/hr IV Q1H [facility] Stop: 11/26/19 12:59 Last Infusion: 11/26/19 14:27 Dose: Infused Insulin Human Regular (Humulin R) 10 unit IV ONETIME ONE Stop: 11/24/19 16:48 Last Admin: 11/24/19 18:18 Dose: 10 units Lorazepam (Ativan) 1 mg IM ONETIME STA Stop: 11/24/19 18:50 Last Admin: 11/24/19 18:59 Dose: 1 mg Magnesium Oxide (Magnesium Oxide) 250 mg PO NOW STA Stop: 11/27/19 08:31 Last Admin: 11/27/19 09:01 Dose: 250 mg Potassium Chloride (Klor-Con 10) 40 meq PO TIDMEALS YRN Stop: 11/26/19 17:01 Last Admin: 11/26/19 17:41 Dose: 40 meq Sodium Phosphate (Neutra-Phos) 250 mg PO ONETIME ONE Stop: 11/27/19 08:31 Sodium Polystyrene Sulfonate (Kayexalate) 15 gm PO Q6H [facility] Stop: 11/24/19 23:01 Last Admin: 11/24/19 22:07 Dose: Not Given Warfarin Sodium (Coumadin) 4 mg PO ONETIME ONE Stop: 11/24/19 22:16 Last Admin: 11/24/19 22:18 Dose: 4 mg Warfarin Sodium (Coumadin) 2 mg PO ONETIME ONE Stop: 11/25/19 14:01 Last Admin: 11/25/19 13:33 Dose: 2 mg Warfarin Sodium (Coumadin) 4 mg PO ONETIME ONE Stop: 11/26/19 14:01 Last Admin: 11/26/19 13:15 Dose: 4 mg - Exam General: Reports: Alert, Oriented, Cooperative, No Acute Distress HEENT: Reports: Pupils Equal, Pupils Reactive, Mucous Membr. Moist/[place] Neck: Reports: Supple, Trachea Midline Lungs: Reports: Clear to Auscultation, Normal Respiratory Effort Cardiovascular: Reports: Regular Rate, Regular Rhythm GI/Abdominal Exam: Normal Bowel Sounds, Soft, Non-Tender, No Distention Extremities: Other (Redness, swelling, and warmth of the lower extremities significantly improved. Now shows skin mottling) Skin: Reports: Warm, Dry Neurological: Reports: No New Focal Deficit Psy/Mental Status: Reports: Alert, Normal Affect, Normal Mood
[2019-11-27] MEDS ORDERED: Warfarin 2 MG Tab PO ONE (14:00)
--- NOTE | 2019-11-27 16:55 | EKG ---
11/24/2019 - JOSE JOSE CORTESTIMILaila - EKG shows atrial fibrillation with heart rate of 96, no ST elevation or depression, poor R-wave progression, no T-wave inversions, QTc of 409, and no hyperacute T-wave changes. [facility] /[id number]
[2019-11-28] MEDS ORDERED: Spironolactone 25 MG Tab PO SCH (09:00)
== END 2019-11-27 11:15 | DRG 872 ==
LOC: DL.MS 15:58
PROVIDERS: ADMIT Internal Medicine; ATTEND Internal Medicine
DX: A41.9 Sepsis, unspecified organism (principal); N17.9 Acute kidney failure, unspecified; I48.20 Chronic atrial fibrillation, unspecified; L03.115 Cellulitis of right lower limb; L03.116 Cellulitis of left lower limb; R65.20 Severe sepsis without septic shock; E87.5 Hyperkalemia; Z20.828 Contact with and (suspected) exposure to other viral communicable diseases; Z66 Do not resuscitate; K59.00 Constipation, unspecified; E78.00 Pure hypercholesterolemia, unspecified; I11.0 Hypertensive heart disease with heart failure; I50.9 Heart failure, unspecified; M54.9 Dorsalgia, unspecified; G89.29 Other chronic pain; M19.90 Unspecified osteoarthritis, unspecified site; Z28.82 Immunization not carried out because of caregiver refusal; Z79.01 Long term (current) use of anticoagulants; Z91.013 Allergy to seafood; Z91.09 Other allergy status, other than to drugs and biological substances; Z85.3 Personal history of malignant neoplasm of breast; Z86.73 Personal history of transient ischemic attack (TIA), and cerebral infarction without residual deficits; Z79.899 Other long term (current) drug therapy
CPT/HCPCS: 36415; 51702; 80048; 81001; 82962; 83605; 83735; 84100; 84132; 85025; 85027; 85610; 87040; 87086; 93005; 97140-GO; 97165-GO; A9270-GY; J0610; J1335; J1815-GY; J1940; J2001; J2060; J3370; J3480; J7030; J7050; J7613-GY; J7620-GY; U0002

== ENCOUNTER 2019-12-28 08:57 | Inpatient (IN) | payer MEDICARE, OTHER ==
[2019-12-28] MEDS ORDERED: Ondansetron 4 MG Tab.DIS PO PRN (09:33)
[2019-12-28] MEDS ORDERED: Docusate Sodium 100 MG Cap PO PRN (09:33)
[2019-12-28] MEDS ORDERED: Acetaminophen/oxyCODONE 325-5 MG Tab PO PRN (09:33)
[2019-12-28] MEDS ORDERED: Non-Formulary Medication 1 Each (Warfarin 4 MG) PO SCH (09:45)
[2019-12-28] MEDS ORDERED: Warfarin 2 MG Tab PO SCH (09:45)
--- NOTE | 2019-12-28 10:21 | HP ---
CHIEF COMPLAINT: Cellulitis of the lower extremities. HISTORY OF PRESENT ILLNESS: The patient is an 79-year-old lady with past medical history of morbid obesity, hypertension, hyperlipidemia, bilateral lower extremity edema, diabetes mellitus, and atrial fibrillation, who was directly admitted to [facility] through acute care because yesterday the patient started having some fever and chills, and again some signs of cellulitis of the lower extremities. Lab workup was done this morning with WBC of 36 with left shift. Because of this, Dr. Sherman notified me about this for possible direct admission as the patient again may need to have IV antibiotics. The patient denies though any headache, chest pain, shortness of breath, abdominal pain, and overall she is just feeling weak. Because of signs of cellulitis and sepsis, she was then admitted for further evaluation and management. PAST MEDICAL HISTORY: As in [facility]. She was also admitted in 10/2019 as well as in 11/2019 because of cellulitis of both lower extremities. FAMILY HISTORY: Noncontributory. SOCIAL HISTORY: The patient is . She is a resident of [facility], and she is a nonsmoker, nonalcohol drinker. REVIEW OF SYSTEMS: As in [facility]. The rest of the review of systems is negative. HOME MEDICATIONS: Metformin, Benadryl, diltiazem, Coumadin, spironolactone, potassium chloride, Zofran, metoprolol, loperamide, lactulose, Zyrtec, Bumex, and Tylenol. ALLERGIES: Shellfish and tape. OBJECTIVE: Vital Signs: Blood pressure is 95/61, temperature of 99.1, saturation is 94% on 4 L per nasal cannula. General: The patient is alert and oriented x3. She looks weak, but not in any acute respiratory distress. HEENT: Normocephalic. There are pink palpebral conjunctivae. Sclerae anicteric. No JVD. No lymphadenopathy. Heart: Regular ventricular response within normal limits. Lungs: Have diminished breath sounds in both bases, but no significant crackles. No wheezing. Abdomen: Obese, soft, nontender. Bowel sounds positive. Extremities: Remarkable for some erythema and Child Development Director papules on both lower extremities and more on the left leg. There are some Morgan wraps on both lower extremities. LABORATORY WORKUP: That was done this morning. CBC: WBC is 34.7, hemoglobin is 12.8, hematocrit is 38.9, platelets are 288, neutrophils 87, bands are 9. Comp panel: Potassium is 3.4, anion gap is 15.4, BUN is 23, creatinine is 1.31, glucose is 148. The rest of the panel unremarkable. C-reactive protein is 5.9. ADMITTING DIAGNOSES: 1. Cellulitis, both lower extremities. 2. Sepsis/systemic inflammatory response syndrome. 3. Type 2 diabetes mellitus. 4. Atrial fibrillation, on chronic anticoagulation. 5. Morbid obesity. 6. Chronic lymphedema of both lower extremities. TREATMENT PLAN: The patient is going to be admitted to acute care. Blood cultures will be obtained. Chest x-ray is also going to be obtained as well as BNP. She will be continued on her Coumadin and metoprolol, and she will be empirically started on IV antibiotics, Zosyn and vancomycin, and the rest of the management as necessary. The patient is DNR/DNI from previous admission and also today's visit with the patient. [facility] /[id number]
[2019-12-28] MEDS: Sodium Chloride 0.9% 1,000 ML IV SCH ×2 (11:11→23:08)
--- NOTE | 2019-12-28 12:09 | CR ---
EXAMINATION: Chest 1V Frontal SEX: Female AGE: 79 years CLINICAL HISTORY: 79-year-old hypertensive, obese female complaining of shortness of breath (SOB). INTERPRETATION: No acute new cardiopulmonary abnormality since comparison CXR exams 19 Oct 2019 or 10 June 2017. Chronic cardiomegaly (external monitor technician leads). No increase pulmonary vascular congestion, new cephalization of flow, alveolar edema or dependent pleural fluid accumulation. No new lung mass or hilar lymphadenopathy. No focal lobar pneumonia or atelectasis/collapse. No pneumothorax or pneumomediastinum. Midline tracheal bronchial airway unremarkable. Conclusion: No acute new cardiopulmonary abnormality. No sign of heart failure, lung mass or lobar pneumonia.
[2019-12-28] MEDS: Piperacillin/Tazobactam 2.25 GM in Sodium Chloride 0.9% 50 ML IV SCH ×3 (12:10→23:27)
[2019-12-28] MEDS: Insulin Lispro 100 Units/ML 3 ML Vial SUBCUT SCH ×3 (12:12→20:51)
[2019-12-28] MEDS ORDERED: Warfarin 2 MG Tab PO ONE (15:00)
[2019-12-28] MEDS: Potassium Chloride 10 MEQ Tab.ER PO SCH (17:27)
[2019-12-28] MEDS: Acetaminophen 325 MG Tab PO PRN (17:31)
[2019-12-28] MEDS: Nystatin Topical Powder 30 GM Bottle TOP SCH (20:51)
[2019-12-29] MEDS: Piperacillin/Tazobactam 2.25 GM in Sodium Chloride 0.9% 50 ML IV SCH ×3 (05:32→17:34)
[2019-12-29 07:01] LABS: ANION GAP 11.5 mEq/L (7-13)
--- NOTE | 2019-12-29 08:28 | PN ---
DATE: 12/29/2019 SUBJECTIVE: The patient this morning is still feeling a little bit weak but slightly better compared to yesterday. The patient denies any chest pain, shortness of breath, headache, or any other significant ongoing complaints. LABORATORY DATA: Lab workup this morning. CBC: WBC 25.1 (slight improvement), hemoglobin is 10.6, hematocrit is 33.7, platelets are 201. Pro time is 22.1, INR is 2.4. Basic metabolic panel: BUN is 25, creatinine is 1.19 (slight improvement), and glucose is 111. Urinalysis is positive for nitrite, and preliminary report of the urine culture is more than 100,000 gram-negative rods, probable Klebsiella. OBJECTIVE: Vital Signs: Blood pressure is 115/56, pulse of 77, respirations of 20, and temperature of 98.3. Heart: Regular rate and rhythm. No gallops. No rubs. Lungs: Diminished breath sounds on both bases, but no significant crackles. No wheezing. Abdomen: Obese, soft, nontender. Bowel sounds positive. Extremities: Remarkable for the erythema on both lower extremities, but more in the left leg. MEDICATIONS: Reviewed. PLAN: We will cut down the IV fluid rate to 75 mL per hour. Otherwise, we will continue with the rest of her management and continue with IV antibiotics. We will also await official report of the blood cultures as well as the urine culture. [facility] /[id number]
[2019-12-29] MEDS: Metoprolol Succinate 50 MG Tab.ER PO SCH (08:33)
[2019-12-29] MEDS: Potassium Chloride 10 MEQ Tab.ER PO SCH ×2 (08:33→17:35)
[2019-12-29] MEDS: Acetaminophen 325 MG Tab PO PRN (08:34)
[2019-12-29] MEDS: Nystatin Topical Powder 30 GM Bottle TOP SCH ×2 (08:35→21:39)
[2019-12-29] MEDS ORDERED: Metoprolol Succinate 50 MG Tab.ER PO SCH (09:00)
[2019-12-29] MEDS: Insulin Lispro 100 Units/ML 3 ML Vial SUBCUT SCH ×4 (09:23→21:38)
[2019-12-29] MEDS ORDERED: Warfarin 2 MG Tab PO ONE (14:00)
[2019-12-30] MEDS: Piperacillin/Tazobactam 2.25 GM in Sodium Chloride 0.9% 50 ML IV SCH ×5 (00:20→23:31)
[2019-12-30 06:23] LABS: ANION GAP 11.7 mEq/L (7-13)
[2019-12-30] MEDS: Insulin Lispro 100 Units/ML 3 ML Vial SUBCUT SCH ×4 (08:25→20:24)
[2019-12-30] MEDS: Potassium Chloride 10 MEQ Tab.ER PO SCH ×2 (08:48→17:27)
[2019-12-30] MEDS: Acetaminophen 325 MG Tab PO PRN (08:49)
[2019-12-30] MEDS: Metoprolol Succinate 50 MG Tab.ER PO SCH (08:49)
[2019-12-30] MEDS: metFORMIN 500 MG Tab PO SCH (08:50)
[2019-12-30] MEDS: Bumetanide 1 MG Tab PO SCH ×2 (08:50→20:22)
[2019-12-30] MEDS: Nystatin Topical Powder 30 GM Bottle TOP SCH ×2 (08:50→20:21)
--- NOTE | 2019-12-30 09:58 | PN ---
DATE: 12/30/2019 SUBJECTIVE: The patient continued to slowly improve and her appetite has improved and her IV fluid was discontinued. The patient's saturation also slowly improving and temperature and fever has resolved. The patient currently denies any ongoing complaints. She denies any chest pain, shortness of breath, abdominal pain, nor any other complaints. The patient's urine culture is remarkable for E. coli, more than 100,000 colonies, and susceptible to all the antibiotics listed including the piperacillin/tazobactam. LABORATORY DATA: Lab workup this morning: WBC is 15.4, hemoglobin is 11, hematocrit is 35.8, platelets are 209. Protime is 26.6, INR of 2.8. Chem 6: BUN is 20. The rest of the panel is unremarkable. OBJECTIVE: Vital Signs: Blood pressure is 110/55, pulse of 73, telemetry is atrial fibrillation, respirations 20, and saturation is 97% on 1 L per nasal cannula, and temperature is 98.1. Heart: Regular. Ventricular response within normal limits. Lungs: Equal bilaterally. No significant crackles. No wheezing. Abdomen: Obese, soft, nontender. Extremities: Still remarkable for the lymphedema bilaterally and some redness on both lower extremities and more on the left side. PLAN: We will discontinue her telemetry. We will continue with her IV antibiotics, that is vancomycin and Zosyn, and so far blood cultures have been negative. I am going to restart her Bumex as at home as well as the metformin. [facility] /[id number]
[2019-12-30] MEDS: Sodium Chloride 0.9% 10 ML Syringe FLUSH PRN ×3 (13:31→23:30)
[2019-12-30] MEDS ORDERED: Warfarin 2 MG Tab PO ONE (14:00)
[2019-12-30] MEDS: Loperamide 2 MG Cap PO PRN (20:22)
[2019-12-31] MEDS: Piperacillin/Tazobactam 2.25 GM in Sodium Chloride 0.9% 50 ML IV SCH ×3 (05:05→17:43)
[2019-12-31] MEDS: Sodium Chloride 0.9% 10 ML Syringe FLUSH PRN ×6 (05:07→17:43)
[2019-12-31] MEDS: Insulin Lispro 100 Units/ML 3 ML Vial SUBCUT SCH ×4 (08:27→21:55)
[2019-12-31] MEDS: Metoprolol Succinate 50 MG Tab.ER PO SCH (09:07)
[2019-12-31] MEDS: Bumetanide 1 MG Tab PO SCH ×2 (09:07→21:56)
[2019-12-31] MEDS: Spironolactone 25 MG Tab PO SCH (09:07)
[2019-12-31] MEDS: Potassium Chloride 10 MEQ Tab.ER PO SCH ×2 (09:08→17:42)
[2019-12-31] MEDS: metFORMIN 500 MG Tab PO SCH (09:08)
[2019-12-31] MEDS: Nystatin Topical Powder 30 GM Bottle TOP SCH ×2 (09:11→21:55)
--- NOTE | 2019-12-31 13:07 | PN ---
DATE: 12/31/2019 SUBJECTIVE: The patient continues to do well. She is already off oxygen per nasal cannula and her saturation has been doing well. The patient denies any significant ongoing complaints. No fever, chills, chest pain, shortness of breath, abdominal pain, or any other significant complaints, but she still does has the redness and some weeping on the left lower leg from cellulitis. OBJECTIVE: Vital Signs: Blood pressure is 123/64, pulse of 88, respiration of 18, temperature of 98.1. Heart: Regular. No gallops. No rubs. Lungs: Equal bilaterally. No crackles. No wheezing. Abdomen: Obese, soft, nontender. Extremities: Remarkable for the lymphedema bilaterally and the redness and some weeping on the left lower leg. PLAN: We will continue with her IV antibiotics and we will continue with her diuretics and the rest of her management. We will also have Physical Therapy for evaluation and management as well as strengthening. [facility] /[id number]
[2019-12-31] MEDS ORDERED: **NO WARFARIN TODAY ONE (14:00)
[2020-01-01] MEDS: Piperacillin/Tazobactam 2.25 GM in Sodium Chloride 0.9% 50 ML IV SCH ×5 (00:13→23:46)
[2020-01-01 08:23] LABS: ANION GAP 10.5 mEq/L (7-13); CHLORIDE,CL 103 mmol/L (98-107); SODIUM,NA 142 mmol/L (136-145)
[2020-01-01] MEDS: Potassium Chloride 10 MEQ Tab.ER PO SCH ×2 (08:49→18:02)
[2020-01-01] MEDS: Bumetanide 1 MG Tab PO SCH ×2 (08:50→20:08)
[2020-01-01] MEDS: Metoprolol Succinate 50 MG Tab.ER PO SCH (08:50)
[2020-01-01] MEDS: metFORMIN 500 MG Tab PO SCH (08:57)
[2020-01-01] MEDS ORDERED: diphenhydrAMINE 25 MG Tab PO PRN (09:14)
[2020-01-01] MEDS: Insulin Lispro 100 Units/ML 3 ML Vial SUBCUT SCH ×4 (09:25→20:50)
--- NOTE | 2020-01-01 10:42 | PN ---
DATE: 01/01/2020 SUBJECTIVE: The patient continues to do well. Appetite has been good. She denies any fever, chills, chest pain, shortness of breath, nor any other significant complaints. LABORATORY DATA: Lab workup this morning; CBC: WBC is 8, hemoglobin is 11.4, hematocrit is 36.4, and platelet is 228. Pro time is 23.8 and INR of 2.5. Chem 6: Glucose is 100, the rest of the panel is unremarkable. OBJECTIVE: Vital Signs: Blood pressure is 132/64, pulse of 87, respiration of 18, temperature of 98.7, and saturation is 92% on room air. Heart: Regular rate and rhythm. No gallops. No rubs. Lungs: Equal bilaterally. No crackles. No wheezing. Abdomen: Obese, soft, and nontender. Extremities: Remarkable for the wraps on both lower extremity. PLAN: We will continue with her current IV antibiotics and continue with PT and OT. If she continues to do well, anticipate discharge back to the correction in a day or 2. [facility] /[id number]
[2020-01-01] MEDS: Nystatin Topical Powder 30 GM Bottle TOP SCH ×2 (13:48→20:08)
[2020-01-01] MEDS ORDERED: Warfarin 2 MG Tab PO ONE (14:00)
[2020-01-01] MEDS: Loperamide 2 MG Cap PO PRN ×2 (16:09→20:51)
[2020-01-01] MEDS: Sodium Chloride 0.9% 10 ML Syringe FLUSH PRN ×2 (18:03→23:46)
[2020-01-02] MEDS: Sodium Chloride 0.9% 10 ML Syringe FLUSH PRN ×3 (05:43→12:12)
[2020-01-02] MEDS: Piperacillin/Tazobactam 2.25 GM in Sodium Chloride 0.9% 50 ML IV SCH ×2 (05:43→12:11)
[2020-01-02] MEDS: Spironolactone 25 MG Tab PO SCH (08:31)
[2020-01-02] MEDS: metFORMIN 500 MG Tab PO SCH (08:32)
[2020-01-02] MEDS: Bumetanide 1 MG Tab PO SCH (08:32)
[2020-01-02] MEDS: Metoprolol Succinate 50 MG Tab.ER PO SCH (08:33)
[2020-01-02] MEDS: Potassium Chloride 10 MEQ Tab.ER PO SCH (08:33)
[2020-01-02] MEDS: Nystatin Topical Powder 30 GM Bottle TOP SCH (08:36)
[2020-01-02] MEDS: Insulin Lispro 100 Units/ML 3 ML Vial SUBCUT SCH ×2 (08:37→12:03)
--- NOTE | 2020-01-02 10:09 | PCM.DCSUM1 ---
Discharge Summary - Hospital Course Free Text/Narrative:: Siri is 79 y/o [place] resident with PMH of morbid obesity, hypertension, hyperlipidemia, bilateral lower extremities edema managed with Lymphedema wraps and bumex who was admitted for Sepsis and cellulitis. Rodrigues catheter was placed and patient was started on aggressive diuresis. Blood cultures were obtained and she was started on Comycin and Zosyn. Respiratory status improved significantly and edema of the lower extremities is gone down. Redness is also improved. Patient is being discharged back to senior care to continue total of 14 days of antibiotics with Vantin. She is to follow-up with PCP and have daily lymphedema wraps. Diagnosis: Stroke: No - Discharge Data Discharge Date: 01/02/20 Discharge Disposition: DC/Tfer to [facility] 61 Condition: Good - Referral to Home Health Primary Care Physician: Jahaira Sherman MD - Patient Summary/Data Consults: Consultations 12/28/19 12:20 OT Evaluation and Treatment [CONS] Routine 12/31/19 08:51 Consult to Physical Therapy [PT Evaluation and Treatment] [CONS] Routine - Discharge Plan *PRESCRIPTION DRUG MONITORING PROGRAM REVIEWED*: No *COPY OF PRESCRIPTION DRUG MONITORING REPORT IN PATIENT ASHLEY: No Prescriptions/Med Rec: Cefpodoxime [Vantin] 200 mg PO BID #20 tab Home Medications: Home Meds Metoprolol Succinate [Toprol XL] 200 mg PO DAILY 12/07/14 [History] Letrozole 2.5 mg PO DAILY 06/08/17 [History] Calcium Carbonate [Tums] 500 mg PO TID PRN 06/14/17 [History] Potassium Chloride [Klor-Con 10] 30 meq PO BIDMEALS 06/14/17 [History] Acetaminophen 650 mg PO BID 08/08/19 [History] Acetaminophen [Tylenol] 650 mg PO Q4H PRN 08/08/19 [History] Arginine/Ascorbate Sod/Fredy AC [Arginaid Powder] 8 oz PO BID 08/08/19 [History] Bumetanide 2 mg PO BID 08/08/19 [History] Cetirizine [ZyrTEC] 5 mg PO DAILY PRN 08/08/19 [History] Lactulose 15 ml PO DAILY PRN 08/08/19 [History] Loperamide [Imodium AD] 2 - 4 mg PO ASDIRECTED PRN 08/08/19 [History] Magnesium Hydroxide [Milk of Magnesia] 30 ml PO DAILY PRN 08/08/19 [History] Nystatin [Nyamyc] 1 applic TOP BID 08/08/19 [History] Ondansetron [Zofran] 4 mg PO Q4H PRN 08/08/19 [History] Triamcinolone Acetonide [Kenalog 0.1% Crm] 1 applic TOP BID 08/08/19 [History] Warfarin Sodium [Coumadin] 2 mg PO .WEDSUN 08/08/19 [History] Warfarin [Coumadin] 4 mg PO .MONTUTHUFRISAT 08/08/19 [History] dilTIAZem HCL [Diltiazem 24Hr ER] 360 mg PO DAILY 08/08/19 [History] metFORMIN HCl [Metformin HCl] 500 mg PO DAILY 08/08/19 [History] Menthol/Zinc Oxide [Calmoseptine] 3.5 gm TOP BID 10/19/19 [History] Spironolactone [Aldactone] 12.5 mg PO .MONWEDFRI 10/19/19 [History] diphenhydrAMINE [Benadryl] 25 mg PO DAILY PRN 10/19/19 [History] Menthol/Zinc Oxide [Calmoseptine] 1 applic TOP BID 12/28/19 [History] Cefpodoxime [Vantin] 200 mg PO BID #20 tab 01/02/20 [Rx] - Discharge Summary/Plan Comment DC Time >30 min.: Yes - General Info Date of Service: 01/02/20 Admission Dx/Problem (Free Text: Sepsis due to cellulitis Subjective Update: No acute events overnight. Reports that she is doing okay. Patient has been afebrile. She denies fevers, chills, nausea, vomiting, diarrhea, constipation, dysuria, hematuria, or any new symptoms. - Patient Data Vitals - Most Recent: Last Vital Signs Temp 97.8 F 01/02/20 08:00 Pulse 82 01/02/20 08:33 Resp 18 01/02/20 08:00 BP 134/70 01/02/20 08:33 Pulse Ox 95 01/02/20 08:00 Weight - Most Recent: 265 lb 11.2 oz I&O - Last 24 hours: Intake & Output 07/21/20 07/22/20 07/22/20 22:59 06:59 14:59 Intake Total 500 100 420 Output Total 1500 1325 Balance -1000 -1225 420 Lab Results - Last 24 hrs: Laboratory Results - last 24 hr 01/01/20 01/01/20 01/01/20 Range/Units 12:10 13:38 17:03 PT (9.0-12.0) SEC INR (0.9-1.2) POC Glucose 98 93 (83-110) mg/dl Vancomycin Trough 11.4 (10.0-20.0) ug/mL 01/01/20 01/02/20 Range/Units 20:50 05:47 PT 19.7 H (9.0-12.0) SEC INR 2.1 H (0.9-1.2) POC Glucose 115 H (83-110) mg/dl Vancomycin Trough (10.0-20.0) ug/mL JACK Results - Last 24 hrs: Microbiology 12/28/19 09:57 Aerobic Blood Culture - Final Blood NO GROWTH AFTER 5 DAYS Anaerobic Blood Culture - Final NO GROWTH AFTER 5 DAYS Med Orders - Current: Current Medications Acetaminophen (Tylenol) 650 mg PO Q4H PRN PRN Reason: Pain (Mild 1-3)/fever Last Admin: 12/30/19 08:49 Dose: 650 mg Documented by: Bumetanide (Bumex) 2 mg PO BID [facility] Last Admin: 01/02/20 08:32 Dose: 2 mg Documented by: Diphenhydramine HCl (Benadryl) 25 mg PO TID PRN PRN Reason: Itching Docusate Sodium (Colace) 100 mg PO BID PRN PRN Reason: Constipation Piperacillin Sod/Tazobactam (Sod 2.25 gm/ Sodium Chloride) 50 mls @ 100 mls/hr IV Q6HR [facility] Last Infusion: 01/02/20 06:22 Dose: Infused Documented by: Vancomycin HCl 1.5 gm/ Premix 300 mls @ 200 mls/hr IV Q24H [facility] Last Admin: 01/01/20 14:17 Dose: 200 mls/hr Documented by: Insulin Human Lispro (Humalog) 0 unit SUBCUT WITHMEALSANDBED [facility]; Protocol Last Admin: 01/02/20 08:37 Dose: Not Given Documented by: Loperamide HCl (Imodium) 2 mg PO ASDIRECTED PRN PRN Reason: Diarrhea Last Admin: 01/01/20 20:51 Dose: 2 mg Documented by: Metformin HCl (Glucophage) 500 mg PO DAILY [facility] Last Admin: 01/02/20 08:32 Dose: 500 mg Documented by: Metoprolol Succinate (Toprol Xl) 100 mg PO DAILY [facility] Last Admin: 01/02/20 08:33 Dose: 100 mg Documented by: Nystatin (Nystop) 0 gm TOP BID [facility] Last Admin: 01/02/20 08:36 Dose: 1 applic Documented by: Ondansetron HCl (Zofran Odt) 4 mg PO Q4H PRN PRN Reason: nausea, able to take PO Oxycodone/Acetaminophen (Percocet 325-5 Mg) 1 tab PO Q4H PRN PRN Reason: Pain (moderate 4-6) Last Admin: 01/01/20 23:54 Dose: 1 tab Documented by: Potassium Chloride (Klor-Con 10) 30 meq PO BIDMEALS [facility] Last Admin: 01/02/20 08:33 Dose: 30 meq Documented by: Sodium Chloride (Saline Flush) 10 ml FLUSH ASDIRECTED PRN PRN Reason: Keep Vein Open Last Admin: 01/02/20 06:22 Dose: 10 ml Documented by: Spironolactone (Aldactone) 12.5 mg PO MoWeFr@0900 [facility] Last Admin: 01/02/20 08:31 Dose: 12.5 mg Documented by: Vancomycin HCl (Pharmacy To Dose - Vancomycin) 1 dose .XX ASDIRECTED [facility] Warfarin Sodium (Pharmacy To Dose - Warfarin) 1 dose .XX ASDIRECTED [facility] Warfarin Sodium (Coumadin) 2.5 mg PO ONETIME ONE Stop: 01/02/20 14:01 Discontinued Medications Sodium Chloride (Normal Saline) 1,000 mls @ 75 mls/hr IV ASDIRECTED [facility] Last Infusion: 12/29/19 11:18 Dose: Infused Documented by: Vancomycin HCl 1.5 gm/ Premix 300 mls @ 200 mls/hr IV Q24H [facility] Last Infusion: 12/31/19 15:48 Dose: Infused Documented by: Metoprolol Succinate (Toprol Xl) 200 mg PO DAILY [facility] No Warfarin Today* (*) 0 each .XX ONETIME ONE Stop: 12/31/19 14:01 Last Admin: 12/31/19 13:25 Dose: Not Given Documented by: Warfarin Sodium (Coumadin) 4 mg PO ONETIME ONE Stop: 12/28/19 15:01 Last Admin: 12/28/19 15:53 Dose: 4 mg Documented by: Warfarin Sodium (Coumadin) 4 mg PO ONETIME ONE Stop: 12/29/19 14:01 Last Admin: 12/29/19 13:35 Dose: 4 mg Documented by: Warfarin Sodium (Coumadin) 2 mg PO ONETIME ONE Stop: 12/30/19 14:01 Last Admin: 12/30/19 13:32 Dose: 2 mg Documented by: Warfarin Sodium (Coumadin) 2 mg PO ONETIME ONE Stop: 01/01/20 14:01 Last Admin: 01/01/20 13:54 Dose: 2 mg Documented by: - Exam General: Reports: Alert, Oriented, Cooperative, No Acute Distress, Mild Distress HEENT: Reports: Pupils Equal, Pupils Reactive Neck: Reports: Supple Lungs: Reports: Clear to Auscultation, Normal Respiratory Effort Cardiovascular: Reports: Regular Rate, Regular Rhythm GI/Abdominal Exam: Normal Bowel Sounds, Soft, Non-Tender Extremities: Non-Tender, Mottled, Other (Redness and tenderness to lower extremities improved significantly. Edema also significantly improved.)
[2020-01-02 12:19] VITALS: BP 136/73; PULSE 80
[2020-01-02] MEDS ORDERED: Warfarin 2.5 MG Tab PO ONE (14:00)
== END 2020-01-02 13:45 | DRG 872 ==
LOC: DL.MS 08:57
PROVIDERS: ADMIT Internal Medicine; ATTEND Internal Medicine
DX: A41.9 Sepsis, unspecified organism (principal); L03.116 Cellulitis of left lower limb; L03.115 Cellulitis of right lower limb; Z66 Do not resuscitate; E66.01 Morbid (severe) obesity due to excess calories; I10 Essential (primary) hypertension; E78.5 Hyperlipidemia, unspecified; I89.0 Lymphedema, not elsewhere classified; Z79.899 Other long term (current) drug therapy; Z79.01 Long term (current) use of anticoagulants; Z79.84 Long term (current) use of oral hypoglycemic drugs; Z91.013 Allergy to seafood; Z91.048 Other nonmedicinal substance allergy status; E11.9 Type 2 diabetes mellitus without complications; I48.91 Unspecified atrial fibrillation
CPT/HCPCS: 36415; 51702; 71045; 80048; 80202; 81001; 82962; 83605; 83880; 85025; 85610; 87040; 87086; 87088; 87186; 97140-GO; 97165-GO; A9270-GY; J2543; J3370; J7030; J7050

== ENCOUNTER 2020-01-24 09:37 | Inpatient (IN) | payer MEDICARE, OTHER ==
--- NOTE | 2020-01-24 10:30 | EDM.PDOC ---
ED HPI GENERAL MEDICAL PROBLEM - General Chief Complaint: Fever Stated Complaint: ELEVATED TEMP Time Seen by Provider: 01/24/20 10:35 Source of Information: Reports: Alf Records, RN History Limitations: Reports: No Limitations - History of Present Illness INITIAL COMMENTS - FREE TEXT/NARRATIVE: This 79 yo female patient was sent to the ED from [facility] due to becoming lethargic today, a temp of 101.8 (this morning at 0730) and having tremors in her hands. [facility] staff reports these symptoms are similar to her symptoms from her last admission for sepsis. The patient was admitted to [facility] in [place] on 12/28/19 for lower extremity cellulitis and started on Vanco and Zosyn. The patient has a history of morbid obesity, hypertension, hyperlipidemia, lymphedema (bilateral lower extremities), diabetes and A fib. The patient was a DNR/DNI on her last admission. A call was placed to Dr. Cook from [facility] and was advised to send the patient to the ED. The patient had a negative COVID test on 01/18/20. Onset: Today Duration: Constant Location: Reports: Back, Lower Extremity, Left, Lower Extremity, Right, Generalized Quality: Reports: Ache Severity: Moderate Improves with: Reports: None Worsens with: Reports: None Context: Reports: Other - Related Data Allergies Allergy/AdvReac Type Severity Reaction Status Date / Time shellfish derived AdvReac Unknown Diarrhea Verified 01/24/20 10:05 tape Allergy Unknown Blisters Uncoded 01/24/20 10:05 Home Meds: Home Meds Metoprolol Succinate [Toprol XL] 200 mg PO DAILY 12/07/14 [History] Letrozole 2.5 mg PO DAILY 06/08/17 [History] Calcium Carbonate [Tums] 500 mg PO TID PRN 06/14/17 [History] Potassium Chloride [Klor-Con 10] 30 meq PO BIDMEALS 06/14/17 [History] Acetaminophen 650 mg PO BID 08/08/19 [History] Acetaminophen [Tylenol] 650 mg PO Q4H PRN 08/08/19 [History] Arginine/Ascorbate Sod/Fredy AC [Arginaid Powder] 8 oz PO BID 08/08/19 [History] Bumetanide 2 mg PO BID 08/08/19 [History] Cetirizine [ZyrTEC] 5 mg PO DAILY PRN 08/08/19 [History] Lactulose 15 ml PO DAILY PRN 08/08/19 [History] Loperamide [Imodium AD] 2 - 4 mg PO ASDIRECTED PRN 08/08/19 [History] Magnesium Hydroxide [Milk of Magnesia] 30 ml PO DAILY PRN 08/08/19 [History] Nystatin [Nyamyc] 1 applic TOP BID 08/08/19 [History] Ondansetron [Zofran] 4 mg PO Q4H PRN 08/08/19 [History] Triamcinolone Acetonide [Kenalog 0.1% Crm] 1 applic TOP BID 08/08/19 [History] Warfarin Sodium [Coumadin] 2.5 mg PO .WEDSUN 08/08/19 [History] Warfarin [Coumadin] 4 mg PO .MONTUTHUFRISAT 08/08/19 [History] dilTIAZem HCL [Diltiazem 24Hr ER] 360 mg PO DAILY 08/08/19 [History] metFORMIN HCl [Metformin HCl] 500 mg PO DAILY 08/08/19 [History] Spironolactone [Aldactone] 12.5 mg PO .MONWEDFRI 10/19/19 [History] diphenhydrAMINE [Benadryl] 25 mg PO DAILY PRN 10/19/19 [History] Menthol/Zinc Oxide [Calmoseptine] 3.5 gm TOP BID 01/24/20 [History] Past Medical History HEENT History: Reports: Cataract, Epistaxis, Impaired Vision Other HEENT History: wears glasses Cardiovascular History: Reports: Afib, Heart Failure, High Cholesterol, Hypertension, Other (See Below) Other Cardiovascular History: At fib is new onset discovered today at the clinic Respiratory History: Reports: Bronchitis, Recurrent Gastrointestinal History: Reports: Colon Polyp, Irritable Bowel Syndrome Genitourinary History: Reports: Urinary Incontinence, UTI, Recurrent, Other (See Below) Other Genitourinary History: leaking CLERICAL MANAGER History: Reports: Musculoskeletal History: Reports: Back Pain, Chronic, Fracture, Fibromyalgia, Osteoarthritis, Other (See Below) Other Musculoskeletal History: Right fibula fx 04-06-16 Neurological History: Reports: CVA, Other (See Below) Other Neuro History: Mild cognitive impairment Psychiatric History: Reports: Anxiety, Depression Endocrine/Metabolic History: Reports: Hypokalemia, Obesity/BMI 30+ Other Endocrine/Metabolic History: Abnormal glucose readings Hematologic History: Reports: Anticoagulation Therapy Immunologic History: Reports: None Oncologic (Cancer) History: Reports: Breast, Other (See Below) Other Oncologic History: right masectomy Dermatologic History: Reports: Cellulitis, Other (See Below) Other Dermatologic History: 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 - Infectious Disease History Infectious Disease History: Reports: Chicken Pox, Measles, Mumps - Past Surgical History HEENT Surgical History: Reports: Cataract Surgery Cardiovascular Surgical History: Reports: None Respiratory Surgical History: Reports: None GI Surgical History: Reports: None Female Surgical History: Reports: Breast Reconstruction, Hysterectomy, Mastectomy Other Female Surgeries/Procedures: right mastectomy with reconstruction Endocrine Surgical History: Reports: None Neurological Surgical History: Reports: None Musculoskeletal Surgical History: Reports: None Oncologic Surgical History: Reports: Mastectomy Dermatological Surgical History: Reports: None Social & Family History - Family History Family Medical History: Noncontributory - Caffeine Use Caffeine Use: Reports: Coffee - Living Situation & Occupation Living situation: Reports: Extended Care Facility Occupation: Retired ED ROS GENERAL - Review of Systems Review Of Systems: Comprehensive ROS is negative, except as noted in HPI. ED EXAM, SEPSIS - Physical Exam Exam: See Below Exam Limited By: No Limitations General Appearance: Alert, WD/WN, Moderate Distress, Obese Eye Exam: Bilateral Eye: EOMI, Normal Inspection, PERRL Ears: Normal External Exam, Normal Canal, Hearing Grossly Normal, Normal TMs Nose: Normal Inspection, Normal Mucosa, No Blood Throat/Mouth: Normal Inspection, Normal Lips, Normal Teeth, Normal Gums, Normal Oropharynx, Normal Voice, No Airway Compromise Head: Atraumatic, Normocephalic Neck: Normal Inspection, Supple, Non-Tender, Full Range of Motion Respiratory/Chest: No Respiratory Distress, Lungs Clear, Normal Breath Sounds, No Accessory Muscle Use, Chest Non-Tender Cardiovascular: Normal Peripheral Pulses, Regular Rate, Rhythm, No Edema, No Gallop, No JVD, No Murmur, No Rub GI/Abdominal Exam: Normal Bowel Sounds, Soft, Non-Tender, No Organomegaly, No Distention, No Abnormal Bruit, No Mass, Pelvis Stable, Other (obese) (Female) Exam: Deferred Rectal (Female) Exam: Deferred Back: Full Range of Motion Neurological: Alert, Oriented, CN II-XII Intact, Normal Cognition Psychiatric: Normal Affect, Normal Mood Lymphatic: Bilateral: No Adenopathy Course - Vital Signs Last Recorded V/S: Last Vital Signs Temp 36.6 C 01/24/20 10:04 Pulse 90 01/24/20 10:04 Resp 16 01/24/20 10:04 BP 113/47 L 01/24/20 10:04 Pulse Ox 92 L 01/24/20 10:04 - Orders/Labs/Meds Orders: Active Orders 24 hr Category Date Time Status Admission Diagnosis [ADT] Urgent ADT 01/24/20 12:19 Ordered Admission Status [Patient Status] [ADT] Routine ADT 01/24/20 12:19 Ordered EKG Documentation Completion [RC] STAT Care 01/24/20 10:23 Ordered CBC WITH AUTO DIFF [HEME] Stat Lab 01/24/20 10:23 Ordered CULTURE BLOOD [BC] Stat Lab 01/24/20 10:23 Ordered CULTURE URINE [RM] Urgent Lab 01/24/20 11:57 Received MANUAL DIFFERENTIAL QA/NC [HEME] Stat Lab 01/24/20 11:17 Results REFLEX LACTIC ACID YES OR NO [CHEM] Routine Lab 01/24/20 11:58 Received UA W/MICROSCOPIC [URIN] Urgent Lab 01/24/20 11:57 Results Piperacillin/Tazobactam [Zosyn] 3.375 gm Med 01/24/20 12:18 Ordered Sodium Chloride 0.9% [Normal Saline] 100 ml IV ONETIME Medication Orders Piperacillin Sod/Tazobactam (Sod 3.375 gm/ Sodium Chloride) 100 mls @ 200 mls/hr IV ONETIME ONE Stop: 01/24/20 12:47 Labs: Laboratory Tests 01/24/20 01/24/20 01/24/20 Range/Units 10:01 11:17 11:17 WBC 31.7 H* (5.0-10.0) 10^3/uL RBC 4.82 (4.2-5.4) 10^6/uL Hgb 13.0 D (12.0-16.0) g/dL Hct 40.3 (37.0-47.0) % MCV 83.6 D (80-100) fL MCH 27.0 (27.0-34.0) pg MCHC 32.3 L (33.0-35.0) g/dL Plt Count 260 (150-450) 10^3/uL Neut % (Auto) 93.4 H (42.2-75.2) % Lymph % (Auto) 2.9 L (20.5-50.1) % [place] % (Auto) 3.6 (2-8) % Eos % (Auto) 0.0 L (1.0-3.0) % Baso % (Auto) 0.1 (0.0-1.0) % Add Manual Diff Yes PT 21.7 H (9.0-12.0) SEC INR 2.3 H (0.9-1.2) Sodium (136-145) mmol/L Potassium (3.5-5.1) mmol/L Chloride (98-107) mmol/L Carbon Dioxide (21-32) mmol/L Anion Gap (7-13) mEq/L BUN (7-18) mg/dL Creatinine (0.55-1.02) mg/dL Est Cr Clr Drug Dosing Estimated GFR (MDRD) BUN/Creatinine Ratio (No establ ref range) Glucose (74-99) mg/dL Lactic Acid (0.4-2.0) mmol/L Calcium (8.5-10.1) mg/dL Total Bilirubin (0.2-1.0) mg/dL AST (15-37) U/L ALT (14-59) U/L Alkaline Phosphatase (46-116) U/L Troponin I (0.000-0.056) ng/mL Total Protein (6.4-8.2) g/dL Albumin (3.4-5.0) g/dL Globulin Albumin/Globulin Ratio Urine Color (YELLOW) Urine Appearance (CLEAR) Urine pH (5.0-9.0) Ur Specific [place] (1.005-1.030) Urine Protein (NEGATIVE) Urine Glucose (UA) (NEGATIVE) Urine Ketones (NEGATIVE) Urine Occult Blood (NEGATIVE) Urine Nitrite (NEGATIVE) Urine Bilirubin (NEGATIVE) Urine Urobilinogen (0.2-1.0) mg/dL Ur Leukocyte Esterase (NEGATIVE) COVID-19 (NAPOLEON) Negative (NEGATIVE) 01/24/20 01/24/20 01/24/20 Range/Units 11:17 11:17 11:57 WBC (5.0-10.0) 10^3/uL RBC (4.2-5.4) 10^6/uL Hgb (12.0-16.0) g/dL Hct (37.0-47.0) % MCV (80-100) fL MCH (27.0-34.0) pg MCHC (33.0-35.0) g/dL Plt Count (150-450) 10^3/uL Neut % (Auto) (42.2-75.2) % Lymph % (Auto) (20.5-50.1) % [place] % (Auto) (2-8) % Eos % (Auto) (1.0-3.0) % Baso % (Auto) (0.0-1.0) % Add Manual Diff PT (9.0-12.0) SEC INR (0.9-1.2) Sodium 137 (136-145) mmol/L Potassium 3.8 (3.5-5.1) mmol/L Chloride 99 (98-107) mmol/L Carbon Dioxide 28 (21-32) mmol/L Anion Gap 13.8 H (7-13) mEq/L BUN 21 H (7-18) mg/dL Creatinine 1.45 H (0.55-1.02) mg/dL Est Cr Clr Drug Dosing TNP Estimated GFR (MDRD) 35 BUN/Creatinine Ratio 14.5 (No establ ref range) Glucose 139 H (74-99) mg/dL Lactic Acid 3.4 H* (0.4-2.0) mmol/L Calcium 8.9 (8.5-10.1) mg/dL Total Bilirubin 0.8 (0.2-1.0) mg/dL AST 16 (15-37) U/L ALT 20 (14-59) U/L Alkaline Phosphatase 57 (46-116) U/L Troponin I < 0.017 (0.000-0.056) ng/mL Total Protein 8.3 H (6.4-8.2) g/dL Albumin 2.8 L (3.4-5.0) g/dL Globulin 5.5 Albumin/Globulin Ratio 0.51 Urine Color Dark yellow (YELLOW) Urine Appearance Clear (CLEAR) Urine pH 5.0 (5.0-9.0) Ur Specific [place] 1.025 (1.005-1.030) Urine Protein Trace H (NEGATIVE) Urine Glucose (UA) Negative (NEGATIVE) Urine Ketones Trace H (NEGATIVE) Urine Occult Blood Trace-lysed H (NEGATIVE) Urine Nitrite Negative (NEGATIVE) Urine Bilirubin Small H (NEGATIVE) Urine Urobilinogen 0.2 (0.2-1.0) mg/dL Ur Leukocyte Esterase Small H (NEGATIVE) COVID-19 ([place]POLEON) (NEGATIVE) Meds: Medications Generic Name Dose Route Start Last Admin Trade Name Freq PRN Reason Stop Dose Admin Piperacillin Sod/Tazobactam 100 mls @ 200 mls/hr 01/24/20 12:18 Sod 3.375 gm/ Sodium Chloride IV 01/24/20 12:47 ONETIME ONE Departure - Departure Time of Disposition: 12:21 Disposition: Admitted As Inpatient 64 Condition: Fair Clinical Impression: Cellulitis of both lower extremities - Discharge Information *PRESCRIPTION DRUG MONITORING PROGRAM REVIEWED*: Not Applicable *COPY OF PRESCRIPTION DRUG MONITORING REPORT IN PATIENT ASHLEY: Not Applicable Care Plan Goals: Discussed the patient's history, examination and lab results with Dr. Trinidad. Dr. Trinidad accepted the patient for continued evaluation and treatment as an inpatient. The patient was given a dose of Zosyn prior to admission Sepsis Event Note (ED) - Evaluation Sepsis Screening Result: No Definite Risk - Focused Exam Vital Signs: Vital Signs Temp Pulse Resp BP Pulse Ox 01/24/20 10:04 36.6 C 90 16 113/47 L 92 L - My Orders Last 24 Hours: My Active Orders 01/24/20 10:23 EKG Documentation Completion [RC] STAT CBC WITH AUTO DIFF [HEME] Stat CULTURE BLOOD [BC] Stat 01/24/20 11:17 MANUAL DIFFERENTIAL QA/NC [HEME] Stat 01/24/20 11:57 CULTURE URINE [RM] Urgent UA W/MICROSCOPIC [URIN] Urgent 01/24/20 11:58 REFLEX LACTIC ACID YES OR NO [CHEM] Routine 01/24/20 12:18 Piperacillin/Tazobactam [Zosyn] 3.375 gm Sodium Chloride 0.9% [Normal Saline] 100 ml IV ONETIME 01/24/20 12:19 Admission Diagnosis [ADT] Urgent Admission Status [Patient Status] [ADT] Routine - Assessment/Plan Last 24 Hours: My Active Orders 01/24/20 10:23 EKG Documentation Completion [RC] STAT CBC WITH AUTO DIFF [HEME] Stat CULTURE BLOOD [BC] Stat 01/24/20 11:17 MANUAL DIFFERENTIAL QA/NC [HEME] Stat 01/24/20 11:57 CULTURE URINE [RM] Urgent UA W/MICROSCOPIC [URIN] Urgent 01/24/20 11:58 REFLEX LACTIC ACID YES OR NO [CHEM] Routine 01/24/20 12:18 Piperacillin/Tazobactam [Zosyn] 3.375 gm Sodium Chloride 0.9% [Normal Saline] 100 ml IV ONETIME 01/24/20 12:19 Admission Diagnosis [ADT] Urgent Admission Status [Patient Status] [ADT] Routine
[2020-01-24 11:49] LABS: ANION GAP 13.8 mEq/L (7-13); CHLORIDE,CL 99 mmol/L (98-107); SODIUM,NA 137 mmol/L (136-145)
[2020-01-24] MEDS ORDERED: Piperacillin/Tazobactam 3.375 GM in Sodium Chloride 0.9% 100 ML IV ONE (12:18)
[2020-01-24] MEDS ORDERED: Calcium Carbonate 500 MG Tab.Chew PO PRN (13:19)
[2020-01-24] MEDS ORDERED: Ondansetron 4 MG/2 ML SDV IVPUSH PRN (13:23)
[2020-01-24] MEDS ORDERED: Ondansetron 4 MG Tab.DIS PO PRN (13:23)
--- NOTE | 2020-01-24 13:39 | PCM.HP ---
H&P History of Present Illness - General Date of Service: 01/24/20 Admit Problem/Dx: Admission Diagnosis/Problem Admission Diagnosis/Problem Cellulitis Source of Information: Patient, Provider (er) History Limitations: Reports: Other (limited insight of the patient) - History of Present Illness Initial Comments - Free Text/Narative: 79-year-old with a history of diabetes, hypertension, atrial fibrillation on chronic anticoagulation, morbid obesity, bilateral lymphedema. The patient has had multiple hospital admissions and the courses of treatment for bilateral lower extremity cellulitis. She lives in a prison. Of admission the patient was noted to have fever up to 101, chills, tremors, decreased mental status. The patient was referred to the emergency room. Did to have bilateral lower extremity skin changes and the hospital admission was recommended. The patient is a poor historian. She says she cannot really remember what happened to her in the prison. She does know that she is in the hospital because of a new infection and she was told. Denies chest pain, shortness of breath. No abdominal pain. - Related Data Allergies/Adverse Reactions: Allergies Allergy/AdvReac Type Severity Reaction Status Date / Time shellfish derived AdvReac Unknown Diarrhea Verified 01/24/20 10:05 tape Allergy Unknown Blisters Uncoded 01/24/20 10:05 Home Medications: Home Meds Metoprolol Succinate [Toprol XL] 200 mg PO DAILY 12/07/14 [History] Letrozole 2.5 mg PO DAILY 06/08/17 [History] Calcium Carbonate [Tums] 500 mg PO TID PRN 06/14/17 [History] Potassium Chloride [Klor-Con 10] 30 meq PO BIDMEALS 06/14/17 [History] Acetaminophen 650 mg PO BID 08/08/19 [History] Acetaminophen [Tylenol] 650 mg PO Q4H PRN 08/08/19 [History] Arginine/Ascorbate Sod/Fredy AC [Arginaid Powder] 8 oz PO BID 08/08/19 [History] Bumetanide 2 mg PO BID 08/08/19 [History] Cetirizine [ZyrTEC] 5 mg PO DAILY PRN 08/08/19 [History] Lactulose 15 ml PO DAILY PRN 08/08/19 [History] Loperamide [Imodium AD] 2 - 4 mg PO ASDIRECTED PRN 08/08/19 [History] Magnesium Hydroxide [Milk of Magnesia] 30 ml PO DAILY PRN 08/08/19 [History] Nystatin [Nyamyc] 1 applic TOP BID 08/08/19 [History] Ondansetron [Zofran] 4 mg PO Q4H PRN 08/08/19 [History] Triamcinolone Acetonide [Kenalog 0.1% Crm] 1 applic TOP BID 08/08/19 [History] Warfarin Sodium [Coumadin] 2.5 mg PO .WEDSUN 08/08/19 [History] Warfarin [Coumadin] 4 mg PO .MONTUTHUFRISAT 08/08/19 [History] dilTIAZem HCL [Diltiazem 24Hr ER] 360 mg PO DAILY 08/08/19 [History] metFORMIN HCl [Metformin HCl] 500 mg PO DAILY 08/08/19 [History] Spironolactone [Aldactone] 12.5 mg PO .MONWEDFRI 10/19/19 [History] diphenhydrAMINE [Benadryl] 25 mg PO DAILY PRN 10/19/19 [History] Menthol/Zinc Oxide [Calmoseptine] 3.5 gm TOP BID 01/24/20 [History] Past Medical History HEENT History: Reports: Cataract, Epistaxis, Impaired Vision Other HEENT History: wears glasses Cardiovascular History: Reports: Afib, Heart Failure, High Cholesterol, Hypertension, Other (See Below) Other Cardiovascular History: At fib is new onset discovered today at the clinic Respiratory History: Reports: Bronchitis, Recurrent Gastrointestinal History: Reports: Colon Polyp, Irritable Bowel Syndrome Genitourinary History: Reports: Urinary Incontinence, UTI, Recurrent, Other (See Below) Other Genitourinary History: leaking TREATMENT COORDINATOR History: Reports: Musculoskeletal History: Reports: Back Pain, Chronic, Fracture, Fibromyalgia, Osteoarthritis, Other (See Below) Other Musculoskeletal History: Right fibula fx 04-06-16 Neurological History: Reports: CVA, Other (See Below) Other Neuro History: Mild cognitive impairment Psychiatric History: Reports: Anxiety, Depression Endocrine/Metabolic History: Reports: Hypokalemia, Obesity/BMI 30+ Other Endocrine/Metabolic History: Abnormal glucose readings Hematologic History: Reports: Anticoagulation Therapy Immunologic History: Reports: None Oncologic (Cancer) History: Reports: Breast, Other (See Below) Other Oncologic History: right masectomy Dermatologic History: Reports: Cellulitis, Other (See Below) Other Dermatologic History: 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 - Infectious Disease History Infectious Disease History: Reports: Chicken Pox, Measles, Mumps - Past Surgical History HEENT Surgical History: Reports: Cataract Surgery Cardiovascular Surgical History: Reports: None Respiratory Surgical History: Reports: None GI Surgical History: Reports: None Female Surgical History: Reports: Breast Reconstruction, Hysterectomy, Mastectomy Other Female Surgeries/Procedures: right mastectomy with reconstruction Endocrine Surgical History: Reports: None Neurological Surgical History: Reports: None Musculoskeletal Surgical History: Reports: None Oncologic Surgical History: Reports: Mastectomy Dermatological Surgical History: Reports: None Social & Family History - Family History Family Medical History: Noncontributory - Tobacco Use Smoking Status *Q: Never Smoker - Caffeine Use Caffeine Use: Reports: Coffee - Recreational Drug Use Recreational Drug Use: No - Living Situation & Occupation Living situation: Reports: Extended Care Facility Occupation: Retired H&P Review of Systems - Review of Systems: Review Of Systems: See Below General: Reports: Fever, Chills Pulmonary: Denies: Shortness of Breath Cardiovascular: Reports: Edema. Denies: Chest Pain Gastrointestinal: Denies: Abdominal Pain Genitourinary: Denies: Dysuria (Has chronic indwelling Rodrigues catheter) Psychiatric: Reports: Confusion Neurological: Reports: Tremors. Denies: Headache, Seizure Exam - Exam Exam: See Below - Vital Signs Vital Signs: Last Vital Signs Temp 101.6 F H 01/24/20 12:37 Pulse 87 01/24/20 12:37 Resp 24 H 01/24/20 12:37 BP 142/100 H 01/24/20 12:37 Pulse Ox 90 L 01/24/20 12:37 - Exam Quality Assessment: Urinary Catheter, Other (Morbidly obese) General: Alert, Oriented Neck: Supple Lungs: Clear to Auscultation, Normal Respiratory Effort Cardiovascular: Regular Rate, Regular Rhythm GI/Abdominal Exam: Normal Bowel Sounds, Soft, Non-Tender Extremities: Pedal Edema Skin: Other (Bilateral lower extremities with areas of redness, edema, superficial skin ulcer with blisters) Neuro Extensive - Mental Status: Alert, Memory Loss-Recent Events. No: Memory Intact Psychiatric: Alert, Normal Affect, Normal Mood - Patient Data Lab Results Last 24 hrs: Laboratory Results - last 24 hr 0801/24/20 01/24/20 Range/Units 10:01 11:17 11:17 WBC 31.7 H* (5.0-10.0) 10^3/uL RBC 4.82 (4.2-5.4) 10^6/uL Hgb 13.0 D (12.0-16.0) g/dL Hct 40.3 (37.0-47.0) % MCV 83.6 D (80-100) fL MCH 27.0 (27.0-34.0) pg MCHC 32.3 L (33.0-35.0) g/dL Plt Count 260 (150-450) 10^3/uL Neut % (Auto) 93.4 H (42.2-75.2) % Lymph % (Auto) 2.9 L (20.5-50.1) % Dimmit % (Auto) 3.6 (2-8) % Eos % (Auto) 0.0 L (1.0-3.0) % Baso % (Auto) 0.1 (0.0-1.0) % Add Manual Diff Yes Neutrophils % (Manual) 78 H (42-75) % Band Neutrophils % 14 % Lymphocytes % (Manual) 3 L (20-50) % Monocytes % (Manual) 2 (2-8) % Metamyelocytes % 1 Myelocytes % 2 Toxic Granulation 1+ slight PT 21.7 H (9.0-12.0) SEC INR 2.3 H (0.9-1.2) Sodium (136-145) mmol/L Potassium (3.5-5.1) mmol/L Chloride (98-107) mmol/L Carbon Dioxide (21-32) mmol/L Anion Gap (7-13) mEq/L BUN (7-18) mg/dL Creatinine (0.55-1.02) mg/dL Est Cr Clr Drug Dosing Estimated GFR (MDRD) BUN/Creatinine Ratio (No establ ref range) Glucose (74-99) mg/dL Lactic Acid (0.4-2.0) mmol/L Calcium (8.5-10.1) mg/dL Total Bilirubin (0.2-1.0) mg/dL AST (15-37) U/L ALT (14-59) U/L Alkaline Phosphatase (46-116) U/L Troponin I (0.000-0.056) ng/mL Total Protein (6.4-8.2) g/dL Albumin (3.4-5.0) g/dL Globulin Albumin/Globulin Ratio Urine Color (YELLOW) Urine Appearance (CLEAR) Urine pH (5.0-9.0) Ur Specific Wallace (1.005-1.030) Urine Protein (NEGATIVE) Urine Glucose (UA) (NEGATIVE) Urine Ketones (NEGATIVE) Urine Occult Blood (NEGATIVE) Urine Nitrite (NEGATIVE) Urine Bilirubin (NEGATIVE) Urine Urobilinogen (0.2-1.0) mg/dL Ur Leukocyte Esterase (NEGATIVE) Urine RBC /HPF Urine WBC (0-5/HPF) /HPF Ur Epithelial Cells (NOT SEEN) /HPF Urine Bacteria (0-FEW/HPF) /HPF COVID-19 (NAPOLEON) Negative (NEGATIVE) 01/24/20 01/24/20 01/24/20 Range/Units 11:17 11:17 11:57 WBC (5.0-10.0) 10^3/uL RBC (4.2-5.4) 10^6/uL Hgb (12.0-16.0) g/dL Hct (37.0-47.0) % MCV (80-100) fL MCH (27.0-34.0) pg MCHC (33.0-35.0) g/dL Plt Count (150-450) 10^3/uL Neut % (Auto) (42.2-75.2) % Lymph % (Auto) (20.5-50.1) % Dimmit % (Auto) (2-8) % Eos % (Auto) (1.0-3.0) % Baso % (Auto) (0.0-1.0) % Add Manual Diff Neutrophils % (Manual) (42-75) % Band Neutrophils % % Lymphocytes % (Manual) (20-50) % Monocytes % (Manual) (2-8) % Metamyelocytes % Myelocytes % Toxic Granulation PT (9.0-12.0) SEC INR (0.9-1.2) Sodium 137 (136-145) mmol/L Potassium 3.8 (3.5-5.1) mmol/L Chloride 99 (98-107) mmol/L Carbon Dioxide 28 (21-32) mmol/L Anion Gap 13.8 H (7-13) mEq/L BUN 21 H (7-18) mg/dL Creatinine 1.45 H (0.55-1.02) mg/dL Est Cr Clr Drug Dosing TNP Estimated GFR (MDRD) 35 BUN/Creatinine Ratio 14.5 (No establ ref range) Glucose 139 H (74-99) mg/dL Lactic Acid 3.4 H* (0.4-2.0) mmol/L Calcium 8.9 (8.5-10.1) mg/dL Total Bilirubin 0.8 (0.2-1.0) mg/dL AST 16 (15-37) U/L ALT 20 (14-59) U/L Alkaline Phosphatase 57 (46-116) U/L Troponin I < 0.017 (0.000-0.056) ng/mL Total Protein 8.3 H (6.4-8.2) g/dL Albumin 2.8 L (3.4-5.0) g/dL Globulin 5.5 Albumin/Globulin Ratio 0.51 Urine Color Dark yellow (YELLOW) Urine Appearance Clear (CLEAR) Urine pH 5.0 (5.0-9.0) Ur Specific Wallace 1.025 (1.005-1.030) Urine Protein Trace H (NEGATIVE) Urine Glucose (UA) Negative (NEGATIVE) Urine Ketones Trace H (NEGATIVE) Urine Occult Blood Trace-lysed H (NEGATIVE) Urine Nitrite Negative (NEGATIVE) Urine Bilirubin Small H (NEGATIVE) Urine Urobilinogen 0.2 (0.2-1.0) mg/dL Ur Leukocyte Esterase Small H (NEGATIVE) Urine RBC 0-5 /HPF Urine WBC 0-5 (0-5/HPF) /HPF Ur Epithelial Cells Rare (NOT SEEN) /HPF Urine Bacteria Rare (0-FEW/HPF) /HPF COVID-19 (NAPOLEON) (NEGATIVE) Result Diagrams: 01/24/20 11:17 01/24/20 11:17 - Problem List (1) Cellulitis of both lower extremities SNOMED Code(s): 943309469 ICD Code: L03.115 - CELLULITIS OF RIGHT LOWER LIMB; L03.116 - CELLULITIS OF LEFT LOWER LIMB Status: Acute Current Visit: Yes Onset Date: ~11/23/19 (2) Sepsis SNOMED Code(s): 90723453 ICD Code: A41.9 - SEPSIS, UNSPECIFIED ORGANISM Status: Acute Current Visit: No Onset Date: ~11/24/19 Qualifiers: Sepsis type: sepsis due to unspecified organism Sepsis acute organ dysfunct ion status: unspecified Qualified Code(s): A41.9 - Sepsis, unspecified organism (3) A-fib SNOMED Code(s): 39392587 ICD Code: I48.91 - UNSPECIFIED ATRIAL FIBRILLATION Status: Chronic Current Visit: No (4) Anticoagulated by anticoagulation treatment SNOMED Code(s): 247539808, 668877296 ICD Code: Z79.01 - SENIOR LIVING (CURRENT) USE OF ANTICOAGULANTS Status: Chronic Priority: High Current Visit: No (5) HTN (hypertension) SNOMED Code(s): 16530395 ICD Code: I10 - ESSENTIAL (PRIMARY) HYPERTENSION Status: Chronic Current Visit: No (6) Morbid obesity SNOMED Code(s): 884695577 ICD Code: E66.01 - MORBID (SEVERE) OBESITY DUE TO EXCESS CALORIES Status: Chronic Current Visit: No Problem List Initiated/Reviewed/Updated: Yes Orders Last 24hrs: Active Orders 24 hr Category Date Time Status Admission Diagnosis [ADT] Urgent ADT 01/24/20 12:19 Ordered Admission Status [Patient Status] [ADT] Routine ADT 01/24/20 12:19 Active Antiembolic Devices [RC] PER UNIT ROUTINE Care 01/24/20 13:24 Ordered Communication Order [RC] DAILY Care 01/24/20 13:31 Ordered Glucose [Blood Glucose Check, Bedside] [RC] QIDACANDBED Care 01/24/20 13:19 Ordered Oxygen Therapy [RC] PRN Care 01/24/20 13:23 Ordered Peripheral IV Care [RC] . DIRECTED Care 01/24/20 13:24 Ordered Up With Assistance [RC] ASDIRECTED Care 01/24/20 13:23 Ordered VTE/DVT Education [RC] PER UNIT ROUTINE Care 01/24/20 13:23 Ordered Vital Signs [RC] Q4H Care 01/24/20 13:23 Ordered Consistent Carbohydrate Diet [DIET] Diet 01/24/20 Dinner Ordered BASIC METABOLIC PANEL,BMP [CHEM] AM Lab 01/25/20 05:15 Ordered CBC WITH AUTO DIFF [HEME] AM Lab 01/25/20 05:15 Ordered CULTURE BLOOD [BC] Stat Lab 01/24/20 11:17 Received CULTURE URINE [RM] Urgent Lab 01/24/20 11:57 Received REFLEX LACTIC ACID YES OR NO [CHEM] Routine Lab 01/24/20 11:58 Received Acetaminophen [Tylenol] Med 01/24/20 21:00 Ordered 650 mg PO BID Bumetanide [Bumetanide] Med 01/24/20 21:00 Ordered 2 mg PO BID Calcium Carbonate [Tums] Med 01/24/20 13:19 Ordered 500 mg PO TID PRN Heparin Sodium Med 01/24/20 14:00 Stop Req 5,000 units SUBCUT Q8HR Insulin Lispro [HumaLOG] Med 01/24/20 16:00 Ordered See Protocol SUBCUT ACBED Metoprolol Succinate [Toprol XL] Med 01/25/20 09:00 Ordered 200 mg PO DAILY Nystatin [Nystop] Med 01/24/20 21:00 Ordered 1 applic TOP BID Ondansetron [Zofran ODT] Med 01/24/20 13:23 Ordered 4 mg PO Q6H PRN Ondansetron [Zofran] Med 01/24/20 13:23 Ordered 4 mg IVPUSH Q6H PRN Pharmacy to Dose - Vancomycin Med 01/24/20 13:30 Ordered 1 dose .XX ASDIRECTED Pharmacy to Dose - Warfarin Med 01/24/20 13:30 Ordered 1 dose .XX ASDIRECTED Piperacillin/Tazobactam [Zosyn] 3.375 gm Med 01/24/20 13:15 Ordered Sodium Chloride 0.9% [Normal Saline] 100 ml IV Q6H Potassium Chloride [Klor-Con 10] Med 01/24/20 18:00 Ordered 30 meq PO BIDMEALS Sodium Chloride 0.9% [Saline Flush] Med 01/24/20 13:23 Ordered 10 ml FLUSH ASDIRECTED PRN Spironolactone [Aldactone] Med 01/24/20 13:30 Ordered 12.5 mg PO .MONWEDFRI Temazepam [Restoril] Med 01/24/20 13:23 Ordered 15 mg PO BEDTIME PRN dilTIAZem HCL [Diltiazem 24Hr ER] Med 01/25/20 09:00 Ordered 360 mg PO DAILY oxyCODONE Med 01/24/20 13:23 Ordered 5 mg PO Q4H PRN Antiembolic Hose [OM.PC] Per Unit Routine Oth 01/24/20 13:23 Ordered Peripheral IV Insertion Adult [OM.PC] Routine Oth 01/24/20 13:23 Ordered Saline Lock Insert [OM.PC] Routine Oth 01/24/20 13:23 Ordered Resuscitation Status Routine Resus Stat 01/24/20 13:23 Ordered Medication Orders Acetaminophen (Tylenol) 650 mg PO BID [facility] Calcium Carbonate/Glycine (Tums) 500 mg PO TID PRN PRN Reason: Dyspepsia Heparin Sodium (Porcine) (Heparin Sodium) 5,000 units SUBCUT Q8HR [facility] Piperacillin Sod/Tazobactam (Sod 3.375 gm/ Sodium Chloride) 100 mls @ 200 mls/hr IV Q6H [facility] Insulin Human Lispro (Humalog) 0 unit SUBCUT QIDACANDBED [facility]; Protocol Non-Formulary Medication (Bumetanide [Bumetanide]) 2 mg PO BID [facility] Non-Formulary Medication (Diltiazem Hcl [Diltiazem 24hr Er]) 360 mg PO DAILY [facility] Non-Formulary Medication (Metoprolol Succinate [Toprol Xl]) 200 mg PO DAILY [facility] Nystatin (Nystop) gm TOP BID [facility] Ondansetron HCl (Zofran Odt) 4 mg PO Q6H PRN PRN Reason: nausea, able to take PO Ondansetron HCl (Zofran) 4 mg IVPUSH Q6H PRN PRN Reason: Nausea/Vomiting Oxycodone HCl (Oxycodone) 5 mg PO Q4H PRN PRN Reason: Pain (moderate 4-6) Potassium Chloride (Klor-Con 10) 30 meq PO BIDMEALS [facility] Sodium Chloride (Saline Flush) 10 ml FLUSH ASDIRECTED PRN PRN Reason: Keep Vein Open Spironolactone (Aldactone) 12.5 mg PO .MONWEDFRI [facility] Temazepam (Restoril) 15 mg PO BEDTIME PRN PRN Reason: Sleep Vancomycin HCl (Pharmacy To Dose - Vancomycin) 1 dose .XX ASDIRECTED [facility] Warfarin Sodium (Pharmacy To Dose - Warfarin) 1 dose .XX ASDIRECTED [facility] Assessment/Plan Comment:: 79-year-old with a history of diabetes, hypertension, atrial fibrillation on chronic anticoagulation, morbid obesity, bilateral lymphedema. The patient has had multiple hospital admissions and the courses of treatment for bilateral lower extremity cellulitis. She lives in a prison. Of admission the patient was noted to have fever up to 101, chills, tremors, decreased mental status. The patient was referred to the emergency room. Did to have bilateral lower extremity skin changes and the hospital admission was recommended. Bilateral lower extremity cellulitis with sepsis present on admission with a history of morbid obesity, lymphedema, recurrent lower extremity cellulitis In blood culture Obtain urine culture with history of indwelling catheter Empirical treatment with Zosyn and vancomycin Sepsis With fever, leukocytosis, cellulitis of the lower extremity, elevated lactic acid Follow lactic acid Give IV fluid gently Treat infection diabetes Hold metformin Follow blood sugars Use supplemental insulin and hypoglycemia treatment as needed Lactic acidosis Possible sepsis Possibly due to metformin and chronic kidney disease combination IV hydration Stop metformin IV hydration for now Hypertension, afib Treat with metoprolol, diltiazem Continue anticoagulation with Coumadin for A. fib CODE STATUS was discussed with the patient She ellects DNR, DNI CODE STATUS This is the same as per history
[2020-01-24] MEDS ORDERED: Acetaminophen 325 MG Tab PO PRN (13:50)
[2020-01-24] MEDS ORDERED: Warfarin 2 MG Tab PO ONE ×2 (15:30)
[2020-01-24] MEDS: Piperacillin/Tazobactam 3.375 GM in Sodium Chloride 0.9% 100 ML IV SCH (17:31)
[2020-01-24] MEDS: Insulin Lispro 100 Units/ML 3 ML Vial SUBCUT SCH ×2 (17:32→21:57)
[2020-01-24] MEDS: Potassium Chloride 10 MEQ Tab.ER PO SCH (17:32)
[2020-01-24] MEDS: oxyCODONE 5 MG Tab PO PRN (19:44)
[2020-01-24] MEDS ORDERED: Temazepam 15 MG Cap PO PRN (21:00)
[2020-01-24] MEDS: Acetaminophen 325 MG Tab PO SCH (21:58)
[2020-01-24] MEDS ORDERED: Heparin Sodium 5,000 Units/ML Vial SUBCUT SCH (22:00)
[2020-01-25] MEDS: Piperacillin/Tazobactam 3.375 GM in Sodium Chloride 0.9% 100 ML IV SCH ×5 (00:19→23:50)
[2020-01-25] MEDS: Nystatin Topical Powder 30 GM Bottle TOP SCH ×2 (05:54→14:01)
[2020-01-25 07:12] LABS: ANION GAP 11.6 mEq/L (7-13)
[2020-01-25] MEDS: Diltiazem 180 MG Cap.CD PO SCH (08:45)
[2020-01-25] MEDS: Potassium Chloride 10 MEQ Tab.ER PO SCH ×2 (08:46→18:25)
[2020-01-25] MEDS: Spironolactone 25 MG Tab PO SCH (08:46)
[2020-01-25] MEDS: Bumetanide 1 MG Tab PO SCH ×2 (08:47→14:00)
[2020-01-25] MEDS: Acetaminophen 325 MG Tab PO SCH ×2 (08:47→21:55)
[2020-01-25] MEDS: Metoprolol Succinate 50 MG Tab.ER PO SCH (08:48)
[2020-01-25] MEDS: Insulin Lispro 100 Units/ML 3 ML Vial SUBCUT SCH ×4 (08:49→21:55)
--- NOTE | 2020-01-25 09:16 | PCM.PN ---
- General Info Date of Service: 01/25/20 Admission Dx/Problem (Free Text): Admission Diagnosis/Problem Admission Diagnosis/Problem Cellulitis Subjective Update: The patient initially had high fever. This has improved. The leg swelling is still present, lower extremity wrapping started. Redness still present. No associated pain may be some itching with it. No abdominal pain, no chest pain. Remained alert and oriented. - Review of Systems Pulmonary: Denies: Shortness of Breath Cardiovascular: Reports: Edema. Denies: Chest Pain Gastrointestinal: Denies: Abdominal Pain Neurological: Denies: Confusion - Patient Data Vitals - Most Recent: Last Vital Signs Temp 98.6 F 01/25/20 08:04 Pulse 75 01/25/20 08:48 Resp 18 01/25/20 08:04 BP 107/50 L 01/25/20 08:48 Pulse Ox 94 L 01/25/20 08:04 Weight - Most Recent: 266 lb 3.2 oz I&O - Last 24 Hours: Intake & Output 01/24/20 01/25/20 01/25/20 22:59 06:59 14:59 Intake Total 902 240 Output Total 675 Balance 227 240 Lab Results Last 24 Hours: Laboratory Results - last 24 hr 01/24/20 01/24/20 01/24/20 Range/Units 10:01 11:17 11:17 WBC 31.7 H* (5.0-10.0) 10^3/uL RBC 4.82 (4.2-5.4) 10^6/uL Hgb 13.0 D (12.0-16.0) g/dL Hct 40.3 (37.0-47.0) % MCV 83.6 D (80-100) fL MCH 27.0 (27.0-34.0) pg MCHC 32.3 L (33.0-35.0) g/dL Plt Count 260 (150-450) 10^3/uL Neut % (Auto) 93.4 H (42.2-75.2) % Lymph % (Auto) 2.9 L (20.5-50.1) % Real % (Auto) 3.6 (2-8) % Eos % (Auto) 0.0 L (1.0-3.0) % Baso % (Auto) 0.1 (0.0-1.0) % Add Manual Diff Yes Neutrophils % (Manual) 78 H (42-75) % Band Neutrophils % 14 % Lymphocytes % (Manual) 3 L (20-50) % Monocytes % (Manual) 2 (2-8) % Metamyelocytes % 1 Myelocytes % 2 Toxic Granulation 1+ slight PT 21.7 H (9.0-12.0) SEC INR 2.3 H (0.9-1.2) Sodium (136-145) mmol/L Potassium (3.5-5.1) mmol/L Chloride (98-107) mmol/L Carbon Dioxide (21-32) mmol/L Anion Gap (7-13) mEq/L BUN (7-18) mg/dL Creatinine (0.55-1.02) mg/dL Est Cr Clr Drug Dosing Estimated GFR (MDRD) BUN/Creatinine Ratio (No establ ref range) Glucose (74-99) mg/dL POC Glucose (83-110) mg/dl Lactic Acid (0.4-2.0) mmol/L Calcium (8.5-10.1) mg/dL Total Bilirubin (0.2-1.0) mg/dL AST (15-37) U/L ALT (14-59) U/L Alkaline Phosphatase (46-116) U/L Troponin I (0.000-0.056) ng/mL Total Protein (6.4-8.2) g/dL Albumin (3.4-5.0) g/dL Globulin Albumin/Globulin Ratio Urine Color (YELLOW) Urine Appearance (CLEAR) Urine pH (5.0-9.0) Ur Specific [place] (1.005-1.030) Urine Protein (NEGATIVE) Urine Glucose (UA) (NEGATIVE) Urine Ketones (NEGATIVE) Urine Occult Blood (NEGATIVE) Urine Nitrite (NEGATIVE) Urine Bilirubin (NEGATIVE) Urine Urobilinogen (0.2-1.0) mg/dL Ur Leukocyte Esterase (NEGATIVE) Urine RBC /HPF Urine WBC (0-5/HPF) /HPF Ur Epithelial Cells (NOT SEEN) /HPF Urine Bacteria (0-FEW/HPF) /HPF COVID-19 ([place]PO[place]) Negative (NEGATIVE) 01/24/20 01/24/20 01/24/20 Range/Units 11:17 11:17 11:57 WBC (5.0-10.0) 10^3/uL RBC (4.2-5.4) 10^6/uL Hgb (12.0-16.0) g/dL Hct (37.0-47.0) % MCV (80-100) fL MCH (27.0-34.0) pg MCHC (33.0-35.0) g/dL Plt Count (150-450) 10^3/uL Neut % (Auto) (42.2-75.2) % Lymph % (Auto) (20.5-50.1) % Real % (Auto) (2-8) % Eos % (Auto) (1.0-3.0) % Baso % (Auto) (0.0-1.0) % Add Manual Diff Neutrophils % (Manual) (42-75) % Band Neutrophils % % Lymphocytes % (Manual) (20-50) % Monocytes % (Manual) (2-8) % Metamyelocytes % Myelocytes % Toxic Granulation PT (9.0-12.0) SEC INR (0.9-1.2) Sodium 137 (136-145) mmol/L Potassium 3.8 (3.5-5.1) mmol/L Chloride 99 (98-107) mmol/L Carbon Dioxide 28 (21-32) mmol/L Anion Gap 13.8 H (7-13) mEq/L BUN 21 H (7-18) mg/dL Creatinine 1.45 H (0.55-1.02) mg/dL Est Cr Clr Drug Dosing TNP Estimated GFR (MDRD) 35 BUN/Creatinine Ratio 14.5 (No establ ref range) Glucose 139 H (74-99) mg/dL POC Glucose (83-110) mg/dl Lactic Acid 3.4 H* (0.4-2.0) mmol/L Calcium 8.9 (8.5-10.1) mg/dL Total Bilirubin 0.8 (0.2-1.0) mg/dL AST 16 (15-37) U/L ALT 20 (14-59) U/L Alkaline Phosphatase 57 (46-116) U/L Troponin I < 0.017 (0.000-0.056) ng/mL Total Protein 8.3 H (6.4-8.2) g/dL Albumin 2.8 L (3.4-5.0) g/dL Globulin 5.5 Albumin/Globulin Ratio 0.51 Urine Color Dark yellow (YELLOW) Urine Appearance Clear (CLEAR) Urine pH 5.0 (5.0-9.0) Ur Specific [place] 1.025 (1.005-1.030) Urine Protein Trace H (NEGATIVE) Urine Glucose (UA) Negative (NEGATIVE) Urine Ketones Trace H (NEGATIVE) Urine Occult Blood Trace-lysed H (NEGATIVE) Urine Nitrite Negative (NEGATIVE) Urine Bilirubin Small H (NEGATIVE) Urine Urobilinogen 0.2 (0.2-1.0) mg/dL Ur Leukocyte Esterase Small H (NEGATIVE) Urine RBC 0-5 /HPF Urine WBC 0-5 (0-5/HPF) /HPF Ur Epithelial Cells Rare (NOT SEEN) /HPF Urine Bacteria Rare (0-FEW/HPF) /HPF COVID-19 ([place]PO[place]) (NEGATIVE) 01/24/20 01/24/20 01/24/20 Range/Units 15:26 16:35 21:07 WBC (5.0-10.0) 10^3/uL RBC (4.2-5.4) 10^6/uL Hgb (12.0-16.0) g/dL Hct (37.0-47.0) % MCV (80-100) fL MCH (27.0-34.0) pg MCHC (33.0-35.0) g/dL Plt Count (150-450) 10^3/uL Neut % (Auto) (42.2-75.2) % Lymph % (Auto) (20.5-50.1) % Real % (Auto) (2-8) % Eos % (Auto) (1.0-3.0) % Baso % (Auto) (0.0-1.0) % Add Manual Diff Neutrophils % (Manual) (42-75) % Band Neutrophils % % Lymphocytes % (Manual) (20-50) % Monocytes % (Manual) (2-8) % Metamyelocytes % Myelocytes % Toxic Granulation PT (9.0-12.0) SEC INR (0.9-1.2) Sodium (136-145) mmol/L Potassium (3.5-5.1) mmol/L Chloride (98-107) mmol/L Carbon Dioxide (21-32) mmol/L Anion Gap (7-13) mEq/L BUN (7-18) mg/dL Creatinine (0.55-1.02) mg/dL Est Cr Clr Drug Dosing Estimated GFR (MDRD) BUN/Creatinine Ratio (No establ ref range) Glucose (74-99) mg/dL POC Glucose 136 H 121 H (83-110) mg/dl Lactic Acid 2.3 H* (0.4-2.0) mmol/L Calcium (8.5-10.1) mg/dL Total Bilirubin (0.2-1.0) mg/dL AST (15-37) U/L ALT (14-59) U/L Alkaline Phosphatase (46-116) U/L Troponin I (0.000-0.056) ng/mL Total Protein (6.4-8.2) g/dL Albumin (3.4-5.0) g/dL Globulin Albumin/Globulin Ratio Urine Color (YELLOW) Urine Appearance (CLEAR) Urine pH (5.0-9.0) Ur Specific [place] (1.005-1.030) Urine Protein (NEGATIVE) Urine Glucose (UA) (NEGATIVE) Urine Ketones (NEGATIVE) Urine Occult Blood (NEGATIVE) Urine Nitrite (NEGATIVE) Urine Bilirubin (NEGATIVE) Urine Urobilinogen (0.2-1.0) mg/dL Ur Leukocyte Esterase (NEGATIVE) Urine RBC /HPF Urine WBC (0-5/HPF) /HPF Ur Epithelial Cells (NOT SEEN) /HPF Urine Bacteria (0-FEW/HPF) /HPF COVID-19 ([place]PO[place]) (NEGATIVE) 01/25/20 01/25/20 01/25/20 Range/Units 05:45 05:45 05:45 WBC 18.9 H (5.0-10.0) 10^3/uL RBC 4.16 L (4.2-5.4) 10^6/uL Hgb 11.3 L D (12.0-16.0) g/dL Hct 35.3 L (37.0-47.0) % MCV 84.9 (80-100) fL MCH 27.2 (27.0-34.0) pg MCHC 32.0 L (33.0-35.0) g/dL Plt Count 216 (150-450) 10^3/uL Neut % (Auto) 85.3 H (42.2-75.2) % Lymph % (Auto) 6.9 L (20.5-50.1) % Real % (Auto) 7.4 (2-8) % Eos % (Auto) 0.2 L (1.0-3.0) % Baso % (Auto) 0.2 (0.0-1.0) % Add Manual Diff Neutrophils % (Manual) (42-75) % Band Neutrophils % % Lymphocytes % (Manual) (20-50) % Monocytes % (Manual) (2-8) % Metamyelocytes % Myelocytes % Toxic Granulation PT 20.0 H (9.0-12.0) SEC INR 2.1 H (0.9-1.2) Sodium 137 (136-145) mmol/L Potassium 3.6 (3.5-5.1) mmol/L Chloride 101 (98-107) mmol/L Carbon Dioxide 28 (21-32) mmol/L Anion Gap 11.6 (7-13) mEq/L BUN 25 H (7-18) mg/dL Creatinine 1.39 H (0.55-1.02) mg/dL Est Cr Clr Drug Dosing 29.72 Estimated GFR (MDRD) 36 BUN/Creatinine Ratio (No establ ref range) Glucose 101 H (74-99) mg/dL POC Glucose (83-110) mg/dl Lactic Acid (0.4-2.0) mmol/L Calcium 8.6 (8.5-10.1) mg/dL Total Bilirubin (0.2-1.0) mg/dL AST (15-37) U/L ALT (14-59) U/L Alkaline Phosphatase (46-116) U/L Troponin I (0.000-0.056) ng/mL Total Protein (6.4-8.2) g/dL Albumin (3.4-5.0) g/dL Globulin Albumin/Globulin Ratio Urine Color (YELLOW) Urine Appearance (CLEAR) Urine pH (5.0-9.0) Ur Specific [place] (1.005-1.030) Urine Protein (NEGATIVE) Urine Glucose (UA) (NEGATIVE) Urine Ketones (NEGATIVE) Urine Occult Blood (NEGATIVE) Urine Nitrite (NEGATIVE) Urine Bilirubin (NEGATIVE) Urine Urobilinogen (0.2-1.0) mg/dL Ur Leukocyte Esterase (NEGATIVE) Urine RBC /HPF Urine WBC (0-5/HPF) /HPF Ur Epithelial Cells (NOT SEEN) /HPF Urine Bacteria (0-FEW/HPF) /HPF COVID-19 ([place]) (NEGATIVE) 01/25/20 Range/Units 07:50 WBC (5.0-10.0) 10^3/uL RBC (4.2-5.4) 10^6/uL Hgb (12.0-16.0) g/dL Hct (37.0-47.0) % MCV (80-100) fL MCH (27.0-34.0) pg MCHC (33.0-35.0) g/dL Plt Count (150-450) 10^3/uL Neut % (Auto) (42.2-75.2) % Lymph % (Auto) (20.5-50.1) % Real % (Auto) (2-8) % Eos % (Auto) (1.0-3.0) % Baso % (Auto) (0.0-1.0) % Add Manual Diff Neutrophils % (Manual) (42-75) % Band Neutrophils % % Lymphocytes % (Manual) (20-50) % Monocytes % (Manual) (2-8) % Metamyelocytes % Myelocytes % Toxic Granulation PT (9.0-12.0) SEC INR (0.9-1.2) Sodium (136-145) mmol/L Potassium (3.5-5.1) mmol/L Chloride (98-107) mmol/L Carbon Dioxide (21-32) mmol/L Anion Gap (7-13) mEq/L BUN (7-18) mg/dL Creatinine (0.55-1.02) mg/dL Est Cr Clr Drug Dosing Estimated GFR (MDRD) BUN/Creatinine Ratio (No establ ref range) Glucose (74-99) mg/dL POC Glucose 162 H (83-110) mg/dl Lactic Acid (0.4-2.0) mmol/L Calcium (8.5-10.1) mg/dL Total Bilirubin (0.2-1.0) mg/dL AST (15-37) U/L ALT (14-59) U/L Alkaline Phosphatase (46-116) U/L Troponin I (0.000-0.056) ng/mL Total Protein (6.4-8.2) g/dL Albumin (3.4-5.0) g/dL Globulin Albumin/Globulin Ratio Urine Color (YELLOW) Urine Appearance (CLEAR) Urine pH (5.0-9.0) Ur Specific [place] (1.005-1.030) Urine Protein (NEGATIVE) Urine Glucose (UA) (NEGATIVE) Urine Ketones (NEGATIVE) Urine Occult Blood (NEGATIVE) Urine Nitrite (NEGATIVE) Urine Bilirubin (NEGATIVE) Urine Urobilinogen (0.2-1.0) mg/dL Ur Leukocyte Esterase (NEGATIVE) Urine RBC /HPF Urine WBC (0-5/HPF) /HPF Ur Epithelial Cells (NOT SEEN) /HPF Urine Bacteria (0-FEW/HPF) /HPF COVID-19 ([place]) (NEGATIVE) Leo Results Last 24 Hours: Microbiology 01/24/20 11:57 Urine Culture - Preliminary Urine, Quick Cath (In-Out) 01/24/20 11:17 Aerobic Blood Culture - Preliminary Blood Anaerobic Blood Culture - Preliminary Med Orders - Current: Current Medications Acetaminophen (Tylenol) 650 mg PO BID [facility] Last Admin: 01/25/20 08:47 Dose: 650 mg Documented by: Acetaminophen (Tylenol) 650 mg PO Q6H PRN PRN Reason: fever, mild pain Last Admin: 01/24/20 14:20 Dose: 650 mg Documented by: Bumetanide (Bumex) 2 mg PO BIDDIURETIC [facility] Last Admin: 01/25/20 08:47 Dose: 2 mg Documented by: Calcium Carbonate/Glycine (Tums) 500 mg PO TID PRN PRN Reason: Dyspepsia Diltiazem HCl (Cardizem Cd) 360 mg PO DAILY [facility] Last Admin: 01/25/20 08:45 Dose: 360 mg Documented by: Piperacillin Sod/Tazobactam (Sod 3.375 gm/ Sodium Chloride) 100 mls @ 200 mls/hr IV Q6HR [facility] Last Admin: 01/25/20 05:55 Dose: 200 mls/hr Documented by: Vancomycin HCl 1.5 gm/ Premix 300 mls @ 200 mls/hr IV Q24H [facility] Last Infusion: 01/24/20 17:33 Dose: Infused Documented by: Insulin Human Lispro (Humalog) 0 unit SUBCUT QIDACANDBED [facility]; Protocol Last Admin: 01/25/20 08:49 Dose: 1 unit Documented by: Metoprolol Succinate (Toprol Xl) 200 mg PO DAILY [facility] Last Admin: 01/25/20 08:48 Dose: 200 mg Documented by: Nystatin (Nystop) 0 gm TOP BID@0630,1430 [facility] Last Admin: 01/25/20 05:54 Dose: 1 applic Documented by: Ondansetron HCl (Zofran Odt) 4 mg PO Q6H PRN PRN Reason: nausea, able to take PO Ondansetron HCl (Zofran) 4 mg IVPUSH Q6H PRN PRN Reason: Nausea/Vomiting Oxycodone HCl (Oxycodone) 5 mg PO Q4H PRN PRN Reason: Pain (moderate 4-6) Last Admin: 01/24/20 19:44 Dose: 5 mg Documented by: Potassium Chloride (Klor-Con 10) 30 meq PO BIDMEALS [facility] Last Admin: 01/25/20 08:46 Dose: 30 meq Documented by: Sodium Chloride (Saline Flush) 10 ml FLUSH ASDIRECTED PRN PRN Reason: Keep Vein Open Spironolactone (Aldactone) 12.5 mg PO MoWeFr@0900 [facility] Last Admin: 01/25/20 08:46 Dose: 12.5 mg Documented by: Temazepam (Restoril) 15 mg PO BEDTIME PRN PRN Reason: Sleep Vancomycin HCl (Pharmacy To Dose - Vancomycin) 0 dose .XX ASDIRECTED [facility] Warfarin Sodium (Pharmacy To Dose - Warfarin) 0 dose .XX ASDIRECTED [facility] Warfarin Sodium (Coumadin) 4 mg PO ONETIME ONE Stop: 01/25/20 14:01 Discontinued Medications Heparin Sodium (Porcine) (Heparin Sodium) 5,000 units SUBCUT Q8HR [facility] Piperacillin Sod/Tazobactam (Sod 3.375 gm/ Sodium Chloride) 100 mls @ 200 mls/hr IV ONETIME ONE Stop: 01/24/20 12:47 Last Admin: 01/24/20 12:40 Dose: 200 mls/hr Documented by: Warfarin Sodium (Coumadin) 4 mg PO ONETIME ONE Stop: 01/24/20 15:31 Last Admin: 01/24/20 17:31 Dose: 4 mg Documented by: - Exam General: Alert, Oriented Lungs: Normal Respiratory Effort, Decreased Breath Sounds Cardiovascular: Regular Rate, Regular Rhythm GI/Abdominal Exam: Normal Bowel Sounds, Soft, Non-Tender, Other (Morbidly obese) Extremities: Pedal Edema Skin: Warm, Other (Bilateral lower extremity redness more pronounced on the right side) Neurological: No New Focal Deficit Psy/Mental Status: Alert, Normal Affect, Normal Mood Sepsis Event Note - Evaluation Sepsis Screening Result: No Definite Risk - Focused Exam Vital Signs: Vital Signs Temp Pulse Pulse Resp BP BP BP 01/25/20 08:48 75 107/50 L 01/25/20 08:04 98.6 F 75 18 107/47 L 01/25/20 05:00 98.7 F 98 20 110/55 L 01/25/20 01:00 97.2 F 20 Pulse Ox 01/25/20 08:48 01/25/20 08:04 94 L 01/25/20 05:00 95 01/25/20 01:00 - Problem List & Annotations (1) Cellulitis of both lower extremities SNOMED Code(s): 901696714 Code(s): L03.115 - CELLULITIS OF RIGHT LOWER LIMB; L03.116 - CELLULITIS OF LEFT LOWER LIMB Status: Acute Current Visit: Yes Onset Date: ~11/23/19 (2) Sepsis SNOMED Code(s): 43549456 Code(s): A41.9 - SEPSIS, UNSPECIFIED ORGANISM Status: Acute Current Visit: No Onset Date: ~11/24/19 Qualifiers: Sepsis type: sepsis due to unspecified organism Sepsis acute organ dysfunction status: unspecified Qualified Code(s): A41.9 - Sepsis, unspecified organism (3) A-fib SNOMED Code(s): 73990125 Code(s): I48.91 - UNSPECIFIED ATRIAL FIBRILLATION Status: Chronic Current Visit: No (4) Anticoagulated by anticoagulation treatment SNOMED Code(s): 602963481, 476247931 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: Chronic Priority: High Current Visit: No (5) HTN (hypertension) SNOMED Code(s): 44831715 Code(s): I10 - ESSENTIAL (PRIMARY) HYPERTENSION Status: Chronic Current Visit: No (6) Morbid obesity SNOMED Code(s): 997538631 Code(s): E66.01 - MORBID (SEVERE) OBESITY DUE TO EXCESS CALORIES Status: Chronic Current Visit: No - Problem List Review Problem List Initiated/Reviewed/Updated: Yes - My Orders Last 24 Hours: My Active Orders 01/24/20 13:19 Glucose [Blood Glucose Check, Bedside] [RC] QIDACANDBED Calcium Carbonate [Tums] 500 mg PO TID PRN 01/24/20 13:23 Oxygen Therapy [RC] PRN Up With Assistance [RC] ASDIRECTED VTE/DVT Education [RC] PER UNIT ROUTINE Vital Signs [RC] Q4H Ondansetron [Zofran ODT] 4 mg PO Q6H PRN Ondansetron [Zofran] 4 mg IVPUSH Q6H PRN Sodium Chloride 0.9% [Saline Flush] 10 ml FLUSH ASDIRECTED PRN oxyCODONE 5 mg PO Q4H PRN Antiembolic Hose [OM.PC] Per Unit Routine Peripheral IV Insertion Adult [OM.PC] Routine Saline Lock Insert [OM.PC] Routine 01/24/20 13:24 Antiembolic Devices [RC] PER UNIT ROUTINE Peripheral IV Care [RC] 01/24/20 13:30 Pharmacy to Dose - Vancomycin 0 dose .XX ASDIRECTED Pharmacy to Dose - Warfarin 0 dose .XX ASDIRECTED 01/24/20 13:31 Communication Order [RC] 01/24/20 13:43 OT Evaluation and Treatment [CONS] Routine Resuscitation Status Routine 01/24/20 13:50 Acetaminophen [Tylenol] 650 mg PO Q6H PRN 01/24/20 15:00 VANCOmycin/Water for INJ (PEG) [VANCOmycin 1.5 GM/300 ML Premix] 1.5 gm Premix Bag 1 bag IV Q24H 01/24/20 17:00 Insulin Lispro [HumaLOG] See Protocol SUBCUT QIDACANDBED 01/24/20 Dinner Consistent Carbohydrate Diet [DIET] 01/24/20 18:00 Piperacillin/Tazobactam [Zosyn] 3.375 gm Sodium Chloride 0.9% [Normal Saline] 100 ml IV Q6HR Potassium Chloride [Klor-Con 10] 30 meq PO BIDMEALS 01/24/20 21:00 Acetaminophen [Tylenol] 650 mg PO BID Temazepam [Restoril] 15 mg PO BEDTIME PRN 01/25/20 06:30 Nystatin [Nystop] 0 gm TOP BID@0630,1430 01/25/20 08:00 Bumetanide [Bumex] 2 mg PO BIDDIURETIC 01/25/20 09:00 Diltiazem [Cardizem CD] 360 mg PO DAILY Metoprolol Succinate [Toprol XL] 200 mg PO DAILY Spironolactone [Aldactone] 12.5 mg PO MoWeFr@0900 01/25/20 09:15 CULTURE BLOOD [BC] Stat CULTURE BLOOD [BC] Stat Blood Culture x2 Reflex Set [OM.PC] Stat 01/25/20 14:00 Warfarin [Coumadin] 4 mg PO ONETIME ONE 01/26/20 05:15 BASIC METABOLIC PANEL,BMP [CHEM] AM CBC WITH AUTO DIFF [HEME] AM 01/26/20 06:00 INR,PT,PROTHROMBIN TIME [COAG] DAILY 01/27/20 06:00 INR,PT,PROTHROMBIN TIME [COAG] DAILY 01/28/20 06:00 INR,PT,PROTHROMBIN TIME [COAG] DAILY 01/28/20 14:30 VANCOMYCIN TROUGH [CHEM] Timed 01/29/20 06:00 INR,PT,PROTHROMBIN TIME [COAG] DAILY 01/30/20 06:00 INR,PT,PROTHROMBIN TIME [COAG] DAILY 01/31/20 06:00 INR,PT,PROTHROMBIN TIME [COAG] DAILY - Plan Plan:: 79-year-old with a history of diabetes, hypertension, atrial fibrillation on chronic anticoagulation, morbid obesity, bilateral lymphedema. The patient has had multiple hospital admissions and the courses of treatment for bilateral lower extremity cellulitis. She lives in a retirement. Of admission the patient was noted to have fever up to 101, chills, tremors, decreased mental status. The patient was referred to the emergency room. Noted to have bilateral lower extremity skin changes and the hospital admission was recommended. Bilateral lower extremity cellulitis with sepsis present on admission with a history of morbid obesity, lymphedema, recurrent lower extremity cellulitis blood culture: gram pos cocci will repeat Blood culture today Obtain urine culture with history of indwelling catheter Empirical treatment with Zosyn and vancomycin Sepsis With fever, leukocytosis, cellulitis of the lower extremity, elevated lactic acid lactic acid improved wbc improved stop IV fluid Treat infection diabetes Hold metformin Follow blood sugars Use supplemental insulin and hypoglycemia treatment as needed Hypertension, afib Treat with metoprolol, diltiazem Continue anticoagulation with Coumadin for A. fib CODE STATUS was discussed with the patient on admission She elected DNR, DNI CODE STATUS
[2020-01-25] MEDS: Sodium Chloride 0.9% 10 ML Syringe FLUSH PRN ×3 (13:09→23:51)
[2020-01-25] MEDS ORDERED: Warfarin 2 MG Tab PO ONE (14:00)
[2020-01-26] MEDS: Sodium Chloride 0.9% 10 ML Syringe FLUSH PRN ×4 (06:07→17:38)
[2020-01-26] MEDS: Piperacillin/Tazobactam 3.375 GM in Sodium Chloride 0.9% 100 ML IV SCH ×3 (06:07→17:39)
[2020-01-26] MEDS: Nystatin Topical Powder 30 GM Bottle TOP SCH ×2 (06:09→14:25)
[2020-01-26] MEDS: Bumetanide 1 MG Tab PO SCH ×2 (08:42→14:25)
[2020-01-26] MEDS: Potassium Chloride 10 MEQ Tab.ER PO SCH ×2 (08:42→17:38)
[2020-01-26] MEDS: Metoprolol Succinate 50 MG Tab.ER PO SCH (08:43)
[2020-01-26] MEDS: Diltiazem 180 MG Cap.CD PO SCH (08:43)
[2020-01-26] MEDS: oxyCODONE 5 MG Tab PO PRN (08:45)
[2020-01-26] MEDS: Acetaminophen 325 MG Tab PO SCH ×2 (08:45→21:05)
[2020-01-26] MEDS: Insulin Lispro 100 Units/ML 3 ML Vial SUBCUT SCH ×4 (08:49→20:55)
[2020-01-26] MEDS ORDERED: Potassium Chloride 10 MEQ Tab.ER PO ONE (10:13)
--- NOTE | 2020-01-26 10:46 | PCM.PN ---
- General Info Date of Service: 01/26/20 Admission Dx/Problem (Free Text): Admission Diagnosis/Problem Admission Diagnosis/Problem Cellulitis and UTI Subjective Update: Pt was seen in room she is feeling better and The leg swelling is still present, lower extremity wrapping started. Redness still present. No associated pain No abdominal pain, no chest pain. appetite is good Functional Status: Reports: Pain Controlled, Tolerating Diet, Urinating - Review of Systems General: Reports: Weakness, Appetite (good). Denies: Fever, Chills HEENT: Denies: Dysphasia, Sinus Congestion, Sore Throat, Visual Changes Pulmonary: Denies: Shortness of Breath, Pleuritic Chest Pain, Cough, Sputum, Wheezing Cardiovascular: Reports: Edema. Denies: Chest Pain, Dyspnea on Exertion, Lightheadedness Gastrointestinal: Denies: Abdominal Pain, Nausea, Vomiting Genitourinary: Denies: Dysuria, Frequency, Burning, Flank Pain Musculoskeletal: Denies: Neck Pain, Shoulder Pain, Arm Pain, Leg Pain Skin: Denies: Cyanosis, Jaundice, Bruising, Pruritis, Rash Neurological: Reports: No Symptoms. Denies: Dizziness, Numbness, Paresthesia, Tingling, Tremors Psychiatric: Reports: No Symptoms. Denies: Confusion, Mood Lability, Anxiety - Patient Data Vitals - Most Recent: Last Vital Signs Temp 37.1 C 01/26/20 08:26 Pulse 68 01/26/20 08:43 Resp 20 01/26/20 08:26 BP 114/61 01/26/20 08:43 Pulse Ox 98 01/26/20 08:26 Weight - Most Recent: 120.746 kg I&O - Last 24 Hours: Intake & Output 01/25/20 01/26/20 01/26/20 22:59 06:59 14:59 Intake Total 1000 430 Output Total 2050 Balance -1050 430 Lab Results Last 24 Hours: Laboratory Results - last 24 hr 01/25/20 01/25/20 01/25/20 Range/Units 11:36 17:05 21:49 WBC (5.0-10.0) 10^3/uL RBC (4.2-5.4) 10^6/uL Hgb (12.0-16.0) g/dL Hct (37.0-47.0) % MCV (80-100) fL MCH (27.0-34.0) pg MCHC (33.0-35.0) g/dL Plt Count (150-450) 10^3/uL Neut % (Auto) (42.2-75.2) % Lymph % (Auto) (20.5-50.1) % Jennings % (Auto) (2-8) % Eos % (Auto) (1.0-3.0) % Baso % (Auto) (0.0-1.0) % PT (9.0-12.0) SEC INR (0.9-1.2) Sodium (136-145) mmol/L Potassium (3.5-5.1) mmol/L Chloride (98-107) mmol/L Carbon Dioxide (21-32) mmol/L Anion Gap (7-13) mEq/L BUN (7-18) mg/dL Creatinine (0.55-1.02) mg/dL Est Cr Clr Drug Dosing mL/min Estimated GFR (MDRD) Glucose (74-99) mg/dL POC Glucose 86 136 H 104 (83-110) mg/dl Calcium (8.5-10.1) mg/dL 01/26/20 01/26/20 01/26/20 Range/Units 06:20 06:20 06:20 WBC 9.7 (5.0-10.0) 10^3/uL RBC 4.12 L (4.2-5.4) 10^6/uL Hgb 11.1 L (12.0-16.0) g/dL Hct 35.2 L (37.0-47.0) % MCV 85.4 (80-100) fL MCH 26.9 L (27.0-34.0) pg MCHC 31.5 L (33.0-35.0) g/dL Plt Count 199 (150-450) 10^3/uL Neut % (Auto) 72.4 (42.2-75.2) % Lymph % (Auto) 12.0 L (20.5-50.1) % Jennings % (Auto) 10.6 H (2-8) % Eos % (Auto) 4.7 H (1.0-3.0) % Baso % (Auto) 0.3 (0.0-1.0) % PT 27.8 H D (9.0-12.0) SEC INR 3.0 H (0.9-1.2) Sodium 139 (136-145) mmol/L Potassium 3.0 L (3.5-5.1) mmol/L Chloride 101 (98-107) mmol/L Carbon Dioxide 31 (21-32) mmol/L Anion Gap 10.0 (7-13) mEq/L BUN 20 H (7-18) mg/dL Creatinine 1.18 H (0.55-1.02) mg/dL Est Cr Clr Drug Dosing 35.00 mL/min Estimated GFR (MDRD) 44 Glucose 92 (74-99) mg/dL POC Glucose (83-110) mg/dl Calcium 8.1 L (8.5-10.1) mg/dL 01/26/20 Range/Units 08:03 WBC (5.0-10.0) 10^3/uL RBC (4.2-5.4) 10^6/uL Hgb (12.0-16.0) g/dL Hct (37.0-47.0) % MCV (80-100) fL MCH (27.0-34.0) pg MCHC (33.0-35.0) g/dL Plt Count (150-450) 10^3/uL Neut % (Auto) (42.2-75.2) % Lymph % (Auto) (20.5-50.1) % Jennings % (Auto) (2-8) % Eos % (Auto) (1.0-3.0) % Baso % (Auto) (0.0-1.0) % PT (9.0-12.0) SEC INR (0.9-1.2) Sodium (136-145) mmol/L Potassium (3.5-5.1) mmol/L Chloride (98-107) mmol/L Carbon Dioxide (21-32) mmol/L Anion Gap (7-13) mEq/L BUN (7-18) mg/dL Creatinine (0.55-1.02) mg/dL Est Cr Clr Drug Dosing mL/min Estimated GFR (MDRD) Glucose (74-99) mg/dL POC Glucose 95 (83-110) mg/dl Calcium (8.5-10.1) mg/dL Leo Results Last 24 Hours: Microbiology 01/25/20 05:45 Aerobic Blood Culture - Preliminary Blood - Venous NO GROWTH AFTER 1 DAY Anaerobic Blood Culture - Final 01/25/20 09:34 Aerobic Blood Culture - Preliminary Blood - Venous - Lab Draw NO GROWTH AFTER 1 DAY Anaerobic Blood Culture - Preliminary NO GROWTH AFTER 1 DAY 01/24/20 11:57 Urine Culture - Final Urine, Quick Cath (In-Out) Escherichia Coli Med Orders - Current: Current Medications Acetaminophen (Tylenol) 650 mg PO BID [facility] Last Admin: 01/26/20 08:45 Dose: 650 mg Documented by: Acetaminophen (Tylenol) 650 mg PO Q6H PRN PRN Reason: fever, mild pain Last Admin: 01/24/20 14:20 Dose: 650 mg Documented by: Bumetanide (Bumex) 2 mg PO BIDDIURETIC [facility] Last Admin: 01/26/20 08:42 Dose: 2 mg Documented by: Calcium Carbonate/Glycine (Tums) 500 mg PO TID PRN PRN Reason: Dyspepsia Diltiazem HCl (Cardizem Cd) 360 mg PO DAILY [facility] Last Admin: 01/26/20 08:43 Dose: 360 mg Documented by: Piperacillin Sod/Tazobactam (Sod 3.375 gm/ Sodium Chloride) 100 mls @ 200 mls/hr IV Q6HR [facility] Last Infusion: 01/26/20 06:47 Dose: Infused Documented by: Vancomycin HCl 1.5 gm/ Premix 300 mls @ 200 mls/hr IV Q24H [facility] Last Infusion: 01/25/20 17:00 Dose: Infused Documented by: Insulin Human Lispro (Humalog) 0 unit SUBCUT QIDACANDBED [facility]; Protocol Last Admin: 01/26/20 08:49 Dose: Not Given Documented by: Metoprolol Succinate (Toprol Xl) 200 mg PO DAILY [facility] Last Admin: 01/26/20 08:43 Dose: 200 mg Documented by: Nystatin (Nystop) 0 gm TOP BID@0630,1430 [facility] Last Admin: 01/26/20 06:09 Dose: 1 applic Documented by: Ondansetron HCl (Zofran Odt) 4 mg PO Q6H PRN PRN Reason: nausea, able to take PO Ondansetron HCl (Zofran) 4 mg IVPUSH Q6H PRN PRN Reason: Nausea/Vomiting Oxycodone HCl (Oxycodone) 5 mg PO Q4H PRN PRN Reason: Pain (moderate 4-6) Last Admin: 01/26/20 08:45 Dose: 5 mg Documented by: Potassium Chloride (Klor-Con 10) 30 meq PO BIDMEALS [facility] Last Admin: 01/26/20 08:42 Dose: 30 meq Documented by: Potassium Chloride (Klor-Con 10) 40 meq PO ONETIME ONE Stop: 01/26/20 10:14 Sodium Chloride (Saline Flush) 10 ml FLUSH ASDIRECTED PRN PRN Reason: Keep Vein Open Last Admin: 01/26/20 06:07 Dose: 10 ml Documented by: Spironolactone (Aldactone) 12.5 mg PO MoWeFr@0900 [facility] Last Admin: 01/25/20 08:46 Dose: 12.5 mg Documented by: Temazepam (Restoril) 15 mg PO BEDTIME PRN PRN Reason: Sleep Vancomycin HCl (Pharmacy To Dose - Vancomycin) 0 dose .XX ASDIRECTED [facility] Warfarin Sodium (Pharmacy To Dose - Warfarin) 0 dose .XX ASDIRECTED [facility] Warfarin Sodium (Coumadin) 2.5 mg PO ONETIME ONE Stop: 01/26/20 14:01 Discontinued Medications Heparin Sodium (Porcine) (Heparin Sodium) 5,000 units SUBCUT Q8HR [facility] Piperacillin Sod/Tazobactam (Sod 3.375 gm/ Sodium Chloride) 100 mls @ 200 mls/hr IV ONETIME ONE Stop: 01/24/20 12:47 Last Admin: 01/24/20 12:40 Dose: 200 mls/hr Documented by: Warfarin Sodium (Coumadin) 4 mg PO ONETIME ONE Stop: 01/24/20 15:31 Last Admin: 01/24/20 17:31 Dose: 4 mg Documented by: Warfarin Sodium (Coumadin) 4 mg PO ONETIME ONE Stop: 01/25/20 14:01 Last Admin: 01/25/20 14:01 Dose: 4 mg Documented by: - Exam Quality Assessment: Urine Catheter, DVT Prophylaxis. No: Supplemental Oxygen General: Alert, Oriented, Cooperative, No Acute Distress HEENT: Pupils Equal, EOMI, Mucous Membr. Moist/[place] Neck: Supple, No JVD, No Thyromegaly Lungs: Clear to Auscultation, Normal Respiratory Effort Cardiovascular: Irregular Rhythm, Murmurs GI/Abdominal Exam: Normal Bowel Sounds, Soft, Non-Tender, No Distention (Female) Exam: Deferred Back Exam: Normal Inspection Extremities: Normal Inspection, Pedal Edema Skin: Warm, Dry, Intact Neurological: No New Focal Deficit Psy/Mental Status: Alert, Normal Affect, Normal Mood Sepsis Event Note - Evaluation Sepsis Screening Result: No Definite Risk - Focused Exam Vital Signs: Vital Signs Temp Pulse Pulse Resp BP BP BP 01/26/20 08:43 68 114/61 01/26/20 08:26 37.1 C 68 20 114/61 01/26/20 00:00 36.8 C 62 18 94/45 L Pulse Ox 01/26/20 08:43 01/26/20 08:26 98 01/26/20 00:00 97 - Problem List Review Problem List Initiated/Reviewed/Updated: Yes - My Orders Last 24 Hours: My Active Orders 01/26/20 10:13 Potassium Chloride [Klor-Con 10] 40 meq PO ONETIME ONE 01/27/20 06:00 BASIC METABOLIC PANEL,BMP [CHEM] Routine - Plan Plan:: 79-year-old with a history of diabetes, hypertension, atrial fibrillation on chronic anticoagulation, morbid obesity, bilateral lymphedema. The patient has had multiple hospital admissions and the courses of treatment for bilateral lower extremity cellulitis. She lives in a [place] [facility]. Of admission the patient was noted to have fever up to 101, chills, tremors, altered mental status. The patient was referred to the emergency room. Noted to have bilateral lower extremity skin color changes and the hospital admission was recommended. Impression and Plan: 1. Bilateral lower extremity cellulitis with sepsis present on admission blood culture: gram pos cocci , Urine culture : E.Coli - repeat Blood culture from 01/24- showing no growth Empirical treatment with vancomycin for gram positive cocci and urine culture positive with E.Coli and susceptible to Zosyn and will continue both antibiotics 2. Sepsis: With fever, leukocytosis, cellulitis of the lower extremity, elevated lactic acid - lactic acid improved - wbc improved -BP is better -Continue antibiotic 3. Diabetes - will continue to Hold metformin - Follow blood sugars -Use supplemental insulin and hypoglycemia treatment as needed 4. Hypertension, afib; BP acceptable and rate is controlled -Will continue metoprolol, diltiazem Continue anticoagulation with Coumadin for A. fib 5. Hypokalemia: This is likely from hospital diabetic diet restriction -Will give potassium chloride 40 meq PO X 1 now -Recheck Potassium in AM CODE STATUS was discussed with the patient on admission She elected DNR, DNI CODE STATUS
[2020-01-26] MEDS ORDERED: Warfarin 2.5 MG Tab PO ONE (14:00)
[2020-01-27] MEDS: Sodium Chloride 0.9% 10 ML Syringe FLUSH PRN ×5 (00:20→17:34)
[2020-01-27] MEDS: Piperacillin/Tazobactam 3.375 GM in Sodium Chloride 0.9% 100 ML IV SCH ×4 (00:20→17:34)
[2020-01-27] MEDS: Nystatin Topical Powder 30 GM Bottle TOP SCH ×2 (06:00→14:58)
[2020-01-27 07:08] LABS: ANION GAP 10.3 mEq/L (7-13)
[2020-01-27] MEDS: Insulin Lispro 100 Units/ML 3 ML Vial SUBCUT SCH ×4 (08:07→20:56)
[2020-01-27] MEDS: Potassium Chloride 10 MEQ Tab.ER PO SCH ×2 (08:38→17:34)
[2020-01-27] MEDS: Diltiazem 180 MG Cap.CD PO SCH (08:39)
[2020-01-27] MEDS: Metoprolol Succinate 50 MG Tab.ER PO SCH (08:39)
[2020-01-27] MEDS: Bumetanide 1 MG Tab PO SCH ×2 (08:39→14:58)
[2020-01-27] MEDS: oxyCODONE 5 MG Tab PO PRN (08:40)
[2020-01-27] MEDS: Acetaminophen 325 MG Tab PO SCH ×2 (08:41→21:30)
[2020-01-27] MEDS ORDERED: Potassium Chloride 10 MEQ Tab.ER PO ONE ×2 (09:18→12:00)
--- NOTE | 2020-01-27 11:48 | PCM.PN ---
- General Info Date of Service: 01/27/20 Admission Dx/Problem (Free Text): Admission Diagnosis/Problem Admission Diagnosis/Problem Cellulitis and UTI Subjective Update: Pt was seen in room she is feeling better and leg swelling is still present, lower extremity wrapping started. Redness still present. No associated pain No abdominal pain, no chest pain. appetite is good Functional Status: Reports: Pain Controlled, Tolerating Diet, Ambulating (bed to chair with assistance), Urinating - Review of Systems General: Reports: Weakness, Appetite (good). Denies: Fever, Chills HEENT: Denies: Dysphasia, Headaches, Sinus Congestion, Sore Throat, Visual Changes Pulmonary: Denies: Shortness of Breath, Cough, Sputum, Wheezing Cardiovascular: Reports: Edema. Denies: Chest Pain, Lightheadedness Gastrointestinal: Denies: Abdominal Pain, Diarrhea, Nausea, Vomiting Genitourinary: Denies: Dysuria, Burning, Flank Pain Musculoskeletal: Denies: Neck Pain, Shoulder Pain, Leg Pain Skin: Reports: Dryness, Rash. Denies: Cyanosis, Bruising Neurological: Reports: Weakness. Denies: Confusion, Dizziness, Tremors Psychiatric: Denies: Confusion, Anxiety, Hallucinations - Patient Data Vitals - Most Recent: Last Vital Signs Temp 36.7 C 01/27/20 08:20 Pulse 68 01/27/20 08:39 Resp 20 01/27/20 08:20 BP 125/63 01/27/20 08:39 Pulse Ox 98 01/27/20 08:20 Weight - Most Recent: 120.746 kg I&O - Last 24 Hours: Intake & Output 01/26/20 01/27/20 01/27/20 22:59 06:59 14:59 Intake Total 820 510 440 Output Total 850 1150 Balance -30 -532 440 Lab Results Last 24 Hours: Laboratory Results - last 24 hr 01/26/20 01/26/20 01/26/20 Range/Units 11:41 16:50 20:50 PT (9.0-12.0) SEC INR (0.9-1.2) Sodium (136-145) mmol/L Potassium (3.5-5.1) mmol/L Chloride (98-107) mmol/L Carbon Dioxide (21-32) mmol/L Anion Gap (7-13) mEq/L BUN (7-18) mg/dL Creatinine (0.55-1.02) mg/dL Est Cr Clr Drug Dosing mL/min Estimated GFR (MDRD) Glucose (74-99) mg/dL POC Glucose 113 H 102 132 H (83-110) mg/dl Calcium (8.5-10.1) mg/dL 01/27/20 01/27/20 01/27/20 Range/Units 05:55 05:55 08:01 PT 34.5 H (9.0-12.0) SEC INR 3.7 H (0.9-1.2) Sodium 139 (136-145) mmol/L Potassium 3.3 L (3.5-5.1) mmol/L Chloride 101 (98-107) mmol/L Carbon Dioxide 31 (21-32) mmol/L Anion Gap 10.3 (7-13) mEq/L BUN 16 (7-18) mg/dL Creatinine 1.03 H (0.55-1.02) mg/dL Est Cr Clr Drug Dosing 40.10 mL/min Estimated GFR (MDRD) 51 Glucose 97 (74-99) mg/dL POC Glucose 106 (83-110) mg/dl Calcium 8.3 L (8.5-10.1) mg/dL Leo Results Last 24 Hours: Microbiology 01/25/20 05:45 Aerobic Blood Culture - Preliminary Blood - Venous NO GROWTH AFTER 2 DAYS Anaerobic Blood Culture - Final 01/25/20 09:34 Aerobic Blood Culture - Preliminary Blood - Venous - Lab Draw NO GROWTH AFTER 2 DAYS Anaerobic Blood Culture - Preliminary NO GROWTH AFTER 2 DAYS 01/24/20 11:17 Aerobic Blood Culture - Final Blood Staphylococcus Warneri Anaerobic Blood Culture - Final Streptococcus Dysgalactiae 01/24/20 11:57 Urine Culture - Final Urine, Quick Cath (In-Out) Escherichia Coli Med Orders - Current: Current Medications Acetaminophen (Tylenol) 650 mg PO BID [facility] Last Admin: 01/27/20 08:41 Dose: 650 mg Documented by: Acetaminophen (Tylenol) 650 mg PO Q6H PRN PRN Reason: fever, mild pain Last Admin: 01/24/20 14:20 Dose: 650 mg Documented by: Bumetanide (Bumex) 2 mg PO BIDDIURETIC [facility] Last Admin: 01/27/20 08:39 Dose: 2 mg Documented by: Calcium Carbonate/Glycine (Tums) 500 mg PO TID PRN PRN Reason: Dyspepsia Diltiazem HCl (Cardizem Cd) 360 mg PO DAILY [facility] Last Admin: 01/27/20 08:39 Dose: 360 mg Documented by: Piperacillin Sod/Tazobactam (Sod 3.375 gm/ Sodium Chloride) 100 mls @ 200 mls/hr IV Q6HR [facility] Last Infusion: 01/27/20 06:42 Dose: Infused Documented by: Vancomycin HCl 1.5 gm/ Premix 300 mls @ 200 mls/hr IV Q24H [facility] Last Infusion: 01/26/20 16:45 Dose: Infused Documented by: Insulin Human Lispro (Humalog) 0 unit SUBCUT QIDACANDBED [facility]; Protocol Last Admin: 01/27/20 08:07 Dose: Not Given Documented by: Metoprolol Succinate (Toprol Xl) 200 mg PO DAILY [facility] Last Admin: 01/27/20 08:39 Dose: 200 mg Documented by: Nystatin (Nystop) 0 gm TOP BID@0630,1430 [facility] Last Admin: 01/27/20 06:00 Dose: 1 applic Documented by: Ondansetron HCl (Zofran Odt) 4 mg PO Q6H PRN PRN Reason: nausea, able to take PO Ondansetron HCl (Zofran) 4 mg IVPUSH Q6H PRN PRN Reason: Nausea/Vomiting Oxycodone HCl (Oxycodone) 5 mg PO Q4H PRN PRN Reason: Pain (moderate 4-6) Last Admin: 01/27/20 08:40 Dose: 5 mg Documented by: Potassium Chloride (Klor-Con 10) 30 meq PO BIDMEALS [facility] Last Admin: 01/27/20 08:38 Dose: 30 meq Documented by: Potassium Chloride (Klor-Con 10) 40 meq PO ONETIME ONE Stop: 01/27/20 12:01 Sodium Chloride (Saline Flush) 10 ml FLUSH ASDIRECTED PRN PRN Reason: Keep Vein Open Last Admin: 01/27/20 06:00 Dose: 10 ml Documented by: Spironolactone (Aldactone) 12.5 mg PO MoWeFr@0900 [facility] Last Admin: 01/25/20 08:46 Dose: 12.5 mg Documented by: Temazepam (Restoril) 15 mg PO BEDTIME PRN PRN Reason: Sleep Vancomycin HCl (Pharmacy To Dose - Vancomycin) 0 dose .XX ASDIRECTED [facility] Warfarin Sodium (Pharmacy To Dose - Warfarin) 0 dose .XX ASDIRECTED [facility] Discontinued Medications Heparin Sodium (Porcine) (Heparin Sodium) 5,000 units SUBCUT Q8HR [facility] Piperacillin Sod/Tazobactam (Sod 3.375 gm/ Sodium Chloride) 100 mls @ 200 mls/hr IV ONETIME ONE Stop: 01/24/20 12:47 Last Admin: 01/24/20 12:40 Dose: 200 mls/hr Documented by: Potassium Chloride (Klor-Con 10) 40 meq PO ONETIME ONE Stop: 01/26/20 10:14 Last Admin: 01/26/20 11:30 Dose: 40 meq Documented by: Potassium Chloride (Klor-Con 10) 40 meq PO ONETIME ONE Stop: 01/27/20 09:19 Last Admin: 01/27/20 10:18 Dose: Not Given Documented by: Warfarin Sodium (Coumadin) 4 mg PO ONETIME ONE Stop: 01/24/20 15:31 Last Admin: 01/24/20 17:31 Dose: 4 mg Documented by: Warfarin Sodium (Coumadin) 4 mg PO ONETIME ONE Stop: 01/25/20 14:01 Last Admin: 01/25/20 14:01 Dose: 4 mg Documented by: Warfarin Sodium (Coumadin) 2.5 mg PO ONETIME ONE Stop: 01/26/20 14:01 Last Admin: 01/26/20 14:25 Dose: 2.5 mg Documented by: - Exam Quality Assessment: Urine Catheter, DVT Prophylaxis. No: Supplemental Oxygen General: Alert, Oriented, Cooperative, No Acute Distress HEENT: Pupils Equal, EOMI, Mucous Membr. Moist/[place] Neck: Supple, No JVD, No Thyromegaly Lungs: Clear to Auscultation, Normal Respiratory Effort, Crackles, Wheezing Cardiovascular: Regular Rate, Regular Rhythm, Murmurs GI/Abdominal Exam: Normal Bowel Sounds, Non-Tender. No: Guarding, Rigid, Rebound (Female) Exam: Deferred Back Exam: Normal Inspection Extremities: Normal Inspection, Pedal Edema Skin: Warm, Dry, Intact, Other (flaking of skin of B/L LE) Neurological: No New Focal Deficit Psy/Mental Status: Alert, Normal Affect, Normal Mood Sepsis Event Note - Evaluation Sepsis Screening Result: No Definite Risk - Focused Exam Vital Signs: Vital Signs Temp Pulse Pulse Resp BP BP Pulse Ox 01/27/20 08:39 68 125/63 01/27/20 08:20 36.7 C 68 20 125/63 98 - Problem List Review Problem List Initiated/Reviewed/Updated: Yes - My Orders Last 24 Hours: My Active Orders 01/27/20 12:00 Potassium Chloride [Klor-Con 10] 40 meq PO ONETIME ONE 01/28/20 07:00 BASIC METABOLIC PANEL,BMP [CHEM] Routine - Plan Plan:: 79-year-old with a history of diabetes, hypertension, atrial fibrillation on chronic anticoagulation, morbid obesity, bilateral lymphedema. The patient has had multiple hospital admissions and the courses of treatment for bilateral lower extremity cellulitis. [facility]. Of admission the patient was noted to have fever up to 101, chills, tremors, altered mental status. The patient was referred to the emergency room. Noted to have bilateral lower extremity skin color changes and the hospital admission was recommended. Impression and Plan: 1. Bilateral lower extremity cellulitis with sepsis present on admission blood culture: gram pos cocci ( Staphylococcus Warneri) , Urine culture : E.Coli - repeat Blood culture from 01/24- showing no growth ( final report) -Will continue treatment with vancomycin for gram positive cocci ( Staphylococcus warneri- susceptible to Vancomycin) and urine culture: positive with E.Coli and susceptible to Zosyn and will continue both antibiotics 2. Sepsis: With fever, leukocytosis, cellulitis of the lower extremity, elevated lactic acid - lactic acid improved - wbc improved -BP is better -Continue antibiotic 3. Diabetes - will continue to Hold metformin - Follow blood sugars -Use supplemental insulin and hypoglycemia treatment as needed 4. Hypertension, afib; BP acceptable and rate is controlled -Will continue metoprolol, diltiazem Continue anticoagulation with Coumadin for A. fib 5. Hypokalemia: This is likely from diuresis -Has received potassium chloride 40 meq PO X 1 on 01/26/20 and will give again today 40 meq PO X 1 extra dose, will continue schedule doing of potassium chloride 30 meq PO daily -Recheck Potassium in AM is acceptable 6. Edema of Extremities: She is responding well to Bumex 2 mg PO BID -Continue I/O recording and daily weight CODE STATUS was discussed with the patient on admission She elected DNR, DNI CODE STATUS
[2020-01-28] MEDS: Piperacillin/Tazobactam 3.375 GM in Sodium Chloride 0.9% 100 ML IV SCH ×5 (00:01→23:53)
[2020-01-28] MEDS: Sodium Chloride 0.9% 10 ML Syringe FLUSH PRN ×2 (00:01→11:35)
[2020-01-28] MEDS: Nystatin Topical Powder 30 GM Bottle TOP SCH ×2 (05:47→13:49)
[2020-01-28 06:53] LABS: ANION GAP 10.1 mEq/L (7-13)
[2020-01-28] MEDS: Spironolactone 25 MG Tab PO SCH (08:14)
[2020-01-28] MEDS: Potassium Chloride 10 MEQ Tab.ER PO SCH ×2 (08:14→17:57)
[2020-01-28] MEDS: Insulin Lispro 100 Units/ML 3 ML Vial SUBCUT SCH ×4 (08:14→21:34)
[2020-01-28] MEDS: Acetaminophen 325 MG Tab PO SCH ×2 (08:15→21:34)
[2020-01-28] MEDS: Diltiazem 180 MG Cap.CD PO SCH (08:15)
[2020-01-28] MEDS: Bumetanide 1 MG Tab PO SCH ×2 (08:16→13:49)
[2020-01-28] MEDS: oxyCODONE 5 MG Tab PO PRN (08:16)
[2020-01-28] MEDS: Metoprolol Succinate 50 MG Tab.ER PO SCH (08:16)
[2020-01-28] MEDS ORDERED: Potassium Chloride 10 MEQ Tab.ER PO ONE ×2 (08:54→11:30)
--- NOTE | 2020-01-28 10:24 | PN ---
DATE: 01/28/2020 SUBJECTIVE: The patient is an 79-year-old lady who was admitted because of recurrent lower extremity cellulitis and blood cultures showing Staphylococcus warneri and she is currently on vancomycin and urine culture also showed E. coli which is susceptible to Zosyn, which is like she is also on Zosyn currently. The patient is doing fairly well and she still has the redness on the right lower extremity from the cellulitis, but she denies any significant pain. Denies any chest pain, shortness of breath, abdominal pain, fever, chills, nor any other complaints. LABORATORY DATA: Lab workup this morning, CBC; WBC 7.7, hemoglobin is 11.6, hematocrit is 37.1, platelets 244. Protime 28.7, INR 3.1. Chem-6, potassium is 3.1. The rest of the panel unremarkable, and glucose is 143. OBJECTIVE: Vital Signs: Blood pressure is 114/54, pulse of 61, respirations 20, temperature of 97.4, saturation is 97% on room air. Heart: Regular rate and rhythm. Normal S1 and S2. No gallops. No rubs. Lungs: Equal bilaterally. No crackles. No wheezing. Abdomen: Obese, soft, nontender. Extremities: Remarkable for the swelling and redness on the right lower extremity. MEDICATIONS: Reviewed. PLAN: We will continue with her IV antibiotics, that is Zosyn and vancomycin. I am going to give her an extra dose of potassium as her potassium is still low and otherwise we will continue the rest of her management. We will also check for magnesium and repeat basic metabolic panel in a.m. [facility] /[id number]
[2020-01-29] MEDS: Piperacillin/Tazobactam 3.375 GM in Sodium Chloride 0.9% 100 ML IV SCH ×3 (06:06→18:10)
[2020-01-29] MEDS: Nystatin Topical Powder 30 GM Bottle TOP SCH ×2 (06:50→14:17)
[2020-01-29 06:53] LABS: ANION GAP 10.3 mEq/L (7-13)
[2020-01-29] MEDS ORDERED: Potassium Chloride 10 MEQ Tab.ER PO ONE ×2 (09:00→11:45)
[2020-01-29] MEDS: Potassium Chloride 10 MEQ Tab.ER PO SCH ×2 (09:05→18:13)
[2020-01-29] MEDS: Bumetanide 1 MG Tab PO SCH ×2 (09:05→14:16)
[2020-01-29] MEDS: Metoprolol Succinate 50 MG Tab.ER PO SCH (09:05)
[2020-01-29] MEDS: Acetaminophen 325 MG Tab PO SCH ×2 (09:06→21:10)
[2020-01-29] MEDS: Diltiazem 180 MG Cap.CD PO SCH (09:06)
[2020-01-29] MEDS: Insulin Lispro 100 Units/ML 3 ML Vial SUBCUT SCH ×4 (09:06→21:09)
--- NOTE | 2020-01-29 09:58 | PN ---
DATE: 01/29/2020 SUBJECTIVE: The patient is doing fairly well. She denies any significant ongoing complaints, but she still has the redness on both lower extremities (cellulitis). The patient denies any chest pain, shortness of breath, abdominal pain, flank pain, or any other complaints. LABORATORY WORKUP: This morning, protime is 23.3, INR is 2.5. Basic metabolic panel: Potassium is 3.3, glucose is 125. The rest of the panel unremarkable. OBJECTIVE: Vital Signs: Blood pressure is 128/65, pulse of 58, respirations of 20, temperature of 97.9, saturation is 99% on room air. Heart: Regular rate and rhythm. Normal S1 and S2. No gallops. No rubs. Lungs: Equal bilaterally. No crackles. No wheezing. Abdomen: Obese, soft, nontender. Extremities: Remarkable for the bilateral pedal edema and redness on both lower extremities. MEDICATIONS: Reviewed. PLAN: We will continue with her IV antibiotics and the rest of her present management. I will also give an extra dose of potassium today in addition to her current daily potassium supplement. [facility] /[id number]
[2020-01-29] MEDS ORDERED: Warfarin 2.5 MG Tab PO ONE (14:00)
[2020-01-29] MEDS: Sodium Chloride 0.9% 10 ML Syringe FLUSH PRN (21:15)
[2020-01-30] MEDS: Piperacillin/Tazobactam 3.375 GM in Sodium Chloride 0.9% 100 ML IV SCH ×2 (00:03→05:38)
[2020-01-30] MEDS: Sodium Chloride 0.9% 10 ML Syringe FLUSH PRN ×4 (00:03→06:47)
[2020-01-30] MEDS: Nystatin Topical Powder 30 GM Bottle TOP SCH (05:39)
[2020-01-30] MEDS: Insulin Lispro 100 Units/ML 3 ML Vial SUBCUT SCH (08:13)
[2020-01-30 08:20] VITALS: BP 138/64; PULSE 64
[2020-01-30] MEDS: Bumetanide 1 MG Tab PO SCH (08:32)
[2020-01-30] MEDS: Diltiazem 180 MG Cap.CD PO SCH (08:32)
[2020-01-30] MEDS: Potassium Chloride 10 MEQ Tab.ER PO SCH (08:33)
[2020-01-30] MEDS: Metoprolol Succinate 50 MG Tab.ER PO SCH (08:33)
[2020-01-30] MEDS: Spironolactone 25 MG Tab PO SCH (08:34)
[2020-01-30] MEDS: Acetaminophen 325 MG Tab PO SCH (08:35)
--- NOTE | 2020-01-30 09:58 | PN ---
DATE: 01/30/2020 SUBJECTIVE: The patient is doing fairly well. She had a good night sleep. She denies any chest pain, shortness of breath, abdominal pain, nor any other significant complaint, but there is still some redness on both lower extremities, more on the right. OBJECTIVE: Vital Signs: Blood pressure is 138/64, pulse 64, respirations of 20, temperature of 98.2, and saturation is 98% on room air. Heart: Regular rate and rhythm. No gallops. No rubs. Lungs: Equal bilaterally. No crackles, no wheezing. Abdomen: Obese, soft, nontender. Extremities: Still remarkable for bilateral pedal edema and redness on both lower extremities. LAB WORKUP THIS MORNING: Blood sugar is 116. MEDICATIONS: Reviewed. PLAN: We will continue with her current regimen and continue with IV antibiotics, that are Zosyn and vancomycin. [facility] /[id number]
--- NOTE | 2020-01-30 10:01 | PN ---
DATE: 01/30/2020 The patient has an appointment with Infectious Disease (telemedicine) at the long term tomorrow, and because of this, she will be discharged back to the long term today, and we will continue with her current IV antibiotics and she is going to be keeping that telemedicine appointment with Infectious Disease tomorrow at the long term. [facility] /[id number]
--- NOTE | 2020-01-30 10:07 | DISCH ---
FINAL DIAGNOSES: 1. Sepsis (Staphylococcus warneri). 2. Cellulitis of both lower extremities. 3. Urinary tract infection with Escherichia coli. 4. Atrial fibrillation, on anticoagulation with Coumadin. 5. Hypertension. 6. Obesity. 7. Type 2 diabetes mellitus. BRIEF HISTORY OF PRESENT ILLNESS: Please see H and P. PERTINENT LABS, X-RAY AND OTHER TESTS ON ADMISSION: Please see H and P. HOSPITAL COURSE: The patient was admitted to General Medicine floor. She was empirically started on IV vancomycin and IV Zosyn. Urine culture grew Escherichia coli, which is susceptible to Zosyn. Blood culture showed Staphylococcus warneri, susceptible to vancomycin. The patient was also continued on her home medication and she did well. The patient's WBC slowly improved, and on January 28, 2020, her WBC was 7.7, which is now within normal limits. The rest of the hospital course was unremarkable and she was subsequently discharged back to [facility] and she was continued on IV antibiotics and she will be seen by Infectious Disease on telemedicine for further management. CONDITION ON DISCHARGE: Improved. [facility] /[id number]
[2020-01-30] MEDS ORDERED: Warfarin 2.5 MG Tab PO ONE (14:00)
== END 2020-01-30 10:50 | DRG 698 ==
LOC: DL.ED 09:37 → DL.MS 12:19
PROVIDERS: ADMIT Internal Medicine; ATTEND Internal Medicine
DX: T83.511A Infection and inflammatory reaction due to indwelling urethral catheter, initial encounter (principal); A41.1 Sepsis due to other specified staphylococcus; L03.116 Cellulitis of left lower limb; L03.115 Cellulitis of right lower limb; Z68.41 Body mass index [BMI] 40.0-44.9, adult; N39.0 Urinary tract infection, site not specified; I48.91 Unspecified atrial fibrillation; K58.9 Irritable bowel syndrome, unspecified; Z86.010 Personal history of colon polyps; E11.9 Type 2 diabetes mellitus without complications; Z66 Do not resuscitate; B96.20 Unspecified Escherichia coli [E. coli] as the cause of diseases classified elsewhere; E66.01 Morbid (severe) obesity due to excess calories; I89.0 Lymphedema, not elsewhere classified; H54.7 Unspecified visual loss; E78.00 Pure hypercholesterolemia, unspecified; F32.9 Major depressive disorder, single episode, unspecified; F41.9 Anxiety disorder, unspecified; I11.0 Hypertensive heart disease with heart failure; I50.9 Heart failure, unspecified; Z85.3 Personal history of malignant neoplasm of breast; R32 Unspecified urinary incontinence; M79.7 Fibromyalgia; Z90.710 Acquired absence of both cervix and uterus; M19.90 Unspecified osteoarthritis, unspecified site; Z91.048 Other nonmedicinal substance allergy status; G89.29 Other chronic pain; M54.9 Dorsalgia, unspecified; Z91.013 Allergy to seafood; Z79.01 Long term (current) use of anticoagulants; Z79.899 Other long term (current) drug therapy; Z87.440 Personal history of urinary (tract) infections; Z91.09 Other allergy status, other than to drugs and biological substances; Z86.73 Personal history of transient ischemic attack (TIA), and cerebral infarction without residual deficits; Z90.11 Acquired absence of right breast and nipple; Z98.49 Cataract extraction status, unspecified eye; Z98.890 Other specified postprocedural states; E87.6 Hypokalemia
CPT/HCPCS: 36415; 80053; 81001; 83605; 84484; 85025; 85610; 87040; 87077; 87086; 87088; 87186 ×2; 93005; 99284; 99285; U0002; 51701; 80048; 80202; 82962; 83735; A9270-GY; J1815-GY; J2543; J3370; J7050

== ENCOUNTER 2020-02-17 10:43 | Inpatient (IN) | payer MEDICARE, OTHER ==
--- NOTE | 2020-02-17 12:28 | PCM.HP ---
H&P History of Present Illness - General Date of Service: 02/17/20 Source of Information: Patient, Provider (dr. Bourne) - History of Present Illness Initial Comments - Free Text/Narative: 79-year-old with a history of diabetes, hypertension, atrial fibrillation on chronic anticoagulation, morbid obesity, bilateral lymphedema. The patient has had multiple hospital admissions and the courses of treatment for bilateral lower extremity cellulitis. She was discharged about 10 days ago from one of these admissions. [facility] she was noted to have fever up to 103.7 associated with the beeping, increasingly red bilateral lower extremities. Patient can add minimal information. She has no pain in the lower extremity associated with this. She does have associated chills with the fever. No chest pain, no shortness of breath, no abdominal pain. She is incontinent to urine. - Related Data Allergies/Adverse Reactions: Allergies Allergy/AdvReac Type Severity Reaction Status Date / Time shellfish derived AdvReac Unknown Diarrhea Verified 01/24/20 10:05 tape Allergy Unknown Blisters Uncoded 01/24/20 10:05 Home Medications: Home Meds Metoprolol Succinate [Toprol XL] 200 mg PO DAILY 12/07/14 [History] Letrozole 2.5 mg PO DAILY 06/08/17 [History] Calcium Carbonate [Tums] 500 mg PO TID PRN 06/14/17 [History] Potassium Chloride [Klor-Con 10] 30 meq PO BIDMEALS 06/14/17 [History] Acetaminophen 650 mg PO BID 08/08/19 [History] Acetaminophen [Tylenol] 650 mg PO Q4H PRN 08/08/19 [History] Arginine/Ascorbate Sod/Fredy AC [Arginaid Powder] 8 oz PO BID 08/08/19 [History] Bumetanide 2 mg PO BID 08/08/19 [History] Cetirizine [ZyrTEC] 5 mg PO DAILY PRN 08/08/19 [History] Lactulose 15 ml PO DAILY PRN 08/08/19 [History] Loperamide [Imodium AD] 2 - 4 mg PO ASDIRECTED PRN 08/08/19 [History] Magnesium Hydroxide [Milk of Magnesia] 30 ml PO DAILY PRN 08/08/19 [History] Nystatin [Nyamyc] 1 applic TOP BID@0630,1430 08/08/19 [History] Ondansetron [Zofran] 4 mg PO Q4H PRN 08/08/19 [History] Triamcinolone Acetonide [Kenalog 0.1% Crm] 1 applic TOP BID@0630,1430 08/08/19 [History] Warfarin Sodium [Coumadin] 2.5 mg PO .WEDSUN 08/08/19 [History] Warfarin [Coumadin] 4 mg PO .MONTUTHUFRISAT 08/08/19 [History] dilTIAZem HCL [Diltiazem 24Hr ER] 360 mg PO DAILY 08/08/19 [History] metFORMIN HCl [Metformin HCl] 500 mg PO DAILY 08/08/19 [History] Spironolactone [Aldactone] 12.5 mg PO .MONWEDFRI 10/19/19 [History] L.acidoph,Paracasei, B.lactis [Probiotic] 1 each PO DAILY 02/17/20 [History] Past Medical History HEENT History: Reports: Cataract, Epistaxis, Impaired Vision Other HEENT History: wears glasses Cardiovascular History: Reports: Afib, Heart Failure, High Cholesterol, Hypertension, Other (See Below) Other Cardiovascular History: At fib is new onset discovered today at the clinic Respiratory History: Reports: Bronchitis, Recurrent Gastrointestinal History: Reports: Colon Polyp, Irritable Bowel Syndrome Genitourinary History: Reports: Urinary Incontinence, UTI, Recurrent, Other (See Below) Other Genitourinary History: leaking 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: Musculoskeletal History: Reports: Back Pain, Chronic, Fracture, Fibromyalgia, Osteoarthritis, Other (See Below) Other Musculoskeletal History: Right fibula fx 04-06-16 Neurological History: Reports: CVA, Other (See Below) Other Neuro History: Mild cognitive impairment Psychiatric History: Reports: Anxiety, Depression Endocrine/Metabolic History: Reports: Hypokalemia, Obesity/BMI 30+ Other Endocrine/Metabolic History: Abnormal glucose readings Hematologic History: Reports: Anticoagulation Therapy Immunologic History: Reports: None Oncologic (Cancer) History: Reports: Breast, Other (See Below) Other Oncologic History: right masectomy Dermatologic History: Reports: Cellulitis, Other (See Below) Other Dermatologic History: 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 - Infectious Disease History Infectious Disease History: Reports: Chicken Pox, Measles, Mumps - Past Surgical History HEENT Surgical History: Reports: Cataract Surgery Cardiovascular Surgical History: Reports: None Respiratory Surgical History: Reports: None GI Surgical History: Reports: None Female Surgical History: Reports: Breast Reconstruction, Hysterectomy, Mastectomy Other Female Surgeries/Procedures: right mastectomy with reconstruction Endocrine Surgical History: Reports: None Neurological Surgical History: Reports: None Musculoskeletal Surgical History: Reports: None Oncologic Surgical History: Reports: Mastectomy Dermatological Surgical History: Reports: None Social & Family History - Family History Family Medical History: Noncontributory - Caffeine Use Caffeine Use: Reports: Coffee - Living Situation & Occupation Living situation: Reports: Extended Care Facility Occupation: Retired H&P Review of Systems - Review of Systems: Review Of Systems: See Below General: Reports: Fever, Chills Pulmonary: Denies: Shortness of Breath Cardiovascular: Reports: Edema. Denies: Chest Pain Gastrointestinal: Denies: Abdominal Pain Genitourinary: Reports: Incontinence Exam - Exam Exam: See Below - Exam General: Alert, Oriented (Partially to place and person, partially to recent events.) Lungs: Clear to Auscultation, Normal Respiratory Effort Cardiovascular: Irregular Rhythm GI/Abdominal Exam: Normal Bowel Sounds, Soft, Other (Obese) Extremities: Pedal Edema (Bilateral) Skin: Warm, Other (Bilateral lower extremities with red and open areas of superficial wounds.) Neuro Extensive - Mental Status: Alert, Normal Mood/Affect Psychiatric: Alert, Normal Affect, Normal Mood - Problem List (1) Cellulitis SNOMED Code(s): 996298595 ICD Code: L03.90 - CELLULITIS, UNSPECIFIED Status: Acute Current Visit: No (2) Sepsis SNOMED Code(s): 24014890 ICD Code: A41.9 - SEPSIS, UNSPECIFIED ORGANISM Status: Acute Current Visit: No Onset Date: ~11/24/19 Qualifiers: (3) A-fib SNOMED Code(s): 14401263 ICD Code: I48.91 - UNSPECIFIED ATRIAL FIBRILLATION Status: Chronic Current Visit: No (4) Breast cancer SNOMED Code(s): 870724938 ICD Code: C50.919 - MALIGNANT NEOPLASM OF UNSP SITE OF UNSPECIFIED FEMALE BREAST Status: Chronic Priority: Medium Current Visit: No (5) HTN (hypertension) SNOMED Code(s): 35660045 ICD Code: I10 - ESSENTIAL (PRIMARY) HYPERTENSION Status: Chronic Current Visit: No (6) Morbid obesity SNOMED Code(s): 326877308 ICD Code: E66.01 - MORBID (SEVERE) OBESITY DUE TO EXCESS CALORIES Status: Chronic Current Visit: No Problem List Initiated/Reviewed/Updated: Yes Orders Last 24hrs: Active Orders 24 hr Category Date Time Status Communication Order [RC] DAILY Care 02/17/20 12:19 Ordered Rodrigues Catheter Insertion [Insert Urinary Catheter] [OM. Care 02/17/20 11:45 Ordered PC] Q24H Glucose [Blood Glucose Check, Bedside] [RC] QIDACANDBED Care 02/17/20 11:43 Active Urinary Catheter Assessment [RC] ASDIRECTED Care 02/17/20 11:45 Active BASIC METABOLIC PANEL,BMP [CHEM] AM Lab 02/18/20 05:15 Ordered BASIC METABOLIC PANEL,BMP [CHEM] Routine Lab 02/17/20 11:43 Ordered C-REACTIVE PROTEIN [CHEM] Routine Lab 02/17/20 11:43 Ordered CBC WITH AUTO DIFF [HEME] AM Lab 02/18/20 05:15 Ordered CBC WITH AUTO DIFF [HEME] Routine Lab 02/17/20 11:43 Ordered CULTURE BLOOD [BC] Stat Lab 02/17/20 11:44 Ordered CULTURE BLOOD [BC] Stat Lab 02/17/20 11:44 Ordered CULTURE URINE [RM] Routine Lab 02/17/20 11:44 Ordered INR,PT,PROTHROMBIN TIME [COAG] AM Lab 02/18/20 05:11 Ordered INR,PT,PROTHROMBIN TIME [COAG] AM Lab 02/19/20 05:11 Ordered INR,PT,PROTHROMBIN TIME [COAG] AM Lab 02/20/20 05:11 Ordered INR,PT,PROTHROMBIN TIME [COAG] AM Lab 02/21/20 05:11 Ordered INR,PT,PROTHROMBIN TIME [COAG] AM Lab 02/22/20 05:11 Ordered INR,PT,PROTHROMBIN TIME [COAG] Routine Lab 02/17/20 12:09 Ordered LACTIC ACID [CHEM] Routine Lab 02/17/20 11:44 Ordered MAGNESIUM [CHEM] Routine Lab 02/17/20 11:43 Ordered PHOSPHORUS [CHEM] Routine Lab 02/17/20 11:43 Ordered UA W/MICROSCOPIC [URIN] Routine Lab 02/17/20 11:44 Ordered Bumetanide [Bumetanide] Med 02/17/20 21:00 Ordered 2 mg PO BID Letrozole Med 02/18/20 09:00 Ordered 2.5 mg PO DAILY Metoprolol Succinate [Toprol XL] Med 02/18/20 09:00 Ordered 200 mg PO DAILY Nystatin [Nystop] Med 02/17/20 14:30 Ordered 1 applic TOP BID@0630,1430 Pharmacy to Dose - Vancomycin Med 02/17/20 12:30 Ordered 1 dose .XX ASDIRECTED Pharmacy to Dose - Warfarin Med 02/17/20 12:30 Ordered 1 dose .XX ASDIRECTED Piperacillin/Tazobactam [Zosyn] 3.375 gm Med 02/17/20 12:15 Ordered Sodium Chloride 0.9% [Normal Saline] 100 ml IV Q6H Potassium Chloride [Klor-Con 10] Med 02/17/20 18:00 Ordered 30 meq PO BIDMEALS Spironolactone [Aldactone] Med 02/17/20 12:30 Ordered 12.5 mg PO .CATERINARI dilTIAZem HCL [Diltiazem 24Hr ER] Med 02/18/20 09:00 Ordered 360 mg PO DAILY Blood Culture x2 Reflex Set [OM.PC] Stat Oth 02/17/20 11:44 Ordered Medication Orders Piperacillin Sod/Tazobactam (Sod 3.375 gm/ Sodium Chloride) 100 mls @ 200 mls/hr IV Q6H [facility] Non-Formulary Medication (Bumetanide [Bumetanide]) 2 mg PO BID Y[facility] Non-Formulary Medication (Diltiazem Hcl [Diltiazem 24hr Er]) 360 mg PO DAILY [facility] Non-Formulary Medication (Letrozole) 2.5 mg PO DAILY [facility] Non-Formulary Medication (Metoprolol Succinate [Toprol Xl]) 200 mg PO DAILY Y[facility] Nystatin (Nystop) gm TOP BID@0630,1430 [facility] Potassium Chloride (Klor-Con 10) 30 meq PO BIDMEALS YRN Spironolactone (Aldactone) 12.5 mg PO .MONWEDFRI [facility] Vancomycin HCl (Pharmacy To Dose - Vancomycin) 1 dose .XX ASDIRECTED [facility] Warfarin Sodium (Pharmacy To Dose - Warfarin) 1 dose .XX ASDIRECTED [facility] Assessment/Plan Comment:: 79-year-old lady with history of atrial fibrillation on chronic anticoagulation, hypertension, morbid obesity. She has recurrent lower extremity cellulitis requiring hospitalization. Prior cultures were non-diagnostic. Presented with fever, chills Concern for possible sepsis Check lactic acid monitor electrolytes Obtain urinalysis and culture Obtain blood cultures Likely lower extremity cellulitis Start empirical treatment with Zosyn and vancomycin Use Xeroform dressing with compression therapy diabetes Hold metformin Follow blood sugars Use supplemental insulin and hypoglycemia treatment as needed Hypertension, afib Treat with metoprolol, diltiazem Continue anticoagulation with Coumadin for A. fib CODE STATUS was discussed with the patient She elects DNR, DNI CODE STATUS This is the same as prior admissions
[2020-02-17 12:49] LABS: ANION GAP 11.8 mEq/L (7-13)
[2020-02-17] MEDS: Sodium Chloride 0.9% 1,000 ML IV SCH (12:59)
[2020-02-17] MEDS: Piperacillin/Tazobactam 3.375 GM in Sodium Chloride 0.9% 100 ML IV SCH ×2 (13:01→17:31)
--- NOTE | 2020-02-17 13:01 | PCM.SN.2 ---
- Free Text/Narrative Note: Lactic acid elevation noted. The patient likely has sepsis but not severe sepsis from cellulitis. I will not repeat lactic acid level since I do not think this would change the management and the patient is extremely difficult to get blood from.
[2020-02-17] MEDS ORDERED: Warfarin 2.5 MG Tab PO ONE (14:00)
[2020-02-17] MEDS: Bumetanide 1 MG Tab PO SCH (15:34)
[2020-02-17] MEDS: Nystatin Topical Powder 30 GM Bottle TOP SCH (15:35)
[2020-02-17] MEDS ORDERED: Acetaminophen 325 MG Tab PO PRN (15:41)
[2020-02-17] MEDS ORDERED: Ondansetron 4 MG/2 ML SDV IVPUSH PRN (16:50)
[2020-02-17] MEDS ORDERED: Docusate Sodium 100 MG Cap PO PRN (16:50)
[2020-02-17] MEDS: Acetaminophen 325 MG Tab PO SCH ×2 (17:02→21:50)
[2020-02-17] MEDS: Potassium Chloride 10 MEQ Tab.ER PO SCH (17:02)
[2020-02-17] MEDS: Insulin Lispro 100 Units/ML 3 ML Vial SUBCUT SCH ×2 (17:11→21:14)
[2020-02-17] MEDS ORDERED: Heparin Sodium 5,000 Units/ML Vial SUBCUT SCH (22:00)
[2020-02-18] MEDS: Piperacillin/Tazobactam 3.375 GM in Sodium Chloride 0.9% 100 ML IV SCH ×4 (00:41→17:59)
[2020-02-18] MEDS: Sodium Chloride 0.9% 1,000 ML IV SCH (02:06)
[2020-02-18] MEDS: Nystatin Topical Powder 30 GM Bottle TOP SCH ×2 (06:20→13:42)
[2020-02-18 07:13] LABS: ANION GAP 10.4 mEq/L (7-13)
[2020-02-18] MEDS: Insulin Lispro 100 Units/ML 3 ML Vial SUBCUT SCH ×4 (08:37→21:33)
[2020-02-18] MEDS: Metoprolol Succinate 50 MG Tab.ER PO SCH (08:38)
[2020-02-18] MEDS: Potassium Chloride 10 MEQ Tab.ER PO SCH ×2 (08:39→17:58)
[2020-02-18] MEDS: Acetaminophen 325 MG Tab PO SCH ×2 (08:39→20:02)
[2020-02-18] MEDS: Spironolactone 25 MG Tab PO SCH (08:40)
[2020-02-18] MEDS: Bumetanide 1 MG Tab PO SCH ×2 (08:44→13:41)
[2020-02-18] MEDS: Diltiazem 180 MG Cap.CD PO SCH (08:44)
[2020-02-18] MEDS: LETROZOLE PO SCH (08:45)
[2020-02-18] MEDS ORDERED: Potassium Chloride 10 MEQ Tab.ER PO ONE (12:14)
--- NOTE | 2020-02-18 12:18 | PCM.PN ---
- General Info Date of Service: 02/18/20 Subjective Update: Feeling well, no complaints. No fever, no associated chills. Lower extremity redness improved. Edema is better, significant LBP mostly on the right side. Chest pain, no shortness of breath Functional Status: Reports: Pain Controlled - Review of Systems General: Denies: Fever Pulmonary: Denies: Shortness of Breath Cardiovascular: Reports: Edema. Denies: Chest Pain Gastrointestinal: Denies: Abdominal Pain Neurological: Denies: Confusion - Patient Data Vitals - Most Recent: Last Vital Signs Temp 98.0 F 02/18/20 08:11 Pulse 56 L 02/18/20 08:38 Resp 20 02/18/20 08:11 BP 99/51 L 02/18/20 08:38 Pulse Ox 98 02/18/20 08:11 Weight - Most Recent: 266 lb 9.6 oz I&O - Last 24 Hours: Intake & Output 02/17/20 02/18/20 02/18/20 22:59 06:59 14:59 Intake Total 420 1885 360 Output Total 950 Balance 420 935 360 Lab Results Last 24 Hours: Laboratory Results - last 24 hr 02/17/20 02/17/20 02/17/20 Range/Units 11:44 12:05 12:05 WBC 16.4 H (5.0-10.0) 10^3/uL RBC 5.18 (4.2-5.4) 10^6/uL Hgb 14.1 D (12.0-16.0) g/dL Hct 43.5 (37.0-47.0) % MCV 84.0 (80-100) fL MCH 27.2 (27.0-34.0) pg MCHC 32.4 L (33.0-35.0) g/dL Plt Count 270 (150-450) 10^3/uL Neut % (Auto) 86.3 H (42.2-75.2) % Lymph % (Auto) 6.1 L (20.5-50.1) % [place] % (Auto) 7.0 (2-8) % Eos % (Auto) 0.4 L (1.0-3.0) % Baso % (Auto) 0.2 (0.0-1.0) % PT (9.0-12.0) SEC INR (0.9-1.2) Sodium 138 (136-145) mmol/L Potassium 3.8 (3.5-5.1) mmol/L Chloride 98 (98-107) mmol/L Carbon Dioxide 32 (21-32) mmol/L Anion Gap 11.8 (7-13) mEq/L BUN 15 (7-18) mg/dL Creatinine 1.23 H (0.55-1.02) mg/dL Est Cr Clr Drug Dosing 33.58 mL/min Estimated GFR (MDRD) 42 Glucose 131 H (74-99) mg/dL POC Glucose (83-110) mg/dl Lactic Acid (0.4-2.0) mmol/L Calcium 9.5 (8.5-10.1) mg/dL Phosphorus 3.2 (2.6-4.7) mg/dL Magnesium 1.9 (1.8-2.4) mg/dL C-Reactive Protein 4.9 H (0.0-0.9) mg/dL Urine Color Yellow (YELLOW) Urine Appearance Clear (CLEAR) Urine pH 5.0 (5.0-9.0) Ur Specific [place] 1.015 (1.005-1.030) Urine Protein Negative (NEGATIVE) Urine Glucose (UA) Negative (NEGATIVE) Urine Ketones Negative (NEGATIVE) Urine Occult Blood Moderate H (NEGATIVE) Urine Nitrite Negative (NEGATIVE) Urine Bilirubin Negative (NEGATIVE) Urine Urobilinogen 0.2 (0.2-1.0) mg/dL Ur Leukocyte Esterase Negative (NEGATIVE) Urine RBC 5-10 H /HPF Urine WBC 0-5 (0-5/HPF) /HPF Ur Epithelial Cells Not seen (NOT SEEN) /HPF Urine Bacteria Rare (0-FEW/HPF) /HPF 02/17/20 02/17/20 02/17/20 Range/Units 12:05 12:05 16:49 WBC (5.0-10.0) 10^3/uL RBC (4.2-5.4) 10^6/uL Hgb (12.0-16.0) g/dL Hct (37.0-47.0) % MCV (80-100) fL MCH (27.0-34.0) pg MCHC (33.0-35.0) g/dL Plt Count (150-450) 10^3/uL Neut % (Auto) (42.2-75.2) % Lymph % (Auto) (20.5-50.1) % [place] % (Auto) (2-8) % Eos % (Auto) (1.0-3.0) % Baso % (Auto) (0.0-1.0) % PT 24.0 H (9.0-12.0) SEC INR 2.6 H (0.9-1.2) Sodium (136-145) mmol/L Potassium (3.5-5.1) mmol/L Chloride (98-107) mmol/L Carbon Dioxide (21-32) mmol/L Anion Gap (7-13) mEq/L BUN (7-18) mg/dL Creatinine (0.55-1.02) mg/dL Est Cr Clr Drug Dosing mL/min Estimated GFR (MDRD) Glucose (74-99) mg/dL POC Glucose 148 H (83-110) mg/dl Lactic Acid 2.7 H* (0.4-2.0) mmol/L Calcium (8.5-10.1) mg/dL Phosphorus (2.6-4.7) mg/dL Magnesium (1.8-2.4) mg/dL C-Reactive Protein (0.0-0.9) mg/dL Urine Color (YELLOW) Urine Appearance (CLEAR) Urine pH (5.0-9.0) Ur Specific [place] (1.005-1.030) Urine Protein (NEGATIVE) Urine Glucose (UA) (NEGATIVE) Urine Ketones (NEGATIVE) Urine Occult Blood (NEGATIVE) Urine Nitrite (NEGATIVE) Urine Bilirubin (NEGATIVE) Urine Urobilinogen (0.2-1.0) mg/dL Ur Leukocyte Esterase (NEGATIVE) Urine RBC /HPF Urine WBC (0-5/HPF) /HPF Ur Epithelial Cells (NOT SEEN) /HPF Urine Bacteria (0-FEW/HPF) /HPF 02/17/20 02/18/20 02/18/20 Range/Units 21:06 06:00 06:00 WBC 10.0 (5.0-10.0) 10^3/uL RBC 4.14 L (4.2-5.4) 10^6/uL Hgb 11.3 L D (12.0-16.0) g/dL Hct 35.8 L (37.0-47.0) % MCV 86.5 (80-100) fL MCH 27.3 (27.0-34.0) pg MCHC 31.6 L (33.0-35.0) g/dL Plt Count 182 D (150-450) 10^3/uL Neut % (Auto) 78.9 H (42.2-75.2) % Lymph % (Auto) 7.7 L (20.5-50.1) % [place] % (Auto) 12.2 H (2-8) % Eos % (Auto) 0.9 L (1.0-3.0) % Baso % (Auto) 0.3 (0.0-1.0) % PT 21.6 H (9.0-12.0) SEC INR 2.3 H (0.9-1.2) Sodium (136-145) mmol/L Potassium (3.5-5.1) mmol/L Chloride (98-107) mmol/L Carbon Dioxide (21-32) mmol/L Anion Gap (7-13) mEq/L BUN (7-18) mg/dL Creatinine (0.55-1.02) mg/dL Est Cr Clr Drug Dosing mL/min Estimated GFR (MDRD) Glucose (74-99) mg/dL POC Glucose 114 H (83-110) mg/dl Lactic Acid (0.4-2.0) mmol/L Calcium (8.5-10.1) mg/dL Phosphorus (2.6-4.7) mg/dL Magnesium (1.8-2.4) mg/dL C-Reactive Protein (0.0-0.9) mg/dL Urine Color (YELLOW) Urine Appearance (CLEAR) Urine pH (5.0-9.0) Ur Specific [place] (1.005-1.030) Urine Protein (NEGATIVE) Urine Glucose (UA) (NEGATIVE) Urine Ketones (NEGATIVE) Urine Occult Blood (NEGATIVE) Urine Nitrite (NEGATIVE) Urine Bilirubin (NEGATIVE) Urine Urobilinogen (0.2-1.0) mg/dL Ur Leukocyte Esterase (NEGATIVE) Urine RBC /HPF Urine WBC (0-5/HPF) /HPF Ur Epithelial Cells (NOT SEEN) /HPF Urine Bacteria (0-FEW/HPF) /HPF 09/07/20 09/07/20 09/07/20 Range/Units 06:00 08:04 11:31 WBC (5.0-10.0) 10^3/uL RBC (4.2-5.4) 10^6/uL Hgb (12.0-16.0) g/dL Hct (37.0-47.0) % MCV (80-100) fL MCH (27.0-34.0) pg MCHC (33.0-35.0) g/dL Plt Count (150-450) 10^3/uL Neut % (Auto) (42.2-75.2) % Lymph % (Auto) (20.5-50.1) % [place] % (Auto) (2-8) % Eos % (Auto) (1.0-3.0) % Baso % (Auto) (0.0-1.0) % PT (9.0-12.0) SEC INR (0.9-1.2) Sodium 142 (136-145) mmol/L Potassium 3.4 L (3.5-5.1) mmol/L Chloride 104 (98-107) mmol/L Carbon Dioxide 31 (21-32) mmol/L Anion Gap 10.4 (7-13) mEq/L BUN 15 (7-18) mg/dL Creatinine 1.36 H (0.55-1.02) mg/dL Est Cr Clr Drug Dosing 30.37 mL/min Estimated GFR (MDRD) 37 Glucose 92 (74-99) mg/dL POC Glucose 91 110 (83-110) mg/dl Lactic Acid (0.4-2.0) mmol/L Calcium 8.6 (8.5-10.1) mg/dL Phosphorus (2.6-4.7) mg/dL Magnesium (1.8-2.4) mg/dL C-Reactive Protein (0.0-0.9) mg/dL Urine Color (YELLOW) Urine Appearance (CLEAR) Urine pH (5.0-9.0) Ur Specific [place] (1.005-1.030) Urine Protein (NEGATIVE) Urine Glucose (UA) (NEGATIVE) Urine Ketones (NEGATIVE) Urine Occult Blood (NEGATIVE) Urine Nitrite (NEGATIVE) Urine Bilirubin (NEGATIVE) Urine Urobilinogen (0.2-1.0) mg/dL Ur Leukocyte Esterase (NEGATIVE) Urine RBC /HPF Urine WBC (0-5/HPF) /HPF Ur Epithelial Cells (NOT SEEN) /HPF Urine Bacteria (0-FEW/HPF) /HPF Leo Results Last 24 Hours: Microbiology 02/17/20 11:44 Urine Culture - Preliminary Urine, Catheterized 02/17/20 12:19 Anaerobic Blood Culture - Final Blood - Venous - Lab Draw Med Orders - Current: Current Medications Acetaminophen (Tylenol) 650 mg PO Q4H PRN PRN Reason: Pain Acetaminophen (Tylenol) 650 mg PO BID [facility] Last Admin: 02/18/20 08:39 Dose: 650 mg Documented by: Bumetanide (Bumex) 2 mg PO BIDDIURETIC [facility] Last Admin: 02/18/20 08:44 Dose: 2 mg Documented by: Diltiazem HCl (Cardizem Cd) 360 mg PO DAILY [facility] Last Admin: 02/18/20 08:44 Dose: 360 mg Documented by: Docusate Sodium (Colace) 100 mg PO BID PRN PRN Reason: Constipation Piperacillin Sod/Tazobactam (Sod 3.375 gm/ Sodium Chloride) 100 mls @ 200 mls/hr IV Q6H [facility] Last Admin: 02/18/20 11:54 Dose: 200 mls/hr Documented by: Sodium Chloride (Normal Saline) 1,000 mls @ 100 mls/hr IV ASDIRECTED [facility] Last Admin: 02/18/20 02:06 Dose: 100 mls/hr Documented by: Vancomycin HCl 1.25 gm/ Sodium (Chloride) 250 mls @ 166.667 mls/hr IV Q24H [facility] Last Admin: 02/17/20 13:36 Dose: 166.667 mls/hr Documented by: Insulin Human Lispro (Humalog) 0 unit SUBCUT QIDACANDBED [facility]; Protocol Last Admin: 02/18/20 11:42 Dose: Not Given Documented by: Metoprolol Succinate (Toprol Xl) 200 mg PO DAILY [facility] Last Admin: 02/18/20 08:38 Dose: 200 mg Documented by: Letrozole 2.5 MOwn (Med) 2.5 mg PO DAILY [facility] Last Admin: 02/18/20 08:45 Dose: 2.5 mg Documented by: Nystatin (Nystop) 0 gm TOP BID@0630,1430 [facility] Last Admin: 02/18/20 06:20 Dose: 1 applic Documented by: Ondansetron HCl (Zofran) 4 mg IVPUSH Q6H PRN PRN Reason: Nausea/Vomiting Potassium Chloride (Klor-Con 10) 30 meq PO BIDMEALS [facility] Last Admin: 02/18/20 08:39 Dose: 30 meq Documented by: Potassium Chloride (Klor-Con 10) 40 meq PO ONETIME ONE Stop: 02/18/20 12:15 Sodium Chloride (Saline Flush) 10 ml FLUSH ASDIRECTED PRN PRN Reason: Keep Vein Open Spironolactone (Aldactone) 12.5 mg PO MoWeFr@0900 [facility] Last Admin: 02/18/20 08:40 Dose: 12.5 mg Documented by: Vancomycin HCl (Pharmacy To Dose - Vancomycin) 1 dose .XX ASDIRECTED [facility] Warfarin Sodium (Pharmacy To Dose - Warfarin) 1 dose .XX ASDIRECTED [facility] Warfarin Sodium (Coumadin) 4 mg PO ONETIME ONE Stop: 02/18/20 14:01 Discontinued Medications Heparin Sodium (Porcine) (Heparin Sodium) 5,000 units SUBCUT Q8HR [facility] Warfarin Sodium (Coumadin) 2.5 mg PO ONETIME ONE Stop: 02/17/20 14:01 Last Admin: 02/17/20 15:34 Dose: 2.5 mg Documented by: - Exam General: Alert, Oriented Neck: Supple Lungs: Clear to Auscultation, Normal Respiratory Effort Cardiovascular: Regular Rate, Regular Rhythm GI/Abdominal Exam: Normal Bowel Sounds, Soft, Non-Tender Extremities: Pedal Edema Skin: Warm, Other (Bilateral lower extremity weeping wounds improved, less redness) Wound/Incisions: Healing Well Neurological: No New Focal Deficit Psy/Mental Status: Alert, Normal Affect, Normal Mood Sepsis Event Note - Evaluation Sepsis Screening Result: No Definite Risk - Focused Exam Vital Signs: Vital Signs Temp Pulse Pulse Resp BP BP Pulse Ox 02/18/20 08:38 56 L 99/51 L 02/18/20 08:11 98.0 F 56 L 20 99/51 L 98 02/18/20 04:00 97.9 F 60 20 109/56 L 95 - Problem List & Annotations (1) Cellulitis SNOMED Code(s): 426349735 Code(s): L03.90 - CELLULITIS, UNSPECIFIED Status: Acute Current Visit: No (2) Sepsis SNOMED Code(s): 63022822 Code(s): A41.9 - SEPSIS, UNSPECIFIED ORGANISM Status: Acute Current Visit: No Onset Date: ~11/24/19 Qualifiers: (3) A-fib SNOMED Code(s): 38006086 Code(s): I48.91 - UNSPECIFIED ATRIAL FIBRILLATION Status: Chronic Current Visit: No (4) Breast cancer SNOMED Code(s): 318709608 Code(s): C50.919 - MALIGNANT NEOPLASM OF UNSP SITE OF UNSPECIFIED FEMALE BREAST Status: Chronic Priority: Medium Current Visit: No (5) HTN (hypertension) SNOMED Code(s): 75762846 Code(s): I10 - ESSENTIAL (PRIMARY) HYPERTENSION Status: Chronic Current Visit: No (6) Morbid obesity SNOMED Code(s): 728025290 Code(s): E66.01 - MORBID (SEVERE) OBESITY DUE TO EXCESS CALORIES Status: Chronic Current Visit: No - Problem List Review Problem List Initiated/Reviewed/Updated: Yes - My Orders Last 24 Hours: My Active Orders 02/17/20 11:43 Glucose [Blood Glucose Check, Bedside] [RC] QIDACANDBED 02/17/20 11:44 CULTURE URINE [RM] Routine Blood Culture x2 Reflex Set [OM.PC] Stat 02/17/20 11:45 Rodrigues Catheter Insertion [Insert Urinary Catheter] [OM.PC] Q24H Urinary Catheter Assessment [RC] 02/17/20 12:05 CULTURE BLOOD [BC] Stat 02/17/20 12:19 Communication Order [RC] DAILY CULTURE BLOOD [BC] Stat 02/17/20 12:30 Pharmacy to Dose - Vancomycin 1 dose .XX ASDIRECTED Pharmacy to Dose - Warfarin 1 dose .XX ASDIRECTED Piperacillin/Tazobactam [Zosyn] 3.375 gm Sodium Chloride 0.9% [Normal Saline] 100 ml IV Q6H Sodium Chloride 0.9% [Normal Saline] 1,000 ml IV ASDIRECTED 02/17/20 13:00 Vancomycin 1.25 gm Sodium Chloride 0.9% [Normal Saline (AdvBag)] 250 ml IV Q24H 02/17/20 14:00 Bumetanide [Bumex] 2 mg PO BIDDIURETIC 02/17/20 14:30 Nystatin [Nystop] 0 gm TOP BID@0630,1430 02/17/20 15:41 Acetaminophen [TylenoL] 650 mg PO Q4H PRN 02/17/20 15:45 Acetaminophen [TylenoL] 650 mg PO BID 02/17/20 16:50 Patient Status [ADT] Routine Oxygen Therapy [RC] PRN Up With Assistance [RC] ASDIRECTED VTE/DVT Education [RC] PER UNIT ROUTINE Vital Signs [RC] Q4H Docusate Sodium [Colace] 100 mg PO BID PRN Ondansetron [Zofran] 4 mg IVPUSH Q6H PRN Sodium Chloride 0.9% [Saline Flush] 10 ml FLUSH ASDIRECTED PRN Peripheral IV Insertion Adult [OM.PC] Routine Resuscitation Status Routine 02/17/20 16:51 Peripheral IV Care [RC] 02/17/20 17:00 Insulin Lispro [HumaLOG] See Protocol SUBCUT QIDACANDBED 02/17/20 Dinner Consistent Carbohydrate Diet [DIET] 02/17/20 18:00 Potassium Chloride [Klor-Con 10] 30 meq PO BIDMEALS 02/18/20 09:00 Diltiazem [Cardizem CD] 360 mg PO DAILY Letrozole 2.5 mg PO DAILY Metoprolol Succinate [Toprol XL] 200 mg PO DAILY Spironolactone [Aldactone] 12.5 mg PO MoWeFr@0900 02/18/20 12:14 Potassium Chloride [Klor-Con 10] 40 meq PO ONETIME ONE 02/18/20 14:00 Warfarin [Coumadin] 4 mg PO ONETIME ONE 02/19/20 05:11 INR,PT,PROTHROMBIN TIME [COAG] AM 02/20/20 05:11 INR,PT,PROTHROMBIN TIME [COAG] AM 02/21/20 05:11 INR,PT,PROTHROMBIN TIME [COAG] AM 02/22/20 05:11 INR,PT,PROTHROMBIN TIME [COAG] AM - Plan Plan:: 79-year-old lady with history of atrial fibrillation on chronic anticoagulation, hypertension, morbid obesity. She has recurrent lower extremity cellulitis requiring hospitalization. Prior cultures were non-diagnostic. 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 fib on admission she elected DNR, DNI CODE STATUS
[2020-02-18] MEDS: Sodium Chloride 0.9% 10 ML Syringe FLUSH PRN (13:25)
[2020-02-18] MEDS ORDERED: Warfarin 2 MG Tab PO ONE (14:00)
[2020-02-19] MEDS: Piperacillin/Tazobactam 3.375 GM in Sodium Chloride 0.9% 100 ML IV SCH ×2 (00:11→05:54)
[2020-02-19] MEDS: Nystatin Topical Powder 30 GM Bottle TOP SCH ×2 (05:54→14:16)
[2020-02-19 06:33] LABS: ANION GAP 10.3 mEq/L (7-13)
[2020-02-19] MEDS: Insulin Lispro 100 Units/ML 3 ML Vial SUBCUT SCH ×4 (08:11→21:46)
[2020-02-19] MEDS: Diltiazem 180 MG Cap.CD PO SCH (08:45)
[2020-02-19] MEDS: Potassium Chloride 10 MEQ Tab.ER PO SCH ×2 (08:45→18:03)
[2020-02-19] MEDS: Acetaminophen 325 MG Tab PO SCH ×2 (08:46→21:48)
[2020-02-19] MEDS: Bumetanide 1 MG Tab PO SCH ×2 (08:46→14:15)
[2020-02-19] MEDS: Metoprolol Succinate 50 MG Tab.ER PO SCH (08:47)
[2020-02-19] MEDS: LETROZOLE PO SCH (08:48)
[2020-02-19] MEDS ORDERED: Potassium Chloride 10 MEQ Tab.ER PO ONE (10:55)
--- NOTE | 2020-02-19 11:00 | PCM.PN ---
- General Info Date of Service: 02/19/20 Subjective Update: Feeling well, no complaints. No fever, no associated chills. Lower extremity redness improved. Edema is better but still present No Chest pain, no shortness of breath Functional Status: Reports: Pain Controlled, Tolerating Diet - Review of Systems General: Denies: Fever Pulmonary: Denies: Shortness of Breath Cardiovascular: Reports: Edema. Denies: Chest Pain Gastrointestinal: Denies: Abdominal Pain Neurological: Reports: Confusion (Limited short-term memory) - Patient Data Vitals - Most Recent: Last Vital Signs Temp 98.0 F 02/19/20 08:09 Pulse 92 02/19/20 08:47 Resp 20 02/19/20 08:09 BP 129/64 02/19/20 08:47 Pulse Ox 93 L 02/19/20 08:09 Weight - Most Recent: 267 lb 11.2 oz I&O - Last 24 Hours: Intake & Output 02/18/20 02/19/20 02/19/20 22:59 06:59 14:59 Intake Total 690 455 440 Output Total 2100 625 Balance -1410 -170 440 Lab Results Last 24 Hours: Laboratory Results - last 24 hr 02/18/20 02/18/20 02/18/20 Range/Units 11:31 17:01 20:30 WBC (5.0-10.0) 10^3/uL RBC (4.2-5.4) 10^6/uL Hgb (12.0-16.0) g/dL Hct (37.0-47.0) % MCV (80-100) fL MCH (27.0-34.0) pg MCHC (33.0-35.0) g/dL Plt Count (150-450) 10^3/uL Neut % (Auto) (42.2-75.2) % Lymph % (Auto) (20.5-50.1) % [place] % (Auto) (2-8) % Eos % (Auto) (1.0-3.0) % Baso % (Auto) (0.0-1.0) % PT (9.0-12.0) SEC INR (0.9-1.2) Sodium (136-145) mmol/L Potassium (3.5-5.1) mmol/L Chloride (98-107) mmol/L Carbon Dioxide (21-32) mmol/L Anion Gap (7-13) mEq/L BUN (7-18) mg/dL Creatinine (0.55-1.02) mg/dL Est Cr Clr Drug Dosing mL/min Estimated GFR (MDRD) Glucose (74-99) mg/dL POC Glucose 110 101 157 H (83-110) mg/dl Calcium (8.5-10.1) mg/dL 02/19/20 02/19/20 02/19/20 Range/Units 05:45 05:45 05:45 WBC 10.0 (5.0-10.0) 10^3/uL RBC 4.40 (4.2-5.4) 10^6/uL Hgb 11.9 L (12.0-16.0) g/dL Hct 37.7 (37.0-47.0) % MCV 85.7 (80-100) fL MCH 27.0 (27.0-34.0) pg MCHC 31.6 L (33.0-35.0) g/dL Plt Count 194 (150-450) 10^3/uL Neut % (Auto) 66.9 (42.2-75.2) % Lymph % (Auto) 14.7 L (20.5-50.1) % [place] % (Auto) 14.5 H (2-8) % Eos % (Auto) 3.7 H (1.0-3.0) % Baso % (Auto) 0.2 (0.0-1.0) % PT 26.3 H (9.0-12.0) SEC INR 2.8 H (0.9-1.2) Sodium 140 (136-145) mmol/L Potassium 3.3 L (3.5-5.1) mmol/L Chloride 102 (98-107) mmol/L Carbon Dioxide 31 (21-32) mmol/L Anion Gap 10.3 (7-13) mEq/L BUN 14 (7-18) mg/dL Creatinine 1.23 H (0.55-1.02) mg/dL Est Cr Clr Drug Dosing 33.58 mL/min Estimated GFR (MDRD) 42 Glucose 102 H (74-99) mg/dL POC Glucose (83-110) mg/dl Calcium 8.5 (8.5-10.1) mg/dL 09/08/20 Range/Units 07:52 WBC (5.0-10.0) 10^3/uL RBC (4.2-5.4) 10^6/uL Hgb (12.0-16.0) g/dL Hct (37.0-47.0) % MCV (80-100) fL MCH (27.0-34.0) pg MCHC (33.0-35.0) g/dL Plt Count (150-450) 10^3/uL Neut % (Auto) (42.2-75.2) % Lymph % (Auto) (20.5-50.1) % [place] % (Auto) (2-8) % Eos % (Auto) (1.0-3.0) % Baso % (Auto) (0.0-1.0) % PT (9.0-12.0) SEC INR (0.9-1.2) Sodium (136-145) mmol/L Potassium (3.5-5.1) mmol/L Chloride (98-107) mmol/L Carbon Dioxide (21-32) mmol/L Anion Gap (7-13) mEq/L BUN (7-18) mg/dL Creatinine (0.55-1.02) mg/dL Est Cr Clr Drug Dosing mL/min Estimated GFR (MDRD) Glucose (74-99) mg/dL POC Glucose 101 (83-110) mg/dl Calcium (8.5-10.1) mg/dL Leo Results Last 24 Hours: Microbiology 02/17/20 11:44 Urine Culture - Final Urine, Catheterized Enterobacter Cloacae 02/17/20 12:19 Aerobic Blood Culture - Preliminary Blood - Venous - Lab Draw NO GROWTH AFTER 1 DAY Anaerobic Blood Culture - Final 02/17/20 12:05 Aerobic Blood Culture - Preliminary Blood - Venous NO GROWTH AFTER 1 DAY Anaerobic Blood Culture - Preliminary NO GROWTH AFTER 1 DAY Med Orders - Current: Current Medications Acetaminophen (Tylenol) 650 mg PO Q4H PRN PRN Reason: Pain Acetaminophen (Tylenol) 650 mg PO BID [facility] Last Admin: 02/19/20 08:46 Dose: 650 mg Documented by: Bumetanide (Bumex) 2 mg PO BIDDIURETIC [facility] Last Admin: 02/19/20 08:46 Dose: 2 mg Documented by: Diltiazem HCl (Cardizem Cd) 360 mg PO DAILY [facility] Last Admin: 02/19/20 08:45 Dose: 360 mg Documented by: Docusate Sodium (Colace) 100 mg PO BID PRN PRN Reason: Constipation Piperacillin Sod/Tazobactam (Sod 3.375 gm/ Sodium Chloride) 100 mls @ 200 mls/hr IV Q6H [facility] Last Admin: 02/19/20 05:54 Dose: 200 mls/hr Documented by: Vancomycin HCl 1.25 gm/ Sodium (Chloride) 250 mls @ 166.667 mls/hr IV Q24H [facility] Last Infusion: 02/18/20 15:16 Dose: Infused Documented by: Insulin Human Lispro (Humalog) 0 unit SUBCUT QIDACANDBED [facility]; Protocol Last Admin: 02/19/20 08:11 Dose: Not Given Documented by: Metoprolol Succinate (Toprol Xl) 200 mg PO DAILY [facility] Last Admin: 02/19/20 08:47 Dose: 200 mg Documented by: Letrozole 2.5 MOwn (Med) 2.5 mg PO DAILY [facility] Last Admin: 02/19/20 08:48 Dose: 2.5 mg Documented by: Nystatin (Nystop) 0 gm TOP BID@0630,1430 [facility] Last Admin: 02/19/20 05:54 Dose: 1 applic Documented by: Ondansetron HCl (Zofran) 4 mg IVPUSH Q6H PRN PRN Reason: Nausea/Vomiting Potassium Chloride (Klor-Con 10) 30 meq PO BIDMEALS [facility] Last Admin: 02/19/20 08:45 Dose: 30 meq Documented by: Potassium Chloride (Klor-Con 10) 40 meq PO ONETIME ONE Stop: 02/19/20 10:56 Sodium Chloride (Saline Flush) 10 ml FLUSH ASDIRECTED PRN PRN Reason: Keep Vein Open Last Admin: 02/18/20 13:25 Dose: 10 ml Documented by: Spironolactone (Aldactone) 12.5 mg PO MoWeFr@0900 [facility] Last Admin: 02/18/20 08:40 Dose: 12.5 mg Documented by: Vancomycin HCl (Pharmacy To Dose - Vancomycin) 1 dose .XX ASDIRECTED [facility] Warfarin Sodium (Pharmacy To Dose - Warfarin) 1 dose .XX ASDIRECTED [facility] Discontinued Medications Heparin Sodium (Porcine) (Heparin Sodium) 5,000 units SUBCUT Q8HR [facility] Sodium Chloride (Normal Saline) 1,000 mls @ 100 mls/hr IV ASDIRECTED [facility] Last Infusion: 02/18/20 12:52 Dose: Infused Documented by: Potassium Chloride (Klor-Con 10) 40 meq PO ONETIME ONE Stop: 02/18/20 12:15 Last Admin: 02/18/20 13:39 Dose: 40 meq Documented by: Warfarin Sodium (Coumadin) 2.5 mg PO ONETIME ONE Stop: 02/17/20 14:01 Last Admin: 02/17/20 15:34 Dose: 2.5 mg Documented by: Warfarin Sodium (Coumadin) 4 mg PO ONETIME ONE Stop: 02/18/20 14:01 Last Admin: 02/18/20 13:41 Dose: 4 mg Documented by: - Exam General: Alert, Oriented Neck: Supple Lungs: Clear to Auscultation, Normal Respiratory Effort Cardiovascular: Regular Rate, Regular Rhythm GI/Abdominal Exam: Normal Bowel Sounds, Soft, Non-Tender Extremities: Pedal Edema Skin: Warm, Other (Bilateral lower extremity superficial wounds, more pronounced on the right side) Neurological: No New Focal Deficit Psy/Mental Status: Alert, Normal Affect, Normal Mood Sepsis Event Note - Evaluation Sepsis Screening Result: No Definite Risk - Focused Exam Vital Signs: Vital Signs Temp Pulse Pulse Resp BP BP Pulse Ox 02/19/20 08:47 92 129/64 02/19/20 08:09 98.0 F 92 20 129/64 93 L 02/19/20 00:00 98.4 F 60 20 107/53 L 94 L - Problem List & Annotations (1) Cellulitis SNOMED Code(s): 976217109 Code(s): L03.90 - CELLULITIS, UNSPECIFIED Status: Acute Current Visit: No (2) Sepsis SNOMED Code(s): 72007983 Code(s): A41.9 - SEPSIS, UNSPECIFIED ORGANISM Status: Acute Current Visit: No Onset Date: ~11/24/19 Qualifiers: (3) A-fib SNOMED Code(s): 77437499 Code(s): I48.91 - UNSPECIFIED ATRIAL FIBRILLATION Status: Chronic Current Visit: No (4) Breast cancer SNOMED Code(s): 576589416 Code(s): C50.919 - MALIGNANT NEOPLASM OF UNSP SITE OF UNSPECIFIED FEMALE BREAST Status: Chronic Priority: Medium Current Visit: No (5) HTN (hypertension) SNOMED Code(s): 23427139 Code(s): I10 - ESSENTIAL (PRIMARY) HYPERTENSION Status: Chronic Current Visit: No (6) Morbid obesity SNOMED Code(s): 257909351 Code(s): E66.01 - MORBID (SEVERE) OBESITY DUE TO EXCESS CALORIES Status: Chronic Current Visit: No - Problem List Review Problem List Initiated/Reviewed/Updated: Yes - My Orders Last 24 Hours: My Active Orders 02/19/20 10:55 Potassium Chloride [Klor-Con 10] 40 meq PO ONETIME ONE 02/19/20 10:56 OT Evaluation and Treatment [CONS] Routine 02/20/20 05:11 INR,PT,PROTHROMBIN TIME [[facility]] AM 02/21/20 05:11 INR,PT,PROTHROMBIN TIME [[facility]AG] AM 02/22/20 05:11 INR,PT,PROTHROMBIN TIME [[facility]AG] AM - Plan Plan:: 79-year-old lady with history of atrial fibrillation on chronic anticoagulation, hypertension, morbid obesity. She has recurrent lower extremity cellulitis requiring hospitalization. Prior cultures were non-diagnostic. Presented with fever, chills with sepsis due to cellulitis, uti urine culture: enterobacter blood cultures: pending willl treat with levofloxacin incontinence, concern for urine contaminating LE wound placed Marr catheter lower extremity cellulitis with chronic venous stasis Started empirical treatment with Zosyn and vancomycin - switch to levo re: Enterobacter uti Use Xeroform dressing with compression therapy consult ot for lymphedema wrap will try to arrange wound care fup as out pt to prevent frequent hospital admissions diabetes Hold metformin Follow blood sugars Use supplemental insulin and hypoglycemia treatment as needed Hypertension, afib Treat with metoprolol, diltiazem Continue anticoagulation with Coumadin for A. fib on admission she elected DNR, DNI CODE STATUS
[2020-02-19] MEDS ORDERED: Levofloxacin 500 MG Tab PO SCH ×2 (11:15→12:00)
[2020-02-19] MEDS: Sodium Chloride 0.9% 10 ML Syringe FLUSH PRN (21:54)
[2020-02-20] MEDS: Nystatin Topical Powder 30 GM Bottle TOP SCH ×2 (05:13→05:57)
[2020-02-20 06:40] LABS: ANION GAP 9.4 mEq/L (7-13)
[2020-02-20] MEDS: Insulin Lispro 100 Units/ML 3 ML Vial SUBCUT SCH ×2 (08:47→13:01)
[2020-02-20] MEDS: Metoprolol Succinate 50 MG Tab.ER PO SCH (08:48)
[2020-02-20] MEDS: Spironolactone 25 MG Tab PO SCH (08:48)
[2020-02-20] MEDS: Potassium Chloride 10 MEQ Tab.ER PO SCH (08:48)
[2020-02-20] MEDS: Bumetanide 1 MG Tab PO SCH (08:48)
[2020-02-20] MEDS: Diltiazem 180 MG Cap.CD PO SCH (08:48)
[2020-02-20] MEDS: Acetaminophen 325 MG Tab PO SCH (08:50)
[2020-02-20] MEDS: LETROZOLE PO SCH (08:50)
[2020-02-20 08:52] VITALS: PULSE 66
[2020-02-20] MEDS ORDERED: Potassium Chloride 10 MEQ Tab.ER PO ONE (09:14)
--- NOTE | 2020-02-20 10:43 | PCM.DCSUM1 ---
Discharge Summary - Hospital Course Free Text/Narrative:: 79-year-old lady with history of atrial fibrillation on chronic anticoagulation, hypertension, morbid obesity. She has recurrent lower extremity cellulitis requiring hospitalization. Prior cultures were non-diagnostic. Presented with fever, chills with sepsis due to cellulitis, uti urine culture: enterobacter willl treat with levofloxacin incontinence, concern for urine contaminating LE wound placed Marr catheter lower extremity cellulitis with chronic venous stasis Started empirical treatment with Zosyn and vancomycin - switched to levo re: Enterobacter uti Use Xeroform dressing with compression therapy lymphedema wrap diabetes Hold metformin Follow blood sugars Use supplemental insulin and hypoglycemia treatment as needed Hypertension, afib Treat with metoprolol, diltiazem Continue anticoagulation with Coumadin for A. fib on admission she elected DNR, DNI CODE STATUS Diagnosis: Stroke: No - Discharge Data Discharge Date: 02/20/20 Discharge Disposition: Home, Self-Care 01 Condition: Good - Referral to Home Health Primary Care Physician: Jahaira Sherman MD - Patient Summary/Data Consults: Consultations 02/19/20 10:56 OT Evaluation and Treatment [CONS] Routine - Discharge Plan Prescriptions/Med Rec: levoFLOXacin [Levaquin] 750 mg PO Q48H #4 tablet Home Medications: Home Meds Metoprolol Succinate [Toprol XL] 200 mg PO DAILY 12/07/14 [History] Letrozole 2.5 mg PO DAILY 06/08/17 [History] Calcium Carbonate [Tums] 500 mg PO TID PRN 06/14/17 [History] Potassium Chloride [Klor-Con 10] 30 meq PO BIDMEALS 06/14/17 [History] Acetaminophen 650 mg PO BID 08/08/19 [History] Acetaminophen [Tylenol] 650 mg PO Q4H PRN 08/08/19 [History] Arginine/Ascorbate Sod/Fredy AC [Arginaid Powder] 8 oz PO BID 08/08/19 [History] Bumetanide 2 mg PO BID 08/08/19 [History] Cetirizine [ZyrTEC] 5 mg PO DAILY PRN 08/08/19 [History] Lactulose 15 ml PO DAILY PRN 08/08/19 [History] Loperamide [Imodium AD] 2 - 4 mg PO ASDIRECTED PRN 08/08/19 [History] Magnesium Hydroxide [Milk of Magnesia] 30 ml PO DAILY PRN 08/08/19 [History] Nystatin [Nyamyc] 1 applic TOP BID@0630,1430 08/08/19 [History] Ondansetron [Zofran] 4 mg PO Q4H PRN 08/08/19 [History] Triamcinolone Acetonide [Kenalog 0.1% Crm] 1 applic TOP BID@0630,1430 08/08/19 [History] Warfarin Sodium [Coumadin] 2.5 mg PO .WEDSUN 08/08/19 [History] Warfarin [Coumadin] 4 mg PO .MONTUTHUFRISAT 08/08/19 [History] dilTIAZem HCL [Diltiazem 24Hr ER] 360 mg PO DAILY 08/08/19 [History] metFORMIN HCl [Metformin HCl] 500 mg PO DAILY 08/08/19 [History] L.acidoph,Paracasei, B.lactis [Probiotic] 1 each PO DAILY 02/17/20 [History] Spironolactone [Aldactone] 25 mg PO .MONWEDFRI #0 02/20/20 [Rx] levoFLOXacin [Levaquin] 750 mg PO Q48H #4 tablet 02/20/20 [Rx] Referrals: Jahaira Sherman MD [Primary Care Provider] - - Discharge Summary/Plan Comment DC Time >30 min.: No - Review of Systems General: Reports: No Symptoms HEENT: Reports: No Symptoms Pulmonary: Reports: No Symptoms Cardiovascular: Reports: No Symptoms Gastrointestinal: Reports: No Symptoms - Patient Data Vitals - Most Recent: Last Vital Signs Temp 37.4 C 02/20/20 05:00 Pulse 66 02/20/20 08:48 Resp 20 02/20/20 05:00 BP 132/90 02/20/20 08:48 Pulse Ox 91 L 02/20/20 05:00 Weight - Most Recent: 120.656 kg I&O - Last 24 hours: Intake & Output 02/19/20 02/20/20 02/20/20 22:59 06:59 14:59 Intake Total 520 100 Output Total 2000 300 Balance -1480 -200 Lab Results - Last 24 hrs: Laboratory Results - last 24 hr 02/19/20 02/19/20 02/19/20 Range/Units 11:47 16:57 21:06 WBC (5.0-10.0) 10^3/uL RBC (4.2-5.4) 10^6/uL Hgb (12.0-16.0) g/dL Hct (37.0-47.0) % MCV (80-100) fL MCH (27.0-34.0) pg MCHC (33.0-35.0) g/dL Plt Count (150-450) 10^3/uL Neut % (Auto) (42.2-75.2) % Lymph % (Auto) (20.5-50.1) % [place] % (Auto) (2-8) % Eos % (Auto) (1.0-3.0) % Baso % (Auto) (0.0-1.0) % PT (9.0-12.0) SEC INR (0.9-1.2) Sodium (136-145) mmol/L Potassium (3.5-5.1) mmol/L Chloride (98-107) mmol/L Carbon Dioxide (21-32) mmol/L Anion Gap (7-13) mEq/L BUN (7-18) mg/dL Creatinine (0.55-1.02) mg/dL Est Cr Clr Drug Dosing mL/min Estimated GFR (MDRD) Glucose (74-99) mg/dL POC Glucose 140 H 107 107 (83-110) mg/dl Calcium (8.5-10.1) mg/dL 02/20/20 02/20/20 02/20/20 Range/Units 06:10 06:10 06:10 WBC 8.8 (5.0-10.0) 10^3/uL RBC 4.35 (4.2-5.4) 10^6/uL Hgb 11.7 L (12.0-16.0) g/dL Hct 37.4 (37.0-47.0) % MCV 86.0 (80-100) fL MCH 26.9 L (27.0-34.0) pg MCHC 31.3 L (33.0-35.0) g/dL Plt Count 187 (150-450) 10^3/uL Neut % (Auto) 65.5 (42.2-75.2) % Lymph % (Auto) 15.7 L (20.5-50.1) % [place] % (Auto) 14.3 H (2-8) % Eos % (Auto) 4.3 H (1.0-3.0) % Baso % (Auto) 0.2 (0.0-1.0) % PT 25.2 H (9.0-12.0) SEC INR 2.7 H (0.9-1.2) Sodium 141 (136-145) mmol/L Potassium 3.4 L (3.5-5.1) mmol/L Chloride 103 (98-107) mmol/L Carbon Dioxide 32 (21-32) mmol/L Anion Gap 9.4 (7-13) mEq/L BUN 12 (7-18) mg/dL Creatinine 1.04 H (0.55-1.02) mg/dL Est Cr Clr Drug Dosing 39.72 mL/min Estimated GFR (MDRD) 51 Glucose 101 H (74-99) mg/dL POC Glucose (83-110) mg/dl Calcium 8.5 (8.5-10.1) mg/dL 02/20/20 Range/Units 07:42 WBC (5.0-10.0) 10^3/uL RBC (4.2-5.4) 10^6/uL Hgb (12.0-16.0) g/dL Hct (37.0-47.0) % MCV (80-100) fL MCH (27.0-34.0) pg MCHC (33.0-35.0) g/dL Plt Count (150-450) 10^3/uL Neut % (Auto) (42.2-75.2) % Lymph % (Auto) (20.5-50.1) % [place] % (Auto) (2-8) % Eos % (Auto) (1.0-3.0) % Baso % (Auto) (0.0-1.0) % PT (9.0-12.0) SEC INR (0.9-1.2) Sodium (136-145) mmol/L Potassium (3.5-5.1) mmol/L Chloride (98-107) mmol/L Carbon Dioxide (21-32) mmol/L Anion Gap (7-13) mEq/L BUN (7-18) mg/dL Creatinine (0.55-1.02) mg/dL Est Cr Clr Drug Dosing mL/min Estimated GFR (MDRD) Glucose (74-99) mg/dL POC Glucose 97 (83-110) mg/dl Calcium (8.5-10.1) mg/dL JACK Results - Last 24 hrs: Microbiology 02/17/20 12:19 Aerobic Blood Culture - Preliminary Blood - Venous - Lab Draw NO GROWTH AFTER 2 DAYS Anaerobic Blood Culture - Final 02/17/20 12:05 Aerobic Blood Culture - Preliminary Blood - Venous NO GROWTH AFTER 2 DAYS Anaerobic Blood Culture - Preliminary NO GROWTH AFTER 2 DAYS 02/17/20 11:44 Urine Culture - Final Urine, Catheterized Enterobacter [place] Med Orders - Current: Current Medications Acetaminophen (Tylenol) 650 mg PO Q4H PRN PRN Reason: Pain Acetaminophen (Tylenol) 650 mg PO BID [facility] Last Admin: 02/20/20 08:50 Dose: 650 mg Documented by: Bumetanide (Bumex) 2 mg PO BIDDIURETIC [facility] Last Admin: 02/20/20 08:48 Dose: 2 mg Documented by: Diltiazem HCl (Cardizem Cd) 360 mg PO DAILY [facility] Last Admin: 02/20/20 08:48 Dose: 360 mg Documented by: Docusate Sodium (Colace) 100 mg PO BID PRN PRN Reason: Constipation Insulin Human Lispro (Humalog) 0 unit SUBCUT QIDACANDBED [facility]; Protocol Last Admin: 02/20/20 08:47 Dose: Not Given Documented by: Levofloxacin (Levaquin) 750 mg PO Q48H [facility] Last Admin: 02/19/20 12:11 Dose: 750 mg Documented by: Metoprolol Succinate (Toprol Xl) 200 mg PO DAILY [facility] Last Admin: 02/20/20 08:48 Dose: 200 mg Documented by: Letrozole 2.5 MOwn (Med) 2.5 mg PO DAILY [facility] Last Admin: 02/20/20 08:50 Dose: 2.5 mg Documented by: Nystatin (Nystop) 0 gm TOP BID@0630,1430 [facility] Last Admin: 02/20/20 05:57 Dose: Not Given Documented by: Ondansetron HCl (Zofran) 4 mg IVPUSH Q6H PRN PRN Reason: Nausea/Vomiting Potassium Chloride (Klor-Con 10) 30 meq PO BIDMEALS [facility] Last Admin: 02/20/20 08:48 Dose: 30 meq Documented by: Sodium Chloride (Saline Flush) 10 ml FLUSH ASDIRECTED PRN PRN Reason: Keep Vein Open Last Admin: 02/19/20 21:54 Dose: 10 ml Documented by: Spironolactone (Aldactone) 12.5 mg PO MoWeFr@0900 [facility] Last Admin: 02/20/20 08:48 Dose: 12.5 mg Documented by: Warfarin Sodium (Pharmacy To Dose - Warfarin) 1 dose .XX ASDIRECTED [facility] Warfarin Sodium (Coumadin) 2.5 mg PO ONETIME ONE Stop: 02/20/20 14:01 Discontinued Medications Heparin Sodium (Porcine) (Heparin Sodium) 5,000 units SUBCUT Q8HR [facility] Piperacillin Sod/Tazobactam (Sod 3.375 gm/ Sodium Chloride) 100 mls @ 200 mls/hr IV Q6H [facility] Last Admin: 02/19/20 05:54 Dose: 200 mls/hr Documented by: Sodium Chloride (Normal Saline) 1,000 mls @ 100 mls/hr IV ASDIRECTED [facility] Last Infusion: 02/18/20 12:52 Dose: Infused Documented by: Vancomycin HCl 1.25 gm/ Sodium (Chloride) 250 mls @ 166.667 mls/hr IV Q24H [facility] Last Infusion: 02/18/20 15:16 Dose: Infused Documented by: Levofloxacin (Levaquin) 750 mg PO DAILY [facility] Last Admin: 02/19/20 12:17 Dose: Not Given Documented by: Potassium Chloride (Klor-Con 10) 40 meq PO ONETIME ONE Stop: 02/18/20 12:15 Last Admin: 02/18/20 13:39 Dose: 40 meq Documented by: Potassium Chloride (Klor-Con 10) 40 meq PO ONETIME ONE Stop: 02/19/20 10:56 Last Admin: 02/19/20 12:10 Dose: 40 meq Documented by: Potassium Chloride (Klor-Con 10) 40 meq PO ONETIME ONE Stop: 02/20/20 09:15 Vancomycin HCl (Pharmacy To Dose - Vancomycin) 1 dose .XX ASDIRECTED [facility] Warfarin Sodium (Coumadin) 2.5 mg PO ONETIME ONE Stop: 02/17/20 14:01 Last Admin: 02/17/20 15:34 Dose: 2.5 mg Documented by: Warfarin Sodium (Coumadin) 4 mg PO ONETIME ONE Stop: 02/18/20 14:01 Last Admin: 02/18/20 13:41 Dose: 4 mg Documented by: Warfarin Sodium (Coumadin) 3 mg PO ONETIME ONE Stop: 02/19/20 14:01 Last Admin: 02/19/20 14:15 Dose: 3 mg Documented by: - Exam General: Reports: Alert, Oriented, Cooperative HEENT: Reports: Pupils Equal, Pupils Reactive, EOMI, Mucous Membr. Moist/[place] Lungs: Reports: Clear to Auscultation, Normal Respiratory Effort Cardiovascular: Reports: Regular Rate, Regular Rhythm GI/Abdominal Exam: Normal Bowel Sounds, Soft, Non-Tender, No Organomegaly, No Distention, No Abnormal Bruit, No Mass, Pelvis Stable
[2020-02-20 11:24] VITALS: BP 132/60
[2020-02-20] MEDS ORDERED: Warfarin 2.5 MG Tab PO ONE (14:00)
== END 2020-02-20 12:35 | disposition home or self-care (01) | DRG 872 ==
LOC: UNDOADMIN 10:47 → DL.MS 10:47
PROVIDERS: ADMIT Internal Medicine; ATTEND Hospitalist
DX: A41.9 Sepsis, unspecified organism (principal); L03.115 Cellulitis of right lower limb; L03.116 Cellulitis of left lower limb; N39.0 Urinary tract infection, site not specified; Z68.41 Body mass index [BMI] 40.0-44.9, adult; Z20.828 Contact with and (suspected) exposure to other viral communicable diseases; E11.9 Type 2 diabetes mellitus without complications; I10 Essential (primary) hypertension; Z66 Do not resuscitate; I48.91 Unspecified atrial fibrillation; E66.01 Morbid (severe) obesity due to excess calories; I89.0 Lymphedema, not elsewhere classified; H54.7 Unspecified visual loss; I11.0 Hypertensive heart disease with heart failure; I50.9 Heart failure, unspecified; E78.00 Pure hypercholesterolemia, unspecified; R32 Unspecified urinary incontinence; G89.29 Other chronic pain; M54.9 Dorsalgia, unspecified; M79.7 Fibromyalgia; M19.90 Unspecified osteoarthritis, unspecified site; F41.9 Anxiety disorder, unspecified; F32.9 Major depressive disorder, single episode, unspecified; E87.6 Hypokalemia; E66.9 Obesity, unspecified; Z79.01 Long term (current) use of anticoagulants; Z91.013 Allergy to seafood; Z91.048 Other nonmedicinal substance allergy status; Z79.899 Other long term (current) drug therapy; Z79.84 Long term (current) use of oral hypoglycemic drugs; Z86.010 Personal history of colon polyps; Z87.440 Personal history of urinary (tract) infections; Z86.73 Personal history of transient ischemic attack (TIA), and cerebral infarction without residual deficits; Z90.11 Acquired absence of right breast and nipple; Z98.49 Cataract extraction status, unspecified eye; Z90.710 Acquired absence of both cervix and uterus; I87.8 Other specified disorders of veins; B96.89 Other specified bacterial agents as the cause of diseases classified elsewhere
CPT/HCPCS: 36415; 51702; 80048; 81001; 82962; 83605; 83735; 84100; 85025; 85610; 86140; 87040; 87086; 87088; 87186; 97165-GO; A9270-GY; J1815-GY; J2543; J3370; J7030; J7050; U0002

== ENCOUNTER 2020-07-06 16:08 | Inpatient (IN) | payer MEDICARE, OTHER ==
[2020-07-06 17:11] LABS: ANION GAP 11.3 mEq/L (7-13); CHLORIDE,CL 98 mmol/L (98-107); SODIUM,NA 136 mmol/L (136-145)
--- NOTE | 2020-07-06 17:23 | EDM.PDOC ---
ED HPI GENERAL MEDICAL PROBLEM - General Chief Complaint: General Stated Complaint: POS SEPSIS Time Seen by Provider: 07/06/20 16:40 Source of Information: Reports: Fdc Records, RN History Limitations: Reports: No Limitations - History of Present Illness INITIAL COMMENTS - FREE TEXT/NARRATIVE: ED from [place] report of increased temp today , recurrent leg swelling to previous . BP lower today at [place]. Patient c/o not feeling well and general body aches. No report of vomiting. - Related Data Allergies Allergy/AdvReac Type Severity Reaction Status Date / Time shellfish derived AdvReac Unknown Diarrhea Verified 07/06/20 16:41 tape Allergy Unknown Blisters Uncoded 07/06/20 16:41 Home Meds: Home Meds Metoprolol Succinate [Toprol XL] 200 mg PO DAILY 12/07/14 [History] Letrozole 2.5 mg PO DAILY 06/08/17 [History] Calcium Carbonate [Tums] 500 mg PO TID PRN 06/14/17 [History] Potassium Chloride [Klor-Con 10] 20 meq PO BIDMEALS 06/14/17 [History] Acetaminophen 650 mg PO BID 08/08/19 [History] Acetaminophen [Tylenol] 650 mg PO Q4H PRN 08/08/19 [History] Arginine/Ascorbate Sod/Fredy AC [Arginaid Powder] 8 oz PO BID 08/08/19 [History] Cetirizine [ZyrTEC] 5 mg PO DAILY PRN 08/08/19 [History] Lactulose 15 ml PO DAILY PRN 08/08/19 [History] Loperamide [Imodium AD] 2 - 4 mg PO ASDIRECTED PRN 08/08/19 [History] Magnesium Hydroxide [Milk of Magnesia] 30 ml PO DAILY PRN 08/08/19 [History] Nystatin [Nyamyc] 1 applic TOP .BID06,1430 08/08/19 [History] Ondansetron [Zofran] 4 mg PO Q4H PRN 08/08/19 [History] Triamcinolone Acetonide [Kenalog 0.1% Crm] 1 applic TOP BID@0630,1430 08/08/19 [History] Warfarin Sodium [Coumadin] 3 mg PO .WEDSUN 08/08/19 [History] Warfarin [Coumadin] 4 mg PO .MONTUTHUFRISAT 08/08/19 [History] dilTIAZem HCL [Diltiazem 24Hr ER] 360 mg PO DAILY 08/08/19 [History] metFORMIN HCl [Metformin HCl] 500 mg PO DAILY 08/08/19 [History] L.acidoph,Paracasei, B.lactis [Probiotic] 1 each PO DAILY 02/17/20 [History] Bisacodyl [Laxative Suppository] 10 mg RC DAILY PRN 07/06/20 [History] Bumetanide [Bumex] 1.5 mg PO DAILY 07/06/20 [History] Bumetanide [Bumex] 2 mg PO DAILY 07/06/20 [History] Ergocalciferol (Vitamin D2) [Vitamin D2] 50,000 unit PO .QWEDN07/06/20 [History] Spironolactone [Aldactone] 25 mg PO DAILY 07/06/20 [History] Past Medical History HEENT History: Reports: Cataract, Epistaxis, Impaired Vision Other HEENT History: wears glasses Cardiovascular History: Reports: Afib, Heart Failure, Heart Murmur, High Cholesterol, Hypertension Other Cardiovascular History: At fib is new onset discovered today at the clinic Respiratory History: Reports: Bronchitis, Recurrent Gastrointestinal History: Reports: Colon Polyp, Irritable Bowel Syndrome Genitourinary History: Reports: Urinary Incontinence, UTI, Recurrent Other Genitourinary History: leaking [employer] History: Reports: Musculoskeletal History: Reports: Back Pain, Chronic, Fracture, Fibromyalgia, Osteoarthritis, Other (See Below) Other Musculoskeletal History: Right fibula fx 04-06-16 Neurological History: Reports: CVA, Other (See Below) Other Neuro History: Mild cognitive impairment Psychiatric History: Reports: Anxiety, Depression Endocrine/Metabolic History: Reports: Diabetes, Type II, Hypokalemia, Obesity/BMI 30+ Other Endocrine/Metabolic History: Abnormal glucose readings Hematologic History: Reports: Anticoagulation Therapy Immunologic History: Reports: None Oncologic (Cancer) History: Reports: Breast, Other (See Below) Other Oncologic History: right masectomy Dermatologic History: Reports: Cellulitis, Other (See Below) Other Dermatologic History: 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 lymphedema - Infectious Disease History Infectious Disease History: Reports: Chicken Pox, Measles, Mumps, Novel Coronavirus - Past Surgical History HEENT Surgical History: Reports: Cataract Surgery Cardiovascular Surgical History: Reports: None Respiratory Surgical History: Reports: None GI Surgical History: Reports: None Female Surgical History: Reports: Breast Reconstruction, Hysterectomy, Mastectomy Other Female Surgeries/Procedures: right mastectomy with reconstruction Endocrine Surgical History: Reports: None Neurological Surgical History: Reports: None Musculoskeletal Surgical History: Reports: None Other Musculoskeletal Surgeries/Procedures:: arm, ankle and dislocated right knee, left ankle internal fixation Oncologic Surgical History: Reports: Mastectomy Other Oncologic Surgeries/Procedures: right mastectomy Dermatological Surgical History: Reports: None Social & Family History - Family History Family Medical History: No Pertinent Family History - Tobacco Use Tobacco Use Status *Q: Never Tobacco User - Caffeine Use Caffeine Use: Reports: Coffee - Living Situation & Occupation Living situation: Reports: Extended Care Facility Occupation: Retired ED ROS GENERAL - Review of Systems Review Of Systems: Comprehensive ROS is negative, except as noted in HPI. ED EXAM, GENERAL - Physical Exam Exam: See Below Exam Limited By: No Limitations General Appearance: Alert, No Apparent Distress, Obese Eye Exam: Bilateral Eye: EOMI, PERRL Ears: Normal External Exam Nose: Normal Inspection Throat/Mouth: Normal Inspection Head: Atraumatic, Normocephalic Neck: Normal Inspection Respiratory/Chest: No Respiratory Distress, Lungs Clear, Normal Breath Sounds Cardiovascular: Normal Peripheral Pulses, Regular Rate, Rhythm GI/Abdominal: Normal Bowel Sounds Back Exam: Normal Inspection, Other (general stiffness) Extremities: Normal Inspection, Normal Range of Motion, Pedal Edema (3+ to knees, Right anterior oseguera weeping and left scant drainage. ) Course - Vital Signs Last Recorded V/S: Last Vital Signs Temp 98.3 F 07/09/20 16:00 Pulse 80 07/09/20 16:00 Resp 22 H 07/09/20 16:00 BP 130/51 L 07/09/20 16:00 Pulse Ox 92 L 07/09/20 16:00 - Orders/Labs/Meds Orders: Medication Orders Acetaminophen (Tylenol) 650 mg PO Q4H PRN PRN Reason: Pain (Mild 1-3)/fever Last Admin: 07/06/20 19:42 Dose: 650 mg Documented by: LASHANDA Acetaminophen (Tylenol) 650 mg PO BID YRN Last Admin: 07/09/20 08:38 Dose: 650 mg Documented by: Admin: 07/08/20 21:40 Dose: 650 mg Documented by: Admin: 07/08/20 09:15 Dose: 650 mg Documented by: Admin: 07/07/20 21:01 Dose: 650 mg Documented by: Admin: 07/07/20 08:24 Dose: 650 mg Documented by: Admin: 07/06/20 21:45 Dose: 650 mg Documented by: LASHANDA Hydrocodone Bitart/Acetaminophen ([place] 325-10 Mg) 1 tab PO Q6H PRN PRN Reason: Pain (severe 7-10) Last Admin: 07/06/20 23:15 Dose: 1 tab Documented by: LASHANDA Dextrose/Water (Dextrose 50% In Water) 50 ml IV ASDIRECTED PRN PRN Reason: Hypoglycemia Diltiazem HCl (Cardizem Cd) 360 mg PO DAILY [facility] Last Admin: 07/09/20 08:38 Dose: 360 mg Documented by: Admin: 07/08/20 09:12 Dose: 360 mg Documented by: Admin: 07/07/20 08:23 Dose: 360 mg Documented by: MAYITO Docusate Sodium (Colace) 100 mg PO BID PRN PRN Reason: Constipation Emollient Ointment (Hydrocerin Lotion) 0 ml TOP DAILY [facility] Last Admin: 07/09/20 14:07 Dose: 1 applic Documented by: RAMIN Glucagon (Glucagen) 1 mg IM ASDIRECTED PRN PRN Reason: Hypoglycemia Vancomycin HCl 1.5 gm/ Premix 300 mls @ 200 mls/hr IV Q24H [facility] Last Infusion: 07/08/20 23:08 Dose: 200 mls/hr Documented by: Admin: 07/08/20 21:35 Dose: 200 mls/hr Documented by: Infusion: 07/07/20 22:25 Dose: 200 mls/hr Documented by: Admin: 07/07/20 20:53 Dose: 200 mls/hr Documented by: Infusion: 07/06/20 22:13 Dose: 200 mls/hr Documented by: Admin: 07/06/20 20:43 Dose: 200 mls/hr Documented by: LASHANDA Piperacillin Sod/Tazobactam (Sod 2.25 gm/ Sodium Chloride) 50 mls @ 100 mls/hr IV Q6HR YRN Last Infusion: 07/09/20 18:26 Dose: 100 mls/hr Documented by: Admin: 07/09/20 17:49 Dose: 100 mls/hr Documented by: Infusion: 07/09/20 12:14 Dose: 100 mls/hr Documented by: Admin: 07/09/20 11:36 Dose: 100 mls/hr Documented by: Infusion: 07/09/20 06:00 Dose: 100 mls/hr Documented by: Admin: 07/09/20 05:30 Dose: 100 mls/hr Documented by: Infusion: 07/09/20 00:06 Dose: 100 mls/hr Documented by: Admin: 07/08/20 23:36 Dose: 100 mls/hr Documented by: Infusion: 07/08/20 18:06 Dose: 100 mls/hr Documented by: Admin: 07/08/20 17:36 Dose: 100 mls/hr Documented by: Infusion: 07/08/20 13:04 Dose: 100 mls/hr Documented by: [id number] Admin: 07/08/20 12:34 Dose: 100 mls/hr Documented by: [id number] Infusion: 07/08/20 06:25 Dose: 100 mls/hr Documented by: Admin: 07/08/20 05:54 Dose: 100 mls/hr Documented by: Infusion: 07/08/20 00:50 Dose: 100 mls/hr Documented by: Admin: 07/08/20 00:19 Dose: 100 mls/hr Documented by: Infusion: 07/07/20 18:53 Dose: 100 mls/hr Documented by: Admin: 07/07/20 18:23 Dose: 100 mls/hr Documented by: [id number] Infusion: 07/07/20 13:51 Dose: 100 mls/hr Documented by: [id number] Admin: 07/07/20 13:21 Dose: 100 mls/hr Documented by: [id number] Insulin Human Lispro (Humalog) 0 unit SUBCUT WITHMEALSANDBED [facility]; Protocol Last Admin: 07/09/20 17:11 Dose: Not Given Documented by: Admin: 07/09/20 11:13 Dose: Not Given Documented by: Admin: 07/09/20 08:00 Dose: Not Given Documented by: Admin: 07/08/20 21:50 Dose: Not Given Documented by: Admin: 07/08/20 17:14 Dose: Not Given Documented by: Admin: 07/08/20 12:03 Dose: Not Given Documented by: Admin: 07/08/20 09:11 Dose: Not Given Documented by: Admin: 07/07/20 21:14 Dose: Not Given Documented by: Admin: 07/07/20 18:18 Dose: Not Given Documented by: Admin: 07/07/20 13:20 Dose: Not Given Documented by: Admin: 07/07/20 08:23 Dose: Not Given Documented by: Admin: 07/06/20 20:49 Dose: Not Given Documented by: LASHANDA Loperamide HCl (Imodium) 2 - 4 mg PO ASDIRECTED PRN PRN Reason: Diarrhea Metoprolol Succinate (Toprol Xl) 200 mg PO DAILY [facility] Last Admin: 07/09/20 08:39 Dose: 200 mg Documented by: Admin: 07/08/20 09:12 Dose: 200 mg Documented by: Admin: 07/07/20 08:23 Dose: 200 mg Documented by: MAYITO Letrozole 2.5 Mg Tab (*Own Med*) 0 mg PO DAILY [facility] Last Admin: 07/09/20 08:42 Dose: 2.5 mg Documented by: Admin: 07/08/20 09:17 Dose: 2.5 mg Documented by: Admin: 07/07/20 14:42 Dose: 2.5 mg Documented by: MAYITO Nystatin (Nystop) 0 gm TOP BID [facility] Last Admin: 07/09/20 10:29 Dose: 1 applic Documented by: Admin: 07/08/20 21:42 Dose: 1 applic Documented by: Admin: 07/08/20 09:16 Dose: 1 applic Documented by: Admin: 07/07/20 21:09 Dose: 1 applic Documented by: Admin: 07/07/20 11:58 Dose: 1 applic Documented by: [id number] Ondansetron HCl (Zofran Odt) 4 mg PO Q4H PRN PRN Reason: nausea, able to take PO Sodium Chloride (Saline Flush) 10 ml FLUSH ASDIRECTED PRN PRN Reason: Keep Vein Open Last Admin: 07/09/20 17:55 Dose: 10 ml Documented by: Admin: 07/09/20 11:42 Dose: 10 ml Documented by: Admin: 07/09/20 05:28 Dose: 10 ml Documented by: Admin: 07/08/20 23:11 Dose: 10 ml Documented by: Admin: 07/08/20 21:35 Dose: 10 ml Documented by: LINDA Vancomycin HCl (Pharmacy To Dose - Vancomycin) 1 dose .XX ASDIRECTED YRN Warfarin Sodium (Pharmacy To Dose - Warfarin) 1 dose PO ASDIRECTED YRN Labs: Laboratory Tests 07/06/20 07/06/20 07/06/20 Range/Units 16:46 16:46 16:46 WBC 21.2 H (5.0-10.0) 10^3/uL RBC 5.03 (4.2-5.4) 10^6/uL Hgb 14.1 D (12.0-16.0) g/dL Hct 43.0 (37.0-47.0) % MCV 85.5 (80-100) fL MCH 28.0 (27.0-34.0) pg MCHC 32.8 L (33.0-35.0) g/dL Plt Count 250 (150-450) 10^3/uL Neut % (Auto) 88.4 H (42.2-75.2) % Lymph % (Auto) 5.0 L (20.5-50.1) % [place] % (Auto) 6.0 (2-8) % Eos % (Auto) 0.5 L (1.0-3.0) % Baso % (Auto) 0.1 (0.0-1.0) % PT (9.0-12.0) SEC INR (0.9-1.2) Sodium 136 (136-145) mmol/L Potassium 4.3 (3.5-5.1) mmol/L Chloride 98 (98-107) mmol/L Carbon Dioxide 31 (21-32) mmol/L Anion Gap 11.3 (7-13) mEq/L BUN 36 H (7-18) mg/dL Creatinine 1.35 H (0.55-1.02) mg/dL Est Cr Clr Drug Dosing TNP Estimated GFR (MDRD) 38 BUN/Creatinine Ratio 26.7 (No establ ref range) Glucose 131 H (74-99) mg/dL Lactic Acid 1.8 (0.4-2.0) mmol/L Calcium 9.4 (8.5-10.1) mg/dL Total Bilirubin 0.5 (0.2-1.0) mg/dL AST 21 (15-37) U/L ALT 23 (14-59) U/L Alkaline Phosphatase 66 (46-116) U/L Total Protein 9.0 H (6.4-8.2) g/dL Albumin 3.4 (3.4-5.0) g/dL Globulin 5.6 Albumin/Globulin Ratio 0.6 Influenza Type A RNA (NEGATIVE) Influenza Type B RNA (NEGATIVE) SARS-CoV-2 RNA ([place]) (NEGATIVE) 07/06/20 07/06/20 Range/Units 16:46 17:10 WBC (5.0-10.0) 10^3/uL RBC (4.2-5.4) 10^6/uL Hgb (12.0-16.0) g/dL Hct (37.0-47.0) % MCV (80-100) fL MCH (27.0-34.0) pg MCHC (33.0-35.0) g/dL Plt Count (150-450) 10^3/uL Neut % (Auto) (42.2-75.2) % Lymph % (Auto) (20.5-50.1) % [place] % (Auto) (2-8) % Eos % (Auto) (1.0-3.0) % Baso % (Auto) (0.0-1.0) % PT 27.2 H (9.0-12.0) SEC INR 2.9 H (0.9-1.2) Sodium (136-145) mmol/L Potassium (3.5-5.1) mmol/L Chloride (98-107) mmol/L Carbon Dioxide (21-32) mmol/L Anion Gap (7-13) mEq/L BUN (7-18) mg/dL Creatinine (0.55-1.02) mg/dL Est Cr Clr Drug Dosing Estimated GFR (MDRD) BUN/Creatinine Ratio (No establ ref range) Glucose (74-99) mg/dL Lactic Acid (0.4-2.0) mmol/L Calcium (8.5-10.1) mg/dL Total Bilirubin (0.2-1.0) mg/dL AST (15-37) U/L ALT (14-59) U/L Alkaline Phosphatase (46-116) U/L Total Protein (6.4-8.2) g/dL Albumin (3.4-5.0) g/dL Globulin Albumin/Globulin Ratio Influenza Type A RNA Negative (NEGATIVE) Influenza Type B RNA Negative (NEGATIVE) SARS-CoV-2 RNA ([place]) Negative (NEGATIVE) Meds: Medications Generic Name Dose Route Start Last Admin Trade Name Freq PRN Reason Stop Dose Admin Acetaminophen 650 mg 07/06/20 18:57 07/06/20 19:42 Tylenol PO 650 mg Q4H PRN Administration Pain (Mild 1-3)/fever Acetaminophen 650 mg 07/06/20 21:00 07/09/20 08:38 Tylenol PO 650 mg BID YRN Administration Hydrocodone Bitart/Acetaminophen 1 tab 07/06/20 23:01 07/06/20 23:15 [place] 325-10 Mg PO 1 tab Q6H PRN Administration Pain (severe 7-10) Dextrose/Water 50 ml 07/06/20 19:05 Dextrose 50% In Water IV ASDIRECTED PRN Hypoglycemia Diltiazem HCl 360 mg 07/07/20 09:00 07/09/20 08:38 Cardizem Cd PO 360 mg DAILY YRN Administration Docusate Sodium 100 mg 07/06/20 18:57 Colace PO BID PRN Constipation Emollient Ointment 0 ml 07/09/20 13:30 07/09/20 14:07 Hydrocerin Lotion TOP 1 applic DAILY YRN Administration Glucagon 1 mg 07/06/20 19:05 Glucagen IM ASDIRECTED PRN Hypoglycemia Vancomycin HCl 1.5 gm/ Premix 300 mls @ 200 mls/hr 07/06/20 21:00 07/08/20 23:08 IV Infused Q24H [facility] Infusion Piperacillin Sod/Tazobactam 50 mls @ 100 mls/hr 07/07/20 12:00 07/09/20 18:26 Sod 2.25 gm/ Sodium Chloride IV Infused Q6HR YRN Infusion Insulin Human Lispro 0 unit 07/06/20 21:00 07/09/20 17:11 Humalog SUBCUT Not Given WITHMEALSANDBED [facility] Protocol Loperamide HCl 2 - 4 mg 07/06/20 19:06 Imodium PO ASDIRECTED PRN Diarrhea Metoprolol Succinate 200 mg 07/07/20 09:00 07/09/20 08:39 Toprol Xl PO 200 mg DAILY YRN Administration Letrozole 2.5 Mg Tab 0 mg 07/07/20 14:00 07/09/20 08:42 *Own Med* PO 2.5 mg DAILY YRN Administration Nystatin 0 gm 07/07/20 09:00 07/09/20 10:29 Nystop TOP 1 applic BID YRN Administration Ondansetron HCl 4 mg 07/06/20 18:57 Zofran Odt PO Q4H PRN nausea, able to take PO Sodium Chloride 10 ml 07/06/20 18:57 07/09/20 17:55 Saline Flush FLUSH 10 ml ASDIRECTED PRN Administration Keep Vein Open Vancomycin HCl 1 dose 07/06/20 19:15 Pharmacy To Dose - Vancomycin .XX ASDIRECTED YRN Warfarin Sodium 1 dose 07/07/20 14:00 Pharmacy To Dose - Warfarin PO ASDIRECTED YRN Discontinued Medications Generic Name Dose Route Start Last Admin Trade Name Freq PRN Reason Stop Dose Admin Hydrocodone Bitart/Acetaminophen 1 tab 07/06/20 18:57 [place] 325-10 Mg PO Q4H PRN Pain (moderate 4-6) Piperacillin Sod/Tazobactam 100 mls @ 200 mls/hr 07/06/20 20:00 07/07/20 09:23 Sod 3.375 gm/ Sodium Chloride IV Infused Q6H [facility] Infusion Sodium Chloride 1,000 mls @ 75 mls/hr 07/06/20 19:15 07/08/20 05:19 Normal Saline IV 75 mls/hr ASDIRECTED YRN Administration Arginine/Ascorbate 8 oz 07/06/20 21:00 07/08/20 11:22 Sod/Fredy Ac [ PO Not Given Arginaid Powder] 8 BID YRN Oz Nystatin 0 gm 07/07/20 06:30 Nystop TOP BID@0630,1430 YRN Potassium Chloride 40 meq 07/07/20 09:00 07/07/20 08:46 Klor-Con 10 PO 07/07/20 09:01 40 meq ONETIME ONE Administration Potassium Chloride 40 meq 07/08/20 09:30 07/08/20 11:02 Klor-Con 10 PO 07/08/20 09:31 40 meq ONETIME ONE Administration Potassium Chloride 40 meq 07/09/20 11:00 07/09/20 11:24 Klor-Con 10 PO 07/09/20 11:01 40 meq ONETIME ONE Administration Warfarin Sodium 5 mg 07/08/20 14:00 07/08/20 15:06 Coumadin PO 07/08/20 14:01 5 mg ONETIME ONE Administration Warfarin Sodium 5 mg 07/09/20 14:00 07/09/20 14:03 Coumadin PO 07/09/20 14:01 5 mg ONETIME ONE Administration Departure - Departure Time of Disposition: 17:20 Disposition: Home, Self-Care 01 Condition: Fair Clinical Impression: Cellulitis of both lower extremities, Chronic anticoagulation UTI (urinary tract infection) Qualifiers: Urinary tract infection type: site unspecified Hematuria presence: without hematuria Qualified Code(s): N39.0 - Urinary tract infection, site not specified - Discharge Information Sepsis Event Note (ED) - Evaluation Sepsis Screening Result: No Definite Risk
[2020-07-06 17:58] LABS: CORONAVIRUS COVID-19 NAA NEGATIVE (NEGATIVE)
[2020-07-06] MEDS ORDERED: Ondansetron 4 MG Tab.DIS PO PRN (18:57)
[2020-07-06] MEDS ORDERED: Acetaminophen/HYDROcodone 325-10 MG Tab PO PRN ×2 (18:57→23:01)
[2020-07-06] MEDS ORDERED: Docusate Sodium 100 MG Cap PO PRN (18:57)
[2020-07-06] MEDS ORDERED: Glucagon,Human Recombinant 1 MG Vial IM PRN (19:05)
[2020-07-06] MEDS ORDERED: 50% Dextrose in Water 50 ML Syringe IV PRN (19:05)
[2020-07-06] MEDS ORDERED: Loperamide 2 MG Cap PO PRN (19:06)
[2020-07-06] MEDS: Sodium Chloride 0.9% 1,000 ML IV SCH (19:41)
[2020-07-06] MEDS: Piperacillin/Tazobactam 3.375 GM in Sodium Chloride 0.9% 100 ML IV SCH (19:41)
[2020-07-06] MEDS: Acetaminophen 325 MG Tab PO PRN (19:42)
--- NOTE | 2020-07-06 19:58 | HP ---
CHIEF COMPLAINT: Generalized body aches and fever. HISTORY OF PRESENT ILLNESS: The patient is an 79-year-old female, [facility] resident, with past medical history of diabetes mellitus; hypertension; atrial fibrillation, on chronic anticoagulation with Coumadin; morbid obesity; and bilateral lymph edema; and recurrent cellulitis of the lower extremity was admitted through the emergency room, coming [facility] the [facility], because apparently the patient was noted to be weak and having temperature and generalized body aches and chills, and blood pressure was also noted to be running low. Because of this, she was brought into the emergency room; and in the emergency room, the patient was evaluated and her WBC was 21,000 with possible sepsis. She was then admitted for further evaluation and management. PAST MEDICAL HISTORY: Remarkable for atrial fibrillation, CHF, dyslipidemia, hypertension, diabetes mellitus, anxiety, depression, obesity, and recurrent cellulitis of both lower extremity. FAMILY HISTORY: Noncontributory. SOCIAL HISTORY: The patient is . The patient is a penitentiary resident. She is a nonsmoker and non-alcohol drinker. HOME MEDICATIONS: Metformin, levofloxacin, diltiazem, Coumadin, spironolactone, potassium chloride, Zofran, metoprolol, Imodium, Zyrtec, Bumex, and acetaminophen. ALLERGIES: Shellfish and tape. REVIEW OF SYSTEMS: As in HPI. The patient denies any headache, chest pain, shortness of breath, or abdominal pain. The rest of the review of systems is negative. PHYSICAL EXAMINATION: General: The patient is alert. She is shivering, but not in any acute respiratory distress. Vital Signs: Blood pressure is 129/44, pulse of 75, respirations of 24, saturation is 94% on room air, and temperature is 99.3. SHEENT: Normocephalic. There are pink palpebral conjunctivae. Sclerae are anicteric. Neck: No JVD. No lymphadenopathy. Heart: Regular. Ventricular response within normal limits. Lungs: Diminished breath sounds on both bases, but no significant crackles and no wheezing. Abdomen: Obese, soft, and nontender. Bowel sounds are positive. Extremities: Remarkable for the lymphedema bilaterally with some redness bilaterally. LABORATORY DATA: Lab workup CBC: WBC is 21.2 with 88.4 neutrophils, hemoglobin is 14.1, hematocrit is 43, and platelet is 250. Comp panel: BUN is 36, creatinine is 1.35, glucose is 131, and total protein of 9, the rest of the panel is unremarkable. Influenza A and B are negative. SARS-CoV-2 is negative. ADMITTING DIAGNOSES: 1. Systemic inflammatory response syndrome. 2. Cellulitis. 3. Atrial fibrillation. 4. Diabetes mellitus. 5. Obesity. 6. Chronic anticoagulation with Coumadin. TREATMENT PLAN: The patient is going to be admitted to acute care. She will be empirically started on IV antibiotics with vancomycin and Zosyn. She will be on sliding scale insulin, and she will be resumed on her home medication and the rest of the management as necessary. The patient is DNR and DNI. [facility] /[id number]
[2020-07-06] MEDS: Insulin Lispro 100 Units/ML 3 ML Vial SUBCUT SCH (20:49)
[2020-07-06] MEDS: Acetaminophen 325 MG Tab PO SCH (21:45)
[2020-07-07] MEDS: Piperacillin/Tazobactam 3.375 GM in Sodium Chloride 0.9% 100 ML IV SCH ×2 (01:58→08:23)
[2020-07-07] MEDS ORDERED: Nystatin Topical Powder 30 GM Bottle TOP SCH (06:30)
[2020-07-07 07:00] LABS: ANION GAP 10.4 mEq/L (7-13)
[2020-07-07] MEDS: Metoprolol Succinate 50 MG Tab.ER PO SCH (08:23)
[2020-07-07] MEDS: Insulin Lispro 100 Units/ML 3 ML Vial SUBCUT SCH ×4 (08:23→21:14)
[2020-07-07] MEDS: Diltiazem 180 MG Cap.CD PO SCH (08:23)
[2020-07-07] MEDS: Acetaminophen 325 MG Tab PO SCH ×2 (08:24→21:01)
[2020-07-07] MEDS ORDERED: Potassium Chloride 10 MEQ Tab.ER PO ONE (09:00)
--- NOTE | 2020-07-07 09:38 | PN ---
DATE: 07/07/2020 SUBJECTIVE: The patient is an 79-year-old lady with past medical history of atrial fibrillation, CHF, dyslipidemia, hypertension, diabetes mellitus, and recurrent cellulitis of both lower extremities, admitted because of systemic inflammatory response syndrome and cellulitis of both lower extremities. The patient this morning is much more alert. The patient denies any more generalized body aches. The patient denies any chest pain or shortness of breath, abdominal pain, or any other complaints. LABORATORY DATA: Lab workup this morning; WBC is 32.9, hemoglobin is 13, hematocrit is 39, platelet is 207. ProTime is 21.8, INR is 2.3. Chem-6; potassium is 3.4, BUN is 35, creatinine is 1.45, glucose is 128. OBJECTIVE: Vital Signs: Blood pressure is 136/62, pulse of 85, respirations of 20, temperature of 100.1, saturation is 90% on 1 L per nasal cannula. Heart: Regular rate and rhythm. No gallops. No rubs. Lungs: Equal bilaterally. No crackles. No wheezing. Abdomen: Obese, soft, nontender. Extremities: Remarkable for the lymphedema and erythema on both lower extremities. MEDICATIONS: Reviewed. PLAN: We will continue with her IV antibiotics, that is vancomycin and Zosyn, and we will continue the rest of her medication. INR/Coumadin is also being adjusted by pharmacy. We will also give her potassium 40 mEq p.o. x1 today and we will recheck potassium in a.m. The patient's diuretics from the alf is currently being held as her blood pressure is still running on the low side. We will also continue with her IV fluids. [facility] /[id number]
[2020-07-07] MEDS: Nystatin Topical Powder 30 GM Bottle TOP SCH ×2 (11:58→21:09)
[2020-07-07] MEDS: Sodium Chloride 0.9% 1,000 ML IV SCH (12:53)
[2020-07-07] MEDS: Piperacillin/Tazobactam 2.25 GM in Sodium Chloride 0.9% 50 ML IV SCH ×2 (13:21→18:23)
[2020-07-07] MEDS ORDERED: Warfarin 2 MG Tab PO SCH (14:00)
[2020-07-07] MEDS: LETROZOLE 2.5 MG PO SCH (14:42)
[2020-07-08] MEDS: Piperacillin/Tazobactam 2.25 GM in Sodium Chloride 0.9% 50 ML IV SCH ×5 (00:19→23:36)
[2020-07-08] MEDS: Sodium Chloride 0.9% 1,000 ML IV SCH (05:19)
[2020-07-08 06:40] LABS: ANION GAP 8.1 mEq/L (7-13)
[2020-07-08] MEDS: Insulin Lispro 100 Units/ML 3 ML Vial SUBCUT SCH ×4 (09:11→21:50)
[2020-07-08] MEDS: Metoprolol Succinate 50 MG Tab.ER PO SCH (09:12)
[2020-07-08] MEDS: Diltiazem 180 MG Cap.CD PO SCH (09:12)
[2020-07-08] MEDS: Acetaminophen 325 MG Tab PO SCH ×2 (09:15→21:40)
[2020-07-08] MEDS: Nystatin Topical Powder 30 GM Bottle TOP SCH ×2 (09:16→21:42)
[2020-07-08] MEDS: LETROZOLE 2.5 MG PO SCH (09:17)
[2020-07-08] MEDS ORDERED: Potassium Chloride 10 MEQ Tab.ER PO ONE (09:30)
--- NOTE | 2020-07-08 09:59 | PN ---
DATE: 07/07/2020 SUBJECTIVE: The patient is an 79-year-old lady who was admitted because of cellulitis of the lower extremity and sepsis. The patient continued to slowly improve, and the patient mentioned that she is feeling better. Appetite is slowly improving, and the generalized aches and pains that she has, has improved. She denies any chest pain or shortness of breath, abdominal pain nor any other significant complaints. LABORATORY DATA: Lab workup this morning. CBC: WBC 17.9 (improvement), hemoglobin is 11.7, hematocrit 36.4, platelet is 162. ProTime 16.3, INR of 1.7. Chem-6: Potassium is 3.1, BUN is 29, creatinine is 1.23, and glucose is 105. OBJECTIVE: Vital Signs: Blood pressure is 144/62, pulse 72, respirations of 20, temperature of 97.4, saturation is 95% on 1 L per nasal cannula. Heart: Regular. Ventricular response within normal limits. Lungs: Have diminished breath sounds on both bases, but no crackles, no wheezing. Abdomen: Obese, soft, nontender. Bowel sounds positive. Extremities: Negative for any calf tenderness, but there is still some raw area on the shins bilaterally and some redness. MEDICATIONS: Reviewed. PLAN: I am going to discontinue her IV fluids as her appetite has been good and blood pressure has been good. We will also give her potassium supplementation 40 mEq p.o. x1 today, and we will continue with the rest of her management and continue with IV vancomycin and IV Zosyn. [facility] /[id number]
[2020-07-08] MEDS: VITE AC PO SCH (11:22)
[2020-07-08] MEDS: ARGININE PO SCH (11:22)
[2020-07-08] MEDS: ASCORBATE SOD PO SCH (11:22)
[2020-07-08] MEDS ORDERED: Warfarin 5 MG Tab PO ONE (14:00)
[2020-07-08] MEDS: Sodium Chloride 0.9% 10 ML Syringe FLUSH PRN ×2 (21:35→23:11)
[2020-07-09] MEDS: Sodium Chloride 0.9% 10 ML Syringe FLUSH PRN ×5 (05:28→23:14)
[2020-07-09] MEDS: Piperacillin/Tazobactam 2.25 GM in Sodium Chloride 0.9% 50 ML IV SCH ×4 (05:30→23:13)
[2020-07-09 06:40] LABS: ANION GAP 11.4 mEq/L (7-13)
[2020-07-09] MEDS: Insulin Lispro 100 Units/ML 3 ML Vial SUBCUT SCH ×4 (08:00→21:47)
[2020-07-09] MEDS: Diltiazem 180 MG Cap.CD PO SCH (08:38)
[2020-07-09] MEDS: Acetaminophen 325 MG Tab PO SCH ×2 (08:38→21:37)
[2020-07-09] MEDS: Metoprolol Succinate 50 MG Tab.ER PO SCH (08:39)
[2020-07-09] MEDS: LETROZOLE 2.5 MG PO SCH (08:42)
[2020-07-09] MEDS: Nystatin Topical Powder 30 GM Bottle TOP SCH ×2 (10:29→21:36)
[2020-07-09] MEDS ORDERED: Potassium Chloride 10 MEQ Tab.ER PO ONE (11:00)
--- OUTSIDE RECORDS SUMMARY | 2020-07-09 12:48 | XMSREPORT | Referral Summary ---
:1940 Author Organization [employer] [facility] Address [address] [place] [address] Care Team Providers Name Role Phone Patrice Young MD Unavailable Unavailable Alpesh James Licensed [employer] Social Patient Care Berry johnson Unavailable Worker Christine Cook MD Primary Care Provider Reason for Referral Consult (Routine) Status Reason Specialty Diagnoses / Referred By Referred To Procedures Contact Contact Auth Not Service/Special Internal Diagnoses Cellulitis of lower extremity, unspecified laterality Logdouglas, DERRICK ST Needed ist Not Medicine Max King MD [facility] [address] [place] [address] [place] [address] 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 Encounter Details Date Type Department Care Team Description 07/09/2020 Orders Only [place] [facility] [place], Scott, Cell ulitis of lower Medicine [employer] extremity, unspecified [address] laterality (Primary Dx) [place] [address] Allergies Active Allergy Reactions Severity Noted Date Comments Shellfish Allergy Diarrhea - Intolerance Low scallops Tape Adhesive Blistering/ Skin Medium 11/06/2015 Tegaderm a nd steri eruptions - Allergy strips documented as of this encounter (statuses as of 07/09/2020) Medications Medication Sig Dispensed Refills Start Date End Date Status lactulose (CHRONULAC) Take 10 g by 0 09/01/2017 Active 10 GM/15ML solution mouth daily as needed. diltiazem (TIAZAC) 360 Take 1 Cap by 0 06/16/2018 Active MG ER capsule mouth daily. acetaminophen Take 650 mg by 0 A ctive (TYLENOL) 325 MG mouth every 4 tablet hours as needed. calcium carbonate Take 1 Tab by 0 Active (TUMS) 500 MG chewable mouth as needed tablet for Heartburn. loperamide (IMODIUM) 2 Take 2 mg by 0 Active MG capsule mouth 4 times daily as needed for Diarrhea. magnesium hydroxide Take 30 mL by 0 Active (MILK OF MAGNESIA) 400 mouth daily as MG/5ML suspension needed for Constipation. ondansetron (ZOFRAN) 4 Take 4 mg by 0 Active MG tablet mouth every 8 hours as needed for Nausea/Vomiting. NYAMYC external powder APPLY TO GROIN 11 01/17/2019 Active TWICE DAILY UNTIL RESOLVED letrozole (FEMARA) 2.5 Take 1 Tab by 90 Tab 1 01/25/2019 Active MG tablet mouth daily. cetirizine (ZYRTEC) 10 Take 5 mg by 11 02/01/2019 Active MG tablet mouth as needed. Nutritional Take 1 Packet by 0 A ctive Supplements (ARGINAID) mouth. TAKES PACK packet TWICE DAILY - 9.2 GRAM PACKED MIXED WITH 8 OZ OF WATER metFORMIN (GLUCOPHAGE) Take 500 mg by 0 07/13/2019 Active 500 MG tablet mouth daily. bumetanide (BUMEX) 2 Take 1 Tab by 120 Tab 11 07/26/201907/14 Active MG tabletIndications: mouth 2 times Edema daily. Indications: Edema warfarin (COUMADIN) 3 Take 3 mg by 0 Active MG tablet mouth twice a week. Twice /week CALMOSEPTINE 0.44-20.6 APPLY TWICE A 0 11/12/2019 Active % ointment DAY metoproloL succinate Take 1 Tab by 0 03/18/2020 Active (TOPROL-XL) 200 MG XL mouth daily. tabletIndications: Bilateral leg edema, Stage 3a chronic kidney disease potassium chloride Take 2 Tabs by 120 Tab 1 03/18/2020 Active (KLOR-CON; K-TAB) 10 mouth 2 times MEQ extended release daily. (take 3 tabletIndications: tabs - twice Bilateral leg edema, daily) Stage 3a chronic kidney disease bumetanide (BUMEX) 1 Take 1.5 Tabs by 45 Tab 11 03/18/2020 1 Active MG tabletIndications: mouth every Edema evening. Indications: Edema warfarin (JANTOVEN) 4 Take 1 Tab by 30 Tab 3 04/17/2020 Active MG tablet mouth daily. Mon, tues, thurs, fri, satur spironolactone Take 25 mg by 0 05/14/2020 Active (ALDACTONE) 25 MG mouth daily. tablet Probiotic Product Take by mouth. 0 Active (PROBIOTIC PO) ergocalciferol,vitamin Take 1 Cap by 4 Cap 11 06/10/2020 Active D, (ERGOCALCIFEROL) mouth once a 1.25 MG (17219 UT) week for 360 capsule days. bisacodyL (DULCOLAX) Place 10 mg 0 Active 10 MG suppository rectally daily. documented as of this encounter (statuses as of 07/09/2020) Active Problems Patient Care Coordination Note Lives [facility] [phone] Problem Noted Date Atrial fibrillation 02/06/2020 Hypertension 02/06/2020 Cellulitis of both lower extremities 02/06/2020 Constipation 02/06/2020 Disorder of intervertebral disc of lumbar spine 2019 Impaired cognition 02/06/2020 Fall in home 02/06/2020 Intertrigo 02/06/2020 Recurrent falls while walking 12/13/2019 Cellulitis 11/16/2019 Pruritic intertrigo 11/16/2019 Cerebrovascular small vessel disease 08/20/2019 Episode of altered cognition 08/20/2019 Fall at home 08/20/2019 High risk medication use 08/20/2019 Subjective weakness 08/20/2019 Malignant neoplasm of left breast 08/20/2019 Disc disorder of lumbar region 08/20/2019 Obesity, Class III, BMI 40-49.9 (morbid obesity) 08/19 Breast CA 05/03/2019 Excessive falling 05/03/2019 Osteoporosis 01/30/2019 retirement current use of anticoagulant therapy 016 Low back pain 04/09/2016 Disorder of intervertebral disc 04/09/2016 Malignant neoplasm of overlapping sites of right femal e breast 08/21/2015 Cancer Staging: Clinical stage from 10/06: Stage IA (T1c, N0, cM0) - Signed by Desean Durán MD on 02/03/2016 Pathologic: Stage IIB (T2, N1a, cM0) - S igned by Conrad Olea MD on 10/07/2015 Fracture of left fibula 05/24/2015 Dyslipidemia Fibromyalgia Pre-diabetes Colon polyps documented as of this encounter (statuses as of 07/09/2020) Resolved Problems Problem Noted Date Resolved Date Fever with leukocytosis and leukocyte count greater than or 02/06/2020 06/10/2020 equal to 20,000 Sepsis 02/06/2020 06/10/2020 Left-sided epistaxis 08/20/2019 06/10/2020 Recurrent falls while walking 08/20/2019 10/09/2019 Epistaxis 05/03/2019 06/27/2019 A-fib 02/02/2019 06/27/2019 Anterior epistaxis 04/09/2016 06/27/2019 documented as of this encounter (statuses as of 07/09/2020) Immunizations Name Administration Dates Next Due H1N1 06/20/2009 INFL (IIV3 P/F) 03/27/2013 INFL (high dose) 04/05/2019, 03/23/2018, 03/23/2016, 10/0 12/2014, 03/12/2014 PCV13 (PNEUMOCOCCAL) 08/18/2015 PPSV23 (Pneumococcal) 03/12/2014 TD 12/05/2000 TD Adult (P/F) 12/05/2000 TDAP 12/05/2000 documented as of this encounter Social History Tobacco Use Types Packs/Day Years Used Date Former Smoker Cigarettes 1 20 Quit: 07/14/18 87 Smokeless Tobacco: Never Used Alcohol Use Drinks/Week oz/Week Comments No Sex Assigned at Date Recorded Not on file COVID-19 Exposure Response Date Recorded In the last month, have you been in contact Unable to assess 06/12/2020 8:56 AM 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 documented as of this encounter Plan of Treatment Date Type Specialty Care Team Description 08/11/2020 Office Visit Cardiology Samantha Montiel NP [address] [place] [address] 11/20/2020 Office Visit Oncology Freeman Sotelo MD [address] [place] [address] [phone] 11/20/2020 Treatment Oncology Name Type Priority Associated Diagnoses Order S chedule AMB REFERRAL TO Outpatient Referral Cellulitis of lowe r Ordered: INTERNAL MEDICINE extremity, 07/09/2020 unspecified laterality documented as of this encounter Visit Diagnoses Diagnosis Cellulitis of lower extremity, unspecifi ed laterality - Primary documented in this encounter Additional Health Concerns Infection Onset Date Last Indicated Resolved Time 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 [employer] [facility] [place] [phone] [place] [address] documented as of this encounter Advance Directives Code Status Date Activated Date Inactivated Comments Full Code 09/15/2015 1:34 PM 09/17/2015 2:24 PM Full Code 09/15/2015 10:14 AM 09/15/2015 1:34 PM Full Code 10/09/2012 9:14 AM 10/09/2012 9:23 PM
--- NOTE | 2020-07-09 12:56 | PCM.PN ---
- General Info Date of Service: 07/09/20 Subjective Update: Patient is a 87-year-old female who was admitted for cellulitis of her bilateral lower extremities in the setting of sepsis. Patient has a history of lymphedema and has recurrent cellulitis. Patient was started on vancomycin, Zosyn. Cultures pending. Overnight patient had no acute events. Redness and erythema improved Functional Status: Reports: Pain Controlled, Tolerating Diet, Urinating - Review of Systems General: Reports: No Symptoms HEENT: Reports: No Symptoms Pulmonary: Reports: No Symptoms Cardiovascular: Reports: No Symptoms Gastrointestinal: Reports: No Symptoms Genitourinary: Reports: No Symptoms Musculoskeletal: Reports: No Symptoms Skin: Reports: Dryness Neurological: Reports: No Symptoms Psychiatric: Reports: No Symptoms - Patient Data Vitals - Most Recent: Last Vital Signs Temp 97.7 F 07/09/20 08:00 Pulse 71 07/09/20 08:39 Resp 20 07/09/20 08:00 BP 115/65 07/09/20 08:39 Pulse Ox 96 07/09/20 08:00 Weight - Most Recent: 260 lb I&O - Last 24 Hours: Intake & Output 07/08/20 07/09/20 07/09/20 22:59 06:59 14:59 Intake Total 590 992 Output Total 700 600 Balance -110 392 Lab Results Last 24 Hours: Laboratory Results - last 24 hr 07/08/20 07/08/20 07/09/20 Range/Units 16:36 20:36 06:20 WBC (5.0-10.0) 10^3/uL RBC (4.2-5.4) 10^6/uL Hgb (12.0-16.0) g/dL Hct (37.0-47.0) % MCV (80-100) fL MCH (27.0-34.0) pg MCHC (33.0-35.0) g/dL Plt Count (150-450) 10^3/uL Neut % (Auto) (42.2-75.2) % Lymph % (Auto) (20.5-50.1) % Thomas % (Auto) (2-8) % Eos % (Auto) (1.0-3.0) % Baso % (Auto) (0.0-1.0) % PT 15.9 H (9.0-12.0) SEC INR 1.7 H (0.9-1.2) Sodium (136-145) mmol/L Potassium (3.5-5.1) mmol/L Chloride (98-107) mmol/L Carbon Dioxide (21-32) mmol/L Anion Gap (7-13) mEq/L BUN (7-18) mg/dL Creatinine (0.55-1.02) mg/dL Est Cr Clr Drug Dosing mL/min Estimated GFR (MDRD) Glucose (74-99) mg/dL POC Glucose 129 H 132 H (83-110) mg/dl Calcium (8.5-10.1) mg/dL 07/09/20 07/09/20 07/09/20 Range/Units 06:20 06:20 07:52 WBC 12.1 H (5.0-10.0) 10^3/uL RBC 4.24 (4.2-5.4) 10^6/uL Hgb 11.8 L (12.0-16.0) g/dL Hct 37.4 (37.0-47.0) % MCV 88.2 (80-100) fL MCH 27.8 (27.0-34.0) pg MCHC 31.6 L (33.0-35.0) g/dL Plt Count 174 (150-450) 10^3/uL Neut % (Auto) 78.1 H (42.2-75.2) % Lymph % (Auto) 10.1 L (20.5-50.1) % Thomas % (Auto) 9.4 H (2-8) % Eos % (Auto) 2.2 (1.0-3.0) % Baso % (Auto) 0.2 (0.0-1.0) % PT (9.0-12.0) SEC INR (0.9-1.2) Sodium 140 (136-145) mmol/L Potassium 3.4 L (3.5-5.1) mmol/L Chloride 103 (98-107) mmol/L Carbon Dioxide 29 (21-32) mmol/L Anion Gap 11.4 (7-13) mEq/L BUN 23 H (7-18) mg/dL Creatinine 0.95 (0.55-1.02) mg/dL Est Cr Clr Drug Dosing 45.16 mL/min Estimated GFR (MDRD) 56 Glucose 105 H (74-99) mg/dL POC Glucose 101 (83-110) mg/dl Calcium 8.4 L (8.5-10.1) mg/dL 07/09/20 Range/Units 11:10 WBC (5.0-10.0) 10^3/uL RBC (4.2-5.4) 10^6/uL Hgb (12.0-16.0) g/dL Hct (37.0-47.0) % MCV (80-100) fL MCH (27.0-34.0) pg MCHC (33.0-35.0) g/dL Plt Count (150-450) 10^3/uL Neut % (Auto) (42.2-75.2) % Lymph % (Auto) (20.5-50.1) % Thomas % (Auto) (2-8) % Eos % (Auto) (1.0-3.0) % Baso % (Auto) (0.0-1.0) % PT (9.0-12.0) SEC INR (0.9-1.2) Sodium (136-145) mmol/L Potassium (3.5-5.1) mmol/L Chloride (98-107) mmol/L Carbon Dioxide (21-32) mmol/L Anion Gap (7-13) mEq/L BUN (7-18) mg/dL Creatinine (0.55-1.02) mg/dL Est Cr Clr Drug Dosing mL/min Estimated GFR (MDRD) Glucose (74-99) mg/dL POC Glucose 150 H (83-110) mg/dl Calcium (8.5-10.1) mg/dL Leo Results Last 24 Hours: Microbiology 07/06/20 19:20 Urine Culture - Final Urine, Catheterized Klebsiella Pneumoniae Proteus Mirabilis 07/08/20 10:43 Aerobic Blood Culture - Preliminary Blood - Arm, Right NO GROWTH AFTER 1 DAY Anaerobic Blood Culture - Preliminary NO GROWTH AFTER 1 DAY 07/08/20 10:40 Aerobic Blood Culture - Preliminary Blood - Arm, Left NO GROWTH AFTER 1 DAY Anaerobic Blood Culture - Preliminary NO GROWTH AFTER 1 DAY 07/06/20 16:46 Aerobic Blood Culture - Final Blood - Arm, Right Pseudomonas Aeruginosa Anaerobic Blood Culture - Final 07/06/20 16:46 Aerobic Blood Culture - Preliminary Blood - Arm, Left NO GROWTH AFTER 2 DAYS Anaerobic Blood Culture - Final Med Orders - Current: Current Medications Acetaminophen (Tylenol) 650 mg PO Q4H PRN PRN Reason: Pain (Mild 1-3)/fever Last Admin: 07/06/20 19:42 Dose: 650 mg Documented by: Acetaminophen (Tylenol) 650 mg PO BID [facility] Last Admin: 07/09/20 08:38 Dose: 650 mg Documented by: Hydrocodone Bitart/Acetaminophen ([place] 325-10 Mg) 1 tab PO Q6H PRN PRN Reason: Pain (severe 7-10) Last Admin: 07/06/20 23:15 Dose: 1 tab Documented by: Dextrose/Water (Dextrose 50% In Water) 50 ml IV ASDIRECTED PRN PRN Reason: Hypoglycemia Diltiazem HCl (Cardizem Cd) 360 mg PO DAILY [facility] Last Admin: 07/09/20 08:38 Dose: 360 mg Documented by: Docusate Sodium (Colace) 100 mg PO BID PRN PRN Reason: Constipation Glucagon (Glucagen) 1 mg IM ASDIRECTED PRN PRN Reason: Hypoglycemia Vancomycin HCl 1.5 gm/ Premix 300 mls @ 200 mls/hr IV Q24H [facility] Last Infusion: 07/08/20 23:08 Dose: Infused Documented by: Piperacillin Sod/Tazobactam (Sod 2.25 gm/ Sodium Chloride) 50 mls @ 100 mls/hr IV Q6HR [facility] Last Infusion: 07/09/20 12:14 Dose: Infused Documented by: Insulin Human Lispro (Humalog) 0 unit SUBCUT WITHMEALSANDBED [facility]; Protocol Last Admin: 07/09/20 11:13 Dose: Not Given Documented by: Loperamide HCl (Imodium) 2 - 4 mg PO ASDIRECTED PRN PRN Reason: Diarrhea Metoprolol Succinate (Toprol Xl) 200 mg PO DAILY [facility] Last Admin: 07/09/20 08:39 Dose: 200 mg Documented by: Letrozole 2.5 Mg Tab (*Own Med*) 0 mg PO DAILY [facility] Last Admin: 07/09/20 08:42 Dose: 2.5 mg Documented by: Nystatin (Nystop) 0 gm TOP BID [facility] Last Admin: 07/09/20 10:29 Dose: 1 applic Documented by: Ondansetron HCl (Zofran Odt) 4 mg PO Q4H PRN PRN Reason: nausea, able to take PO Sodium Chloride (Saline Flush) 10 ml FLUSH ASDIRECTED PRN PRN Reason: Keep Vein Open Last Admin: 07/09/20 11:42 Dose: 10 ml Documented by: Vancomycin HCl (Pharmacy To Dose - Vancomycin) 1 dose .XX ASDIRECTED [facility] Warfarin Sodium (Pharmacy To Dose - Warfarin) 1 dose PO ASDIRECTED [facility] Warfarin Sodium (Coumadin) 5 mg PO ONETIME ONE Stop: 07/09/20 14:01 Discontinued Medications Hydrocodone Bitart/Acetaminophen ([place] 325-10 Mg) 1 tab PO Q4H PRN PRN Reason: Pain (moderate 4-6) Piperacillin Sod/Tazobactam (Sod 3.375 gm/ Sodium Chloride) 100 mls @ 200 mls/hr IV Q6H [facility] Last Infusion: 07/07/20 09:23 Dose: Infused Documented by: Sodium Chloride (Normal Saline) 1,000 mls @ 75 mls/hr IV ASDIRECTED [facility] Last Admin: 07/08/20 05:19 Dose: 75 mls/hr Documented by: Arginine/Ascorbate Sod/Fredy Ac [ Arginaid Powder] 8 Oz 8 oz PO BID [facility] Last Admin: 07/08/20 11:22 Dose: Not Given Documented by: Nystatin (Nystop) 0 gm TOP BID@0630,1430 [facility] Potassium Chloride (Klor-Con 10) 40 meq PO ONETIME ONE Stop: 07/07/20 09:01 Last Admin: 07/07/20 08:46 Dose: 40 meq Documented by: Potassium Chloride (Klor-Con 10) 40 meq PO ONETIME ONE Stop: 07/08/20 09:31 Last Admin: 07/08/20 11:02 Dose: 40 meq Documented by: Potassium Chloride (Klor-Con 10) 40 meq PO ONETIME ONE Stop: 07/09/20 11:01 Last Admin: 07/09/20 11:24 Dose: 40 meq Documented by: Warfarin Sodium (Coumadin) 5 mg PO ONETIME ONE Stop: 07/08/20 14:01 Last Admin: 07/08/20 15:06 Dose: 5 mg Documented by: - Exam General: Alert, Oriented HEENT: EOMI Neck: Trachea Midline Lungs: Normal Respiratory Effort GI/Abdominal Exam: No Distention Extremities: Redness, Other (Mild erythema and redness over bilateral lower extremities) Skin: Warm, Dry Neurological: No New Focal Deficit Psy/Mental Status: Alert, Normal Affect Sepsis Event Note - Evaluation Sepsis Screening Result: No Definite Risk - Focused Exam Vital Signs: Vital Signs Temp Pulse Pulse Resp BP BP BP 07/09/20 08:39 71 115/65 07/09/20 08:00 97.7 F 71 20 115/65 07/09/20 05:00 97.9 F 68 20 135/64 Pulse Ox 07/09/20 08:39 07/09/20 08:00 96 07/09/20 05:00 93 L - Problem List Review Problem List Initiated/Reviewed/Updated: No - My Orders Last 24 Hours: My Active Orders 07/10/20 06:00 BMP [BASIC METABOLIC PANEL,BMP] [CHEM] Routine CBC W/O DIFF,HEMOGRAM [HEME] Routine - Plan Plan:: Patient IV fluids discontinued. Patient will continue on IV Zosyn and vancomycin until cultures result. Patient given 40 mEq of potassium due to hypokalemia.
[2020-07-09] MEDS ORDERED: Warfarin 2.5 MG Tab PO SCH (14:00)
[2020-07-09] MEDS ORDERED: Warfarin 5 MG Tab PO ONE (14:00)
[2020-07-09] MEDS: Isopropyl Myristate/Mineral Oil/Water Lotion 240 ML Bottle TOP SCH (14:07)
[2020-07-10] MEDS: Sodium Chloride 0.9% 10 ML Syringe FLUSH PRN (05:40)
[2020-07-10] MEDS: Piperacillin/Tazobactam 2.25 GM in Sodium Chloride 0.9% 50 ML IV SCH (05:41)
[2020-07-10 06:57] LABS: CHLORIDE,CL 104 mmol/L (98-107); SODIUM,NA 140 mmol/L (136-145)
[2020-07-10] MEDS ORDERED: Albuterol/Ipratropium 3.0-0.5 MG/3 ML Neb Soln NEB PRN (07:37)
[2020-07-10] MEDS ORDERED: Levofloxacin 500 MG Tab PO SCH (08:00)
[2020-07-10] MEDS: Metoprolol Succinate 50 MG Tab.ER PO SCH (08:39)
[2020-07-10] MEDS: Diltiazem 180 MG Cap.CD PO SCH (08:39)
[2020-07-10] MEDS: Acetaminophen 325 MG Tab PO PRN (08:41)
[2020-07-10] MEDS: Isopropyl Myristate/Mineral Oil/Water Lotion 240 ML Bottle TOP SCH (09:42)
[2020-07-10] MEDS: Nystatin Topical Powder 30 GM Bottle TOP SCH (09:42)
[2020-07-10] MEDS: LETROZOLE 2.5 MG PO SCH (09:42)
[2020-07-10] MEDS: Insulin Lispro 100 Units/ML 3 ML Vial SUBCUT SCH ×2 (10:07→11:51)
[2020-07-10] MEDS: Acetaminophen 325 MG Tab PO SCH (10:07)
[2020-07-10 12:12] VITALS: BP 130/68; PULSE 79
--- NOTE | 2020-07-10 12:27 | PCM.DCSUM1 ---
Discharge Summary - Hospital Course Free Text/Narrative:: Patient is a 87-year-old female who was admitted for cellulitis of her bilateral lower extremities in the setting of sepsis. Patient has a history of lymphedema and has recurrent cellulitis. Patient was started on vancomycin, Zosyn. Blood cultures grew pseudomonas and urine cultures grew klebsiella and proteus. Patient was transitioned to Levaquin and [facility] Diagnosis: Stroke: No - Discharge Data Discharge Date: 07/10/20 Discharge Disposition: DC/Tfer to SNF 03 Condition: Good - Referral to Home Health Primary Care Physician: Romeo Cook MD - Discharge Diagnosis/Problem(s) (1) Cellulitis of both lower extremities SNOMED Code(s): 174127600 ICD Code: L03.115 - CELLULITIS OF RIGHT LOWER LIMB; L03.116 - CELLULITIS OF LEFT LOWER LIMB Status: Acute Current Visit: Yes Onset Date: ~11/23/19 (2) Sepsis SNOMED Code(s): 32777374 ICD Code: A41.9 - SEPSIS, UNSPECIFIED ORGANISM Status: Resolved Current Visit: Yes - Discharge Plan *PRESCRIPTION DRUG MONITORING PROGRAM REVIEWED*: Not Applicable *COPY OF PRESCRIPTION DRUG MONITORING REPORT IN PATIENT ASHLEY: Not Applicable Prescriptions/Med Rec: levoFLOXacin [Levaquin] 750 mg PO Q24H 14 Days #14 tablet Home Medications: Home Meds Metoprolol Succinate [Toprol XL] 200 mg PO DAILY 12/07/14 [History] Letrozole 2.5 mg PO DAILY 06/08/17 [History] Calcium Carbonate [Tums] 500 mg PO TID PRN 06/14/17 [History] Potassium Chloride [Klor-Con 10] 20 meq PO BIDMEALS 06/14/17 [History] Acetaminophen 650 mg PO BID 08/08/19 [History] Acetaminophen [Tylenol] 650 mg PO Q4H PRN 08/08/19 [History] Arginine/Ascorbate Sod/Fredy AC [Arginaid Powder] 8 oz PO BID 08/08/19 [History] Cetirizine [ZyrTEC] 5 mg PO DAILY PRN 08/08/19 [History] Lactulose 15 ml PO DAILY PRN 08/08/19 [History] Loperamide [Imodium AD] 2 - 4 mg PO ASDIRECTED PRN 08/08/19 [History] Magnesium Hydroxide [Milk of Magnesia] 30 ml PO DAILY PRN 08/08/19 [History] Nystatin [Nyamyc] 1 applic TOP .BID06,1430 08/08/19 [History] Ondansetron [Zofran] 4 mg PO Q4H PRN 08/08/19 [History] Triamcinolone Acetonide [Kenalog 0.1% Crm] 1 applic TOP BID@0630,1430 08/08/19 [History] Warfarin Sodium [Coumadin] 3 mg PO .WEDSUN 08/08/19 [History] Warfarin [Coumadin] 4 mg PO .MONTUTHUFRISAT 08/08/19 [History] dilTIAZem HCL [Diltiazem 24Hr ER] 360 mg PO DAILY 08/08/19 [History] metFORMIN HCl [Metformin HCl] 500 mg PO DAILY 08/08/19 [History] L.acidoph,Paracasei, B.lactis [Probiotic] 1 each PO DAILY 02/17/20 [History] Bisacodyl [Laxative Suppository] 10 mg RC DAILY PRN 07/06/20 [History] Bumetanide [Bumex] 1.5 mg PO DAILY 07/06/20 [History] Bumetanide [Bumex] 2 mg PO DAILY 07/06/20 [History] Ergocalciferol (Vitamin D2) [Vitamin D2] 50,000 unit PO .QWEDNES07/06/20 [History] Spironolactone [Aldactone] 25 mg PO DAILY 07/06/20 [History] levoFLOXacin [Levaquin] 750 mg PO Q24H 14 Days #14 tablet 07/10/20 [Rx] Referrals: Romeo Cook MD [Primary Care Provider] - - Discharge Summary/Plan Comment DC Time >30 min.: Yes - General Info Date of Service: 07/10/20 Admission Dx/Problem (Free Text: Cellulitis, Sepsis Subjective Update: Patient is a 87-year-old female who was admitted for cellulitis of her bilateral lower extremities in the setting of sepsis. Patient has a history of lymphedema and has recurrent cellulitis. Patient was started on vancomycin, Zosyn. Cultures pending. Overnight patient had no acute events. Redness and erythema improved - Review of Systems General: Reports: No Symptoms HEENT: Reports: No Symptoms Pulmonary: Reports: No Symptoms Cardiovascular: Reports: No Symptoms Gastrointestinal: Reports: No Symptoms Genitourinary: Reports: No Symptoms Musculoskeletal: Reports: No Symptoms Skin: Reports: Dryness, Rash Neurological: Reports: No Symptoms Psychiatric: Reports: No Symptoms - Patient Data Vitals - Most Recent: Last Vital Signs Temp 98.8 F 07/10/20 12:00 Pulse 79 07/10/20 12:00 Resp 20 07/10/20 12:00 BP 130/68 07/10/20 12:00 Pulse Ox 93 L 07/10/20 12:00 Weight - Most Recent: 260 lb I&O - Last 24 hours: Intake & Output 07/09/20 07/10/20 07/10/20 22:59 06:59 14:59 Intake Total 570 600 Output Total 650 Balance 570 -50 Lab Results - Last 24 hrs: Laboratory Results - last 24 hr 07/09/20 07/09/20 07/09/20 Range/Units 17:02 20:41 20:56 WBC (5.0-10.0) 10^3/uL RBC (4.2-5.4) 10^6/uL Hgb (12.0-16.0) g/dL Hct (37.0-47.0) % MCV (80-100) fL MCH (27.0-34.0) pg MCHC (33.0-35.0) g/dL Plt Count (150-450) 10^3/uL PT (9.0-12.0) SEC INR (0.9-1.2) Sodium (136-145) mmol/L Potassium (3.5-5.1) mmol/L Chloride (98-107) mmol/L Carbon Dioxide (21-32) mmol/L Anion Gap (7-13) mEq/L BUN (7-18) mg/dL Creatinine (0.55-1.02) mg/dL Est Cr Clr Drug Dosing mL/min Estimated GFR (MDRD) Glucose (74-99) mg/dL POC Glucose 124 H 159 H (83-110) mg/dl Calcium (8.5-10.1) mg/dL Vancomycin Trough 12.5 (10.0-20.0) ug/mL SARS-CoV-2 RNA (NAPOLEON) (NEGATIVE) 0107/10/20 07/10/20 Range/Units 06:06 06:06 06:06 WBC 11.4 H (5.0-10.0) 10^3/uL RBC 4.30 (4.2-5.4) 10^6/uL Hgb 11.9 L (12.0-16.0) g/dL Hct 37.5 (37.0-47.0) % MCV 87.2 (80-100) fL MCH 27.7 (27.0-34.0) pg MCHC 31.7 L (33.0-35.0) g/dL Plt Count 183 (150-450) 10^3/uL PT 22.2 H D (9.0-12.0) SEC INR 2.4 H (0.9-1.2) Sodium 140 (136-145) mmol/L Potassium 4.0 (3.5-5.1) mmol/L Chloride 104 (98-107) mmol/L Carbon Dioxide 29 (21-32) mmol/L Anion Gap 11.0 (7-13) mEq/L BUN 18 (7-18) mg/dL Creatinine 0.78 (0.55-1.02) mg/dL Est Cr Clr Drug Dosing 55.01 mL/min Estimated GFR (MDRD) > 60 Glucose 107 H (74-99) mg/dL POC Glucose (83-110) mg/dl Calcium 8.8 (8.5-10.1) mg/dL Vancomycin Trough (10.0-20.0) ug/mL SARS-CoV-2 RNA (NAPOLEON) (NEGATIVE) 07/10/20 07/10/20 07/10/20 Range/Units 07:58 09:30 11:47 WBC (5.0-10.0) 10^3/uL RBC (4.2-5.4) 10^6/uL Hgb (12.0-16.0) g/dL Hct (37.0-47.0) % MCV (80-100) fL MCH (27.0-34.0) pg MCHC (33.0-35.0) g/dL Plt Count (150-450) 10^3/uL PT (9.0-12.0) SEC INR (0.9-1.2) Sodium (136-145) mmol/L Potassium (3.5-5.1) mmol/L Chloride (98-107) mmol/L Carbon Dioxide (21-32) mmol/L Anion Gap (7-13) mEq/L BUN (7-18) mg/dL Creatinine (0.55-1.02) mg/dL Est Cr Clr Drug Dosing mL/min Estimated GFR (MDRD) Glucose (74-99) mg/dL POC Glucose 107 117 H (83-110) mg/dl Calcium (8.5-10.1) mg/dL Vancomycin Trough (10.0-20.0) ug/mL SARS-CoV-2 RNA (NAPOLEON) Negative (NEGATIVE) JACK Results - Last 24 hrs: Microbiology 07/08/20 10:43 Aerobic Blood Culture - Preliminary Blood - Arm, Right NO GROWTH AFTER 2 DAYS Anaerobic Blood Culture - Preliminary NO GROWTH AFTER 2 DAYS 07/08/20 10:40 Aerobic Blood Culture - Preliminary Blood - Arm, Left NO GROWTH AFTER 2 DAYS Anaerobic Blood Culture - Preliminary NO GROWTH AFTER 2 DAYS 07/06/20 16:46 Aerobic Blood Culture - Preliminary Blood - Arm, Left NO GROWTH AFTER 3 DAYS Anaerobic Blood Culture - Final 07/06/20 19:20 Urine Culture - Final Urine, Catheterized Klebsiella Pneumoniae Proteus Mirabilis 07/06/20 16:46 Aerobic Blood Culture - Final Blood - Arm, Right Pseudomonas Aeruginosa Anaerobic Blood Culture - Final Med Orders - Current: Current Medications Acetaminophen (Tylenol) 650 mg PO Q4H PRN PRN Reason: Pain (Mild 1-3)/fever Last Admin: 07/10/20 08:41 Dose: 650 mg Documented by: Acetaminophen (Tylenol) 650 mg PO BID [facility] Last Admin: 07/10/20 10:07 Dose: Not Given Documented by: Hydrocodone Bitart/Acetaminophen ([place] 325-10 Mg) 1 tab PO Q6H PRN PRN Reason: Pain (severe 7-10) Last Admin: 07/06/20 23:15 Dose: 1 tab Documented by: Albuterol/Ipratropium (Duoneb 3.0-0.5 Mg/3 Ml) 3 ml NEB Q4HRRT PRN PRN Reason: Wheezing Dextrose/Water (Dextrose 50% In Water) 50 ml IV ASDIRECTED PRN PRN Reason: Hypoglycemia Diltiazem HCl (Cardizem Cd) 360 mg PO DAILY [facility] Last Admin: 07/10/20 08:39 Dose: 360 mg Documented by: Docusate Sodium (Colace) 100 mg PO BID PRN PRN Reason: Constipation Emollient Ointment (Hydrocerin Lotion) 0 ml TOP DAILY [facility] Last Admin: 07/10/20 09:42 Dose: 1 applic Documented by: Glucagon (Glucagen) 1 mg IM ASDIRECTED PRN PRN Reason: Hypoglycemia Insulin Human Lispro (Humalog) 0 unit SUBCUT WITHMEALSANDBED [facility]; Protocol Last Admin: 07/10/20 11:51 Dose: Not Given Documented by: Levofloxacin (Levaquin) 750 mg PO Q24H [facility] Stop: 07/20/20 08:01 Last Admin: 07/10/20 08:40 Dose: 750 mg Documented by: Loperamide HCl (Imodium) 2 - 4 mg PO ASDIRECTED PRN PRN Reason: Diarrhea Metoprolol Succinate (Toprol Xl) 200 mg PO DAILY [facility] Last Admin: 07/10/20 08:39 Dose: 200 mg Documented by: Letrozole 2.5 Mg Tab (*Own Med*) 0 mg PO DAILY [facility] Last Admin: 07/10/20 09:42 Dose: 2.5 mg Documented by: Nystatin (Nystop) 0 gm TOP BID [facility] Last Admin: 07/10/20 09:42 Dose: 1 applic Documented by: Ondansetron HCl (Zofran Odt) 4 mg PO Q4H PRN PRN Reason: nausea, able to take PO Sodium Chloride (Saline Flush) 10 ml FLUSH ASDIRECTED PRN PRN Reason: Keep Vein Open Last Admin: 07/10/20 05:40 Dose: 10 ml Documented by: Warfarin Sodium (Pharmacy To Dose - Warfarin) 1 dose PO ASDIRECTED [facility] Warfarin Sodium (Coumadin) 4 mg PO ONETIME ONE Stop: 07/10/20 14:01 Discontinued Medications Hydrocodone Bitart/Acetaminophen ([place] 325-10 Mg) 1 tab PO Q4H PRN PRN Reason: Pain (moderate 4-6) Piperacillin Sod/Tazobactam (Sod 3.375 gm/ Sodium Chloride) 100 mls @ 200 mls/hr IV Q6H [facility] Last Infusion: 07/07/20 09:23 Dose: Infused Documented by: Sodium Chloride (Normal Saline) 1,000 mls @ 75 mls/hr IV ASDIRECTED [facility] Last Admin: 07/08/20 05:19 Dose: 75 mls/hr Documented by: Vancomycin HCl 1.5 gm/ Premix 300 mls @ 200 mls/hr IV Q24H [facility] Last Infusion: 07/09/20 23:13 Dose: Infused Documented by: Piperacillin Sod/Tazobactam (Sod 2.25 gm/ Sodium Chloride) 50 mls @ 100 mls/hr IV Q6HR [facility] Last Infusion: 07/10/20 06:19 Dose: Infused Documented by: Arginine/Ascorbate Sod/Fredy Ac [ Arginaid Powder] 8 Oz 8 oz PO BID [facility] Last Admin: 07/08/20 11:22 Dose: Not Given Documented by: Nystatin (Nystop) 0 gm TOP BID@0630,1430 [facility] Potassium Chloride (Klor-Con 10) 40 meq PO ONETIME ONE Stop: 07/07/20 09:01 Last Admin: 07/07/20 08:46 Dose: 40 meq Documented by: Potassium Chloride (Klor-Con 10) 40 meq PO ONETIME ONE Stop: 07/08/20 09:31 Last Admin: 07/08/20 11:02 Dose: 40 meq Documented by: Potassium Chloride (Klor-Con 10) 40 meq PO ONETIME ONE Stop: 07/09/20 11:01 Last Admin: 07/09/20 11:24 Dose: 40 meq Documented by: Warfarin Sodium (Coumadin) 5 mg PO ONETIME ONE Stop: 07/08/20 14:01 Last Admin: 07/08/20 15:06 Dose: 5 mg Documented by: Warfarin Sodium (Coumadin) 5 mg PO ONETIME ONE Stop: 07/09/20 14:01 Last Admin: 07/09/20 14:03 Dose: 5 mg Documented by: - Exam General: Reports: Alert, Oriented HEENT: Reports: EOMI Neck: Reports: Supple Lungs: Reports: Normal Respiratory Effort Cardiovascular: Reports: Regular Rate GI/Abdominal Exam: No Distention Extremities: Redness Skin: Reports: Warm, Dry Wound/Incisions: Reports: Healing Well Neurological: Reports: No New Focal Deficit Psy/Mental Status: Reports: Alert, Normal Affect, Normal Mood
[2020-07-10] MEDS ORDERED: Warfarin 2 MG Tab PO ONE (14:00)
== END 2020-07-10 13:45 | DRG 872 ==
LOC: DL.ED 16:08 → DL.MS 18:05
PROVIDERS: ADMIT Internal Medicine; ATTEND Internal Medicine
DX: A41.52 Sepsis due to Pseudomonas (principal); L03.115 Cellulitis of right lower limb; L03.116 Cellulitis of left lower limb; N39.0 Urinary tract infection, site not specified; I48.91 Unspecified atrial fibrillation; E78.5 Hyperlipidemia, unspecified; E11.9 Type 2 diabetes mellitus without complications; R32 Unspecified urinary incontinence; G89.29 Other chronic pain; M54.9 Dorsalgia, unspecified; M19.90 Unspecified osteoarthritis, unspecified site; M79.7 Fibromyalgia; F41.9 Anxiety disorder, unspecified; Z20.822 Contact with and (suspected) exposure to COVID-19; F32.9 Major depressive disorder, single episode, unspecified; E66.9 Obesity, unspecified; G31.84 Mild cognitive impairment of uncertain or unknown etiology; Z85.3 Personal history of malignant neoplasm of breast; I11.0 Hypertensive heart disease with heart failure; Z91.048 Other nonmedicinal substance allergy status; I50.9 Heart failure, unspecified; H54.7 Unspecified visual loss; E87.6 Hypokalemia; Z28.82 Immunization not carried out because of caregiver refusal; Z91.013 Allergy to seafood; Z91.09 Other allergy status, other than to drugs and biological substances; Z79.899 Other long term (current) drug therapy; Z79.01 Long term (current) use of anticoagulants; Z79.84 Long term (current) use of oral hypoglycemic drugs; Z98.49 Cataract extraction status, unspecified eye; Z86.73 Personal history of transient ischemic attack (TIA), and cerebral infarction without residual deficits; Z90.710 Acquired absence of both cervix and uterus; Z90.11 Acquired absence of right breast and nipple
CPT/HCPCS: 0240U; 36415; 51702; 80048; 80053; 80202; 81001; 82962; 83605; 85025; 85027; 85610; 87040; 87077; 87086; 87088; 87186; 99222; 99232; 99239; 99283; 99285; A9270-GY; J1815-GY; J2543; J3370; J7030; U0002

== ENCOUNTER 2020-08-18 20:17 | Observation (INO) | payer MEDICARE, OTHER ==
--- NOTE | 2020-08-18 20:40 | PCM.SN.2 ---
- Free Text/Narrative Note: August 18, 2020 [facility] Progress Note Referred to [facility] ER for evaluation of recurrent RLE cellulitis with new onset-confusion. I received a call from the [place] apartment community manager stating that Siri had developed recurrent RLE cellulitis with increased weeping of fluids. The [place] had contacted Kait Bird, [facility]. She had asked that a culture of the leg be collected. This was done and sent to clinic. The labor training manager went on to tell me that Siri was very confused today. This is very atypical for Siri, even when her cellulitis is active. Her last admission to the hospital in [place] in June 2020 was remarkable for sepsis: WBC 33K, acute renal failure, positive blood culture (Pseudomonas), positive urine culture (Klebsiella and Proteus). I am concerned about the change in mental status, in light of her last admission. We opted to have her evaluated in the ER. Depending on the results, we can consider admission vs return to [place] for treatment. I spoke with the ER and with the admitting Hospitalist. Impression: 1. Recurrent RLE cellulitis with increased drainage of fluids. 2. New onset confusion/change in mental status. This is unusual for Siri. Concern is for possible sepsis. Plan: Sent to ER for evaluation and disposition. Vital signs at [facility] prior to transfer: BP 115/63. HR 56. RR 27. Ox Sat 94% RA. Temp 98.0 Wt 251 lbs. Code Status: DNR. DNI.
[2020-08-18 21:06] LABS: ANION GAP 13.8 mEq/L (7-13)
--- NOTE | 2020-08-18 21:07 | EDM.PDOC ---
ED HPI GENERAL MEDICAL PROBLEM - General Chief Complaint: General Stated Complaint: CHANGE OF MENTALITY Time Seen by Provider: 08/18/20 20:30 Source of Information: Reports: Patient, Provider, RN History Limitations: Reports: No Limitations - History of Present Illness INITIAL COMMENTS - FREE TEXT/NARRATIVE: ED via [place] van for further evaluation. Patient reported more confused today. Recent dx recurrent RLE cellulitis. UTI with previous hospitalization for cellulitis. Patient alert oriented on arrival though does not know why brought to ED. - Related Data Allergies Allergy/AdvReac Type Severity Reaction Status Date / Time shellfish derived AdvReac Unknown Diarrhea Verified 08/18/20 21:01 tape Allergy Unknown Blisters Uncoded 08/18/20 21:01 Home Meds: Home Meds Metoprolol Succinate [Toprol XL] 200 mg PO DAILY 12/07/14 [History] Letrozole 2.5 mg PO DAILY 06/08/17 [History] Calcium Carbonate [Tums] 500 mg PO TID PRN 06/14/17 [History] Potassium Chloride [Klor-Con 10] 20 meq PO BIDMEALS 06/14/17 [History] Acetaminophen 650 mg PO BID 08/08/19 [History] Acetaminophen [Tylenol] 650 mg PO Q4H PRN 08/08/19 [History] Arginine/Ascorbate Sod/Fredy AC [Arginaid Powder] 8 oz PO BID 08/08/19 [History] Cetirizine [ZyrTEC] 5 mg PO DAILY PRN 08/08/19 [History] Lactulose 15 ml PO DAILY PRN 08/08/19 [History] Loperamide [Imodium AD] 2 - 4 mg PO ASDIRECTED PRN 08/08/19 [History] Magnesium Hydroxide [Milk of Magnesia] 30 ml PO DAILY PRN 08/08/19 [History] Nystatin [Nyamyc] 1 applic TOP .BID06,1430 08/08/19 [History] Ondansetron [Zofran] 4 mg PO Q4H PRN 08/08/19 [History] Triamcinolone Acetonide [Kenalog 0.1% Crm] 1 applic TOP BID@0630,1430 08/08/19 [History] Warfarin Sodium [Coumadin] 3 mg PO .WEDSUN 08/08/19 [History] Warfarin [Coumadin] 4 mg PO .MONTUTHUFRISAT 08/08/19 [History] dilTIAZem HCL [Diltiazem 24Hr ER] 360 mg PO DAILY 08/08/19 [History] metFORMIN HCl [Metformin HCl] 500 mg PO DAILY 08/08/19 [History] L.acidoph,Paracasei, B.lactis [Probiotic] 1 each PO DAILY 02/17/20 [History] Bisacodyl [Laxative Suppository] 10 mg RC DAILY PRN 07/06/20 [History] Bumetanide [Bumex] 1.5 mg PO DAILY 07/06/20 [History] Bumetanide [Bumex] 2 mg PO DAILY 07/06/20 [History] Ergocalciferol (Vitamin D2) [Vitamin D2] 50,000 unit PO .QWEDN07/06/20 [History] Spironolactone [Aldactone] 25 mg PO DAILY 07/06/20 [History] Past Medical History HEENT History: Reports: Cataract, Epistaxis, Impaired Vision Other HEENT History: wears glasses Cardiovascular History: Reports: Afib, Heart Failure, Heart Murmur, High Cholesterol, Hypertension Other Cardiovascular History: At fib is new onset discovered today at the clinic Respiratory History: Reports: Bronchitis, Recurrent Gastrointestinal History: Reports: Colon Polyp, Irritable Bowel Syndrome Genitourinary History: Reports: Urinary Incontinence, UTI, Recurrent Other Genitourinary History: leaking [employer] History: Reports: Musculoskeletal History: Reports: Back Pain, Chronic, Fracture, Fibromyalgia, Osteoarthritis, Other (See Below) Other Musculoskeletal History: Right fibula fx 04-06-16 Neurological History: Reports: CVA, Other (See Below) Other Neuro History: Mild cognitive impairment Psychiatric History: Reports: Anxiety, Depression Endocrine/Metabolic History: Reports: Diabetes, Type II, Hypokalemia, Obesity/BMI 30+ Other Endocrine/Metabolic History: Abnormal glucose readings Hematologic History: Reports: Anticoagulation Therapy Immunologic History: Reports: None Oncologic (Cancer) History: Reports: Breast, Other (See Below) Other Oncologic History: right masectomy Dermatologic History: Reports: Cellulitis, Other (See Below) Other Dermatologic History: 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 lymphedema - Infectious Disease History Infectious Disease History: Reports: Chicken Pox, Measles, Mumps, Novel Coronavirus - Past Surgical History HEENT Surgical History: Reports: Cataract Surgery Cardiovascular Surgical History: Reports: None Respiratory Surgical History: Reports: None GI Surgical History: Reports: None Female Surgical History: Reports: Breast Reconstruction, Hysterectomy, Mastectomy Other Female Surgeries/Procedures: right mastectomy with reconstruction Endocrine Surgical History: Reports: None Neurological Surgical History: Reports: None Musculoskeletal Surgical History: Reports: None Other Musculoskeletal Surgeries/Procedures:: arm, ankle and dislocated right knee, left ankle internal fixation Oncologic Surgical History: Reports: Mastectomy Other Oncologic Surgeries/Procedures: right mastectomy Dermatological Surgical History: Reports: None Social & Family History - Family History Family Medical History: No Pertinent Family History - Tobacco Use Tobacco Use Status *Q: Former Tobacco User Used Tobacco, but Quit: Yes Month/Year Tobacco Last Used: 25yrs ago Second Hand Smoke Exposure: No - Caffeine Use Caffeine Use: Reports: None - Recreational Drug Use Recreational Drug Use: No - Living Situation & Occupation Living situation: Reports: Extended Care Facility Occupation: Retired ED ROS GENERAL - Review of Systems Review Of Systems: Comprehensive ROS is negative, except as noted in HPI. ED EXAM, GENERAL - Physical Exam Exam: See Below Exam Limited By: No Limitations General Appearance: Alert, No Apparent Distress, Obese Eye Exam: Bilateral Eye: EOMI Ears: Normal External Exam, Hearing Loss (mild) Nose: Normal Inspection Throat/Mouth: Normal Inspection Head: Atraumatic, Normocephalic Neck: Full Range of Motion Respiratory/Chest: Lungs Clear, Decreased Breath Sounds (bases) Cardiovascular: Normal Peripheral Pulses, Regular Rate, Rhythm GI/Abdominal: Normal Bowel Sounds, Soft (Female) Exam: Other (maxx are red, excoriation to right mid labia. abdominal fold red, ) Back Exam: Decreased Range of Motion Extremities: Limited Range of Motion ( Non weight bearing, hardeep lift for transfer), Other (bilateral lower extremities wrapped, 3+ right edemal 2+ doughy left lower) Neurological: Alert, Oriented Psychiatric: Normal Affect Course - Vital Signs Last Recorded V/S: Last Vital Signs Temp 97.7 F 08/18/20 23:23 Pulse 66 08/18/20 23:23 Resp 18 08/18/20 23:23 BP 121/66 08/18/20 23:23 Pulse Ox 96 08/18/20 23:23 - Orders/Labs/Meds Orders: Active Orders 24 hr Category Date Time Status CULTURE BLOOD [BC] Stat Lab 08/18/20 20:36 Received CULTURE BLOOD [BC] Stat Lab 08/18/20 20:36 Received CULTURE URINE [RM] Stat Lab 08/18/20 20:58 Received Blood Culture x2 Reflex Set [OM.PC] Stat Oth 08/18/20 20:23 Ordered Medication Orders Acetaminophen (Tylenol) 650 mg PO Q4H PRN PRN Reason: Pain (Mild 1-3)/fever Bisacodyl (Dulcolax) 10 mg RECTAL DAILY PRN PRN Reason: Constipation Bumetanide (Bumex) 1.5 mg PO Q24H [facility] Bumetanide (Bumex) 2 mg PO DAILY [facility] Diltiazem HCl (Cardizem Cd) 360 mg PO DAILY [facility] Ceftriaxone Sodium 1 gm/ (Sodium Chloride) 50 mls @ 100 mls/hr IV DAILY [facility] Lactulose (Cephulac) 10 gm PO DAILY PRN PRN Reason: Constipation Loratadine (Claritin) 5 mg PO DAILY PRN PRN Reason: Allergies Magnesium Hydroxide (Milk Of Magnesia) 30 ml PO DAILY PRN PRN Reason: Constipation Metoprolol Succinate (Toprol Xl) 200 mg PO DAILY [facility] Non-Formulary Medication (L.Acidoph,Paracasei, B.Lactis [Probiotic]) 1 each PO DAILY [facility] Non-Formulary Medication (Letrozole) 2.5 mg PO DAILY [facility] Nystatin (Nystop) 0 gm TOP 0600,1430 [facility] Ondansetron HCl (Zofran Odt) 4 mg PO Q4H PRN PRN Reason: Nausea Potassium Chloride (Klor-Con 10) 20 meq PO BIDMEALS [facility] Spironolactone (Aldactone) 25 mg PO DAILY [facility] Triamcinolone Acetonide (Triamcinolone Acetonide 0.1% Crm) 1 gm TOP BID@0630, 1430 [facility] Labs: Laboratory Tests 08/18/20 08/18/20 08/18/20 Range/Units 20:36 20:36 20:36 WBC 11.2 H (5.0-10.0) 10^3/uL RBC 5.18 (4.2-5.4) 10^6/uL Hgb 14.5 D (12.0-16.0) g/dL Hct 44.8 (37.0-47.0) % MCV 86.5 (80-100) fL MCH 28.0 (27.0-34.0) pg MCHC 32.4 L (33.0-35.0) g/dL Plt Count 279 D (150-450) 10^3/uL Neut % (Auto) 67.2 (42.2-75.2) % Lymph % (Auto) 20.1 L (20.5-50.1) % [place] % (Auto) 10.4 H (2-8) % Eos % (Auto) 2.1 (1.0-3.0) % Baso % (Auto) 0.2 (0.0-1.0) % PT (9.0-12.0) SEC INR (0.9-1.2) Sodium 141 (136-145) mmol/L Potassium 3.8 (3.5-5.1) mmol/L Chloride 100 (98-107) mmol/L Carbon Dioxide 31 (21-32) mmol/L Anion Gap 13.8 H (7-13) mEq/L BUN 32 H (7-18) mg/dL Creatinine 1.24 H (0.55-1.02) mg/dL Est Cr Clr Drug Dosing 31.47 mL/min Estimated GFR (MDRD) 41 BUN/Creatinine Ratio 25.8 (No establ ref range) Glucose 124 H (74-99) mg/dL Lactic Acid 1.4 (0.4-2.0) mmol/L Calcium 9.4 (8.5-10.1) mg/dL Magnesium 2.2 (1.8-2.4) mg/dL Total Bilirubin 0.4 (0.2-1.0) mg/dL AST 14 L (15-37) U/L ALT 23 (14-59) U/L Alkaline Phosphatase 72 (46-116) U/L B-Natriuretic Peptide 341 H (0-100) pg/ml Total Protein 9.4 H (6.4-8.2) g/dL Albumin 3.5 (3.4-5.0) g/dL Globulin 5.9 Albumin/Globulin Ratio 0.6 Urine Color (YELLOW) Urine Appearance (CLEAR) Urine pH (5.0-9.0) Ur Specific [place] (1.005-1.030) Urine Protein (NEGATIVE) Urine Glucose (UA) (NEGATIVE) Urine Ketones (NEGATIVE) Urine Occult Blood (NEGATIVE) Urine Nitrite (NEGATIVE) Urine Bilirubin (NEGATIVE) Urine Urobilinogen (0.2-1.0) mg/dL Ur Leukocyte Esterase (NEGATIVE) Urine RBC /HPF Urine WBC (0-5/HPF) /HPF Ur Epithelial Cells (NOT SEEN) /HPF Amorphous Sediment (NOT SEEN) /HPF Urine Bacteria (0-FEW/HPF) /HPF Urine Mucus (NOT SEEN) /LPF 08/18/20 08/18/20 Range/Units 20:36 20:58 WBC (5.0-10.0) 10^3/uL RBC (4.2-5.4) 10^6/uL Hgb (12.0-16.0) g/dL Hct (37.0-47.0) % MCV (80-100) fL MCH (27.0-34.0) pg MCHC (33.0-35.0) g/dL Plt Count (150-450) 10^3/uL Neut % (Auto) (42.2-75.2) % Lymph % (Auto) (20.5-50.1) % [place] % (Auto) (2-8) % Eos % (Auto) (1.0-3.0) % Baso % (Auto) (0.0-1.0) % PT 25.1 H (9.0-12.0) SEC INR 2.7 H (0.9-1.2) Sodium (136-145) mmol/L Potassium (3.5-5.1) mmol/L Chloride (98-107) mmol/L Carbon Dioxide (21-32) mmol/L Anion Gap (7-13) mEq/L BUN (7-18) mg/dL Creatinine (0.55-1.02) mg/dL Est Cr Clr Drug Dosing mL/min Estimated GFR (MDRD) BUN/Creatinine Ratio (No establ ref range) Glucose (74-99) mg/dL Lactic Acid (0.4-2.0) mmol/L Calcium (8.5-10.1) mg/dL Magnesium (1.8-2.4) mg/dL Total Bilirubin (0.2-1.0) mg/dL AST (15-37) U/L ALT (14-59) U/L Alkaline Phosphatase (46-116) U/L B-Natriuretic Peptide (0-100) pg/ml Total Protein (6.4-8.2) g/dL Albumin (3.4-5.0) g/dL Globulin Albumin/Globulin Ratio Urine Color Light yellow (YELLOW) Urine Appearance Clear (CLEAR) Urine pH 5.0 (5.0-9.0) Ur Specific [place] 1.015 (1.005-1.030) Urine Protein Negative (NEGATIVE) Urine Glucose (UA) Negative (NEGATIVE) Urine Ketones Negative (NEGATIVE) Urine Occult Blood Negative (NEGATIVE) Urine Nitrite Negative (NEGATIVE) Urine Bilirubin Negative (NEGATIVE) Urine Urobilinogen 0.2 (0.2-1.0) mg/dL Ur Leukocyte Esterase Small H (NEGATIVE) Urine RBC 0-5 /HPF Urine WBC 20-30 H (0-5/HPF) /HPF Ur Epithelial Cells Occasional (NOT SEEN) /HPF Amorphous Sediment Few (NOT SEEN) /HPF Urine Bacteria Few (0-FEW/HPF) /HPF Urine Mucus Not seen (NOT SEEN) /LPF Meds: Medications Generic Name Dose Route Start Last Admin Trade Name Freq PRN Reason Stop Dose Admin Acetaminophen 650 mg 08/18/20 23:20 Tylenol PO Q4H PRN Pain (Mild 1-3)/fever Bisacodyl 10 mg 08/18/20 23:58 Dulcolax RECTAL DAILY PRN Constipation Bumetanide 1.5 mg 08/20/20 16:00 Bumex PO Q24H YRN Bumetanide 2 mg 08/19/20 09:00 Bumex PO DAILY [facility] Diltiazem HCl 360 mg 08/19/20 09:00 Cardizem Cd PO DAILY [facility] Ceftriaxone Sodium 1 gm/ 50 mls @ 100 mls/hr 08/19/20 09:00 Sodium Chloride IV DAILY [facility] Lactulose 10 gm 08/18/20 23:58 Cephulac PO DAILY PRN Constipation Loratadine 5 mg 08/18/20 23:58 Claritin PO DAILY PRN Allergies Magnesium Hydroxide 30 ml 08/18/20 23:58 Milk Of Magnesia PO DAILY PRN Constipation Metoprolol Succinate 200 mg 08/19/20 09:00 Toprol Xl PO DAILY [facility] Non-Formulary Medication 1 each 08/19/20 09:00 L.Acidoph,Paracasei, B.Lactis [Probiotic] PO DAILY [facility] Non-Formulary Medication 2.5 mg 08/19/20 09:00 Letrozole PO DAILY [facility] Nystatin 0 gm 08/18/20 23:45 Nystop TOP 0600,1430 [facility] Ondansetron HCl 4 mg 08/18/20 23:58 Zofran Odt PO Q4H PRN Nausea Potassium Chloride 20 meq 08/19/20 08:00 Klor-Con 10 PO BIDMEALS [facility] Spironolactone 25 mg 08/19/20 09:00 Aldactone PO DAILY [facility] Triamcinolone Acetonide 1 gm 08/19/20 06:30 Triamcinolone Acetonide 0.1% Crm TOP BID@0630,1430 [facility] Discontinued Medications Generic Name Dose Route Start Last Admin Trade Name Freq PRN Reason Stop Dose Admin Piperacillin Sod/Tazobactam 100 mls @ 200 mls/hr 08/18/20 22:59 08/18/20 23:35 Sod 3.375 gm/ Sodium Chloride IV 08/18/20 23:28 200 mls/hr ONETIME ONE Administration Vancomycin HCl 1,500 mg/ 500 mls @ 333.333 mls/hr 08/18/20 23:00 08/19/20 00:04 Sodium Chloride IV 08/19/20 00:29 333.333 mls/hr ONETIME ONE Administration - Re-Assessments/Exams Free Text/Narrative Re-Assessment/Exam: Dr Jacobsen accepting patient for observation admission. Departure - Departure Time of Disposition: 22:55 Disposition: Refer to Observation Condition: Fair Clinical Impression: Chronic anticoagulation UTI (urinary tract infection) Qualifiers: Urinary tract infection type: site unspecified Hematuria presence: without hematuria Qualified Code(s): N39.0 - Urinary tract infection, site not specified Cellulitis Qualifiers: Site of cellulitis: extremity Site of cellulitis of extremity: lower extremity Laterality: right Qualified Code(s): L03.115 - Cellulitis of right lower limb - Discharge Information Sepsis Event Note (ED) - Evaluation Sepsis Screening Result: No Definite Risk - Focused Exam Vital Signs: Vital Signs Temp Pulse Resp BP Pulse Ox 08/18/20 20:29 97.1 F 61 18 113/66 97 - My Orders Last 24 Hours: My Active Orders 08/18/20 20:23 Blood Culture x2 Reflex Set [OM.PC] Stat 08/18/20 20:36 CULTURE BLOOD [BC] Stat CULTURE BLOOD [BC] Stat 08/18/20 20:58 CULTURE URINE [RM] Stat - Assessment/Plan Last 24 Hours: My Active Orders 08/18/20 20:23 Blood Culture x2 Reflex Set [OM.PC] Stat 08/18/20 20:36 CULTURE BLOOD [BC] Stat CULTURE BLOOD [BC] Stat 08/18/20 20:58 CULTURE URINE [RM] Stat
[2020-08-18] MEDS ORDERED: Piperacillin/Tazobactam 3.375 GM in Sodium Chloride 0.9% 100 ML IV ONE (22:59)
[2020-08-18] MEDS ORDERED: Acetaminophen 325 MG Tab PO PRN (23:20)
--- NOTE | 2020-08-18 23:36 | PCM.HP ---
H&P History of Present Illness - General Date of Service: 08/18/20 Admit Problem/Dx: Admission Diagnosis/Problem Admission Diagnosis/Problem Cellulitis - History of Present Illness Initial Comments - Free Text/Narative: 80F w/ pmh morbid obesity, breast ca s/p chemo and XRT, afib on coumadin, HT, fibromyalgia, HL, lumbar radiculopathy, CKD, constipation, cognitive impairment, chronic LE venous stasis c/b chronic ulcerations and recurrent cellulitis p/w altered mental status. Reportedly at [place] pt was noted poorly responsive - per PCP highly unusual for her even in times of prior admits w/ sepsis. She was af ebrile. Pt was also believed to have a recurrence of RLE cellulitis on recent wound evaluation. Upon arrival in the ED the pt is noted w/ baseline mental statu and lacks any complaints. Straight cath UA did note pyuria and pt was placed on observation. - Related Data Allergies/Adverse Reactions: Allergies Allergy/AdvReac Type Severity Reaction Status Date / Time shellfish derived AdvReac Unknown Diarrhea Verified 08/18/20 21:01 tape Allergy Unknown Blisters Uncoded 08/18/20 21:01 Home Medications: Home Meds Metoprolol Succinate [Toprol XL] 200 mg PO DAILY 12/07/14 [History] Letrozole 2.5 mg PO DAILY 06/08/17 [History] Calcium Carbonate [Tums] 500 mg PO TID PRN 06/14/17 [History] Potassium Chloride [Klor-Con 10] 20 meq PO BIDMEALS 06/14/17 [History] Acetaminophen 650 mg PO BID 08/08/19 [History] Acetaminophen [Tylenol] 650 mg PO Q4H PRN 08/08/19 [History] Arginine/Ascorbate Sod/Fredy AC [Arginaid Powder] 8 oz PO BID 08/08/19 [History] Cetirizine [ZyrTEC] 5 mg PO DAILY PRN 08/08/19 [History] Lactulose 15 ml PO DAILY PRN 08/08/19 [History] Loperamide [Imodium AD] 2 - 4 mg PO ASDIRECTED PRN 08/08/19 [History] Magnesium Hydroxide [Milk of Magnesia] 30 ml PO DAILY PRN 08/08/19 [History] Nystatin [Nyamyc] 1 applic TOP .BID06,1430 08/08/19 [History] Ondansetron [Zofran] 4 mg PO Q4H PRN 08/08/19 [History] Triamcinolone Acetonide [Kenalog 0.1% Crm] 1 applic TOP BID@0630,1430 08/08/19 [History] Warfarin Sodium [Coumadin] 3 mg PO .WEDSUN 08/08/19 [History] Warfarin [Coumadin] 4 mg PO .MONTUTHUFRISAT 08/08/19 [History] dilTIAZem HCL [Diltiazem 24Hr ER] 360 mg PO DAILY 08/08/19 [History] metFORMIN HCl [Metformin HCl] 500 mg PO DAILY 08/08/19 [History] L.acidoph,Paracasei, B.lactis [Probiotic] 1 each PO DAILY 02/17/20 [History] Bisacodyl [Laxative Suppository] 10 mg RC DAILY PRN 07/06/20 [History] Bumetanide [Bumex] 1.5 mg PO DAILY 07/06/20 [History] Bumetanide [Bumex] 2 mg PO DAILY 07/06/20 [History] Ergocalciferol (Vitamin D2) [Vitamin D2] 50,000 unit PO .QWEDNES07/06/20 [History] Spironolactone [Aldactone] 25 mg PO DAILY 07/06/20 [History] Past Medical History HEENT History: Reports: Cataract, Epistaxis, Impaired Vision Other HEENT History: wears glasses Cardiovascular History: Reports: Afib, Heart Failure, Heart Murmur, High Cholesterol, Hypertension Other Cardiovascular History: At fib is new onset discovered today at the clinic Respiratory History: Reports: Bronchitis, Recurrent Gastrointestinal History: Reports: Colon Polyp, Irritable Bowel Syndrome Genitourinary History: Reports: Urinary Incontinence, UTI, Recurrent Other Genitourinary History: leaking P[employer] History: Reports: Musculoskeletal History: Reports: Back Pain, Chronic, Fracture, Fibromyalgia, Osteoarthritis, Other (See Below) Other Musculoskeletal History: Right fibula fx 04-06-16 Neurological History: Reports: CVA, Other (See Below) Other Neuro History: Mild cognitive impairment Psychiatric History: Reports: Anxiety, Depression Endocrine/Metabolic History: Reports: Diabetes, Type II, Hypokalemia, Obesi ty/BMI 30+ Other Endocrine/Metabolic History: Abnormal glucose readings Hematologic History: Reports: Anticoagulation Therapy Immunologic History: Reports: None Oncologic (Cancer) History: Reports: Breast, Other (See Below) Other Oncologic History: right masectomy Dermatologic History: Reports: Cellulitis, Other (See Below) Other Dermatologic History: 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 lymphedema - Infectious Disease History Infectious Disease History: Reports: Chicken Pox, Measles, Mumps, Novel Coronavirus - Past Surgical History HEENT Surgical History: Reports: Cataract Surgery Cardiovascular Surgical History: Reports: None Respiratory Surgical History: Reports: None GI Surgical History: Reports: None Female Surgical History: Reports: Breast Reconstruction, Hysterectomy, Mastectomy Other Female Surgeries/Procedures: right mastectomy with reconstruction Endocrine Surgical History: Reports: None Neurological Surgical History: Reports: None Musculoskeletal Surgical History: Reports: None Other Musculoskeletal Surgeries/Procedures:: arm, ankle and dislocated right knee, left ankle internal fixation Oncologic Surgical History: Reports: Mastectomy Other Oncologic Surgeries/Procedures: right mastectomy Dermatological Surgical History: Reports: None Social & Family History - Family History Family Medical History: No Pertinent Family History - Tobacco Use Tobacco Use Status *Q: Former Tobacco User Used Tobacco, but Quit: Yes Month/Year Tobacco Last Used: 25yrs ago Second Hand Smoke Exposure: No - Caffeine Use Caffeine Use: Reports: None - Recreational Drug Use Recreational Drug Use: No - Living Situation & Occupation Living situation: Reports: Extended Care Facility Occupation: Retired H&P Review of Systems - Review of Systems: Review Of Systems: See Below General: Denies: Fever, Chills HEENT: Denies: Headaches Pulmonary: Denies: Shortness of Breath, Wheezing Cardiovascular: Denies: Chest Pain, Palpitations Gastrointestinal: Denies: Abdominal Pain Genitourinary: Denies: Dysuria, Frequency Musculoskeletal: Denies: Neck Pain Skin: Reports: Erythema, Wound Psychiatric: Denies: Confusion, Depression, Mood Lability Neurological: Denies: Confusion, Dizziness Exam - Exam Exam: See Below - Vital Signs Vital Signs: Last Vital Signs Temp 97.7 F 08/18/20 23:23 Pulse 66 08/18/20 23:23 Resp 18 08/18/20 23:23 BP 121/66 08/18/20 23:23 Pulse Ox 96 08/18/20 23:23 Weight: 250 lb 8 oz - Exam Quality Assessment: No: Supplemental Oxygen General: Alert, Oriented, Cooperative HEENT: Conjunctiva Clear Neck: Supple Lungs: Clear to Auscultation, Normal Respiratory Effort Cardiovascular: Regular Rate, Regular Rhythm GI/Abdominal Exam: Normal Bowel Sounds, Soft, Non-Tender, No Distention, Other (non tender bladder) Back Exam: Normal Inspection Extremities: Other (b/l LE w/ superficial venous stasis ulcers, no drainage, non tender erythema over area that was under b/l compression dressings) Skin: Warm, Dry Neurological: Cranial Nerves Intact Neuro Extensive - Mental Status: Alert, Oriented x3, Normal Mood/Affect Psychiatric: Alert, Normal Affect, Normal Mood - Patient Data Lab Results Last 24 hrs: Laboratory Results - last 24 hr 08/18/20 08/18/20 08/18/20 Range/Units 20:36 20:36 20:36 WBC 11.2 H (5.0-10.0) 10^3/uL RBC 5.18 (4.2-5.4) 10^6/uL Hgb 14.5 D (12.0-16.0) g/dL Hct 44.8 (37.0-47.0) % MCV 86.5 (80-100) fL MCH 28.0 (27.0-34.0) pg MCHC 32.4 L (33.0-35.0) g/dL Plt Count 279 D (150-450) 10^3/uL Neut % (Auto) 67.2 (42.2-75.2) % Lymph % (Auto) 20.1 L (20.5-50.1) % [place] % (Auto) 10.4 H (2-8) % Eos % (Auto) 2.1 (1.0-3.0) % Baso % (Auto) 0.2 (0.0-1.0) % PT (9.0-12.0) SEC INR (0.9-1.2) Sodium 141 (136-145) mmol/L Potassium 3.8 (3.5-5.1) mmol/L Chloride 100 (98-107) mmol/L Carbon Dioxide 31 (21-32) mmol/L Anion Gap 13.8 H (7-13) mEq/L BUN 32 H (7-18) mg/dL Creatinine 1.24 H (0.55-1.02) mg/dL Est Cr Clr Drug Dosing 31.47 mL/min Estimated GFR (MDRD) 41 BUN/Creatinine Ratio 25.8 (No establ ref range) Glucose 124 H (74-99) mg/dL Lactic Acid 1.4 (0.4-2.0) mmol/L Calcium 9.4 (8.5-10.1) mg/dL Magnesium 2.2 (1.8-2.4) mg/dL Total Bilirubin 0.4 (0.2-1.0) mg/dL AST 14 L (15-37) U/L ALT 23 (14-59) U/L Alkaline Phosphatase 72 (46-116) U/L B-Natriuretic Peptide 341 H (0-100) pg/ml Total Protein 9.4 H (6.4-8.2) g/dL Albumin 3.5 (3.4-5.0) g/dL Globulin 5.9 Albumin/Globulin Ratio 0.6 Urine Color (YELLOW) Urine Appearance (CLEAR) Urine pH (5.0-9.0) Ur Specific [place] (1.005-1.030) Urine Protein (NEGATIVE) Urine Glucose (UA) (NEGATIVE) Urine Ketones (NEGATIVE) Urine Occult Blood (NEGATIVE) Urine Nitrite (NEGATIVE) Urine Bilirubin (NEGATIVE) Urine Urobilinogen (0.2-1.0) mg/dL Ur Leukocyte Esterase (NEGATIVE) Urine RBC /HPF Urine WBC (0-5/HPF) /HPF Ur Epithelial Cells (NOT SEEN) /HPF Amorphous Sediment (NOT SEEN) /HPF Urine Bacteria (0-FEW/HPF) /HPF Urine Mucus (NOT SEEN) /LPF SARS CoV-2 RNA Rapid [place] (NEGATIVE) 08/18/20 08/18/20 08/18/20 Range/Units 20:36 20:58 22:59 WBC (5.0-10.0) 10^3/uL RBC (4.2-5.4) 10^6/uL Hgb (12.0-16.0) g/dL Hct (37.0-47.0) % MCV (80-100) fL MCH (27.0-34.0) pg MCHC (33.0-35.0) g/dL Plt Count (150-450) 10^3/uL Neut % (Auto) (42.2-75.2) % Lymph % (Auto) (20.5-50.1) % [place] % (Auto) (2-8) % Eos % (Auto) (1.0-3.0) % Baso % (Auto) (0.0-1.0) % PT 25.1 H (9.0-12.0) SEC INR 2.7 H (0.9-1.2) Sodium (136-145) mmol/L Potassium (3.5-5.1) mmol/L Chloride (98-107) mmol/L Carbon Dioxide (21-32) mmol/L Anion Gap (7-13) mEq/L BUN (7-18) mg/dL Creatinine (0.55-1.02) mg/dL Est Cr Clr Drug Dosing mL/min Estimated GFR (MDRD) BUN/Creatinine Ratio (No establ ref range) Glucose (74-99) mg/dL Lactic Acid (0.4-2.0) mmol/L Calcium (8.5-10.1) mg/dL Magnesium (1.8-2.4) mg/dL Total Bilirubin (0.2-1.0) mg/dL AST (15-37) U/L ALT (14-59) U/L Alkaline Phosphatase (46-116) U/L B-Natriuretic Peptide (0-100) pg/ml Total Protein (6.4-8.2) g/dL Albumin (3.4-5.0) g/dL Globulin Albumin/Globulin Ratio Urine Color Light yellow (YELLOW) Urine Appearance Clear (CLEAR) Urine pH 5.0 (5.0-9.0) Ur Specific [place] 1.015 (1.005-1.030) Urine Protein Negative (NEGATIVE) Urine Glucose (UA) Negative (NEGATIVE) Urine Ketones Negative (NEGATIVE) Urine Occult Blood Negative (NEGATIVE) Urine Nitrite Negative (NEGATIVE) Urine Bilirubin Negative (NEGATIVE) Urine Urobilinogen 0.2 (0.2-1.0) mg/dL Ur Leukocyte Esterase Small H (NEGATIVE) Urine RBC 0-5 /HPF Urine WBC 20-30 H (0-5/HPF) /HPF Ur Epithelial Cells Occasional (NOT SEEN) /HPF Amorphous Sediment Few (NOT SEEN) /HPF Urine Bacteria Few (0-FEW/HPF) /HPF Urine Mucus Not seen (NOT SEEN) /LPF SARS CoV-2 RNA Rapid [place] Negative (NEGATIVE) Result Diagrams: 08/18/20 20:36 08/18/20 20:36 Problem List Initiated/Reviewed/Updated: No Orders Last 24hrs: Active Orders 24 hr Category Date Time Status Admission Diagnosis [ADT] Stat ADT 08/18/20 22:55 Ordered Patient Status [ADT] Routine ADT 08/18/20 22:55 Active Patient Status [ADT] Routine ADT 08/18/20 23:20 Active Oxygen Therapy [RC] PRN Care 08/18/20 23:20 Active Up With Assistance [RC] ASDIRECTED Care 08/18/20 23:20 Active VTE/DVT Education [RC] PER UNIT ROUTINE Care 08/18/20 23:20 Active Vital Signs [RC] Q4H Care 08/18/20 23:20 Active 2 Gram Sodium Diet [DIET] Diet 08/19/20 Breakfast Active BASIC METABOLIC PANEL,BMP [CHEM] AM Lab 08/19/20 05:11 Ordered CBC WITH AUTO DIFF [HEME] AM Lab 08/19/20 05:11 Ordered CULTURE BLOOD [BC] Stat Lab 08/18/20 20:36 Received CULTURE BLOOD [BC] Stat Lab 08/18/20 20:36 Received CULTURE URINE [RM] Stat Lab 08/18/20 20:58 Received INR,PT,PROTHROMBIN TIME [COAG] AM Lab 08/19/20 05:11 Ordered Acetaminophen [TylenoL] Med 08/18/20 23:20 Active 650 mg PO Q4H PRN Vancomycin 1,500 mg Med 08/18/20 23:00 Active Sodium Chloride 0.9% [Normal Saline] 500 ml IV ONETIME Blood Culture x2 Reflex Set [OM.PC] Stat Oth 08/18/20 20:23 Ordered Resuscitation Status Routine Resus Stat 08/18/20 23:20 Ordered Medication Orders Acetaminophen (Tylenol) 650 mg PO Q4H PRN PRN Reason: Pain (Mild 1-3)/fever Vancomycin HCl 1,500 mg/ (Sodium Chloride) 500 mls @ 333.333 mls/hr IV ONETIME ONE Stop: 08/19/20 00:29 Assessment/Plan Comment:: #altered mental status - unclear what happened at the [place] - throughout ER and unit stay pt completely lucid, responsive, appropriate - possible toxic/metabolic encephalopathy in setting of UTI however it resolved even prior to abx administration - more likely hypoactive delirium due to a random reason (ex. sleep deprivation) #UTI - moderate pyuria on a catheterized sample - pt w/ hx severe infections - reasonable to treat - recently w/ catheterized urine culture w/ sensitive Klebsiella and Proteus >>> start ceftriaxone #b/l LE venous stasis ulcerations - they are non tender and do not appear acutely infected - pt is s/p single dose of vancomycin - will observe - RN asked to re-wrap compression dressings and elevate legs #afib / HT / HL / hx breast ca / CKD / fibromyalgia - c/w home meds PPX - on coumadin Full code
[2020-08-18] MEDS ORDERED: Magnesium Hydroxide 400 MG/5 ML Susp 30 ML Cup PO PRN (23:58)
[2020-08-18] MEDS ORDERED: Ondansetron 4 MG Tab.DIS PO PRN (23:58)
[2020-08-18] MEDS ORDERED: Loratadine 10 MG Tab PO PRN (23:58)
[2020-08-18] MEDS ORDERED: Bisacodyl 10 MG Supp RECTAL PRN (23:58)
[2020-08-18] MEDS ORDERED: Lactulose Soln 10 GM/15 ML 30 ML UD Cup PO PRN (23:58)
[2020-08-19] MEDS: Nystatin Topical Powder 30 GM Bottle TOP SCH ×2 (01:34→07:43)
[2020-08-19] MEDS ORDERED: Triamcinolone Acetonide 0.1% Crm 15 GM Tube TOP SCH ×2 (06:30→08:00)
[2020-08-19 07:50] LABS: ANION GAP 12.7 mEq/L (7-13)
[2020-08-19] MEDS ORDERED: Potassium Chloride 10 MEQ Tab.ER PO SCH (08:00)
[2020-08-19] MEDS ORDERED: Nystatin Topical Powder 30 GM Bottle TOP SCH (08:00)
[2020-08-19 08:11] VITALS: BP 110/53; PULSE 67
[2020-08-19] MEDS ORDERED: Diltiazem 180 MG Cap.CD PO SCH (09:00)
[2020-08-19] MEDS ORDERED: cefTRIAXone 1 GM in Sodium Chloride 0.9% 50 ML IV SCH (09:00)
[2020-08-19] MEDS ORDERED: Non-Formulary Medication 1 Each (Letrozole 2.5 MG) PO SCH (09:00)
[2020-08-19] MEDS ORDERED: Bumetanide 1 MG Tab PO SCH (09:00)
[2020-08-19] MEDS ORDERED: Metoprolol Succinate 50 MG Tab.ER PO SCH (09:00)
[2020-08-19] MEDS ORDERED: Spironolactone 25 MG Tab PO SCH (09:00)
[2020-08-19] MEDS ORDERED: Non-Formulary Medication 1 Each (L.Acidoph,Paracasei, B.Lactis [Probiotic] 1 EACH) PO SCH (09:00)
--- NOTE | 2020-08-19 13:11 | PCM.DCSUM1 ---
Discharge Summary - Hospital Course Free Text/Narrative:: 80F w/ pmh morbid obesity, breast ca s/p chemo and XRT, afib on coumadin, HT, fibromyalgia, HL, lumbar radiculopathy, CKD, constipation, cognitive impairment, chronic LE venous stasis c/b chronic ulcerations and recurrent cellulitis p/w altered mental status. Reportedly at [place] pt was noted poorly responsive - per PCP highly unusual for her even in times of prior admits w/ sepsis. She was afebrile. Pt was also believed to have a recurrence of RLE cellulitis on recent wound evaluation. Upon arrival in the ED the pt is noted w/ baseline mental statu and lacks any complaints. Straight cath UA did note pyuria and pt was placed on observation. Her overnight stay was uncomplicated. The pt was d/c on ceftin for possible UTI. Her most recent catheterized urine cultures were sensitive. d/w PCP who will f/up final culture results. Diagnosis: Stroke: No - Discharge Data Discharge Date: 08/19/20 Discharge Disposition: DC/Tfer to [facility] 61 Condition: Stable - Referral to Home Health Primary Care Physician: Jahaira Sherman MD - Discharge Plan *PRESCRIPTION DRUG MONITORING PROGRAM REVIEWED*: Not Applicable *COPY OF PRESCRIPTION DRUG MONITORING REPORT IN PATIENT ASHLEY: Not Applicable Prescriptions/Med Rec: Cefuroxime Axetil [Ceftin] 500 mg PO BID #14 tablet Home Medications: Home Meds Metoprolol Succinate [Toprol XL] 200 mg PO DAILY 12/07/14 [History] Letrozole 2.5 mg PO DAILY 06/08/17 [History] Calcium Carbonate [Tums] 500 mg PO TID PRN 06/14/17 [History] Potassium Chloride [Klor-Con 10] 20 meq PO BIDMEALS 06/14/17 [History] Acetaminophen 650 mg PO BID 08/08/19 [History] Acetaminophen [Tylenol] 650 mg PO Q4H PRN 08/08/19 [History] Arginine/Ascorbate Sod/Fredy AC [Arginaid Powder] 8 oz PO BID 08/08/19 [History] Cetirizine [ZyrTEC] 5 mg PO DAILY PRN 08/08/19 [History] Lactulose 15 ml PO DAILY PRN 08/08/19 [History] Loperamide [Imodium AD] 2 - 4 mg PO ASDIRECTED PRN 08/08/19 [History] Magnesium Hydroxide [Milk of Magnesia] 30 ml PO DAILY PRN 08/08/19 [History] Nystatin [Nyamyc] 1 applic TOP .BID06,1430 08/08/19 [History] Ondansetron [Zofran] 4 mg PO Q4H PRN 08/08/19 [History] Triamcinolone Acetonide [Kenalog 0.1% Crm] 1 applic TOP BID@0630,1430 08/08/19 [History] Warfarin Sodium [Coumadin] 3 mg PO .WEDSUN 08/08/19 [History] Warfarin [Coumadin] 4 mg PO .MONTUTHUFRISAT 08/08/19 [History] dilTIAZem HCL [Diltiazem 24Hr ER] 360 mg PO DAILY 08/08/19 [History] metFORMIN HCl [Metformin HCl] 500 mg PO DAILY 08/08/19 [History] L.acidoph,Paracasei, B.lactis [Probiotic] 1 each PO DAILY 02/17/20 [History] Bisacodyl [Laxative Suppository] 10 mg RC DAILY PRN 07/06/20 [History] Bumetanide [Bumex] 1.5 mg PO DAILY 07/06/20 [History] Bumetanide [Bumex] 2 mg PO DAILY 07/06/20 [History] Ergocalciferol (Vitamin D2) [Vitamin D2] 50,000 unit PO .QWEDNESDAY 07/06/20 [History] Spironolactone [Aldactone] 25 mg PO DAILY 07/06/20 [History] Cefuroxime Axetil [Ceftin] 500 mg PO BID #14 tablet 08/19/20 [Rx] Referrals: Jahaira Sherman MD [Primary Care Provider] - - Discharge Summary/Plan Comment DC Time >30 min.: No - General Info Date of Service: 08/19/20 - Patient Data Vitals - Most Recent: Last Vital Signs Temp 98.3 F 08/19/20 08:00 Pulse 67 08/19/20 08:34 Resp 20 08/19/20 08:00 BP 110/53 L 08/19/20 08:34 Pulse Ox 93 L 08/19/20 08:00 Weight - Most Recent: 249 lb 1.6 oz Lab Results - Last 24 hrs: Laboratory Results - last 24 hr 08/18/20 08/18/20 08/18/20 Range/Units 20:36 20:36 20:36 WBC 11.2 H (5.0-10.0) 10^3/uL RBC 5.18 (4.2-5.4) 10^6/uL Hgb 14.5 D (12.0-16.0) g/dL Hct 44.8 (37.0-47.0) % MCV 86.5 (80-100) fL MCH 28.0 (27.0-34.0) pg MCHC 32.4 L (33.0-35.0) g/dL Plt Count 279 D (150-450) 10^3/uL Neut % (Auto) 67.2 (42.2-75.2) % Lymph % (Auto) 20.1 L (20.5-50.1) % [place] % (Auto) 10.4 H (2-8) % Eos % (Auto) 2.1 (1.0-3.0) % Baso % (Auto) 0.2 (0.0-1.0) % PT (9.0-12.0) SEC INR (0.9-1.2) Sodium 141 (136-145) mmol/L Potassium 3.8 (3.5-5.1) mmol/L Chloride 100 (98-107) mmol/L Carbon Dioxide 31 (21-32) mmol/L Anion Gap 13.8 H (7-13) mEq/L BUN 32 H (7-18) mg/dL Creatinine 1.24 H (0.55-1.02) mg/dL Est Cr Clr Drug Dosing 31.47 mL/min Estimated GFR (MDRD) 41 BUN/Creatinine Ratio 25.8 (No establ ref range) Glucose 124 H (74-99) mg/dL Lactic Acid 1.4 (0.4-2.0) mmol/L Calcium 9.4 (8.5-10.1) mg/dL Magnesium 2.2 (1.8-2.4) mg/dL Total Bilirubin 0.4 (0.2-1.0) mg/dL AST 14 L (15-37) U/L ALT 23 (14-59) U/L Alkaline Phosphatase 72 (46-116) U/L B-Natriuretic Peptide 341 H (0-100) pg/ml Total Protein 9.4 H (6.4-8.2) g/dL Albumin 3.5 (3.4-5.0) g/dL Globulin 5.9 Albumin/Globulin Ratio 0.6 Urine Color (YELLOW) Urine Appearance (CLEAR) Urine pH (5.0-9.0) Ur Specific [place] (1.005-1.030) Urine Protein (NEGATIVE) Urine Glucose (UA) (NEGATIVE) Urine Ketones (NEGATIVE) Urine Occult Blood (NEGATIVE) Urine Nitrite (NEGATIVE) Urine Bilirubin (NEGATIVE) Urine Urobilinogen (0.2-1.0) mg/dL Ur Leukocyte Esterase (NEGATIVE) Urine RBC /HPF Urine WBC (0-5/HPF) /HPF Ur Epithelial Cells (NOT SEEN) /HPF Amorphous Sediment (NOT SEEN) /HPF Urine Bacteria (0-FEW/HPF) /HPF Urine Mucus (NOT SEEN) /LPF SARS CoV-2 RNA Rapid [place] (NEGATIVE) 08/18/20 08/18/20 08/18/20 Range/Units 20:36 20:58 22:59 WBC (5.0-10.0) 10^3/uL RBC (4.2-5.4) 10^6/uL Hgb (12.0-16.0) g/dL Hct (37.0-47.0) % MCV (80-100) fL MCH (27.0-34.0) pg MCHC (33.0-35.0) g/dL Plt Count (150-450) 10^3/uL Neut % (Auto) (42.2-75.2) % Lymph % (Auto) (20.5-50.1) % [place] % (Auto) (2-8) % Eos % (Auto) (1.0-3.0) % Baso % (Auto) (0.0-1.0) % PT 25.1 H (9.0-12.0) SEC INR 2.7 H (0.9-1.2) Sodium (136-145) mmol/L Potassium (3.5-5.1) mmol/L Chloride (98-107) mmol/L Carbon Dioxide (21-32) mmol/L Anion Gap (7-13) mEq/L BUN (7-18) mg/dL Creatinine (0.55-1.02) mg/dL Est Cr Clr Drug Dosing mL/min Estimated GFR (MDRD) BUN/Creatinine Ratio (No establ ref range) Glucose (74-99) mg/dL Lactic Acid (0.4-2.0) mmol/L Calcium (8.5-10.1) mg/dL Magnesium (1.8-2.4) mg/dL Total Bilirubin (0.2-1.0) mg/dL AST (15-37) U/L ALT (14-59) U/L Alkaline Phosphatase (46-116) U/L B-Natriuretic Peptide (0-100) pg/ml Total Protein (6.4-8.2) g/dL Albumin (3.4-5.0) g/dL Globulin Albumin/Globulin Ratio Urine Color Light yellow (YELLOW) Urine Appearance Clear (CLEAR) Urine pH 5.0 (5.0-9.0) Ur Specific [place] 1.015 (1.005-1.030) Urine Protein Negative (NEGATIVE) Urine Glucose (UA) Negative (NEGATIVE) Urine Ketones Negative (NEGATIVE) Urine Occult Blood Negative (NEGATIVE) Urine Nitrite Negative (NEGATIVE) Urine Bilirubin Negative (NEGATIVE) Urine Urobilinogen 0.2 (0.2-1.0) mg/dL Ur Leukocyte Esterase Small H (NEGATIVE) Urine RBC 0-5 /HPF Urine WBC 20-30 H (0-5/HPF) /HPF Ur Epithelial Cells Occasional (NOT SEEN) /HPF Amorphous Sediment Few (NOT SEEN) /HPF Urine Bacteria Few (0-FEW/HPF) /HPF Urine Mucus Not seen (NOT SEEN) /LPF SARS CoV-2 RNA Rapid [place] Negative (NEGATIVE) 08/19/20 08/19/20 08/19/20 Range/Units 07:17 07:17 07:17 WBC 10.1 H (5.0-10.0) 10^3/uL RBC 4.32 (4.2-5.4) 10^6/uL Hgb 12.3 D (12.0-16.0) g/dL Hct 37.6 (37.0-47.0) % MCV 87.0 (80-100) fL MCH 28.5 (27.0-34.0) pg MCHC 32.7 L (33.0-35.0) g/dL Plt Count 229 (150-450) 10^3/uL Neut % (Auto) 71.3 (42.2-75.2) % Lymph % (Auto) 15.2 L (20.5-50.1) % [place] % (Auto) 11.4 H (2-8) % Eos % (Auto) 1.9 (1.0-3.0) % Baso % (Auto) 0.2 (0.0-1.0) % PT 20.5 H (9.0-12.0) SEC INR 2.2 H (0.9-1.2) Sodium 142 (136-145) mmol/L Potassium 3.7 (3.5-5.1) mmol/L Chloride 104 (98-107) mmol/L Carbon Dioxide 29 (21-32) mmol/L Anion Gap 12.7 (7-13) mEq/L BUN 25 H (7-18) mg/dL Creatinine 1.00 (0.55-1.02) mg/dL Est Cr Clr Drug Dosing 42.18 mL/min Estimated GFR (MDRD) 53 BUN/Creatinine Ratio (No establ ref range) Glucose 99 (74-99) mg/dL Lactic Acid (0.4-2.0) mmol/L Calcium 8.8 (8.5-10.1) mg/dL Magnesium (1.8-2.4) mg/dL Total Bilirubin (0.2-1.0) mg/dL AST (15-37) U/L ALT (14-59) U/L Alkaline Phosphatase (46-116) U/L B-Natriuretic Peptide (0-100) pg/ml Total Protein (6.4-8.2) g/dL Albumin (3.4-5.0) g/dL Globulin Albumin/Globulin Ratio Urine Color (YELLOW) Urine Appearance (CLEAR) Urine pH (5.0-9.0) Ur Specific [place] (1.005-1.030) Urine Protein (NEGATIVE) Urine Glucose (UA) (NEGATIVE) Urine Ketones (NEGATIVE) Urine Occult Blood (NEGATIVE) Urine Nitrite (NEGATIVE) Urine Bilirubin (NEGATIVE) Urine Urobilinogen (0.2-1.0) mg/dL Ur Leukocyte Esterase (NEGATIVE) Urine RBC /HPF Urine WBC (0-5/HPF) /HPF Ur Epithelial Cells (NOT SEEN) /HPF Amorphous Sediment (NOT SEEN) /HPF Urine Bacteria (0-FEW/HPF) /HPF Urine Mucus (NOT SEEN) /LPF SARS CoV-2 RNA Rapid [place] (NEGATIVE) Med Orders - Current: Current Medications Acetaminophen (Tylenol) 650 mg PO Q4H PRN PRN Reason: Pain (Mild 1-3)/fever Last Admin: 08/19/20 08:37 Dose: 650 mg Documented by: Bisacodyl (Dulcolax) 10 mg RECTAL DAILY PRN PRN Reason: Constipation Bumetanide (Bumex) 1.5 mg PO Q24H PENDING SALE TO [facility] Bumetanide (Bumex) 2 mg PO DAILY PENDING SALE TO [facility] Last Admin: 08/19/20 08:35 Dose: 2 mg Documented by: Diltiazem HCl (Cardizem Cd) 360 mg PO DAILY PENDING SALE TO [facility] Last Admin: 08/19/20 08:36 Dose: 360 mg Documented by: Ceftriaxone Sodium 1 gm/ (Sodium Chloride) 50 mls @ 100 mls/hr IV DAILY PENDING SALE TO [facility] Last Infusion: 08/19/20 10:33 Dose: Infused Documented by: Lactulose (Cephulac) 10 gm PO DAILY PRN PRN Reason: Constipation Loratadine (Claritin) 5 mg PO DAILY PRN PRN Reason: Allergies Magnesium Hydroxide (Milk Of Magnesia) 30 ml PO DAILY PRN PRN Reason: Constipation Metoprolol Succinate (Toprol Xl) 200 mg PO DAILY PENDING SALE TO [facility] Last Admin: 08/19/20 08:34 Dose: 200 mg Documented by: Non-Formulary Medication (L.Acidoph,Paracasei, B.Lactis [Probiotic]) 1 each PO DAILY PENDING SALE TO [facility] Non-Formulary Medication (Letrozole) 2.5 mg PO DAILY PENDING SALE TO [facility] Nystatin (Nystop) 0 gm TOP 0600,1430 PENDING SALE TO [facility] Last Admin: 08/19/20 07:43 Dose: Not Given Documented by: Ondansetron HCl (Zofran Odt) 4 mg PO Q4H PRN PRN Reason: Nausea Potassium Chloride (Klor-Con 10) 20 meq PO BIDMEALS PENDING SALE TO [facility] Last Admin: 08/19/20 08:36 Dose: 20 meq Documented by: Spironolactone (Aldactone) 25 mg PO DAILY PENDING SALE TO [facility] Last Admin: 08/19/20 08:37 Dose: 25 mg Documented by: Triamcinolone Acetonide (Triamcinolone Acetonide 0.1% Crm) 1 gm TOP BID@0630,1430 YRN Last Admin: 08/19/20 07:43 Dose: Not Given Documented by: Discontinued Medications Piperacillin Sod/Tazobactam (Sod 3.375 gm/ Sodium Chloride) 100 mls @ 200 mls/hr IV ONETIME ONE Stop: 08/18/20 23:28 Last Admin: 08/18/20 23:35 Dose: 200 mls/hr Documented by: Vancomycin HCl 1,500 mg/ (Sodium Chloride) 500 mls @ 333.333 mls/hr IV ONETIME ONE Stop: 08/19/20 00:29 Last Admin: 08/19/20 00:04 Dose: 333.333 mls/hr Documented by: - Exam Quality Assessment: Denies: Supplemental Oxygen General: Reports: Alert, Oriented, Cooperative HEENT: Reports: Pupils Equal Neck: Reports: Supple Lungs: Reports: Clear to Auscultation, Normal Respiratory Effort Cardiovascular: Reports: Regular Rate, Regular Rhythm GI/Abdominal Exam: Normal Bowel Sounds, Soft, Non-Tender, No Distention, Other (morbidly obese) Back Exam: Reports: Normal Inspection Extremities: Other (b/l LE venous stasis dermatitis and superficial ulcerations, no drainage, moderate non tender erythema) Skin: Reports: Warm, Dry Wound/Incisions: Reports: Healing Well Neurological: Reports: No New Focal Deficit Psy/Mental Status: Reports: Alert, Normal Affect, Normal Mood
[2020-08-20] MEDS ORDERED: Bumetanide 1 MG Tab PO SCH (16:00)
== END 2020-08-19 09:50 ==
LOC: DL.ED 20:17 → DL.MS 22:55 → DL.ED 23:03
PROVIDERS: ADMIT Internal Medicine; ATTEND Internal Medicine
DX: R41.82 Altered mental status, unspecified (principal); I13.0 Hypertensive heart and chronic kidney disease with heart failure and stage 1 through stage 4 chronic kidney disease, or unspecified chronic kidney disease; N39.0 Urinary tract infection, site not specified; L03.115 Cellulitis of right lower limb; E78.00 Pure hypercholesterolemia, unspecified; I48.91 Unspecified atrial fibrillation; E11.9 Type 2 diabetes mellitus without complications; E66.9 Obesity, unspecified; N18.9 Chronic kidney disease, unspecified; Z79.84 Long term (current) use of oral hypoglycemic drugs; Z91.013 Allergy to seafood; Z79.899 Other long term (current) drug therapy; Z79.02 Long term (current) use of antithrombotics/antiplatelets; Z86.73 Personal history of transient ischemic attack (TIA), and cerebral infarction without residual deficits; Z98.890 Other specified postprocedural states; Z87.891 Personal history of nicotine dependence; Z20.822 Contact with and (suspected) exposure to COVID-19; Z68.39 Body mass index [BMI] 39.0-39.9, adult; I50.9 Heart failure, unspecified
CPT/HCPCS: 36415; 80048; 80053; 81001; 83605; 83735; 83880; 85025; 85610; 87040; 87086; 87088; 87186; 96365; 96366; 96367; 96368; 99283; 99285; A9270; G0378; J0696; J2543; J3370; J7040; U0002; 99217; 99220

== ENCOUNTER 2022-04-09 09:46 | Inpatient (IN) | payer MEDICARE, OTHER ==
[2022-04-09 10:33] LABS: PTT,PARTIAL THROMBOPLSTIN TIME 35.7 SEC (22.0-34.0)
[2022-04-09 10:40] LABS: ANION GAP 15.6 mEq/L (7-13); CHLORIDE,CL 100 mmol/L (98-107); SODIUM,NA 137 mmol/L (136-145)
[2022-04-09 10:44] LABS: ESTIMATED GFR 25 mL/min (>=60)
[2022-04-09] MEDS ORDERED: ceFAZolin 2 GM in Premix Bag 1 BAG IV ONE (11:08)
[2022-04-09] MEDS ORDERED: Meropenem 1 GM in Sodium Chloride 0.9% 100 ML IV ONE (11:08)
[2022-04-09] MEDS: LACTATED RINGERS IV SCH ×2 (13:06→14:37)
[2022-04-09] MEDS ORDERED: Acetaminophen/HYDROcodone 325-10 MG Tab PO PRN (13:09)
[2022-04-09] MEDS ORDERED: HYDROmorphone 0.5 MG/0.5 ML Syringe IVPUSH PRN (13:09)
[2022-04-09] MEDS ORDERED: Magnesium Hydroxide 400 MG/5 ML Susp 30 ML Cup PO PRN (13:15)
[2022-04-09] MEDS ORDERED: Polyethylene Glycol 3350 Powder 17 GM Packet PO PRN (13:15)
[2022-04-09] MEDS ORDERED: Bisacodyl 5 MG Tab PO PRN (13:15)
[2022-04-09] MEDS ORDERED: Ondansetron 4 MG/2 ML SDV IVPUSH PRN (13:15)
[2022-04-09] MEDS ORDERED: Albuterol/Ipratropium 3.0-0.5 MG/3 ML Neb Soln NEB PRN (13:15)
[2022-04-09] MEDS ORDERED: 50% Dextrose in Water 50 ML Syringe IVPUSH PRN (13:40)
[2022-04-09] MEDS ORDERED: Glucagon,Human Recombinant 1 MG Vial IM PRN (13:40)
[2022-04-09] MEDS ORDERED: VANCOMYCIN IV SCH (14:00)
[2022-04-09] MEDS ORDERED: SODIUM CHLORIDE 0.9% IV SCH (14:00)
[2022-04-09] MEDS ORDERED: VANCOmycin 1.5 GM/300 ML 1.5 GM in Premix Bag 1 BAG IV SCH (15:00)
[2022-04-09] MEDS: Insulin Lispro 100 Units/ML 3 ML Vial SUBCUT SCH ×2 (15:07→17:23)
[2022-04-09] MEDS: Lactated Ringers 1,000 ML IV SCH (17:09)
[2022-04-09] MEDS: Nystatin Topical Powder 30 GM Bottle TOP SCH (17:10)
[2022-04-09] MEDS: Piperacillin/Tazobactam 2.25 GM in Sodium Chloride 0.9% 50 ML IV SCH (17:11)
[2022-04-09] MEDS ORDERED: Piperacillin/Tazobactam 3.375 GM in Sodium Chloride 0.9% 100 ML IV SCH (18:00)
[2022-04-10] MEDS: Heparin Sodium 5,000 Units/ML Vial SUBCUT SCH ×4 (00:09→23:53)
[2022-04-10] MEDS: Insulin Lispro 100 Units/ML 3 ML Vial SUBCUT SCH ×4 (01:59→17:31)
[2022-04-10] MEDS: Piperacillin/Tazobactam 2.25 GM in Sodium Chloride 0.9% 50 ML IV SCH ×6 (06:04→23:45)
[2022-04-10] MEDS: Acetaminophen 325 MG Tab PO PRN ×2 (06:24→19:37)
[2022-04-10 07:09] LABS: ANION GAP 10.6 mEq/L (7-13); CHLORIDE,CL 100 mmol/L (98-107); SODIUM,NA 136 mmol/L (136-145)
[2022-04-10 07:36] LABS: ESTIMATED GFR 28 mL/min (>=60)
[2022-04-10] MEDS: Nystatin Topical Powder 30 GM Bottle TOP SCH ×3 (09:16→23:45)
[2022-04-10] MEDS: Lactated Ringers 1,000 ML IV SCH (13:25)
[2022-04-10] MEDS ORDERED: Vancomycin 750 MG SDV ONE (15:43)
[2022-04-10] MEDS: Warfarin 2 MG Tab PO SCH (15:57)
[2022-04-10] MEDS ORDERED: Insulin Lispro 100 Units/ML 3 ML Vial SUBCUT SCH (17:00)
[2022-04-10] MEDS: Sodium Chloride 0.9% 10 ML Syringe FLUSH PRN (23:46)
[2022-04-11] MEDS: Piperacillin/Tazobactam 2.25 GM in Sodium Chloride 0.9% 50 ML IV SCH ×4 (05:35→23:40)
[2022-04-11 07:00] LABS: ANION GAP 10.9 mEq/L (7-13); CHLORIDE,CL 102 mmol/L (98-107); SODIUM,NA 138 mmol/L (136-145)
[2022-04-11 07:16] LABS: ESTIMATED GFR 40 mL/min (>=60)
[2022-04-11] MEDS: Insulin Lispro 100 Units/ML 3 ML Vial SUBCUT SCH ×3 (08:29→16:57)
[2022-04-11] MEDS: Heparin Sodium 5,000 Units/ML Vial SUBCUT SCH ×3 (08:30→23:54)
[2022-04-11] MEDS: Nystatin Topical Powder 30 GM Bottle TOP SCH ×3 (08:31→20:24)
[2022-04-11] MEDS ORDERED: Bismuth Subsalicylate 262 MG Tab.Chew PO PRN (11:44)
[2022-04-11] MEDS ORDERED: Calcium Carbonate 500 MG Tab.Chew PO PRN (11:44)
[2022-04-11] MEDS ORDERED: Ondansetron 4 MG Tab.DIS PO PRN (12:31)
[2022-04-11] MEDS: Acetaminophen 325 MG Tab PO SCH ×2 (14:19→20:23)
[2022-04-11] MEDS: Potassium Chloride 10 MEQ Tab.ER PO SCH (17:05)
[2022-04-11] MEDS: Calcium Carbonate/Vitamin D3 1250 MG-5 MCG Tab PO SCH (20:24)
[2022-04-11] MEDS: Acetaminophen 325 MG Tab PO PRN (23:53)
[2022-04-12] MEDS: Piperacillin/Tazobactam 2.25 GM in Sodium Chloride 0.9% 50 ML IV SCH ×4 (05:14→23:59)
[2022-04-12 07:05] LABS: ANION GAP 10.8 mEq/L (7-13)
[2022-04-12] MEDS: Cholecalciferol (Vitamin D3) 25 MCG Tab PO SCH (08:47)
[2022-04-12] MEDS: Potassium Chloride 10 MEQ Tab.ER PO SCH ×2 (08:47→17:45)
[2022-04-12] MEDS: Acetaminophen 325 MG Tab PO SCH ×3 (08:47→21:25)
[2022-04-12] MEDS: Diltiazem 180 MG Cap.CD PO SCH (08:47)
[2022-04-12] MEDS: Calcium Carbonate/Vitamin D3 1250 MG-5 MCG Tab PO SCH ×2 (08:47→21:25)
[2022-04-12] MEDS: Metoprolol Succinate 50 MG Tab.ER PO SCH (08:48)
[2022-04-12] MEDS: Insulin Lispro 100 Units/ML 3 ML Vial SUBCUT SCH ×3 (08:49→17:40)
[2022-04-12] MEDS: Nystatin Topical Powder 30 GM Bottle TOP SCH ×2 (08:53→21:25)
[2022-04-12] MEDS ORDERED: Loratadine 10 MG Tab PO PRN (10:41)
[2022-04-12] MEDS: Non-Formulary Medication 1 Each (Arginine/Ascorbate Sod/Vite Ac [Arginaid Powder] 1 EACH P PO SCH (10:42)
[2022-04-12] MEDS: Heparin Sodium 5,000 Units/ML Vial SUBCUT SCH (10:42)
[2022-04-12] MEDS ORDERED: hydrALAZINE 20 MG/ML SDV IVPUSH PRN (11:41)
[2022-04-12] MEDS: Sodium Chloride 0.9% 10 ML Syringe FLUSH PRN ×2 (14:55→23:58)
[2022-04-12] MEDS: Warfarin 2 MG Tab PO SCH (14:56)
[2022-04-12] MEDS: Loperamide 2 MG Cap PO PRN (21:54)
[2022-04-13] MEDS: Sodium Chloride 0.9% 10 ML Syringe FLUSH PRN ×3 (05:51→23:57)
[2022-04-13] MEDS: Piperacillin/Tazobactam 2.25 GM in Sodium Chloride 0.9% 50 ML IV SCH ×4 (05:51→23:57)
[2022-04-13] MEDS: Loperamide 2 MG Cap PO PRN ×2 (06:13→21:29)
[2022-04-13 07:15] LABS: ANION GAP 11.5 mEq/L (7-13)
[2022-04-13] MEDS: Cholecalciferol (Vitamin D3) 25 MCG Tab PO SCH (09:23)
[2022-04-13] MEDS: Metoprolol Succinate 50 MG Tab.ER PO SCH (09:23)
[2022-04-13] MEDS: Acetaminophen 325 MG Tab PO SCH ×3 (09:24→20:28)
[2022-04-13] MEDS: Bumetanide 1 MG Tab PO SCH (09:25)
[2022-04-13] MEDS: Spironolactone 25 MG Tab PO SCH (09:25)
[2022-04-13] MEDS: Calcium Carbonate/Vitamin D3 1250 MG-5 MCG Tab PO SCH ×2 (09:25→20:28)
[2022-04-13] MEDS: Potassium Chloride 10 MEQ Tab.ER PO SCH ×2 (09:26→17:17)
[2022-04-13] MEDS: Diltiazem 180 MG Cap.CD PO SCH (09:26)
[2022-04-13] MEDS: Insulin Lispro 100 Units/ML 3 ML Vial SUBCUT SCH ×3 (09:27→17:07)
[2022-04-13] MEDS: Nystatin Topical Powder 30 GM Bottle TOP SCH ×2 (09:28→20:27)
[2022-04-13] MEDS: VANCOmycin 1.5 GM/300 ML 1.5 GM in Premix Bag 1 BAG IV SCH (14:34)
[2022-04-13] MEDS: Warfarin 2 MG Tab PO SCH (14:34)
[2022-04-14] MEDS: Sodium Chloride 0.9% 10 ML Syringe FLUSH PRN ×4 (05:40→23:49)
[2022-04-14] MEDS: Piperacillin/Tazobactam 2.25 GM in Sodium Chloride 0.9% 50 ML IV SCH ×4 (05:40→23:49)
[2022-04-14 07:01] LABS: ANION GAP 6.7 mEq/L (7-13)
[2022-04-14] MEDS: Potassium Chloride 10 MEQ Tab.ER PO SCH ×2 (09:10→17:27)
[2022-04-14] MEDS: Acetaminophen 325 MG Tab PO SCH ×3 (09:11→20:07)
[2022-04-14] MEDS: Metoprolol Succinate 50 MG Tab.ER PO SCH (09:12)
[2022-04-14] MEDS: Calcium Carbonate/Vitamin D3 1250 MG-5 MCG Tab PO SCH ×2 (09:12→20:07)
[2022-04-14] MEDS: Cholecalciferol (Vitamin D3) 25 MCG Tab PO SCH (09:12)
[2022-04-14] MEDS: Nystatin Topical Powder 30 GM Bottle TOP SCH ×2 (09:12→20:08)
[2022-04-14] MEDS: Bumetanide 1 MG Tab PO SCH (09:13)
[2022-04-14] MEDS: Diltiazem 180 MG Cap.CD PO SCH (09:13)
[2022-04-14] MEDS: Spironolactone 25 MG Tab PO SCH (09:13)
[2022-04-14] MEDS: Insulin Lispro 100 Units/ML 3 ML Vial SUBCUT SCH ×3 (09:14→17:33)
[2022-04-14] MEDS: VANCOmycin 1.5 GM/300 ML 1.5 GM in Premix Bag 1 BAG IV SCH (14:26)
[2022-04-14 23:04] VITALS: PULSE 57
[2022-04-15] MEDS: Loperamide 2 MG Cap PO PRN (00:26)
[2022-04-15] MEDS: Sodium Chloride 0.9% 10 ML Syringe FLUSH PRN (05:25)
[2022-04-15] MEDS: Piperacillin/Tazobactam 2.25 GM in Sodium Chloride 0.9% 50 ML IV SCH ×2 (05:25→11:45)
[2022-04-15 08:49] VITALS: BP 116/50
[2022-04-15] MEDS: Insulin Lispro 100 Units/ML 3 ML Vial SUBCUT SCH ×2 (09:17→12:10)
[2022-04-15] MEDS: Acetaminophen 325 MG Tab PO SCH (09:28)
[2022-04-15] MEDS: Potassium Chloride 10 MEQ Tab.ER PO SCH (09:29)
[2022-04-15] MEDS: Metoprolol Succinate 50 MG Tab.ER PO SCH (09:29)
[2022-04-15] MEDS: Calcium Carbonate/Vitamin D3 1250 MG-5 MCG Tab PO SCH (09:30)
[2022-04-15] MEDS: Diltiazem 180 MG Cap.CD PO SCH (09:30)
[2022-04-15] MEDS: Spironolactone 25 MG Tab PO SCH (09:30)
[2022-04-15] MEDS: Bumetanide 1 MG Tab PO SCH (09:30)
[2022-04-15] MEDS: Cholecalciferol (Vitamin D3) 25 MCG Tab PO SCH (09:30)
[2022-04-15] MEDS: Nystatin Topical Powder 30 GM Bottle TOP SCH (09:31)
== END 2022-04-15 13:05 | DRG 871 ==
LOC: DL.ED 09:46 → DL.MS 12:00 → DL.ED 12:23
PROVIDERS: ADMIT Internal Medicine; ATTEND Internal Medicine
DX: A41.9 Sepsis, unspecified organism (principal); L03.116 Cellulitis of left lower limb; G93.41 Metabolic encephalopathy; Z86.14 Personal history of Methicillin resistant Staphylococcus aureus infection; L03.115 Cellulitis of right lower limb; I50.9 Heart failure, unspecified; N39.0 Urinary tract infection, site not specified; Z68.42 Body mass index [BMI] 45.0-49.9, adult; E78.00 Pure hypercholesterolemia, unspecified; I50.32 Chronic diastolic (congestive) heart failure; R32 Unspecified urinary incontinence; I13.0 Hypertensive heart and chronic kidney disease with heart failure and stage 1 through stage 4 chronic kidney disease, or unspecified chronic kidney disease; Z66 Do not resuscitate; Z79.84 Long term (current) use of oral hypoglycemic drugs; Z79.899 Other long term (current) drug therapy; B96.4 Proteus (mirabilis) (morganii) as the cause of diseases classified elsewhere; I48.91 Unspecified atrial fibrillation; I89.0 Lymphedema, not elsewhere classified; F41.9 Anxiety disorder, unspecified; N18.9 Chronic kidney disease, unspecified; E11.22 Type 2 diabetes mellitus with diabetic chronic kidney disease; Z20.822 Contact with and (suspected) exposure to COVID-19; F32.9 Major depressive disorder, single episode, unspecified; E11.65 Type 2 diabetes mellitus with hyperglycemia; E66.01 Morbid (severe) obesity due to excess calories; R33.9 Retention of urine, unspecified; B37.9 Candidiasis, unspecified; Z85.3 Personal history of malignant neoplasm of breast; Z79.4 Long term (current) use of insulin; Z79.01 Long term (current) use of anticoagulants; Z91.013 Allergy to seafood; Z98.42 Cataract extraction status, left eye; Z90.11 Acquired absence of right breast and nipple; Z86.16 Personal history of COVID-19; Z90.710 Acquired absence of both cervix and uterus; Z90.89 Acquired absence of other organs; Z98.890 Other specified postprocedural states; Z98.41 Cataract extraction status, right eye; Z97.3 Presence of spectacles and contact lenses; Z86.010 Personal history of colon polyps; Z86.73 Personal history of transient ischemic attack (TIA), and cerebral infarction without residual deficits
CPT/HCPCS: 36415; 80053; 81001; 83605; 84145; 85025; 85379; 85610; 85730; 86140; 87040 ×2; 87086; 87088; 87186; 93971; 96365; 96367; 99285; J0690; J2185; U0002; 71045; 80202; 82533; 82947; 83735; A9270-GY; J1644; J1815-GY; J2543; J3370; J3490; J7050; J7120

== ENCOUNTER 2023-01-14 08:50 | Inpatient (IN) | payer MEDICARE, OTHER ==
[2023-01-14] MEDS: Sodium Chloride 0.9% 10 ML Syringe FLUSH PRN (09:23)
[2023-01-14 09:29] LABS: HEMATOCRIT 48.7 % (37.0-47.0); HEMOGLOBIN 15.9 g/dL (12.0-16.0); MEAN CORPUSCULAR HEMOGLOBIN 28.8 pg (27.0-34.0); MEAN CORPUSCULAR HGB CONC 32.6 g/dL (33.0-35.0); MEAN CORPUSCULAR VOLUME 88.1 fL (80-100); PLATELET COUNT,PLT 171 10^3/uL (150-450); RED BLOOD CELL COUNT 5.53 10^6/uL (4.2-5.4); WHITE BLOOD CELL COUNT,WBC 13.7 10^3/uL (5.0-10.0)
[2023-01-14 09:35] LABS: BASOPHILS PERCENT AUTO 0.3 % (0.0-1.0); EOSINOPHILS PERCENT AUTO 4.3 % (1.0-3.0); LYMPHOCYTES PERCENT AUTO 11.8 % (20.5-50.1); MONOCYTES PERCENT AUTO 12.9 % (2-8); NEUTROPHILS PERCENT AUTO 70.7 % (42.2-75.2)
[2023-01-14 09:36] LABS: APPEARANCE,URINE CLOUDY (CLEAR); BILIRUBIN,URINE SMALL (NEGATIVE); COLOR,URINE YELLOW (YELLOW); GLUCOSE,URINE NEGATIVE (NEGATIVE); KETONES,URINE NEGATIVE (NEGATIVE); LEUKOCYTE ESTERASE,URINE LARGE (NEGATIVE); NITRITE,URINE NEGATIVE (NEGATIVE); OCCULT BLOOD,URINE SMALL (NEGATIVE); PH,URINE 5.5 (5.0-9.0); PROTEIN,URINE 30 (NEGATIVE); UROBILINOGEN,URINE 0.2 mg/dL (0.2-1.0)
[2023-01-14 09:41] LABS: PROTHROMBIN TIME 38.8 SEC (9.0-12.0); PTT,PARTIAL THROMBOPLSTIN TIME 39.2 SEC (22.0-34.0)
[2023-01-14 09:45] LABS: EPITHELIAL CELLS,URINE FEW /HPF (NOT SEEN); RBC,URINE 0-5 /HPF (0-5); WBC,URINE 40-50 /HPF (0-5/HPF)
[2023-01-14 09:46] LABS: BACTERIA,URINE MANY /HPF (0-FEW/HPF)
[2023-01-14] MEDS ORDERED: cefTRIAXone 2 GM Vial IVPUSH ONE (10:05)
[2023-01-14] MEDS ORDERED: Azithromycin 500 MG in Sodium Chloride 0.9% 250 ML IV ONE (10:05)
[2023-01-14] MEDS ORDERED: Furosemide 40 MG/4 ML VIAL IVPUSH ONE (10:06)
[2023-01-14 10:18] LABS: BAND PERCENT MAN 3 %; EOSINOPHILS PERCENT MAN 4 % (1-3); LYMPHOCYTES PERCENT MAN 15 % (20-50); MONOCYTES PERCENT MAN 3 % (2-8); SEG NEUTROPHILS PERCENT MAN 75 % (42-75)
[2023-01-14 10:22] LABS: ALANINE AMINOTRANSFERASE,ALT 19 U/L (14-59); ALBUMIN 2.9 g/dL (3.4-5.0); ALKALINE PHOSPHATASE 90 U/L (46-116); ASPARTATE AMNIOTRANSFERASE,AST 39 U/L (15-37); BILIRUBIN TOTAL 1.1 mg/dL (0.2-1.0); BLOOD UREA NITROGEN,BUN 61 mg/dL (7-18); BUN/CREATININE RATIO 36.1 (No establ ref range); CARBON DIOXIDE,CO2 32 mmol/L (21-32); CHLORIDE,CL 99 mmol/L (98-107); CREATININE 1.69 mg/dL (0.55-1.02); GLUCOSE RANDOM 140 mg/dL (70-99); PROTEIN TOTAL,TP 8.1 g/dL (6.4-8.2); SODIUM,NA 141 mmol/L (136-145)
[2023-01-14 10:23] LABS: A/G RATIO 0.56; ESTIMATED GFR 30 mL/min (>=60)
[2023-01-14 10:40] LABS: LACTIC ACID 2.7 mmol/L (0.4-2.0)
[2023-01-14] MEDS: cefTRIAXone 1 GM Vial IVPUSH SCH (13:42)
[2023-01-14] MEDS ORDERED: Bisacodyl 10 MG Supp RECTAL PRN (13:44)
[2023-01-14] MEDS ORDERED: Azithromycin 500 MG in Sodium Chloride 0.9% 250 ML IV SCH (14:00)
[2023-01-14] MEDS ORDERED: Ondansetron 4 MG Tab.DIS PO PRN (14:22)
[2023-01-14] MEDS ORDERED: Loratadine 10 MG Tab PO PRN (14:23)
[2023-01-14] MEDS: Acetaminophen 325 MG Tab PO SCH ×2 (14:46→20:30)
[2023-01-14] MEDS: Albuterol/Ipratropium 3.0-0.5 MG/3 ML Neb Soln NEB SCH ×3 (17:09→23:42)
[2023-01-14] MEDS: Saccharomyces Boulardii (Probiotic) 250 MG Cap PO SCH (20:30)
[2023-01-14] MEDS ORDERED: Albuterol/Ipratropium 3.0-0.5 MG/3 ML Neb Soln ONE (23:33)
[2023-01-15] MEDS: Albuterol/Ipratropium 3.0-0.5 MG/3 ML Neb Soln NEB SCH ×4 (05:32→23:07)
[2023-01-15 06:28] LABS: PROTHROMBIN TIME 39.1 SEC (9.0-12.0)
[2023-01-15] MEDS: Acetaminophen 325 MG Tab PO SCH ×3 (08:27→21:38)
[2023-01-15] MEDS: Saccharomyces Boulardii (Probiotic) 250 MG Cap PO SCH ×2 (08:27→21:38)
[2023-01-15] MEDS ORDERED: Diltiazem 180 MG Cap.CD PO SCH (09:00)
[2023-01-15] MEDS ORDERED: Metoprolol Succinate 50 MG Tab.ER PO SCH (09:00)
[2023-01-15] MEDS ORDERED: Sodium Chloride 0.9% 250 ML IV SCH (10:45)
[2023-01-15] MEDS ORDERED: Sodium Chloride 0.9% 500 ML IV SCH ×2 (11:00→11:45)
[2023-01-15] MEDS: Azithromycin 500 MG in Sodium Chloride 0.9% 250 ML IV SCH (11:06)
[2023-01-15] MEDS: cefTRIAXone 1 GM Vial IVPUSH SCH (13:31)
[2023-01-15 14:08] LABS: BASOPHILS PERCENT AUTO 0.2 % (0.0-1.0); EOSINOPHILS PERCENT AUTO 2.8 % (1.0-3.0); HEMATOCRIT 43.1 % (37.0-47.0); HEMOGLOBIN 13.9 g/dL (12.0-16.0); LYMPHOCYTES PERCENT AUTO 7.6 % (20.5-50.1); MEAN CORPUSCULAR HGB CONC 32.3 g/dL (33.0-35.0); MONOCYTES PERCENT AUTO 11.5 % (2-8); NEUTROPHILS PERCENT AUTO 77.9 % (42.2-75.2); PLATELET COUNT,PLT 130 10^3/uL (150-450); RED BLOOD CELL COUNT 4.79 10^6/uL (4.2-5.4)
[2023-01-15 14:23] LABS: ANION GAP 12.6 mEq/L (7-13); CREATININE 2.05 mg/dL (0.55-1.02); EST CRCL DRUG DOSING (CG) 19.87 mL/min; POTASSIUM,K 3.6 mmol/L (3.5-5.1)
[2023-01-15 14:47] LABS: INR 4.3 (0.9-1.2); PROTHROMBIN TIME 41.9 SEC (9.0-12.0)
[2023-01-16 06:19] LABS: HEMATOCRIT 43.9 % (37.0-47.0); HEMOGLOBIN 14.3 g/dL (12.0-16.0); MEAN CORPUSCULAR HEMOGLOBIN 28.9 pg (27.0-34.0); MEAN CORPUSCULAR HGB CONC 32.6 g/dL (33.0-35.0); MEAN CORPUSCULAR VOLUME 88.9 fL (80-100); RED BLOOD CELL COUNT 4.94 10^6/uL (4.2-5.4); WHITE BLOOD CELL COUNT,WBC 12.4 10^3/uL (5.0-10.0)
[2023-01-16] MEDS: Albuterol/Ipratropium 3.0-0.5 MG/3 ML Neb Soln NEB SCH ×3 (06:20→17:21)
[2023-01-16 06:33] LABS: ANION GAP 13.5 mEq/L (7-13); CALCIUM 8.9 mg/dL (8.5-10.1); CREATININE 1.9 mg/dL (0.55-1.02); EST CRCL DRUG DOSING (CG) 21.43 mL/min; POTASSIUM,K 3.5 mmol/L (3.5-5.1)
[2023-01-16 06:34] LABS: INR 3.5 (0.9-1.2); PROTHROMBIN TIME 34.1 SEC (9.0-12.0)
[2023-01-16] MEDS ORDERED: Metoprolol Succinate 50 MG Tab.ER PO SCH (09:00)
[2023-01-16] MEDS ORDERED: Non-Formulary Medication 1 Each (Phytonadione [Vitamin K] 100 MCG Tablet) PO SCH (09:00)
[2023-01-16] MEDS: Saccharomyces Boulardii (Probiotic) 250 MG Cap PO SCH ×2 (09:14→21:46)
[2023-01-16] MEDS: Metoprolol Succinate 25 MG Tab.ER PO SCH (09:14)
[2023-01-16] MEDS: Diltiazem 180 MG Cap.CD PO SCH (09:15)
[2023-01-16] MEDS: Acetaminophen 325 MG Tab PO SCH ×3 (09:15→21:46)
[2023-01-16] MEDS: Sodium Chloride 0.9% 10 ML Syringe FLUSH PRN (09:17)
[2023-01-16] MEDS: Ampicillin/Sulbactam Na 3 GM in Sodium Chloride 0.9% 100 ML IV SCH ×2 (09:21→22:46)
[2023-01-16] MEDS: Azithromycin 500 MG in Sodium Chloride 0.9% 250 ML IV SCH (10:28)
[2023-01-16] MEDS: NS + KCl 20mEq/L 1,000 ML IV SCH (11:54)
[2023-01-17] MEDS: NS + KCl 20mEq/L 1,000 ML IV SCH ×2 (03:03→16:39)
[2023-01-17 06:05] LABS: HEMATOCRIT 44.6 % (37.0-47.0); HEMOGLOBIN 14.3 g/dL (12.0-16.0); MEAN CORPUSCULAR HEMOGLOBIN 28.7 pg (27.0-34.0); MEAN CORPUSCULAR HGB CONC 32.1 g/dL (33.0-35.0); MEAN CORPUSCULAR VOLUME 89.6 fL (80-100); PLATELET COUNT,PLT 131 10^3/uL (150-450); RED BLOOD CELL COUNT 4.98 10^6/uL (4.2-5.4); WHITE BLOOD CELL COUNT,WBC 14.6 10^3/uL (5.0-10.0)
[2023-01-17 06:25] LABS: BASOPHILS PERCENT AUTO 0.3 % (0.0-1.0); EOSINOPHILS PERCENT AUTO 3.1 % (1.0-3.0); MONOCYTES PERCENT AUTO 12.4 % (2-8); NEUTROPHILS PERCENT AUTO 79.2 % (42.2-75.2)
[2023-01-17] MEDS: Albuterol/Ipratropium 3.0-0.5 MG/3 ML Neb Soln NEB SCH ×4 (06:25→18:14)
[2023-01-17 06:26] LABS: INR 3.2 (0.9-1.2); PROTHROMBIN TIME 31.7 SEC (9.0-12.0)
[2023-01-17 06:28] LABS: A/G RATIO 0.53; ALBUMIN 2.5 g/dL (3.4-5.0); ANION GAP 12.5 mEq/L (7-13); BILIRUBIN TOTAL 0.8 mg/dL (0.2-1.0); BUN/CREATININE RATIO 36.2 (No establ ref range); CALCIUM 8.5 mg/dL (8.5-10.1); CREATININE 1.63 mg/dL (0.55-1.02); EST CRCL DRUG DOSING (CG) 24.98 mL/min; POTASSIUM,K 3.5 mmol/L (3.5-5.1); PROTEIN TOTAL,TP 7.2 g/dL (6.4-8.2)
[2023-01-17 06:55] LABS: EOSINOPHILS PERCENT MAN 1 % (1-3); LYMPHOCYTES PERCENT MAN 8 % (20-50); MONOCYTES PERCENT MAN 6 % (2-8); SEG NEUTROPHILS PERCENT MAN 85 % (42-75)
[2023-01-17] MEDS: Saccharomyces Boulardii (Probiotic) 250 MG Cap PO SCH ×2 (08:08→21:25)
[2023-01-17] MEDS: Metoprolol Succinate 25 MG Tab.ER PO SCH (08:08)
[2023-01-17] MEDS: Diltiazem 180 MG Cap.CD PO SCH (08:08)
[2023-01-17] MEDS: Acetaminophen 325 MG Tab PO SCH ×3 (08:08→21:25)
[2023-01-17] MEDS: Clindamycin HCl 150 MG Cap PO SCH ×3 (08:21→21:25)
[2023-01-17] MEDS: cefTRIAXone 2 GM Vial IVPUSH SCH (08:23)
[2023-01-17] MEDS: Azithromycin 500 MG in Sodium Chloride 0.9% 250 ML IV SCH (11:11)
[2023-01-18] MEDS: Albuterol/Ipratropium 3.0-0.5 MG/3 ML Neb Soln NEB SCH ×3 (00:31→11:30)
[2023-01-18 06:09] LABS: HEMATOCRIT 45.8 % (37.0-47.0); HEMOGLOBIN 14.4 g/dL (12.0-16.0); MEAN CORPUSCULAR HEMOGLOBIN 28.5 pg (27.0-34.0); MEAN CORPUSCULAR HGB CONC 31.4 g/dL (33.0-35.0); MEAN CORPUSCULAR VOLUME 90.5 fL (80-100); PLATELET COUNT,PLT 132 10^3/uL (150-450); RED BLOOD CELL COUNT 5.06 10^6/uL (4.2-5.4); WHITE BLOOD CELL COUNT,WBC 12.4 10^3/uL (5.0-10.0)
[2023-01-18] MEDS: NS + KCl 20mEq/L 1,000 ML IV SCH (06:12)
[2023-01-18] MEDS: Clindamycin HCl 150 MG Cap PO SCH (06:13)
[2023-01-18 06:18] LABS: LYMPHOCYTES PERCENT AUTO 3.9 % (20.5-50.1); MONOCYTES PERCENT AUTO 12.4 % (2-8); NEUTROPHILS PERCENT AUTO 78.9 % (42.2-75.2)
[2023-01-18 06:19] LABS: BASOPHILS PERCENT AUTO 0.2 % (0.0-1.0); EOSINOPHILS PERCENT AUTO 4.6 % (1.0-3.0)
[2023-01-18 06:23] LABS: INR 3.8 (0.9-1.2); PROTHROMBIN TIME 36.9 SEC (9.0-12.0)
[2023-01-18 06:28] LABS: ALBUMIN 2.5 g/dL (3.4-5.0); ANION GAP 8.9 mEq/L (7-13); BILIRUBIN TOTAL 0.6 mg/dL (0.2-1.0); BUN/CREATININE RATIO 37.4 (No establ ref range); CALCIUM 8.7 mg/dL (8.5-10.1); CREATININE 1.39 mg/dL (0.55-1.02); EST CRCL DRUG DOSING (CG) 29.3 mL/min; POTASSIUM,K 3.9 mmol/L (3.5-5.1); PROTEIN TOTAL,TP 7.2 g/dL (6.4-8.2)
[2023-01-18 06:31] LABS: A/G RATIO 0.53
[2023-01-18 06:36] LABS: EOSINOPHILS PERCENT MAN 4 % (1-3); LYMPHOCYTES PERCENT MAN 4 % (20-50); MONOCYTES PERCENT MAN 10 % (2-8); SEG NEUTROPHILS PERCENT MAN 82 % (42-75)
[2023-01-18 07:59] VITALS: BP 125/62
[2023-01-18] MEDS ORDERED: Ertapenem 1 GM Vial IVPUSH SCH (08:30)
[2023-01-18] MEDS: Diltiazem 180 MG Cap.CD PO SCH (09:53)
[2023-01-18] MEDS: Saccharomyces Boulardii (Probiotic) 250 MG Cap PO SCH (09:53)
[2023-01-18] MEDS: Acetaminophen 325 MG Tab PO SCH (09:53)
[2023-01-18] MEDS: Metoprolol Succinate 25 MG Tab.ER PO SCH (09:54)
[2023-01-18 10:17] LABS: INR 3.8 (0.9-1.2); PROTHROMBIN TIME 37.6 SEC (9.0-12.0)
[2023-01-18] MEDS: Azithromycin 500 MG in Sodium Chloride 0.9% 250 ML IV SCH (10:37)
[2023-01-18] MEDS ORDERED: Sodium Chloride 0.9% 500 ML IV ONE (11:07)
[2023-01-18 11:32] VITALS: PULSE 62
[2023-01-18] MEDS: cefTRIAXone 2 GM Vial IVPUSH SCH (11:49)
== END 2023-01-18 12:55 | DRG 177 ==
LOC: DL.ED 08:50 → DL.MS 11:10
PROVIDERS: ADMIT Hospitalist; ATTEND Internal Medicine
DX: J69.0 Pneumonitis due to inhalation of food and vomit (principal); J96.01 Acute respiratory failure with hypoxia; N39.0 Urinary tract infection, site not specified; N17.9 Acute kidney failure, unspecified; I48.19 Other persistent atrial fibrillation; F03.93 Unspecified dementia, unspecified severity, with mood disturbance; I13.0 Hypertensive heart and chronic kidney disease with heart failure and stage 1 through stage 4 chronic kidney disease, or unspecified chronic kidney disease; J90 Pleural effusion, not elsewhere classified; J18.9 Pneumonia, unspecified organism; R00.1 Bradycardia, unspecified; R79.1 Abnormal coagulation profile; N18.9 Chronic kidney disease, unspecified; D69.6 Thrombocytopenia, unspecified; I11.0 Hypertensive heart disease with heart failure; I50.9 Heart failure, unspecified; B96.20 Unspecified Escherichia coli [E. coli] as the cause of diseases classified elsewhere; I48.20 Chronic atrial fibrillation, unspecified; F41.9 Anxiety disorder, unspecified; M19.90 Unspecified osteoarthritis, unspecified site; E11.22 Type 2 diabetes mellitus with diabetic chronic kidney disease; F32.A Depression, unspecified; E11.9 Type 2 diabetes mellitus without complications; Z91.013 Allergy to seafood; Z88.8 Allergy status to other drugs, medicaments and biological substances; E78.00 Pure hypercholesterolemia, unspecified; M79.7 Fibromyalgia; E66.9 Obesity, unspecified; Z90.710 Acquired absence of both cervix and uterus; Z98.890 Other specified postprocedural states; Z98.49 Cataract extraction status, unspecified eye; Z86.16 Personal history of COVID-19; Z66 Do not resuscitate; Z90.11 Acquired absence of right breast and nipple; Z99.81 Dependence on supplemental oxygen; Z68.38 Body mass index [BMI] 38.0-38.9, adult; Z79.01 Long term (current) use of anticoagulants; Z79.84 Long term (current) use of oral hypoglycemic drugs; Z79.899 Other long term (current) drug therapy; Z86.73 Personal history of transient ischemic attack (TIA), and cerebral infarction without residual deficits
CPT/HCPCS: 36415; 70450; 71045; 80053; 81001; 82947; 83605; 83880; 84484; 85025; 85610; 85730; 87040 ×2; 87086; 87088; 87186; 93005; 93010; 96374; 99285 ×2; J1940; 80048; 85027; 94010; 94060; 94640; A9270-GY; J0295; J0456; J0696; J1335; J3480; J3490; J7040; J7050; J7620-GY

== ENCOUNTER 2023-01-19 17:48 | Observation (INO) | payer MEDICARE, OTHER ==
[2023-01-19 19:08] LABS: HEMATOCRIT 48.2 % (37.0-47.0); HEMOGLOBIN 15.3 g/dL (12.0-16.0); MEAN CORPUSCULAR HGB CONC 31.7 g/dL (33.0-35.0); MEAN CORPUSCULAR VOLUME 91.5 fL (80-100); PLATELET COUNT,PLT 149 10^3/uL (150-450); RED BLOOD CELL COUNT 5.27 10^6/uL (4.2-5.4); WHITE BLOOD CELL COUNT,WBC 15.6 10^3/uL (5.0-10.0)
[2023-01-19 19:14] LABS: BASOPHILS PERCENT AUTO 0.3 % (0.0-1.0); EOSINOPHILS PERCENT AUTO 1.5 % (1.0-3.0); LYMPHOCYTES PERCENT AUTO 4.2 % (20.5-50.1)
[2023-01-19 19:28] LABS: ALBUMIN 2.6 g/dL (3.4-5.0); ANION GAP 12.8 mEq/L (7-13); BILIRUBIN TOTAL 0.6 mg/dL (0.2-1.0); BUN/CREATININE RATIO 39.4 (No establ ref range); CALCIUM 9.5 mg/dL (8.5-10.1); CREATININE 1.37 mg/dL (0.55-1.02); EST CRCL DRUG DOSING (CG) 26.4 mL/min; POTASSIUM,K 4.8 mmol/L (3.5-5.1); PROTEIN TOTAL,TP 7.5 g/dL (6.4-8.2)
[2023-01-19 19:33] LABS: A/G RATIO 0.53; BAND PERCENT MAN 3 %; EOSINOPHILS PERCENT MAN 1 % (1-3); LYMPHOCYTES PERCENT MAN 6 % (20-50); MONOCYTES PERCENT MAN 2 % (2-8); SEG NEUTROPHILS PERCENT MAN 88 % (42-75)
[2023-01-19] MEDS ORDERED: Bumetanide 1 MG/4 ML MDV IVPUSH ONE (20:11)
[2023-01-19] MEDS ORDERED: Albuterol/Ipratropium 3.0-0.5 MG/3 ML Neb Soln NEB ONE (20:30)
[2023-01-19 20:40] LABS: O2 DELIVERY DEVICE NASAL CANNULA
[2023-01-19 20:42] LABS: BASE EXCESS ARTERIAL 0 mmol/L ((-2)-(+3)); BICARBONATE,ARTERIAL 27.7 mmol/L (22-26); O2 SATURATION ARTERIAL 95 % (95-100); PCO2 ARTERIAL 62 mmHg (35-45); PH,ARTERIAL 7.28 (7.35-7.45); PO2 ARTERIAL 83 mmHg (70-100)
[2023-01-19 20:45] LABS: ALLEN TEST PO9SITIVE
[2023-01-19 20:46] LABS: O2 FLOW RATE 6
[2023-01-19] MEDS ORDERED: methylPREDNISolone Sodium Succinate 125 MG/2 ML SDV IVPUSH ONE (20:48)
[2023-01-19] MEDS ORDERED: Meropenem 1 GM SDV IVPUSH ONE (20:54)
[2023-01-19] MEDS ORDERED: Vancomycin 2 GM in Sodium Chloride 0.9% 500 ML IV ONE (21:15)
[2023-01-19] MEDS ORDERED: Iopamidol 755 Mg/ML 100 ML Bottle IVPUSH ONE (21:17)
[2023-01-19 21:48] LABS: O2 DELIVERY DEVICE BIPAP
[2023-01-19 21:49] LABS: BASE EXCESS ARTERIAL 0 mmol/L ((-2)-(+3)); BICARBONATE,ARTERIAL 29.8 mmol/L (22-26); O2 SATURATION ARTERIAL 92 % (95-100); PH,ARTERIAL 7.22 (7.35-7.45); PO2 ARTERIAL 76 mmHg (70-100)
[2023-01-19 21:50] LABS: PCO2 ARTERIAL 75 mmHg (35-45)
[2023-01-19 21:51] LABS: ALLEN TEST POSITIVE
[2023-01-19] MEDS: Sodium Chloride 0.9% 10 ML Syringe FLUSH PRN (21:52)
[2023-01-19 22:37] LABS: INR 4.4 (0.9-1.2); PROTHROMBIN TIME 42.3 SEC (9.0-12.0)
[2023-01-19 22:43] LABS: ALLEN TEST POSITIVE; BASE EXCESS ARTERIAL 1 mmol/L ((-2)-(+3)); O2 DELIVERY DEVICE BIPAP; O2 SATURATION ARTERIAL 92 % (95-100); PCO2 ARTERIAL 53 mmHg (35-45); PH,ARTERIAL 7.33 (7.35-7.45); PO2 ARTERIAL 69 mmHg (70-100)
[2023-01-19] MEDS ORDERED: LORazepam 2 MG/ML SDV IVPUSH PRN (23:15)
[2023-01-19] MEDS ORDERED: Ondansetron 4 MG/2 ML SDV IVPUSH PRN (23:15)
[2023-01-20] MEDS: Morphine 2 MG/ML SYRINGE IV PRN ×7 (00:05→17:36)
[2023-01-20] MEDS: Sodium Chloride 0.9% 10 ML Syringe FLUSH PRN ×10 (00:05→06:10)
[2023-01-20] MEDS: LORazepam 2 MG/ML SDV IVPUSH PRN ×4 (02:30→15:34)
[2023-01-20] MEDS ORDERED: Scopolamine 1.5 MG Transdermal Patch TRDERM SCH (11:00)
[2023-01-20 16:35] VITALS: BP 88/42
[2023-01-20 16:43] VITALS: PULSE 64
[2023-01-20] MEDS ORDERED: Check Patch TRDERM SCH (21:00)
== END 2023-01-20 19:25 | disposition expired ==
LOC: DL.ED 17:48 → DL.MS 01-20 02:27 → DL.ED 01-20 02:30
PROVIDERS: ADMIT Internal Medicine; ATTEND Internal Medicine
DX: J96.01 Acute respiratory failure with hypoxia (principal); J96.02 Acute respiratory failure with hypercapnia; J18.9 Pneumonia, unspecified organism; R79.1 Abnormal coagulation profile; N17.9 Acute kidney failure, unspecified; I48.91 Unspecified atrial fibrillation; E78.00 Pure hypercholesterolemia, unspecified; J90 Pleural effusion, not elsewhere classified; I26.99 Other pulmonary embolism without acute cor pulmonale; R59.0 Localized enlarged lymph nodes; N39.0 Urinary tract infection, site not specified; I12.9 Hypertensive chronic kidney disease with stage 1 through stage 4 chronic kidney disease, or unspecified chronic kidney disease; E11.22 Type 2 diabetes mellitus with diabetic chronic kidney disease; N18.9 Chronic kidney disease, unspecified; K58.9 Irritable bowel syndrome, unspecified; M54.9 Dorsalgia, unspecified; G89.29 Other chronic pain; F41.9 Anxiety disorder, unspecified; F32.A Depression, unspecified; E66.9 Obesity, unspecified; Z79.01 Long term (current) use of anticoagulants; Z86.73 Personal history of transient ischemic attack (TIA), and cerebral infarction without residual deficits; Z79.899 Other long term (current) drug therapy; Z91.048 Other nonmedicinal substance allergy status; Z91.013 Allergy to seafood; Z51.5 Encounter for palliative care
CPT/HCPCS: 36415; 36600; 51702; 71045; 71275; 80053; 82803; 83605; 84145; 85025; 85610; 87040; 94640; 96365; 96366; 96375; 96376; 99285; A9270; G0378; J2060; J2185; J2270; J2930; J3370; J3490; J7040; Q9967; J7620-GY